=== PATIENT | female | born 1965 | race Caucasian/White ===

== ENCOUNTER 2016-12-20 14:26 | Observation (INO) ==
--- NOTE | 2016-12-20 14:48 | Emergency Department Note ---
Disposition Clinical Impression: Pyelonephritis Disposition: Admitted As Inpatient Condition: Fair Referrals: Ariel Cotto DO [Primary Care Provider] - Forms: Work/School Release, ED Satisfaction Letter Time of Disposition: 18:38 Female Urogenital HPI - General Chief complaint: ED Urogenital-Female Stated complaint: kidney pain, recent UTI Time Seen by Provider: 12/20/16 14:28 Source: patient Mode of arrival: ambulatory Limitations: no limitations Nursing Notes Reviewed: Yes Vital Signs Reviewed: Yes - History of Present Illness HPI Narrative: Patient is a 51 yo female with extensive PMHX. She has hx of "too numerous to count" UTIs since childhood, denies any workup by urology for these. 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 She was diagnosed about a week ago at [facility] with UTI and was prescribed cipro. She has not missed any doses, still taking abx. She presents today due to continued bilateral flank pain, "ureter spasms and bladder spasms" at the end of urination, nausea, and one episode of vomiting, subjective fevers and chills. She admits to mild blood in urine about a week ago but denies any current hematuria, dysuria, urgency, frequency. She is supposed to see Urology next week, has appt set up in [place]. Denies chest pain, shortness of breath, measured fevers at home, change in bowel habits. - Related Data Home Medications Medication Instructions Recorded Confirmed Black Cohosh 20 mg PO DAILY 12/20/16 12/20/16 BuPROPion XL (24 HR) [Wellbutrin 150 mg PO DAILY 12/20/16 12/20/16 XL] Cholecalciferol (D-3) [Vitamin D] 5,000 unit PO DAILY 12/20/16 12/20/16 Ciprofloxacin HCl [Cipro] 500 mg PO BID 12/20/16 12/20/16 Cyclobenzaprine [Flexeril] 10 mg PO TID 12/20/16 12/20/16 Cyclosporine [Restasis] 1 drop OP BID 12/20/16 12/20/16 Duloxetine HCl [Cymbalta] 60 mg PO DAILY 12/20/16 12/20/16 Fluticasone Propionate Nasal 50 mcg NS BID 12/20/16 12/20/16 [Flonase] HYDROcodone/Acet 7.5/325 mg [[place]wood 1 - 2 tab PO Q6H PRN 12/20/16 12/20/16 7.5-325 mg] Hydroxychloroquine [Plaquenuil] 200 mg PO BID 12/20/16 12/20/16 Levothyroxine [Synthroid] 75 mcg PO DAILY 12/20/16 12/20/16 Lubiprostone [Amitiza] 24 mcg PO DAILY 12/20/16 12/20/16 Magnesium 250 mg PO DAILY 12/20/16 12/20/16 Melatonin/Pyridoxine HCl (B6) 10 mg PO HS 12/20/16 12/20/16 [Melatonin 5 mg Tablet] Potassium Chloride [K-Tab ER] 10 meq PO BID 12/20/16 12/20/16 Promethazine [Phenergan] 25 mg PO Q6HR 12/20/16 12/20/16 Quetiapine Fumarate [SEROquel] 100 mg PO HS 12/20/16 12/20/16 Valacyclovir HCl [Valtrex] 1,000 mg PO DAILY 12/20/16 12/20/16 Warfarin [Coumadin] 6 mg PO DAILY 12/20/16 12/20/16 clonazePAM [Klonopin] 2 mg PO QID 12/20/16 12/20/16 rOPINIRole [Requip] 1 mg PO HS 12/20/16 12/20/16 Allergies Allergy/AdvReac Type Severity Reaction Status Date / Time Amoxicillin Allergy See Verified 11/27/16 19:14 Comments clarithromycin [From Biaxin] Allergy See Verified 11/27/16 19:14 Comments Enoxaparin [From Lovenox] Allergy See Verified 11/27/16 19:14 Comments hydrochlorothiazide Allergy See Verified 11/27/16 19:14 Comments levofloxacin [From Levaquin] Allergy Difficulty Verified 11/27/16 19:14 Breathing nafcillin Allergy Seizure Verified 11/27/16 19:14 oxcarbazepine Allergy Anaphylaxis Verified 11/27/16 19:14 [From Trileptal] Penicillins Allergy Seizure Verified 11/27/16 19:14 Sulfa (Sulfonamide Allergy See Verified 11/27/16 19:14 Antibiotics) Comments sumatriptan [From Imitrex] Allergy See Verified 11/27/16 19:14 Comments Terazosin Allergy See Verified 11/27/16 19:14 Comments vancomycin Allergy Seizure Verified 11/27/16 19:14 All systems ED: reviewed and negative except as stated. Constitutional: Reports: fever (subjective), chills Cardiovascular: Denies: chest pain Respiratory: Denies: dyspnea Gastrointestinal: Reports: abdominal pain, nausea, vomiting. Denies: diarrhea, constipation Musculoskeletal: Reports: back pain Neurological: Denies: headache, weakness, numbness, paresthesias Past Medical History - Past Medical History Attestation: Yes The following information was validated with the patient. Source: patient Medical history: Reports: DVT, fibromyalgia, kidney stones, thyroid disease Psychiatric history: Reports: bipolar - Social History Smoking Status: Current every day smoker Alcohol use: Reports: none Drug use: Reports: none Physical Exam - General Limitations: no limitations General appearance: alert, in no apparent distress - Head Head exam: atraumatic, normocephalic, normal inspection - Eye Eye exam: Present: normal appearance, PERRL, EOMI - ENT ENT exam: normal exam, normal oropharynx, mucous membranes moist - Neck Neck exam: Present: normal inspection, full ROM, trachea midline - Chest Chest inspection: Present: normal inspection, symmetric chest wall rise - Respiratory Respiratory exam: Present: normal lung sounds bilaterally - Cardiovascular Cardiovascular exam: Present: regular rate, normal rhythm, normal heart sounds - Abdominal Exam Abdominal exam: Present: soft, tenderness (mild generalized abdominal tenderness , worse in bilateral flanks/bilateral lower quadrants). Absent: distention, guarding, rebound, rigidity - Extremities Exam Extremities exam: Present: normal inspection, full ROM. Absent: tenderness, pedal edema - Back Exam Back exam: Present: normal inspection, full ROM, CVA tenderness (R), CVA tenderness (L). Absent: muscle spasm - Neurological Exam Neurological exam: Present: alert, oriented X3 - Psychiatric Psychiatric exam: Present: normal affect, normal mood - Skin Skin exam: Present: warm, dry, intact, normal color Course Course Narrative: Vitals WNL. Physical exam shows mild generalized abdominal tenderness, worse in bilateral flanks/bilateral lower quadrants. Positive bilateral CVA tenderness. Due to hx of UTI, stones, recent subjective fever and chills and diagnosed UTI (per patient) 1 week ago at outside facility, there is concern for UTI, pyelonephrosis, kidney stones. Will obtain CBC, BMP, UA, urine preg. Will also give patient morphine for pain control and zofran for nausea. 16:08 When patient was reevaluated, as soon as I entered the door she stated that she is upset that she did not receive her usual regimen of Dilaudid and Zofran. Morphine did not help with her pain. Patient given additional 1mg of dilaudid for further pain control. urinalysis shows too numerous to count white blood cell count. Concern for pyelonephritis. We will access the patient 's port to obtain CBC and BMP. We offered transfer to [facility] where she usually receives her care but the patient refused. Patient asked to be admitted here. When asked about if she had preference of a transfer to where she receives care and is supposed to follow with urology, she immediately stated that I was accusing her of pain shopping. This was not the case and she was asked about transfer due to patient preference since she has had multiple admissions in the past in [place]. Patient has a reported allergy to amoxicillin, clarithromycin, Levaquin, penicillin, sulfa, vancomycin. She states that she gets anaphylaxis with all of these medications. She is currently on ciprofloxacin without improvement. Very limited and antibiotic choices at this time. We will give the patient a dose of Rocephin and then admitted to hospitalist. Urine was sent for culture. Vital Signs Temperature 98.3 F 12/20/16 14:28 Pulse Rate 95 12/20/16 14:28 Respiratory Rate 16 12/20/16 14:28 Blood Pressure 129/66 12/20/16 14:28 O2 Sat by Pulse Oximetry 97 12/20/16 14:28 Temperature 98.3 F 12/20/16 14:28 Pulse Rate 78 12/20/16 17:30 Respiratory Rate 16 12/20/16 17:30 Blood Pressure 110/67 12/20/16 17:30 O2 Sat by Pulse Oximetry 98 12/20/16 17:30 Oxygen Delivery Oxygen Delivery Nasal Cannula Urogenital-Female - MDM Narrative Medical decision making narrative: urinalysis shows too numerous to count white blood cell count. Concern for pyelonephritis. We will access the patient's port to obtain CBC and BMP. We offered transfer to [facility] where she usually receives her care but the patient refused. Patient asked to be admitted here. Patient has a reported allergy to amoxicillin, clarithromycin, Levaquin, penicillin, sulfa, vancomycin. She states that she gets anaphylaxis with all of these medications. She is currently on ciprofloxacin without improvement. Very limited and antibiotic choices at this time. We will give the patient a dose of Rocephin and then admitted to hospitalist. Urine was sent for culture. 17:46 hospitalist was paged. I spoke with Dr. Orourke. He has requested that a CT of the abdomen and pelvis without contrast be obtained to assess for any stones prior to acceptance for admission. He stated that the patient could have kidney stones that would require urology consult. This was discussed with the patient and she was agreeable to this plan. 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 We will admit the hospitalist for further care. 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 D/ / Tony Mesa MD / Tony Mesa MD Interpreting Provider: Tony Mesa MD - Medical Records Medical records reviewed: Yes I reviewed the patient's medical records. - Lab Data Lab results reviewed: Yes I reviewed the patient's lab results. Result diagrams: 12/20/16 16:14 12/20/16 16:14 Lab Results 12/20/16 12/20/16 12/20/16 Range/Units 15:17 15:17 16:14 WBC 3.2 L (4.3-11.1) K/mcL RBC 3.62 L (3.82-4.97) M/mcL Hgb 12.0 (11.5-15.4) g/dL Hct 36.9 (35.3-44.9) % MCV 101.9 H (83.0-100.0) fL MCH 33.1 (28.0-33.3) pg MCHC 32.5 (31.6-35.5) g/dL RDW 15.3 H (11.5-14.5) % Plt Count 128 L (140-400) K/mcL MPV 9.8 (9.4-12.4) fL Immature Gran % 0.3 (0-4) % Seg Neutrophils % 54.1 % Lymphocytes % 30.7 % Monocytes % 10.6 % Eosinophils % 3.4 % Basophils % 0.9 % Neutrophils # 1.7 (1.6-8.9) K/mcL Lymphocytes # 1.0 (0.6-4.6) K/mcL Monocytes # 0.3 (0.0-1.3) K/mcL Eosinophils # 0.1 (0.0-0.6) K/mcL Basophils # 0.0 (0.0-0.2) K/mcL Sodium (136-145) mEq/L Potassium (3.5-4.5) mEq/L Chloride (98-109) mEq/L Carbon Dioxide (19-29) mEq/L BUN (7-20) mg/dL Creatinine (0.57-1.11) mg/dL Est GFR ( Amer) (> 60) Est GFR (Non-Af Amer) (> 60) BUN/Creatinine Ratio (6-26) Glucose (70-99) mg/dL Calculated Osmolality (280-300) Calcium (8.6-10.8) mg/dL Urine Color Yellow (Yellow) Urine Clarity Cloudy A (Clear) Urine pH 6.0 (5.0-8.0) pH Units Ur Specific Rice 1.021 (1.010-1.025) Urine Protein Trace (Neg-Trace) mg/dL Urine Glucose (UA) Normal (Normal) mg/dL Urine Ketones Negative (Negative) mg/dL Urine Blood Trace H (Negative) Urine Nitrite Negative (Negative) Urine Bilirubin Negative (Negative) Urine Urobilinogen Normal (Normal) mg/dL Ur Leukocyte Esterase Large H (Negative) Urine Microscopic RBC 5-15 H (0-3) per hpf Urine Microscopic WBC TNTC H (0-3) per hpf Ur Squamous Epith Cells Many H (None-Few) per lpf Urine Bacteria None Seen (None-Few) per hpf Hyaline Casts None Seen (None-Few) per lpf Ur Culture Indicated? YES A (NO) Urine Test Negative (Negative) 12/20/16 Range/Units 16:14 WBC (4.3-11.1) K/mcL RBC (3.82-4.97) M/mcL Hgb (11.5-15.4) g/dL Hct (35.3-44.9) % MCV (83.0-100.0) fL MCH (28.0-33.3) pg MCHC (31.6-35.5) g/dL RDW (11.5-14.5) % Plt Count (140-400) K/mcL MPV (9.4-12.4) fL Immature Gran % (0-4) % Seg Neutrophils % % Lymphocytes % % Monocytes % % Eosinophils % % Basophils % % Neutrophils # (1.6-8.9) K/mcL Lymphocytes # (0.6-4.6) K/mcL Monocytes # (0.0-1.3) K/mcL Eosinophils # (0.0-0.6) K/mcL Basophils # (0.0-0.2) K/mcL Sodium 137 (136-145) mEq/L Potassium 4.0 (3.5-4.5) mEq/L Chloride 107 (98-109) mEq/L Carbon Dioxide 27 (19-29) mEq/L BUN 13 (7-20) mg/dL Creatinine 0.88 (0.57-1.11) mg/dL Est GFR ( Amer) > 60 (> 60) Est GFR (Non-Af Amer) > 60 (> 60) BUN/Creatinine Ratio 15 (6-26) Glucose 76 (70-99) mg/dL Calculated Osmolality 283 (280-300) Calcium 8.4 L (8.6-10.8) mg/dL Urine Color (Yellow) Urine Clarity (Clear) Urine pH (5.0-8.0) pH Units Ur Specific Rice (1.010-1.025) Urine Protein (Neg-Trace) mg/dL Urine Glucose (UA) (Normal) mg/dL Urine Ketones (Negative) mg/dL Urine Blood (Negative) Urine Nitrite (Negative) Urine Bilirubin (Negative) Urine Urobilinogen (Normal) mg/dL Ur Leukocyte Esterase (Negative) Urine Microscopic RBC (0-3) per hpf Urine Microscopic WBC (0-3) per hpf Ur Squamous Epith Cells (None-Few) per lpf Urine Bacteria (None-Few) per hpf Hyaline Casts (None-Few) per lpf Ur Culture Indicated? (NO) Urine Test (Negative) - Radiology Data Radiology results reviewed: Yes I reviewed the patient's radiology results. 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 D/ / Tony Mesa MD / Tony Mesa MD Interpreting Provider: Tony Mesa MD edric - Murtaza Situation: Demographics, MOA Background: Presenting Complaint, Relevant PMH, Meds, & Allergies Assessment: Vital Signs, Course and respsone to treatment, Exam Concerns, Patient/Family Expectation, Pertinant Lab Results, Outstanding Labs Recommendation: Barrier(s) to disposition, Recommendation based on pending studies, treatments, or consults SCedric Report Given to: Dr. Karel Hauser Repor Time: 18:37
[2016-12-20] MEDS ORDERED: *HR* Morphine 2 MG/ML SYRINGE SQ ONE (15:11)
[2016-12-20] MEDS ORDERED: Ondansetron ODT 4 MG TAB.RAPDIS SL ONE (15:11)
[2016-12-20 15:29] LABS: Bilirubin,Urine Negative (Negative); Blood,Urine Trace (Negative); Clarity,Urine Cloudy (Clear); Color,Urine Yellow (Yellow); Glucose,Urine (UA) Normal (Normal); Ketones,Urine Negative (Negative); Leukocyte Esterase,Urine Large (Negative); Nitrite,Urine Negative (Negative); Protein,Urine Trace mg/dL (Neg-Trace); Specific Gravity,Urine 1.021 (1.010-1.025); Urobilinogen,Urine Normal (Normal)
[2016-12-20 15:32] LABS: Bacteria,Urine None Seen per hpf (None-Few); Hyaline Casts,Urine None Seen per lpf (None-Few); Squamous Epithelial Cell,Urine Many per lpf (None-Few); WBC,Urine TNTC per hpf (0-3)
--- NOTE | 2016-12-20 16:05 | Emergency Department Note ---
START Narrative - START START: I examined this patient and my medical decision-making was reviewed with the RADIOLOGIC TECHNOLOGY PROGRAM DIRECTOR/PA/Advanced Practice Nurse/Resident Physician. I agree with the documented findings, disposition and treatment plan as described except to the extent set forth below. ED attending: Patient's emergency medicine resident . Please see copy of this note for H&P evaluation and management and ED disposition. We both had independent [id number] time in contact with this patient. Briefly: A 51-year-old female history of multiple medical problems including medullary spongiform calcinosis, multiple medication allergies presents with dysuria and suprapubic discomfort urinalysis shows too numerous to count WBCs. Patient has a chest port access her vascular system. Patient will be getting parenteral antibiotics of Rocephin urine culture will be new screening labs and admit for pyelonephritis. Admission pending. Patient stable
[2016-12-20] MEDS ORDERED: *HR* HYDROmorphone (PF) 1 MG/ML SYRINGE IVP ONE ×2 (16:07→18:41)
[2016-12-20 16:24] LABS: Basophils % 0.9 %; Eosinophils # 0.1 K/mcL (0.0-0.6); Eosinophils % 3.4 %; Hematocrit 36.9 % (35.3-44.9); Immature Granulocytes % 0.3 % (0-4); Lymphocytes % 30.7 %; Mean Corpuscular HGB Conc 32.5 g/dL (31.6-35.5); Mean Corpuscular Hemoglobin 33.1 pg (28.0-33.3); Mean Corpuscular Volume 101.9 fL (83.0-100.0); Mean Platelet Volume 9.8 fL (9.4-12.4); Monocytes # 0.3 K/mcL (0.0-1.3); Monocytes % 10.6 %; Neutrophils # 1.7 K/mcL (1.6-8.9); Platelet Count 128 K/mcL (140-400); Red Blood Count 3.62 M/mcL (3.82-4.97); Red Cell Distribution Width 15.3 % (11.5-14.5); Segmented Neutrophils % 54.1 %
[2016-12-20 16:35] LABS: BUN/Creatinine Ratio 15 (6-26); Blood Urea Nitrogen 13 mg/dL (7-20); Calcium 8.4 mg/dL (8.6-10.8); Carbon Dioxide 27 mEq/L (19-29); Chloride 107 mEq/L (98-109); Glucose 76 mg/dL (70-99); Osmolality,Calculated 283 (280-300); Sodium 137 mEq/L (136-145); eGFR For African Americans > 60 (> 60); eGFR For Non-African Americans > 60 (> 60)
[2016-12-20] MEDS ORDERED: Ondansetron 4 MG/2 ML VIAL IVP ONE (18:41)
[2016-12-20] MEDS ORDERED: Naloxone 0.4 MG/ML INJ IVP PRN (19:34)
--- NOTE | 2016-12-20 20:12 | Internal Med History&Physical ---
<AbbyjerodamericaSanjeev romo - Last Filed: 12/20/16 21:37> Date of Encounter: 12/20/16 Time of Encounter: 19:00 Assessment and Plan (1) Pyelonephritis Current visit: Yes Status: Acute Patient presents with suspected pyelonephritis based on her current symptomatology of severe bilateral flank pain with associated chills, fever, and nausea. Patient reports she has a long history of UTIs, kidney stones, and kidney infections since the reported age of 5. Patient reports symptoms began approximately 2 weeks ago beginning with left flank pain and hematuria and then the right flank began hurting 1 week ago without hematuria. Patient's current GFR is > 60 and creatinine is 0.88. IV ceftriaxone was started in the ED and will be continued at 1,000 mg Q24. Patient has a long history of allergies to antibiotic medications including amoxicillin, clarithromycin, levofloxacin, nafcillin, penicillin, sulfa antibiotics, and vancomycin. We will obtain patient 's old medical records from [facility] to review past UTI treatments and sensitivities. Urine culture ordered. Will consider adding and/ or changing IV antibiotic therapy based on urine culture results and sensitivities. Patient to be monitored for pain, hematuria, and increasing signs of urosepsis. Monitor I&O. (2) Bilateral flank pain Current visit: Yes Status: Acute Patient presents with severe bilateral flank pain that she reports began with her left flank two weeks ago with hematuria and now involves her right flank. She denies current hematuria. She states that this feels like kidney infections she has had in the past. On examination, patient is extremely uncomfortable. Dilaudid 0.5 mg IVP Q2HR PRN ordered with percocet 5 mg Q4 PRN. Will monitor patient for signs of continued pain and administer medication as needed. IV ceftriaxone started in the ED and will be continued for infection coverage. (3) Abnormal CT of the abdomen Current visit: Yes Status: Acute Patient presents with severe bilateral flank pain that has been occurring for the past two weeks with episodic hematuria. Patient reports that a CT of the abdomen taken at [facility] in the past showed an enlarged blood vessel in her abdomen which she finds concerning. Findings of a CT of the abdomen/pelvis without contrast today in the peritoneum/retroperitoneum shows IVC filter present as well as nodular densities within the retroperitoneal space adjacent to the aorta which appear to represent varices. Consult to vascular surgery ordered and discussed with Dr. Byrnes who will see the patient. Will consider CT angio of the abdomen/pelvis with emphasis on the delayed phase based on his recommendation following review of the patient's medical records obtained from [facility] as well as possible consult to Dr. Hanson from rheumatology. (4) Nausea Current visit: Yes Status: Acute Patient presents with acute nausea related to current symptoms of severe bilateral flank pain due to possible UTI and/or kidney infection. Patient reports one episode of vomiting. IV Zofran PRN ordered. Clear liquid diet to be advanced as tolerated ordered. Monitor I&O and daily weight. (5) Thyroid disease Current visit: Yes Status: Chronic Patient presents with history of chronic thyroid disease. Will continue patient' s levothyroxine. (6) Lupus (systemic lupus erythematosus) Current visit: Yes Status: Chronic Patient presents with lupus. Will continue patient's hydroxychloroquine. Qualifiers: Systemic lupus erythematosus type: unspecified Systemic lupus erythematosus organ involvement: unspecified Qualified Code(s): M32.9 - Systemic lupus erythematosus, unspecified (7) Constipation due to pain medication Current visit: Yes Status: Chronic Patient reports chronic constipation due to pain medication use. Patient reports she typically has one BM per week which would go for a longer period if she did not take her bowel medications. Colace 100 mg BID daily ordered. Miralax 17 gm packet ordered daily PRN. (8) DVT prophylaxis Current visit: Yes Status: Acute Patient to be placed on DVT prophylaxis due to admission protocol, history of DVT, and bed rest status. Patient's warfarin therapy to be continued. Internal Medicine - H&P: HPI Chief complaint: Bilateral flank pain, recent UTI Admitted From: Emergency Dept Plans for Post Hospital Care: Home History of present illness: Mrs. Sandoval is a 51 year old female who presents from the ED with chief complaint of severe bilateral flank pain with spasms. She reports some nausea, fever, chills, and one episode of vomiting. Patient reports having a recent UTI for which she was put in PO Ciprofloxacin. She states that she was taking the Cipro as directed but does not feel it is helping. She reports she's had the flank pain for two weeks and it began in her left flank with gross hematuria and then it also began in her right flank one week ago with no hematuria that she could see. She reports it feels like a kidney infection she has had in the past. Patient reports a long history of UTIs since the age of 5 as well as kidney stones. Mrs. Sandoval also reports chronic constipation due to pain medication use. She denies recent illness, headache, changes in vision, dizziness, pre-syncope or syncope. Patient's medical history includes DVTs, fibromyalgia, renal calculi, thyroid disease, spongiform calcinosis of the kidney, lupus, sjogren's, and factor C & S deficiency. Patient also reports being told she has an enlarged blood vessel in her abdomen when last seen at [facility] in [place], [place]. On examination, patient is experiencing increased pain bilaterally in her back. Patient is at moderate risk for UTI and/or kidney infection based on past history and current symptoms and will be placed as observation status with orders to obtain medical records from [facility], pain management with urine culture ordered, dilaudid 0.5 mg IVP Q2 PRN, percocet 5 mg Q4 PRN for breakthrough pain, continuation of IV ceftriaxone for infection coverage, and supplemental O2 with SpO2 monitoring. Will consider changing and/or adding antibiotic coverage based on [facility] records of previous UTI sensitivities. Patient is currently experiencing nausea and will have orders for clear liquid diet to be advanced as tolerated and IV Zofran PRN for nausea. Follow-up labs ordered. Patient to be monitored closely for pain as well as signs of increasing infection. Time spent with patient > 40 minutes. Past Med Surg Social Fam HX - Past Medical History Source: patient Medical history: DVT, fibromyalgia, kidney stones, thyroid disease, other (Lupus , sjogren's, spongiform calcinosis of the kidney, factor C & S deficiency) Psychiatric history: bipolar - Past Surgical History Surgical History: ureteral stent - Social History Smoking Status: Current every day smoker Packs per day: 1 PPD Alcohol use: none Drug use: none Occupational status: previously employed Current living situation: Home, With Family Activity Level: Independent ambulation Recent Out of Country Travel Within the Last 8 Weeks: No Exposure or Possible Exposure to Illness During Travel: No - Family History Father Race: Family Member Ethnicity: Non- Living Status: Still Living Hx Family Cardiac Disorders: Yes (HTN) Hx Family Endocrine Disorder: Yes (DM) Mother Race: Family Member Ethnicity: Non- Living Status: Age at : 57 Cause of : MS Hx Family Neuromuscular Disorders: Yes (MS) Brother Race: Family Member Ethnicity: Non- Living Status: Still Living Hx Family Medical Disorders: No Sister Race: Family Member Ethnicity: Non- Living Status: Still Living Hx Family Medical Disorders: Yes (C & S deficiency) Internal Medicine - H&P: Meds BuPROPion XL (24 HR) [Wellbutrin XL] 150 mg PO DAILY 12/20/16 [History] Cholecalciferol (D-3) [Vitamin D] 5,000 unit PO DAILY 12/20/16 [History] Ciprofloxacin HCl [Cipro] 500 mg PO BID 12/20/16 [History] Cyclobenzaprine [Flexeril] 10 mg PO TID 12/20/16 [History] Cyclosporine [Restasis] 1 drop OP BID 12/20/16 [History] Duloxetine HCl [Cymbalta] 60 mg PO DAILY 12/20/16 [History] Fluticasone Propionate Nasal [Flonase] 50 mcg NS BID 12/20/16 [History] HYDROcodone/Acet 7.5/325 mg [[place] 7.5-325 mg] 1 - 2 tab PO Q6H PRN 12/20/16 [ History] Hydroxychloroquine [Plaquenuil] 200 mg PO BID 12/20/16 [History] Levothyroxine [Synthroid] 75 mcg PO DAILY 12/20/16 [History] Lubiprostone [Amitiza] 24 mcg PO DAILY 12/20/16 [History] Melatonin/Pyridoxine HCl (B6) [Melatonin 5 mg Tablet] 10 mg PO HS 12/20/16 [ History] Potassium Chloride [K-Tab ER] 10 meq PO BID 12/20/16 [History] Promethazine [Phenergan] 25 mg PO Q6HR PRN 12/20/16 [History] Quetiapine Fumarate [SEROquel] 100 mg PO HS 12/20/16 [History] RX: Black Cohosh 20 mg PO DAILY 12/20/16 [History] RX: Magnesium 250 mg PO DAILY 12/20/16 [History] Valacyclovir HCl [Valtrex] 1,000 mg PO DAILY 12/20/16 [History] Warfarin [Coumadin] 6 mg PO DAILY 12/20/16 [History] clonazePAM [Klonopin] 2 mg PO BID 12/20/16 [History] clonazePAM [Klonopin] 4 mg PO HS 12/20/16 [History] rOPINIRole [Requip] 1 mg PO HS 12/20/16 [History] Allergies Amoxicillin Allergy (Verified 11/27/16 19:14) See Comments clarithromycin [From Biaxin] Allergy (Verified 11/27/16 19:14) See Comments Enoxaparin [From Lovenox] Allergy (Verified 11/27/16 19:14) See Comments hydrochlorothiazide Allergy (Verified 11/27/16 19:14) See Comments levofloxacin [From Levaquin] Allergy (Verified 11/27/16 19:14) Difficulty Breathing nafcillin Allergy (Verified 11/27/16 19:14) Seizure oxcarbazepine [From Trileptal] Allergy (Verified 11/27/16 19:14) Anaphylaxis Penicillins Allergy (Verified 11/27/16 19:14) Seizure Sulfa (Sulfonamide Antibiotics) Allergy (Verified 11/27/16 19:14) See Comments sumatriptan [From Imitrex] Allergy (Verified 11/27/16 19:14) See Comments Terazosin Allergy (Verified 11/27/16 19:14) See Comments vancomycin Allergy (Verified 11/27/16 19:14) Seizure topiramate [From Topamax] Adverse Reaction (Verified 12/20/16 20:01) Confusion All Systems PM: A 10-system review of systems was performed and is negative for pertinent findings except as documented above in the HPI. - Constitutional Constitutional: as per HPI, chills, fever(s), weakness, no night sweats - EENT Eyes: no change in vision, no discharge, no pain, no photophobia Ears: no ear discharge, no ear pain, no tinnitus Nose, mouth and throat: no dysphagia, no nasal discharge, no neck pain, no sore throat - Breasts Breasts: as per HPI - Cardiovascular Cardiovascular ROS IM: no chest pain, no diaphoresis, no dyspnea, no lightheadedness, no palpitations, no syncope - Respiratory Respiratory: no cough, no dyspnea, no wheezing, no excessive phlegm production - Gastrointestinal Gastrointestinal: as per HPI, abdominal pain, nausea, vomiting - Genitourinary Genitourinary: as per HPI, dysuria, flank pain (Bilateral), no change in urinary stream, no hematuria Menstruation: as per HPI - Musculoskeletal Musculoskeletal ROS IM: no numbness, no tingling - Integumentary Integumentary IM: no rash, no unusual bruising - Neurological Neurological ROS: no confusion, no convulsions, no focal weakness, no numbness, no tingling, no tremor(s) - Psychiatric Psychiatric: as per HPI - Endocrine Endocrine IM: as per HPI - Hematologic/Lymphatic Hematologic/Lymphatic: no easy bruising - Allergic/Immunologic Allergic/Immunologic: as per HPI - Constitutional Vitals: Temp Pulse Resp BP Pulse Ox 97.6 F 85 16 131/75 94 12/20/16 19:49 12/20/16 19:49 12/20/16 19:49 12/20/16 19:49 12/20/16 19:49 General appearance: Present: cooperative, A&O X 3, obese, severe distress, answers questions appropriately - Head Head exam: Present: atraumatic, normocephalic - Eye Eye exam: Present: PERRL, conjuntiva pink, sclera anicteric Pupils: Present: PERRL - ENT ENT exam: Present: normal exam, normal external ear exam - Neck Neck exam general surgery: Present: supple, trachea midline. Absent: lymphadenopathy - Respiratory Respiratory exam: Present: CTAB. Absent: accessory muscle use, rales, rhonchi, wheezes - Cardiovascular Cardiovascular exam: Present: RRR, +S1, +S2. Absent: diastolic murmur, gallop, rubs, systolic murmur - GI/Abdominal GI/Abdominal exam: Present: soft, tenderness - Rectal Rectal exam: Present: deferred - Additional comments: exam deferred. - Extremities Exam Extremities exam: Present: warm, radial pulses palpable and symetrical. Absent : calf tenderness, cyanotic, pedal edema - Back Exam Back exam: Present: CVA tenderness (L), CVA tenderness (R) - Neurological Exam Neurological exam: Present: CN II-XII intact, oriented X3, no focal deficits. 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 D/ / Tony Mesa MD / Tony Mesa MD Interpreting Provider: Tony Mesa MD <KarelAnnika E - Last Filed: 12/20/16 22:10> Date of Encounter: 12/20/16 Internal Medicine - H&P: HPI History of present illness: Ms. Sandoval is a 51 year old female All Systems PM: A 10-system review of systems was performed and is negative for pertinent findings except as documented above in the HPI. - Constitutional Vitals: Temp Pulse Resp BP Pulse Ox 97.6 F 85 16 131/75 94 12/20/16 19:49 12/20/16 19:49 12/20/16 19:49 12/20/16 19:49 12/20/16 19:49 Internal Med - H&P Results - Labs CBC & Chem 7: 12/20/16 16:14 12/20/16 16:14 - Attending Attestation Patient seen and examined, agree with assessment and plan of Sanjeev May NP. Patient with bilateral flank pain, UTI and concern for pyelonephritis. Has history of recurrent pyelo, currently on cipro outpatient with continued symptoms. 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 Adding LFTs to look for liver disease as etiology of varices. Will obtain records from [place] and [place]. Also patient with recurrent DVTs (states most recently diagnosed with one 6 weeks ago ) and she states to me that she has history of thrombocytopenia when given lovenox but not when given heparin. She has IVC filter in place and INR is 1.5 on coumadin. 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
[2016-12-20 20:57] LABS: Albumin 3.2 g/dL (3.5-5.0); Albumin/Globulin Ratio 0.9 (1.1-2.2); Bilirubin,Direct 0.1 mg/dL (0.0-0.5); Bilirubin,Indirect 0.2 mg/dL (0.0-1.2); Bilirubin,Total 0.3 mg/dL (0.2-1.2); Globulin 3.7 g/dL (2.4-3.5); Total Protein 6.9 g/dL (6.0-8.3)
[2016-12-20] MEDS: rOPINIRole 1 MG TABLET PO SCH (22:03)
[2016-12-20] MEDS: Melatonin 3 MG TABLET PO SCH (22:04)
[2016-12-20] MEDS: (Cyclosporine [Restasis] 1 DROP) OP SCH (22:04)
[2016-12-20] MEDS: clonazePAM 1 MG TABLET PO SCH (22:04)
[2016-12-21] MEDS: *HR* HYDROmorphone (PF) 1 MG/ML SYRINGE IVP PRN ×7 (00:36→21:46)
[2016-12-21] MEDS: Ondansetron 4 MG/2 ML VIAL IVP PRN ×2 (00:39→09:25)
[2016-12-21 05:09] LABS: Basophils % 0.8 %; Eosinophils # 0.1 K/mcL (0.0-0.6); Eosinophils % 5.1 %; Hematocrit 34.2 % (35.3-44.9); Hemoglobin 11.2 g/dL (11.5-15.4); Lymphocytes % 38.8 %; Mean Corpuscular HGB Conc 32.7 g/dL (31.6-35.5); Mean Corpuscular Hemoglobin 33.8 pg (28.0-33.3); Mean Corpuscular Volume 103.3 fL (83.0-100.0); Monocytes # 0.2 K/mcL (0.0-1.3); Monocytes % 9.4 %; Neutrophils # 1.2 K/mcL (1.6-8.9); Platelet Count 131 K/mcL (140-400); Red Blood Count 3.31 M/mcL (3.82-4.97); Red Cell Distribution Width 15.4 % (11.5-14.5); Segmented Neutrophils % 45.9 %
[2016-12-21 05:14] LABS: INR 3.1; Prothrombin Time 34.1 Seconds (9.4-12.1)
[2016-12-21 05:17] LABS: Activated Partial Thrombo Time 53.6 Seconds (26.0-36.0)
[2016-12-21 05:34] LABS: BUN/Creatinine Ratio 13 (6-26); Blood Urea Nitrogen 11 mg/dL (7-20); Calcium 8.2 mg/dL (8.6-10.8); Carbon Dioxide 27 mEq/L (19-29); Chloride 105 mEq/L (98-109); Glucose 79 mg/dL (70-99); Osmolality,Calculated 282 (280-300); Potassium 3.9 mEq/L (3.5-4.5); Sodium 137 mEq/L (136-145); eGFR For African Americans > 60 (> 60); eGFR For Non-African Americans > 60 (> 60)
[2016-12-21] MEDS: Cholecalciferol (D-3) 1,000 UNIT TABLET PO SCH (07:39)
[2016-12-21] MEDS: BuPROPion XL (24 HR) 150 MG TABLET PO SCH (07:39)
[2016-12-21] MEDS: Magnesium Oxide 400 MG TABLET PO SCH (07:39)
[2016-12-21] MEDS: valACYclovir 500 MG TABLET PO SCH (07:39)
[2016-12-21] MEDS: clonazePAM 1 MG TABLET PO SCH ×4 (07:40→20:17)
[2016-12-21] MEDS: (Lubiprostone [Amitiza] 24 MCG) PO SCH (07:51)
[2016-12-21] MEDS: (Cyclosporine [Restasis] 1 DROP) OP SCH ×2 (07:51→20:19)
--- NOTE | 2016-12-21 08:51 | Vascular/Endovasc Consult Note ---
Date of Encounter: 12/21/16 Time of Encounter: 08:48 Assessment and Plan (1) Bilateral flank pain Current Visit: Yes Status: Acute Patient has flank pain with no obvious etiology at this time. This issue is presently being worked up from a medical perspective. (2) Abnormal CT of the abdomen Current Visit: Yes Status: Acute Patient had an abnormal CT scan performed at [place]. She was recommended to undergo a biopsy because there was concern that the areas represented lymphadenopathy. She was then told that the interpretation was revised and that it was thought that this was due to enlarged retroperitoneal veins and that the biopsy was canceled. The patient does not believe she has had a CT scan with contrast to further evaluate her abdominal and pelvic area. She does note that she is status post a abdominal hysterectomy and nephrectomy. She relates that she was told that the organs were engorged with blood at the time that they were surgically removed. She has no other specific information regarding any vascular pathology of the abdomen or pelvis. Due to these symptoms and what appears to be an unclear diagnosis I would recommend that a CT angiogram of the abdomen and pelvis with emphasis on the venous phase be obtained to further aid in her diagnostic evaluation.. I do not anticipate any vascular surgery intervention. I will sign off the case for now. Please let me know quite be of any further assistance. (3) Lupus (systemic lupus erythematosus) Current Visit: Yes Status: Chronic Agree with patient seeking rheumatologic evaluation and care. I've also suggested that she have consultation here at [place] if she does not want to wait for consultation at [place]. Qualifiers: Systemic lupus erythematosus type: unspecified Systemic lupus erythematosus organ involvement: unspecified Qualified Code(s): M32.9 - Systemic lupus erythematosus, unspecified (4) Neutropenia Current Visit: Yes Status: Chronic Patient has neutropenia and apparently this has been present for at least 2 years. It is unclear what workup has been performed or if she has had a bone marrow for this concern. Qualifiers: Neutropenia type: unspecified Qualified Code(s): D70.9 - Neutropenia, unspecified - History of Present Illness Consult date: 12/21/16 Consult reason: Abnormal CT scan and history of coagulopathy Chief complaint: Abdominal pain History of present illness: Ms. Sandoval is a 51 year old female Who was admitted via the emergency room yesterday. The patient has a variety of complaints including bilateral flank pain. There was concern raised about possible pyelonephritis. A CT scan without contrast was obtained yesterday. This demonstrated areas in the retroperitoneum that were suggestive of possible varicosities. The patient has no knowledge of previous diagnosis of varicosities in the retroperitoneum. She denies any history of cirrhosis or hepatitis or Budd-Chiari syndrome. She does have a variety of coagulopathic processes and autoimmune processes. She has a two-year history of neutropenia as well as sees a billing machine operator at [facility] in [place]. She is scheduled to see a ocular care aide in [place] at [facility] in the near future. She has had multiple lower extremity DVTs. She has had one episode of pulmonary embolism. She had an IVC filter placed. She has no complaints consistent with intra-abdominal bleeding. She does note that about 2 weeks ago she developed discoloration on her left lateral thigh with no antecedent history of trauma. Past Med Surg Social Fam HX - Past Medical History Medical history: DVT, fibromyalgia, kidney stones, pulmonary embolus, thyroid disease, other (Lupus, sjogren's, spongiform calcinosis of the kidney, factor C & S deficiency) Psychiatric history: bipolar - Past Surgical History Surgical History: ureteral stent, IVC filter - Social History Smoking Status: Current every day smoker Packs per day: 1 PPD Smokeless Tobacco Status: No Alcohol use: none Drug use: none - Family History Father Race: Family Member Ethnicity: Non- Living Status: Still Living Hx Family Cardiac Disorders: Yes (HTN) Hx Family Endocrine Disorder: Yes (DM) Mother Race: Family Member Ethnicity: Non- Living Status: Age at : 57 Cause of : MS Hx Family Neuromuscular Disorders: Yes (MS) Brother Race: Family Member Ethnicity: Non- Living Status: Still Living Hx Family Medical Disorders: No Sister Race: Family Member Ethnicity: Non- Living Status: Still Living Hx Family Medical Disorders: Yes (C & S deficiency) Medications and Allergies Black Cohosh 20 mg PO DAILY 12/20/16 [History] BuPROPion XL (24 HR) [Wellbutrin XL] 150 mg PO DAILY 12/20/16 [History] Cholecalciferol (D-3) [Vitamin D] 5,000 unit PO DAILY 12/20/16 [History] Ciprofloxacin HCl [Cipro] 500 mg PO BID 12/20/16 [History] Cyclobenzaprine [Flexeril] 10 mg PO TID 12/20/16 [History] Cyclosporine [Restasis] 1 drop OP BID 12/20/16 [History] Duloxetine HCl [Cymbalta] 60 mg PO DAILY 12/20/16 [History] Fluticasone Propionate Nasal [Flonase] 50 mcg NS BID 12/20/16 [History] HYDROcodone/Acet 7.5/325 mg [[place] 7.5-325 mg] 1 - 2 tab PO Q6H PRN 12/20/16 [ History] Hydroxychloroquine [Plaquenuil] 200 mg PO BID 12/20/16 [History] Levothyroxine [Synthroid] 75 mcg PO DAILY 12/20/16 [History] Lubiprostone [Amitiza] 24 mcg PO DAILY 12/20/16 [History] Magnesium 250 mg PO DAILY 12/20/16 [History] Melatonin/Pyridoxine HCl (B6) [Melatonin 5 mg Tablet] 10 mg PO HS 12/20/16 [ History] Potassium Chloride [K-Tab ER] 10 meq PO BID 12/20/16 [History] Promethazine [Phenergan] 25 mg PO Q6HR PRN 12/20/16 [History] Quetiapine Fumarate [SEROquel] 100 mg PO HS 12/20/16 [History] Valacyclovir HCl [Valtrex] 1,000 mg PO DAILY 12/20/16 [History] Warfarin [Coumadin] 6 mg PO DAILY 12/20/16 [History] clonazePAM [Klonopin] 2 mg PO BID 12/20/16 [History] clonazePAM [Klonopin] 4 mg PO HS 12/20/16 [History] rOPINIRole [Requip] 1 mg PO HS 12/20/16 [History] Allergies Amoxicillin Allergy (Verified 11/27/16 19:14) See Comments clarithromycin [From Biaxin] Allergy (Verified 11/27/16 19:14) See Comments Enoxaparin [From Lovenox] Allergy (Verified 11/27/16 19:14) See Comments hydrochlorothiazide Allergy (Verified 11/27/16 19:14) See Comments levofloxacin [From Levaquin] Allergy (Verified 11/27/16 19:14) Difficulty Breathing nafcillin Allergy (Verified 11/27/16 19:14) Seizure oxcarbazepine [From Trileptal] Allergy (Verified 11/27/16 19:14) Anaphylaxis Penicillins Allergy (Verified 11/27/16 19:14) Seizure Sulfa (Sulfonamide Antibiotics) Allergy (Verified 11/27/16 19:14) See Comments sumatriptan [From Imitrex] Allergy (Verified 11/27/16 19:14) See Comments Terazosin Allergy (Verified 11/27/16 19:14) See Comments vancomycin Allergy (Verified 11/27/16 19:14) Seizure topiramate [From Topamax] Adverse Reaction (Verified 12/20/16 20:01) Confusion All Systems Review: A 10-system review of systems was performed and is negative for pertinent findings except as documented above in the HPI. Exam Vital Signs, Last 4 Hours Temp Pulse Resp BP Pulse Ox 12/21/16 07:58 98.3 F 78 16 121/80 91 Exam: Patient is awake and alert. She is lying in bed on IIIB. Vital signs are reviewed. I was unable to perform a physical examination at the time of my visit with the patient. Consult Discharge Plan - Plan Referrals: Ariel Cotto DO [Primary Care Provider] -
--- NOTE | 2016-12-21 10:17 | Internal Med Progress Note ---
Date of Encounter: 12/21/16 Time of Encounter: 08:25 - Assessment and plan (1) Pyelonephritis Current Visit: Yes Status: Acute Assessment and plan: Patient admitted for pyelonephritis. Urine has trace of blood, large leukocyte esterase, 5-15 red cells, white cells too numerous to count, no bacteria. Culture is pending. Patient has a long history of UTIs, renal calculi, pyelonephritis since age 5. She states that she was seen and no blurriness last week for the same symptoms, she was given IV Dilaudid, prescription for Cipro, and discharged to home. She said she did not get any better. I am attempting to get medical records from a blood gas to review for past UTI treatments and sensitivities. Continue Rocephin 1 g every 24 hours Continue pain management Continue IV fluids Culture is pending Attempting to get past medical records from outlying hospital. (2) Bilateral flank pain Current Visit: Yes Status: Acute Assessment and plan: Left flank pain onset 2 weeks ago with hematuria, now thrombosed right flank. Plan as above (3) Thyroid disease Current Visit: Yes Status: Chronic Assessment and plan: Continue levothyroxine. (4) Constipation due to pain medication Current Visit: Yes Status: Chronic Assessment and plan: Chronic due to opioid use. Colace, miralax, (5) Nausea Current Visit: Yes Status: Acute Assessment and plan: Pt with nausea related to pyleonephritis and flank pain. Pt reports nausea this a.m. Continue anti-emtics Clear liquids if tolerated IVF hydration. (6) Abnormal CT of the abdomen Current Visit: Yes Status: Acute Assessment and plan: Patient reports a lengthy history of abnormal CT the abdomen that was done at [facility] . Initially it was concerning for an enlarged lymph node and she was referred to [place]. While she was on her way to [place] for evaluation, she was told that the test was canceled and that was actually a vessel within aneurysm. Follow-up for that was pending at her primary care physician. Vascular surgery was consulted to see patient here. She was seen this morning and it was recommended that she have a CT angiogram with emphasis on the venous phase to further evaluate her abdomen. He does not anticipate any surgical intervention at this time. Vascular surgery has signed off. Follow-up outpatient with primary care for further evaluation. (7) Lupus (systemic lupus erythematosus) Current Visit: Yes Status: Chronic Assessment and plan: Chronic. Patient states that she is going to follow-up with rheumatology at [facility]. Qualifiers: Systemic lupus erythematosus type: unspecified Systemic lupus erythematosus organ involvement: unspecified Qualified Code(s): M32.9 - Systemic lupus erythematosus, unspecified (8) Neutropenia Current Visit: Yes Status: Chronic Assessment and plan: Chronic. Patient has been following hematology oncology at [facility] Patient is on neutropenic precautions. We will continue to monitor while she is inpatient. Follow-up with primary hematology oncology. Qualifiers: Neutropenia type: unspecified Qualified Code(s): D70.9 - Neutropenia, unspecified (9) DVT prophylaxis Current Visit: Yes Status: Acute Assessment and plan: Patient is on Coumadin. Monitor INR. Therapeutic at 3.1. He has history of multiple PEs, DVT, has IVC filter. - Time Spent With Patient less than 15 minutes - Subjective Interval history: Pt was seen and assessed at [address] Byrnes was also present for his consultation. Pt appears to be frustrated with multiple providers and the course of her care to this point. She normally follows hematology/oncology at [facility], however, she feels as if they are ignoring her and not explaining her coagulopathies and her neutropenia. She also verbalizes frustration over the changing diagnoses involving the multiple abdominal CTs that she has had. Dr. Byrnes recommends a CT with contrast since she has not had one, and no immediate intervention is needed. Pt has an area of bruising to L lateral thigh and is unaware of how it happened and denies known injury, states that she noticed it about 2 weeks ago. Pt states that she was at [facility] about a week ago for abdominal pain and flank pain and "they didn't do anything." After discussing her course of care, she states that she was given IV Dilaudid and a prescription for Cipro and was discharged. Pt also states that she was here in late October for a "second opinion " of what she believed to be a misdiagnosis by [facility] She had a CT pelvis w /o contrast and was found to have a R hip contusion, without fracture. She was referred back to her primary care provider for further testing, possible MRI, and continued pain managment. She is scheduled to see rheumatology at [facility] in the near future. Pt appears to be slightly depressed and repeats several times that she just wants to be treated fairly and that none of the physicians she has seen pay attention to her and don't care for her, even eluding to the fact that she feels that she doesn't get standard care due to her insurance. Pt states that she cares for her 9 year old grandson, daughter is not in the picture. I asked if she would like to see psychiatry since she appears to be depressed, she states that she already sees a counselor. We will continue to monitor labs and provide pain control. She will need to follow up outpatient for her other chronic problems . - Constitutional Vitals: Temp Pulse Resp BP Pulse Ox 98.3 F 78 16 121/80 91 12/21/16 07:58 12/21/16 07:58 12/21/16 07:58 12/21/16 07:58 12/21/16 07:58 General appearance: Present: cooperative, A&O X 3, obese, severe distress, answers questions appropriately - Head Head exam: Present: normal inspection - Eye Eye exam: Present: normal appearance, conjuntiva pink - ENT ENT exam: Present: mucous membranes moist, normal exam, normal external ear exam - Neck Neck exam general surgery: Present: normal inspection. Absent: lymphadenopathy , tenderness - Respiratory Respiratory exam: Present: CTAB. Absent: rales, respiratory distress, rhonchi, stridor, wheezes - Cardiovascular Cardiovascular exam: Present: RRR, +S1, +S2. Absent: diastolic murmur, systolic murmur - GI/Abdominal GI/Abdominal exam: Present: normal bowel sounds, tenderness. Absent: distended , hepatomegaly - Extremities Exam Extremities exam: Present: warm, radial pulses palpable and symetrical. Absent : pedal edema, tenderness - Neurological Exam Neurological exam: Present: alert, oriented X3, strengths equal and symetr throughout. Absent: facial droop, speech deficit - Psychiatric Psychiatric exam: Present: flat affect - Skin Skin exam: Present: dry, intact, normal color, warm. Absent: rash Internal Medicine: Result - Labs CBC & Chem 7: 12/21/16 04:11 12/21/16 04:11 Labs: Short CBC 12/21/16 Range/Units 04:11 WBC 2.6 L (4.3-11.1) K/mcL Hgb 11.2 L (11.5-15.4) g/dL Hct 34.2 L (35.3-44.9) % Plt Count 131 L (140-400) K/mcL Neutrophils # 1.2 L (1.6-8.9) K/mcL BMP 12/21/16 04:11 Sodium 137 Potassium 3.9 Chloride 105 Carbon Dioxide 27 BUN 11 Creatinine 0.85 Glucose 79 Calcium 8.2 L - ABG Interpretation ABG results: PT/INR, D-dimer PT 34.1 Seconds (9.4-12.1) H 12/21/16 04:11 Consult Discharge Plan - Plan Referrals: Ariel Cotto DO [Primary Care Provider] -
[2016-12-21] MEDS ORDERED: *HR* HYDROmorphone (PF) 1 MG/ML SYRINGE IVP ONE (15:34)
[2016-12-21] MEDS ORDERED: *HR* Warfarin 3 MG TABLET PO SCH (18:00)
[2016-12-21] MEDS: Melatonin 3 MG TABLET PO SCH (20:17)
[2016-12-21] MEDS: rOPINIRole 1 MG TABLET PO SCH (20:17)
[2016-12-21] MEDS: *HR* OxyCODONE/APAP 5/325 TABLET PO PRN (20:18)
[2016-12-21] MEDS ORDERED: Fluconazole 100 MG TABLET PO ONE (20:44)
[2016-12-22] MEDS: *HR* HYDROmorphone (PF) 1 MG/ML SYRINGE IVP PRN ×3 (01:46→10:25)
[2016-12-22] MEDS: *HR* OxyCODONE/APAP 5/325 TABLET PO PRN ×3 (03:20→13:17)
[2016-12-22 03:46] LABS: Basophils % 0.8 %; Eosinophils # 0.1 K/mcL (0.0-0.6); Eosinophils % 3.4 %; Hematocrit 34.1 % (35.3-44.9); Immature Granulocytes % 0.4 % (0-4); Lymphocytes # 0.9 K/mcL (0.6-4.6); Lymphocytes % 33.2 %; Mean Corpuscular HGB Conc 32.3 g/dL (31.6-35.5); Mean Corpuscular Hemoglobin 33.6 pg (28.0-33.3); Mean Corpuscular Volume 104.3 fL (83.0-100.0); Mean Platelet Volume 10.1 fL (9.4-12.4); Monocytes # 0.3 K/mcL (0.0-1.3); Monocytes % 11.5 %; Neutrophils # 1.3 K/mcL (1.6-8.9); Platelet Count 122 K/mcL (140-400); Red Blood Count 3.27 M/mcL (3.82-4.97); Red Cell Distribution Width 15.3 % (11.5-14.5); Segmented Neutrophils % 50.7 %
[2016-12-22 04:01] LABS: BUN/Creatinine Ratio 18 (6-26); Blood Urea Nitrogen 16 mg/dL (7-20); Calcium 8.4 mg/dL (8.6-10.8); Carbon Dioxide 27 mEq/L (19-29); Chloride 103 mEq/L (98-109); Glucose 114 mg/dL (70-99); Osmolality,Calculated 282 (280-300); Potassium 4.2 mEq/L (3.5-4.5); Sodium 135 mEq/L (136-145); eGFR For African Americans > 60 (> 60); eGFR For Non-African Americans > 60 (> 60)
[2016-12-22] MEDS: valACYclovir 500 MG TABLET PO SCH (08:54)
[2016-12-22] MEDS: BuPROPion XL (24 HR) 150 MG TABLET PO SCH (08:55)
[2016-12-22] MEDS: (Lubiprostone [Amitiza] 24 MCG) PO SCH (08:55)
[2016-12-22] MEDS: Magnesium Oxide 400 MG TABLET PO SCH (08:55)
[2016-12-22] MEDS: (Cyclosporine [Restasis] 1 DROP) OP SCH (08:55)
[2016-12-22] MEDS: Cholecalciferol (D-3) 1,000 UNIT TABLET PO SCH (08:55)
[2016-12-22] MEDS: clonazePAM 1 MG TABLET PO SCH (08:55)
[2016-12-22 11:34] VITALS: BP 103/67
[2016-12-22 12:59] LABS: INR 4.2
[2016-12-22 13:04] LABS: Prothrombin Time 47.9 Seconds (9.4-12.1)
--- NOTE | 2016-12-22 15:56 | Discharge Summary ---
<Ariel Poe - Last Filed: 12/22/16 15:53> Date of Encounter: 12/22/16 Time of Encounter: 08:35 - Discharge Diagnosis (1) Pyelonephritis Priority: Primary Status: Acute Comments: The patient was evaluated and treated for pyelonephritis. 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 -The patient has been evaluated by urology previously -The patient has been treated with IV Rocephin however she did not finish her treatment because she left AMA, she says that ciprofloxacin as an outpatient generally does not work. -The patient should follow-up with her primary care provider. (2) Bilateral flank pain Priority: Secondary Status: Acute Comments: The patient was given Flexeril, Percocet, Dilaudid when necessary. She says that the pain is still extreme. She says that the pain medications were giving her not helping her She has asked repeatedly for increased dosing of Dilaudid She denies any urinary pain (3) Nausea Priority: Secondary Status: Resolved Comments: Resolved (4) Abnormal CT of the abdomen Priority: Secondary Status: Acute Comments: Medullary nephrocalcinosis without evidence of an obstructive uropathy at this time Vascular surgery has been consulted regarding previous vascular abnormalities and a previous exam. No surgical intervention is recommended at this time. (5) Lupus (systemic lupus erythematosus) Priority: Secondary Status: Chronic Comments: The patient has followed with [place] rheumatology We recommend that the patient maintain this follow-up. Qualifiers: Systemic lupus erythematosus type: unspecified Systemic lupus erythematosus organ involvement: unspecified Qualified Code(s): M32.9 - Systemic lupus erythematosus, unspecified (6) Neutropenia Priority: Secondary Status: Chronic Comments: This is a chronic issue for this patient. She has followed with heme/onc at [facility] previously Patient was maintained on neutropenic protocols Qualifiers: Neutropenia type: unspecified Qualified Code(s): D70.9 - Neutropenia, unspecified - Discharge Medications Home Medications: Black Cohosh 20 mg PO DAILY 12/20/16 [History] BuPROPion XL (24 HR) [Wellbutrin XL] 150 mg PO DAILY 12/20/16 [History] Cholecalciferol (D-3) [Vitamin D] 5,000 unit PO DAILY 12/20/16 [History] Ciprofloxacin HCl [Cipro] 500 mg PO BID 12/20/16 [History] Cyclobenzaprine [Flexeril] 10 mg PO TID 12/20/16 [History] Cyclosporine [Restasis] 1 drop OP BID 12/20/16 [History] Duloxetine HCl [Cymbalta] 60 mg PO DAILY 12/20/16 [History] Fluticasone Propionate Nasal [Flonase] 50 mcg NS BID 12/20/16 [History] HYDROcodone/Acet 7.5/325 mg [[place] 7.5-325 mg] 1 - 2 tab PO Q6H PRN 12/20/16 [ History] Hydroxychloroquine [Plaquenuil] 200 mg PO BID 12/20/16 [History] Levothyroxine [Synthroid] 75 mcg PO DAILY 12/20/16 [History] Lubiprostone [Amitiza] 24 mcg PO DAILY 12/20/16 [History] Magnesium 250 mg PO DAILY 12/20/16 [History] Melatonin/Pyridoxine HCl (B6) [Melatonin 5 mg Tablet] 10 mg PO HS 12/20/16 [ History] Potassium Chloride [K-Tab ER] 10 meq PO BID 12/20/16 [History] Promethazine [Phenergan] 25 mg PO Q6HR PRN 12/20/16 [History] Quetiapine Fumarate [SEROquel] 100 mg PO HS 12/20/16 [History] Valacyclovir HCl [Valtrex] 1,000 mg PO DAILY 12/20/16 [History] Warfarin [Coumadin] 6 mg PO DAILY 12/20/16 [History] clonazePAM [Klonopin] 2 mg PO BID 12/20/16 [History] clonazePAM [Klonopin] 4 mg PO HS 12/20/16 [History] rOPINIRole [Requip] 1 mg PO HS 12/20/16 [History] Allergies/Adverse Reactions: Allergies Amoxicillin Allergy (Verified 11/27/16 19:14) See Comments clarithromycin [From Biaxin] Allergy (Verified 11/27/16 19:14) See Comments Enoxaparin [From Lovenox] Allergy (Verified 11/27/16 19:14) See Comments hydrochlorothiazide Allergy (Verified 11/27/16 19:14) See Comments levofloxacin [From Levaquin] Allergy (Verified 11/27/16 19:14) Difficulty Breathing nafcillin Allergy (Verified 11/27/16 19:14) Seizure oxcarbazepine [From Trileptal] Allergy (Verified 11/27/16 19:14) Anaphylaxis Penicillins Allergy (Verified 11/27/16 19:14) Seizure Sulfa (Sulfonamide Antibiotics) Allergy (Verified 11/27/16 19:14) See Comments sumatriptan [From Imitrex] Allergy (Verified 11/27/16 19:14) See Comments Terazosin Allergy (Verified 11/27/16 19:14) See Comments vancomycin Allergy (Verified 11/27/16 19:14) Seizure topiramate [From Topamax] Adverse Reaction (Verified 12/20/16 20:01) Confusion Date of admission: 12/20/16 19:05 Primary care physician: Ariel Cotto Consults: 12/20/16 20:42 Consult to Vascular Surgery [CONS] Routine Consulting Provider: Vascular Surgery [facility] Reason for Consult: Patient currently has severe bilateral flank pain and abdominal tenderness.CT scan shows nodular densities within the retroperitoneal space adjacent to the aorta which appear to represent varices. Call Completed: Yes Discharging clinician: Jozef Shaffer Anticipated date of discharge: 12/22/16 (Patient left AMA) - Patient Status Disposition: Left Against Medical Advice Condition: Fair - Discharge Instructions Follow Up With: Ariel Cotto DO [Primary Care Provider] - - Diet and Activity Activity: resume usual activities as tolerated Diet: advance to your usual diet Hospital course: Mrs. Sandoval is a 51 year old female who presented from the ED with chief complaint of severe bilateral flank pain with spasms. She reports some nausea, fever, chills, and one episode of vomiting. Patient reports having a recent UTI for which she was put in PO Ciprofloxacin. She states that she was taking the Cipro as directed but does not feel it is helping. She reports she's had the flank pain for two weeks and it began in her left flank with gross hematuria and then it also began in her right flank one week ago with no hematuria that she could see. She reports it feels like a kidney infection she has had in the past. Patient reports a long history of UTIs since the age of 5 as well as kidney stones. Mrs. Sandoval also reports chronic constipation due to pain medication use. Patient's medical history includes DVTs, fibromyalgia, renal calculi, thyroid disease, spongiform calcinosis of the kidney, lupus, sjogren's , and factor C & S deficiency. Patient also reports being told she has an enlarged blood vessel in her abdomen when last seen at [facility] in [place], [place]. On examination, patient is experiencing increased pain bilaterally in her back. Patient is at moderate risk for UTI and/or kidney infection based on past history and current symptoms. The patient was admitted to the hospital for evaluation of possible pyelonephritis. CT of the abdomen demonstrated medullary nephrocalcinosis without evidence of an obstructive uropathy at this time. Vascular surgery was consulted and they evaluated previous abnormal CT scan performed at times. They recommended outpatient CT scan with contrast to further evaluate this patient's abdomen, however they did not recommend surgery at this time. The patient was monitored in the hospital on IV Rocephin, and IV pain medication as needed. This morning she complained that she had a fall, and her knees gave out. She became agitated on questioning about the fall, and was very displeased with the schedule of Dilaudid she was receiving. We are also alerted that the patient's INR had reached 4.5, which is supratherapeutic. The patient wanted to leave AMA. We spoke with the patient about the risks of doing so, mentioning that she is at high risk for further infection and potential bleeding. The patient decided to leave AMA. - Time Spent with Patient Total time spent providing and/or coordinating discharge services: - Constitutional Vitals: Temp Pulse Resp BP Pulse Ox 98.2 F 82 16 103/67 93 12/22/16 11:34 12/22/16 11:34 12/22/16 11:34 12/22/16 11:34 12/22/16 11:34 General appearance: Present: cooperative, A&O X 3, obese, severe distress, answers questions appropriately - Head Head exam: Present: atraumatic, normocephalic - Eye Eye exam: Present: PERRL, conjuntiva pink, sclera anicteric Pupils: Present: PERRL - Neck Neck exam general surgery: Present: supple, trachea midline. Absent: lymphadenopathy - Respiratory Respiratory exam: Present: CTAB. Absent: accessory muscle use, rales, rhonchi, wheezes - Cardiovascular Cardiovascular exam: Present: RRR, +S1, +S2. Absent: diastolic murmur, gallop, rubs, systolic murmur - GI/Abdominal GI/Abdominal exam: Present: normal bowel sounds, soft, no peritoneal signs. Absent: distended, tenderness Additional comments: Right lower quadrant tenderness upon palpation - Extremities Exam Extremities exam: Present: warm, radial pulses palpable and symetrical. Absent : calf tenderness, cyanotic, pedal edema - Back Exam Back exam: Present: CVA tenderness (L), CVA tenderness (R) - Neurological Exam Neurological exam: Present: CN II-XII intact, oriented X3, no focal deficits. Absent: pronater drift, facial droop, speech deficit - Skin Skin exam: Present: dry, intact <Deena,Jozef P - Last Filed: 12/22/16 18:01> Date of Encounter: 12/22/16 Date of admission: 12/20/16 19:05 Primary care physician: Ariel Cotto Consults: 12/20/16 20:42 Consult to Vascular Surgery [CONS] Routine Consulting Provider: Vascular Surgery [facility] Reason for Consult: Patient currently has severe bilateral flank pain and abdominal tenderness.CT scan shows nodular densities within the retroperitoneal space adjacent to the aorta which appear to represent varices. Call Completed: Yes Hospital course: Ms. Sandoval is a 51 year old female - Time Spent with Patient Total time spent providing and/or coordinating discharge services: - Constitutional Vitals: Temp Pulse Resp BP Pulse Ox 98.2 F 82 16 103/67 93 12/22/16 11:34 12/22/16 11:34 12/22/16 11:34 12/22/16 11:34 12/22/16 11:34 - Attending Attestation I examined this patient and my medical decision-making was reviewed with the Resident Physician. I agree with the documented findings, disposition and treatment plan as described except to the extent set forth below. left against AMA understood risk of the signing AMA which includes CO,CVA, Perforation and .
== END 2016-12-22 14:15 | disposition left against medical advice (07) ==
LOC: 3BNU 14:26 → EMEROO 14:26 → 3BNU 19:31
PROVIDERS: ADMIT Internal Medicine; ATTEND Registered Nurse

== ENCOUNTER 2017-01-05 14:58 | Inpatient (IN) ==
--- NOTE | 2017-01-05 16:57 | Emergency Department Note ---
Disposition Clinical Impression: Superficial vein thrombosis DVT (deep venous thrombosis) Qualifiers: DVT location: lower extremity Affected thrombotic vein of extremity: unspecified vein of extremity Chronicity: acute Laterality: left Qualified Code( s): I82.402 - Acute embolism and thrombosis of unspecified deep veins of left lower extremity Disposition: Admitted As Inpatient Condition: Good Time of Disposition: 19:05 General Adult HPI - General Chief complaint: ED General Medical Stated complaint: I'm just sick Time Seen by Provider: 01/05/17 15:46 Source: patient, family Mode of arrival: ambulatory Limitations: no limitations Nursing Notes Reviewed: Yes Vital Signs Reviewed: Yes - History of Present Illness HPI Narrative: Ms. Sandoval is 51-year-old female with past medical history of protein C & S deficiency, antiphospholipid lipid antibody, an extensive history of DVTs , a PE , fibromyalgia, thyroid disease, Raynauds, and Sjorgen disease presents with a 2 day history of left lower extremity pain and swelling in her popliteal fossa and femoral region. Patient states she has had over 60 DVTs, and she describes this pain as similar to that of those in the past. She has a Abhilash filter and is currently being anti-coagulated on coumadin. Patient denies any chest pain although she has felt palpitations over the past 2 days. She has had no shortness of breath although she feels as though she is being smuggled when breathing. She denies any abdominal pain, urgency, dysuria, hematuria, melana, or hematochezia. Patient has not had any nausea or vomitting. Pain Scale: 7 - Related Data Home Medications Medication Instructions Recorded Confirmed Black Cohosh 20 mg PO DAILY 12/20/16 01/05/17 BuPROPion XL (24 HR) [Wellbutrin 150 mg PO DAILY 12/20/16 01/05/17 XL] Cholecalciferol (D-3) [Vitamin D] 5,000 unit PO DAILY 12/20/16 01/05/17 Cyclobenzaprine [Flexeril] 10 mg PO TID 12/20/16 01/05/17 Cyclosporine [Restasis] 1 drop OP BID 12/20/16 01/05/17 Duloxetine HCl [Cymbalta] 60 mg PO DAILY 12/20/16 01/05/17 Fluticasone Propionate Nasal 50 mcg NS BID 12/20/16 01/05/17 [Flonase] HYDROcodone/Acet 7.5/325 mg [[place] 1 - 2 tab PO Q6H PRN 12/20/16 01/05/17 7.5-325 mg] Hydroxychloroquine [Plaquenuil] 200 mg PO BID 12/20/16 01/05/17 Levothyroxine [Synthroid] 75 mcg PO DAILY 12/20/16 01/05/17 Lubiprostone [Amitiza] 24 mcg PO DAILY 12/20/16 01/05/17 Magnesium 250 mg PO DAILY 12/20/16 01/05/17 Melatonin/Pyridoxine HCl (B6) 10 mg PO HS 12/20/16 01/05/17 [Melatonin 5 mg Tablet] Potassium Chloride [K-Tab ER] 10 meq PO BID 12/20/16 01/05/17 Promethazine [Phenergan] 25 mg PO Q6HR PRN 12/20/16 01/05/17 Quetiapine Fumarate [SEROquel] 100 mg PO BID 12/20/16 01/05/17 Valacyclovir HCl [Valtrex] 1,000 mg PO DAILY 12/20/16 01/05/17 Warfarin [Coumadin] 6 mg PO DAILY 12/20/16 01/05/17 clonazePAM [Klonopin] 2 mg PO BID 12/20/16 01/05/17 clonazePAM [Klonopin] 4 mg PO HS 12/20/16 01/05/17 rOPINIRole [Requip] 1 mg PO 12/20/16 01/05/17 Acetaminophen/Butalbital/Caffe 1 each PO Q6H PRN 01/05/17 01/05/17 [Fioricet] Butorphanol Tartrate 1 spray NS Q4-6H PRN 01/05/17 01/05/17 Allergies Allergy/AdvReac Type Severity Reaction Status Date / Time Amoxicillin Allergy See Verified 01/05/17 15:04 Comments clarithromycin [From Biaxin] Allergy See Verified 01/05/17 15:04 Comments Enoxaparin [From Lovenox] Allergy See Verified 01/05/17 15:04 Comments hydrochlorothiazide Allergy See Verified 01/05/17 15:04 Comments levofloxacin [From Levaquin] Allergy Difficulty Verified 01/05/17 15:04 Breathing nafcillin Allergy Seizure Verified 01/05/17 15:04 oxcarbazepine Allergy Anaphylaxis Verified 01/05/17 15:04 [From Trileptal] Penicillins Allergy Seizure Verified 01/05/17 15:04 Sulfa (Sulfonamide Allergy See Verified 01/05/17 15:04 Antibiotics) Comments sumatriptan [From Imitrex] Allergy See Verified 01/05/17 15:04 Comments Terazosin Allergy See Verified 11/27/16 19:14 Comments vancomycin Allergy Seizure Verified 11/27/16 19:14 topiramate [From Topamax] AdvReac Confusion Verified 12/20/16 20:01 Constitutional: Denies: fever, chills, weakness Cardiovascular: Reports: palpitations, edema (Patient has dependent pedal edema relieved by leg elevation.). Denies: chest pain Respiratory: Reports: other (Feels like she is being smothered.). Denies: cough , dyspnea, wheezes, hemoptysis Gastrointestinal: Denies: abdominal pain, nausea, vomiting, hematemesis Genitourinary: Denies: urgency, dysuria Musculoskeletal: Denies: back pain Integumentary: Reports: other (multiple areas of bruising on patients LE) Neurological: Denies: headache Psychiatric: Reports: anxiety, depression Endocrine: Denies: fatigue, polydipsia, polyuria Hematological/Lymphatic: Reports: easy bruising Past Medical History - Past Medical History Medical history: Reports: DVT, fibromyalgia, kidney stones, pulmonary embolus, thyroid disease, other Surgical history: Reports: ureteral stent, IVC filter Psychiatric history: Reports: bipolar - Social History Smoking Status: Current every day smoker Smokeless Tobacco Status: No Alcohol use: Reports: none Drug use: Reports: none Physical Exam - General Limitations: no limitations General appearance: alert, in no apparent distress, anxious - Head Head exam: atraumatic, normocephalic - ENT ENT exam: normal exam, mucous membranes dry - Chest Chest inspection: Present: normal inspection - Respiratory Respiratory exam: Present: normal lung sounds bilaterally (No crackles). Absent : respiratory distress, wheezes, stridor - Cardiovascular Cardiovascular exam: Present: regular rate, normal rhythm, other (1+ Pitting Edema in Bilateral LE's). Absent: systolic murmur, diastolic murmur, rubs, gallop - Abdominal Exam Abdominal exam: Present: soft, Non-Tender. Absent: guarding, rebound - Expanded Lower Extremity Exam Lower leg exam: Present: ecchymosis (bilateral ecchymosis. Left LE edema in the popliteal fossa. No erythema. ) - Neurological Exam Neurological exam: Present: alert, oriented X3 - Psychiatric Psychiatric exam: Present: anxious Course Course Narrative: 51-year-old female with past medical history of protein C and S deficiency and antiphospholipid antibody and history of numerous DVTs and PE presents with a 2 day history of lower extremity pain. Patient reports pain in her popliteal fossa and femoral region. On PE, popliteal fossa shows significant edema. Patient c/o feeling smothered when she breaths, has pedal edema, and has new onset palpitations. Will order CXR, labs, BNP, and US of left LE. - Reevaluation(s) Reevaluation #1: Patient's blood pressure is 112/65 and her heart rate is 85. She is not tachypnea nor hypoxic on room air. MCV is 102.9 but normal Hgb. Reevaluation #2: Lab called to report patient has a partial chronic clot in her left femoral vein. She also has a superficial thrombus in her left lesser lesser saphenous vein. Patient's PT is 44.5 and PTT is 360. Patient's INR is 4. Reevaluation #3: Spoke with Dr. Edmondson. He is requesting a vascular consult. Spoke with Dr. Vasquez, he said there is no surgical problem. Dr. Edmondson requests heme-onc be consulted from ED prior to admission. - Consultations Consultation #1: Spoke with Dr. Boone on Heme/Onc. She will see patient tomorrow. Admit to medicine. Vital Signs Temperature 97.9 F 01/05/17 15:00 Pulse Rate 104 01/05/17 15:00 Respiratory Rate 18 01/05/17 15:00 Blood Pressure 109/70 01/05/17 15:00 O2 Sat by Pulse Oximetry 97 01/05/17 15:00 Temperature 96.6 F L 01/06/17 08:25 Pulse Rate 75 01/06/17 08:25 Respiratory Rate 16 01/06/17 08:25 Blood Pressure 121/79 01/06/17 08:25 O2 Sat by Pulse Oximetry 97 01/06/17 08:25 Oxygen Delivery Oxygen Delivery Room Air Medical Decision Making - Medical Records Medical records reviewed: Yes I reviewed the patient's medical records. - Lab Data Lab results reviewed: Yes I reviewed the patient's lab results. Result diagrams: 01/05/17 16:53 01/06/17 05:50 Lab Results 01/05/17 01/05/17 01/05/17 Range/Units 16:53 16:53 16:53 WBC 3.6 L (4.3-11.1) K/mcL RBC 3.76 L (3.82-4.97) M/mcL Hgb 12.2 (11.5-15.4) g/dL Hct 38.7 (35.3-44.9) % MCV 102.9 H (83.0-100.0) fL MCH 32.4 (28.0-33.3) pg MCHC 31.5 L (31.6-35.5) g/dL RDW 15.7 H (11.5-14.5) % Plt Count 176 (140-400) K/mcL MPV 9.2 L (9.4-12.4) fL Immature Gran % 0.3 (0-4) % Seg Neutrophils % 61.5 % Lymphocytes % 24.6 % Monocytes % 9.2 % Eosinophils % 3.6 % Basophils % 0.8 % Neutrophils # 2.2 (1.6-8.9) K/mcL Lymphocytes # 0.9 (0.6-4.6) K/mcL Monocytes # 0.3 (0.0-1.3) K/mcL Eosinophils # 0.1 (0.0-0.6) K/mcL Basophils # 0.0 (0.0-0.2) K/mcL PT 44.5 H* (9.4-12.1) Seconds INR 4.0 APTT > 360.0 H* (26.0-36.0) Seconds Heparin Anti-Xa, Unfract 0.64 (0.30-0.70) IU/mL Sodium 140 (136-145) mEq/L Potassium 4.0 (3.5-4.5) mEq/L Chloride 107 (98-109) mEq/L Carbon Dioxide 26 (19-29) mEq/L BUN 14 (7-20) mg/dL Creatinine 0.96 (0.57-1.11) mg/dL Est GFR ( Amer) > 60 (> 60) Est GFR (Non-Af Amer) > 60 (> 60) BUN/Creatinine Ratio 15 (6-26) Glucose 85 (70-99) mg/dL Calculated Osmolality 290 (280-300) Calcium 8.7 (8.6-10.8) mg/dL B-Natriuretic Peptide (0-100) pg/mL 01/05/17 Range/Units 16:53 WBC (4.3-11.1) K/mcL RBC (3.82-4.97) M/mcL Hgb (11.5-15.4) g/dL Hct (35.3-44.9) % MCV (83.0-100.0) fL MCH (28.0-33.3) pg MCHC (31.6-35.5) g/dL RDW (11.5-14.5) % Plt Count (140-400) K/mcL MPV (9.4-12.4) fL Immature Gran % (0-4) % Seg Neutrophils % % Lymphocytes % % Monocytes % % Eosinophils % % Basophils % % Neutrophils # (1.6-8.9) K/mcL Lymphocytes # (0.6-4.6) K/mcL Monocytes # (0.0-1.3) K/mcL Eosinophils # (0.0-0.6) K/mcL Basophils # (0.0-0.2) K/mcL PT (9.4-12.1) Seconds INR APTT (26.0-36.0) Seconds Heparin Anti-Xa, Unfract (0.30-0.70) IU/mL Sodium (136-145) mEq/L Potassium (3.5-4.5) mEq/L Chloride (98-109) mEq/L Carbon Dioxide (19-29) mEq/L BUN (7-20) mg/dL Creatinine (0.57-1.11) mg/dL Est GFR ( Amer) (> 60) Est GFR (Non-Af Amer) (> 60) BUN/Creatinine Ratio (6-26) Glucose (70-99) mg/dL Calculated Osmolality (280-300) Calcium (8.6-10.8) mg/dL B-Natriuretic Peptide 72 (0-100) pg/mL - Radiology Data Radiology results reviewed: Yes I reviewed the patient's radiology results. Chest X-Ray 01/05/17 16:26 IMPRESSION: Bibasilar atelectasis. D/ / Ariel Delgado MD / Ariel Delgado MD Interpreting Provider: Ariel Delgado MD - EKG Data EKG #1 EKG attestation: Yes I reviewed and interpreted this EKG. EKG results narrative: ECG on 01/05/2017 shows sinus rhythm with poor r wave progression in precordial leads. ECG on 10-20-2012 shows sinus rhythm. Attestation Statement - Attestation Attestation: I personally interviewed and examined this patient and my medical decision- making was reviewed with the Resident Physician, Dr. Collado. I agree with the documented findings, disposition and treatment plan as described except to the extent set forth below. Pt is a 51 yo wf, hx Protein C/S def, antiphospholipid, with hx of numerous prior DVT/PE, who presents with 2 d hx of LLE pain and swelling. Pt sent from PCP's office. Pt currently anticoagulated on coumadin and has a Colbert filter in place. Pt reports that she has been therapeutic on coumadin recently and compliant with meds. Pt denies any CP/press/heaviness, no current SOB/KEEGAN, no other assocd sxs. No lightheadedness/syncope. I agree with pt's physical exam findings as documented. Pt placed on monitor/pulse ox, VSS on arrival and pt in no acute distress. Labs sent, PCXR and LLE venous dopplers ordered. Pt remained hemodynamically stable throughout ED course and in NAD. LAbs show supratherapeutic INR and PTT/PT. Possibly due to pt's recent antibx use for UTI. Despite her elev INR, pt found to have SVT and DVT in LLE by US. Found it concerning that pt is anti-coagulated on coumadin, supratherpeutic INR, and still with new DVT formation. VS remain stable. Feel pt should be evaluated by Hem/Onc for further eval and tx for current DVT. Will currently hold heparin secondary to elev PTT. Discussed with Hem/Onc who was consulted from the ED and will see pt. D/W hospitalist, who requested vascular sx consult. I did not feel this was indicated, pt does NOT have a surgical issue, but paged due to hospitalist refusal to accept pt without it. Spoke with Jess sx, and agreed with no indication for surgical consult and recommend hem/onc consult. Pt admitted for further eval/tx.
[2017-01-05 17:02] LABS: Basophils % 0.8 %; Eosinophils # 0.1 K/mcL (0.0-0.6); Eosinophils % 3.6 %; Hematocrit 38.7 % (35.3-44.9); Hemoglobin 12.2 g/dL (11.5-15.4); Immature Granulocytes % 0.3 % (0-4); Lymphocytes # 0.9 K/mcL (0.6-4.6); Lymphocytes % 24.6 %; Mean Corpuscular HGB Conc 31.5 g/dL (31.6-35.5); Mean Corpuscular Hemoglobin 32.4 pg (28.0-33.3); Mean Corpuscular Volume 102.9 fL (83.0-100.0); Mean Platelet Volume 9.2 fL (9.4-12.4); Monocytes # 0.3 K/mcL (0.0-1.3); Monocytes % 9.2 %; Neutrophils # 2.2 K/mcL (1.6-8.9); Platelet Count 176 K/mcL (140-400); Red Blood Count 3.76 M/mcL (3.82-4.97); Red Cell Distribution Width 15.7 % (11.5-14.5); Segmented Neutrophils % 61.5 %
[2017-01-05 17:15] LABS: BUN/Creatinine Ratio 15 (6-26); Blood Urea Nitrogen 14 mg/dL (7-20); Calcium 8.7 mg/dL (8.6-10.8); Carbon Dioxide 26 mEq/L (19-29); Chloride 107 mEq/L (98-109); Glucose 85 mg/dL (70-99); Osmolality,Calculated 290 (280-300); Sodium 140 mEq/L (136-145); eGFR For African Americans > 60 (> 60); eGFR For Non-African Americans > 60 (> 60)
[2017-01-05] MEDS ORDERED: *HR* HYDROmorphone (PF) 1 MG/ML SYRINGE IVP ONE ×3 (17:15→20:37)
[2017-01-05 17:53] LABS: Activated Partial Thrombo Time > 360.0 Seconds (26.0-36.0); Prothrombin Time 44.5 Seconds (9.4-12.1)
[2017-01-05 18:18] LABS: Heparin anti-factor XA UFH 0.64 IU/mL (0.30-0.70)
[2017-01-05] MEDS ORDERED: *HR* HYDROcodone/Acet 7.5/325 mg TABLET PO PRN (22:15)
[2017-01-05] MEDS ORDERED: Acetaminophen/Butalbital/CaffeineTABLET PO PRN (22:15)
[2017-01-05] MEDS ORDERED: Acetaminophen 325 MG TABLET PO PRN (22:19)
[2017-01-05] MEDS ORDERED: Naloxone 0.4 MG/ML INJ IVP PRN (22:19)
[2017-01-05] MEDS ORDERED: Ondansetron 4 MG/2 ML VIAL IVP PRN (22:19)
--- NOTE | 2017-01-05 22:25 | Internal Med History&Physical ---
Date of Encounter: 01/05/17 Time of Encounter: 22:22 Assessment and Plan (1) Superficial vein thrombosis Current visit: Yes Status: Acute Monitor INR, continue Coumadin per pharmacy dosing Hematology oncology consulted, continue IV fluids and hold Lasix Dilaudid as needed Omeprazole for GI prophylaxis and Coumadin for DVT prophylaxis. The patient will be admitted for observation. Full code. Time spent on this admission 40 minutes (2) Coagulopathy Current visit: Yes Status: Acute Monitor INR and APTT Oncology recommendations appreciated (3) Pyelonephritis Current visit: No Status: Acute Not active Check a UA Consider restarting antibiotics (4) Lupus (systemic lupus erythematosus) Current visit: No Status: Chronic Continue hydroxychloroquine Qualifiers: Systemic lupus erythematosus type: unspecified Systemic lupus erythematosus organ involvement: unspecified Qualified Code(s): M32.9 - Systemic lupus erythematosus, unspecified (5) Neutropenia Current visit: No Status: Chronic Qualifiers: Neutropenia type: unspecified Qualified Code(s): D70.9 - Neutropenia, unspecified (6) Chronic deep vein thrombosis of femoral vein Current visit: Yes Status: Acute Qualifiers: Laterality: left Qualified Code(s): I82.512 - Chronic embolism and thrombosis of left femoral vein Internal Medicine - H&P: HPI Chief complaint: Left leg pain Admitted From: Emergency Dept History of present illness: Ms. Sandoval is a 51 year old female with a past medical history of protein S and C deficiency, antiphospholipid syndrome, lupus, who left AGAINST MEDICAL ADVICE on 12/22/2016 which she was being treated for pyelonephritis. Patient was sent on ciprofloxacin and she says that she does not complain of any dysuria. She came back as for the past 2 days she has been complaining of excruciating pain on the left lower extremity. Both lower extremities have been more swollen showing superficial veins to be popping out. The venous duplex showed partial chronic clot on the left femoral vein and a superficial thrombosis on the left lesser saphenous vein. The patient's INR is 4 PTT is 44.5 and APTT is more than 360. The patient says that the superficial veins having improving. White blood cell count is 3.6. She was started on Lasix due to bilateral leg swelling as well. Denies any shortness of breath or tachycardia. Vascular surgery was called by the ER and are not recommending any procedure, Dr. Marte is recommending to monitor INR, and we will see the patient in the morning. The patient has an IVC filter Past Med Surg Social Fam HX - Past Medical History Medical history: DVT (History of protein S and C deficiency, antiphospholipid syndrome, history of pulmonary emboli on Coumadin), fibromyalgia, kidney stones , pulmonary embolus, thyroid disease (Hypothyroidism), other (Sjorgen's syndrome , right Virgilio, fibromyalgia, lupus, leukopenia chronic, tobacco use, medullary spongiform nephrocalcinosis, recent pyelonephritis,) Psychiatric history: bipolar - Past Surgical History Surgical History: ureteral stent, IVC filter - Social History Smoking Status: Current every day smoker Packs per day: 6 cigarettes per day Smokeless Tobacco Status: No Alcohol use: occasionally Drug use: none - Family History Father Family Member Ethnicity: Non- Living Status: Still Living Hx Family Cardiac Disorders: Yes (HTN) Hx Family Endocrine Disorder: Yes (DM) Mother Family Member Ethnicity: Non- Living Status: Hx Family Neuromuscular Disorders: Yes (MS) Brother Family Member Ethnicity: Non- Living Status: Still Living Sister Family Member Ethnicity: Non- Living Status: Still Living - Additional Family History Additional family history: Father with hypertension and diabetes. Mother with multiple sclerosis, sister with deficiency and S and C proteins Internal Medicine - H&P: Meds Black Cohosh 20 mg PO DAILY 12/20/16 [History] BuPROPion XL (24 HR) [Wellbutrin XL] 150 mg PO DAILY 12/20/16 [History] Cholecalciferol (D-3) [Vitamin D] 5,000 unit PO DAILY 12/20/16 [History] Cyclobenzaprine [Flexeril] 10 mg PO TID 12/20/16 [History] Cyclosporine [Restasis] 1 drop OP BID 12/20/16 [History] Duloxetine HCl [Cymbalta] 60 mg PO DAILY 12/20/16 [History] Fluticasone Propionate Nasal [Flonase] 50 mcg NS BID 12/20/16 [History] HYDROcodone/Acet 7.5/325 mg [[place] 7.5-325 mg] 1 - 2 tab PO Q6H PRN 12/20/16 [ History] Hydroxychloroquine [Plaquenuil] 200 mg PO BID 12/20/16 [History] Levothyroxine [Synthroid] 75 mcg PO DAILY 12/20/16 [History] Lubiprostone [Amitiza] 24 mcg PO DAILY 12/20/16 [History] Magnesium 250 mg PO DAILY 12/20/16 [History] Melatonin/Pyridoxine HCl (B6) [Melatonin 5 mg Tablet] 10 mg PO HS 12/20/16 [ History] Potassium Chloride [K-Tab ER] 10 meq PO BID 12/20/16 [History] Promethazine [Phenergan] 25 mg PO Q6HR PRN 12/20/16 [History] Quetiapine Fumarate [SEROquel] 100 mg PO BID 12/20/16 [History] Valacyclovir HCl [Valtrex] 1,000 mg PO DAILY 12/20/16 [History] Warfarin [Coumadin] 6 mg PO DAILY 12/20/16 [History] clonazePAM [Klonopin] 2 mg PO BID 12/20/16 [History] clonazePAM [Klonopin] 4 mg PO HS 12/20/16 [History] rOPINIRole [Requip] 1 mg PO HS 12/20/16 [History] Acetaminophen/Butalbital/Caffe [Fioricet] 1 each PO Q6H PRN 01/05/17 [History] Butorphanol Tartrate 1 spray NS Q4-6H PRN 01/05/17 [History] Allergies Amoxicillin Allergy (Verified 01/05/17 15:04) See Comments clarithromycin [From Biaxin] Allergy (Verified 01/05/17 15:04) See Comments Enoxaparin [From Lovenox] Allergy (Verified 01/05/17 15:04) See Comments hydrochlorothiazide Allergy (Verified 01/05/17 15:04) See Comments levofloxacin [From Levaquin] Allergy (Verified 01/05/17 15:04) Difficulty Breathing nafcillin Allergy (Verified 01/05/17 15:04) Seizure oxcarbazepine [From Trileptal] Allergy (Verified 01/05/17 15:04) Anaphylaxis Penicillins Allergy (Verified 01/05/17 15:04) Seizure Sulfa (Sulfonamide Antibiotics) Allergy (Verified 01/05/17 15:04) See Comments sumatriptan [From Imitrex] Allergy (Verified 01/05/17 15:04) See Comments Terazosin Allergy (Verified 11/27/16 19:14) See Comments vancomycin Allergy (Verified 11/27/16 19:14) Seizure topiramate [From Topamax] Adverse Reaction (Verified 12/20/16 20:01) Confusion All Systems PM: A 10-system review of systems was performed and is negative for pertinent findings except as documented above in the HPI. Review of systems: Other systems out of the 10 review were negative, Antinea still complaining of 10 out of 10 intensity pain in the left lower extremity - Constitutional Vitals: Temp Pulse Resp BP Pulse Ox 98.3 F 74 16 132/84 100 01/05/17 21:28 01/05/17 21:28 01/05/17 21:28 01/05/17 21:28 01/05/17 21:47 General appearance: Present: A&O X 3 - Head Head exam: Present: atraumatic, normocephalic - Eye Eye exam: Present: PERRL, conjuntiva pink, sclera anicteric Pupils: Present: PERRL - Neck Neck exam general surgery: Present: supple, trachea midline. Absent: lymphadenopathy - Respiratory Respiratory exam: Present: CTAB. Absent: accessory muscle use, rales, rhonchi, wheezes - Cardiovascular Cardiovascular exam: Present: RRR, +S1, +S2. Absent: diastolic murmur, gallop, rubs, systolic murmur - GI/Abdominal GI/Abdominal exam: Present: normal bowel sounds, soft, no peritoneal signs. Absent: distended, tenderness - Extremities Exam Extremities exam: Present: warm, radial pulses palpable and symetrical. Absent : calf tenderness, cyanotic, pedal edema - Neurological Exam Neurological exam: Present: CN II-XII intact, oriented X3, no focal deficits. Absent: pronater drift, facial droop, speech deficit - Skin Skin exam: Present: dry, intact Additional comments: Mild swelling and tenderness over the left upper thigh Internal Med - H&P Results - Labs CBC & Chem 7: 01/05/17 16:53 01/05/17 16:53
[2017-01-05] MEDS: 0.9 % Sodium Chloride 1,000 ML IVC SCH (22:46)
[2017-01-05] MEDS: *HR* HYDROmorphone (PF) 1 MG/ML SYRINGE IVP PRN (22:49)
[2017-01-05] MEDS: Nicotine 14 MG PATCH.TD24 TD SCH ×2 (22:50→22:56)
[2017-01-06] MEDS: Melatonin 3 MG TABLET PO SCH ×2 (00:04→21:41)
[2017-01-06] MEDS: *HR* HYDROmorphone (PF) 1 MG/ML SYRINGE IVP PRN ×6 (01:58→21:41)
[2017-01-06 06:14] LABS: INR 3.8; Prothrombin Time 42.7 Seconds (9.4-12.1)
[2017-01-06 06:17] LABS: Activated Partial Thrombo Time 49.2 Seconds (26.0-36.0)
[2017-01-06 06:22] LABS: BUN/Creatinine Ratio 15 (6-26); Blood Urea Nitrogen 13 mg/dL (7-20); Calcium 8.3 mg/dL (8.6-10.8); Carbon Dioxide 27 mEq/L (19-29); Chloride 107 mEq/L (98-109); Glucose 77 mg/dL (70-99); Osmolality,Calculated 283 (280-300); Sodium 137 mEq/L (136-145); eGFR For African Americans > 60 (> 60); eGFR For Non-African Americans > 60 (> 60)
[2017-01-06] MEDS ORDERED: clonazePAM 1 MG TABLET PO SCH ×2 (09:00→21:00)
[2017-01-06] MEDS: BuPROPion XL (24 HR) 150 MG TABLET PO SCH (09:17)
[2017-01-06] MEDS: Nicotine 14 MG PATCH.TD24 TD SCH (09:18)
[2017-01-06] MEDS: 0.9 % Sodium Chloride 1,000 ML IVC SCH (12:19)
--- NOTE | 2017-01-06 12:35 | Electrocardiograph Report ---
[address] [address] Test Date: 2017-01-05 Pat Name: Pearl Sandoval Department: 105 Room: [facility] Gender: F Client Support Coordinator: : 1965 Requested By: Leanna Collado Order Number: [id number] Reading MD: Jenise Canada Measurements Intervals [place] Rate: 98 P: 58 [place]: 159 QRS: 20 QRSD: 79 T: 31 QT: 342 QTc: 397 Interpretive Statements SINUS RHYTHM Electronically Signed On 01-06-2017 12:33:43 EDT by Jenise Canada
[2017-01-06] MEDS ORDERED: BUTORPHANOL TARTRATE NS PRN (16:06)
[2017-01-06] MEDS ORDERED: Acetaminophen/Butalbital/CaffeineTABLET PO PRN (16:08)
--- NOTE | 2017-01-06 16:59 | Internal Med Progress Note ---
Date of Encounter: 01/06/17 Time of Encounter: 11:45 - Assessment and plan (1) Superficial vein thrombosis Current Visit: Yes Status: Acute Assessment and plan: Venous Doppler of left lower extremity revealed chronic partial DVT along with superficial venous thrombosis of the lesser saphenous vein. Continue pain control with oral hydrocodone and IV Dilaudid as needed. Oncology consult. (2) Hypothyroidism Current Visit: Yes Status: Chronic Assessment and plan: Continue levothyroxine. Qualifiers: Hypothyroidism type: unspecified Qualified Code(s): E03.9 - Hypothyroidism , unspecified (3) Depression Current Visit: Yes Status: Chronic Qualifiers: Depression Type: unspecified Qualified Code(s): F32.9 - Major depressive disorder, single episode, unspecified (4) Antiphospholipid antibody syndrome Current Visit: Yes Status: Chronic (5) Protein C deficiency Current Visit: Yes Status: Chronic (6) Protein S deficiency Current Visit: Yes Status: Chronic (7) Lupus (systemic lupus erythematosus) Current Visit: Yes Status: Chronic Assessment and plan: Continue hydroxychloroquine. Patient's left leg rash may be related to underlying lupus versus hypersensitivity reaction. Continue when necessary Benadryl. Qualifiers: Systemic lupus erythematosus type: unspecified Systemic lupus erythematosus organ involvement: unspecified Qualified Code(s): M32.9 - Systemic lupus erythematosus, unspecified (8) Coagulopathy Current Visit: Yes Status: Chronic Assessment and plan: INR noted to be 3.8 today, hold Coumadin for now. (9) DVT (deep venous thrombosis) Current Visit: Yes Status: Chronic Assessment and plan: Patient is noted to be on long-term anticoagulation with Coumadin for recurrent DVT and underlying protein C, protein S deficiency, antiphospholipid antibody syndrome. Qualifiers: DVT location: lower extremity Affected thrombotic vein of extremity: unspecified vein of extremity Chronicity: chronic Laterality: left Qualified Code(s): I82.502 - Chronic embolism and thrombosis of unspecified deep veins of left lower extremity - Subjective Interval history: Reports itching and pain in left leg; also developed reddish spots over her left leg overnight; improvement in focal areas of swelling in right foot and dilated veins in right thigh that she noticed yesterday prior to presentation; - Constitutional Vitals: Temp Pulse Resp BP Pulse Ox 97.1 F L 95 16 133/85 97 01/06/17 16:20 01/06/17 16:20 08/08/17 16:20 01/06/17 16:20 01/06/17 16:20 General appearance: Present: mild distress, A&O X 3, answers questions appropriately - Respiratory Respiratory exam: Present: CTAB. Absent: accessory muscle use, rales, rhonchi, wheezes - Cardiovascular Cardiovascular exam: Present: RRR, +S1, +S2. Absent: diastolic murmur, gallop, rubs, systolic murmur - GI/Abdominal GI/Abdominal exam: Present: normal bowel sounds, soft, no peritoneal signs. Absent: distended, tenderness - Extremities Exam Extremities exam: Present: normal inspection (focal <1cm areas of erythematous papules over left leg; tenderness over B/L legs), warm, radial pulses palpable and symmetrical. Absent: calf tenderness, cyanotic, pedal edema Internal Medicine: Result - Labs CBC & Chem 7: 01/05/17 16:53 01/06/17 05:50 Labs: BMP 01/06/17 05:50 Sodium 137 Potassium 4.0 Chloride 107 Carbon Dioxide 27 BUN 13 Creatinine 0.87 Glucose 77 Calcium 8.3 L - ABG Interpretation ABG results: PT/INR, D-dimer PT 42.7 Seconds (9.4-12.1) H 01/06/17 05:50 Consult Discharge Plan - Plan Referrals: Ariel Cotto DO [Primary Care Provider] -
[2017-01-06 17:26] LABS: Bilirubin,Urine Negative (Negative); Blood,Urine Negative (Negative); Clarity,Urine Clear (Clear); Color,Urine Yellow (Yellow); Glucose,Urine (UA) Normal (Normal); Ketones,Urine Negative (Negative); Leukocyte Esterase,Urine Negative (Negative); Nitrite,Urine Negative (Negative); Protein,Urine Negative (Neg-Trace); Specific Gravity,Urine 1.013 (1.010-1.025); Urobilinogen,Urine Normal (Normal)
[2017-01-06] MEDS ORDERED: Warfarin perPT PO PRN (18:00)
[2017-01-06] MEDS: clonazePAM 1 MG TABLET PO SCH (18:27)
--- NOTE | 2017-01-06 18:50 | Oncology Inp Consult Note ---
Date of Encounter: 01/06/17 Time of Encounter: 17:00 Assessment and Plan (1) Superficial vein thrombosis Status: Acute Assessment and plan: Patient with reportedly protein C deficiency, protein S deficiency (runs in family), history of lupus, follows up with the warp picker antiphospholipid antibody reportedly, with multiple recurrent deep venous thromboses in both lower extremities, history of pulmonary embolism, history of left upper extremity thrombosis, status post IVC filter, on Coumadin, with failure of other anticoagulants, intolerance to Lovenox, target INR has been maintained at 2.5 by her web production artist. She was on ciprofloxacin with elevated INR, coagulation tests PTT was also elevated with PT? Reaction secondary to antiphospholipid antibody, this has subsequently improved and patient has had a normal PT and PTT in the past. Restart Coumadin at target INR around 3 due to multiple thrombosis and antiphospholipid antibody syndrome per history. She is symptomatically improved and possibly DC home with follow up with her PCP. Compression stockings and higher therapeutic goal for INR recommended. Plan d/w patient and family who stated understanding - Data of Consult Requesting Physician: Alfredito Diane MD Primary Care Provider: Ariel Cotto - Consult Narrative Reason for consult: Hypercoagulable state, rec DVT History of present illness: Ms. Sandoval is a 51 year old female with history of protein S and C deficiency, antiphospholipid syndrome, lupus, hx pyelonephritis, patient reports that she was put on ciprofloxacin which she discontinued 3 days ago, antibiotics interfering with her INR, hospitalized again with the swollen hard veins in the bilateral lower extremities popping out. Patient also had some pain. she had bilateral lower extremity swelling for which she did see her primary care doctor was going to get an echocardiogram. Doppler lower ext showed partial chronic clot in the left femoral vein and a superficial thrombosis on the left lesser saphenous vein. The patient's INR on admission was 4 PTT is 44.5 and APTT is more than 360. Pt has IVC filter. She reports that she is following up with a web production artist oncologist at [facility]. She reports that she was on. Axilla and developed clots on Primaxin, she cannot take Lovenox as she develops a reaction, she is being placed on Coumadin with a target INR off around 2.5. Patient reports that she had a pulmonary embolism left upper extremity clotting bilateral lower extremity clots multiple times. The patient has an IVC filter Her swelling in the legs is now down, knots in the veins also down. She reports no other complaints. Past Med Surg Social Fam HX - Past Medical History Medical history: DVT, fibromyalgia, kidney stones, pulmonary embolus, thyroid disease, other Psychiatric history: bipolar - Past Surgical History Surgical History: ureteral stent, IVC filter - Social History Smoking Status: Current every day smoker Packs per day: 6 cigarettes per day Smokeless Tobacco Status: No Alcohol use: none Drug use: none - Family History Father Family Member Ethnicity: Non- Living Status: Still Living Hx Family Cardiac Disorders: Yes (HTN) Hx Family Endocrine Disorder: Yes (DM) Mother Family Member Ethnicity: Non- Living Status: Hx Family Neuromuscular Disorders: Yes (MS) Brother Family Member Ethnicity: Non- Living Status: Still Living Sister Family Member Ethnicity: Non- Living Status: Still Living Medications and Allergies Black Cohosh 20 mg PO DAILY 12/20/16 [History] BuPROPion XL (24 HR) [Wellbutrin XL] 150 mg PO DAILY 12/20/16 [History] Cholecalciferol (D-3) [Vitamin D] 5,000 unit PO DAILY 12/20/16 [History] Cyclobenzaprine [Flexeril] 10 mg PO TID 12/20/16 [History] Cyclosporine [Restasis] 1 drop OP BID 12/20/16 [History] Duloxetine HCl [Cymbalta] 60 mg PO DAILY 12/20/16 [History] HYDROcodone/Acet 7.5/325 mg [[place]oyd 7.5-325 mg] 1 - 2 tab PO Q6H PRN 12/20/16 [ History] Hydroxychloroquine [Plaquenuil] 200 mg PO BID 12/20/16 [History] Levothyroxine [Synthroid] 75 mcg PO DAILY@0630 12/20/16 [History] Lubiprostone [Amitiza] 24 mcg PO BID 12/20/16 [History] Magnesium 250 mg PO DAILY 12/20/16 [History] Melatonin/Pyridoxine HCl (B6) [Melatonin 5 mg Tablet] 10 mg PO HS 12/20/16 [ History] Potassium Chloride [K-Tab ER] 10 meq PO BID 12/20/16 [History] Promethazine [Phenergan] 25 mg PO Q6HR PRN 12/20/16 [History] Quetiapine Fumarate [SEROquel] 100 mg PO HS 12/20/16 [History] Valacyclovir HCl [Valtrex] 1,000 mg PO DAILY 12/20/16 [History] Warfarin [Coumadin] 6 mg PO DAILY 12/20/16 [History] clonazePAM [Klonopin] 2 mg PO 0900,1700 12/20/16 [History] clonazePAM [Klonopin] 4 mg PO HS 12/20/16 [History] Acetaminophen/Butalbital/Caffe [Fioricet] 1 each PO Q6H PRN 01/05/17 [History] Butorphanol Tartrate 1 spray NS Q4-6H PRN 01/05/17 [History] Polyethylene Glycol 3350 [MiraLAX] 17 gm PO BID 01/06/17 [History] Allergies Amoxicillin Allergy (Verified 01/05/17 15:04) See Comments clarithromycin [From Biaxin] Allergy (Verified 01/05/17 15:04) See Comments Enoxaparin [From Lovenox] Allergy (Verified 01/05/17 15:04) See Comments hydrochlorothiazide Allergy (Verified 01/05/17 15:04) See Comments levofloxacin [From Levaquin] Allergy (Verified 01/05/17 15:04) Difficulty Breathing nafcillin Allergy (Verified 01/05/17 15:04) Seizure oxcarbazepine [From Trileptal] Allergy (Verified 01/05/17 15:04) Anaphylaxis Penicillins Allergy (Verified 01/05/17 15:04) Seizure Sulfa (Sulfonamide Antibiotics) Allergy (Verified 01/05/17 15:04) See Comments sumatriptan [From Imitrex] Allergy (Verified 01/05/17 15:04) See Comments Terazosin Allergy (Verified 11/27/16 19:14) See Comments vancomycin Allergy (Verified 11/27/16 19:14) Seizure topiramate [From Topamax] Adverse Reaction (Verified 12/20/16 20:01) Confusion Review of systems: negative, pl see HPI Oncology - Exam - Constitutional Vitals: Temp Pulse Resp BP Pulse Ox 97.1 F L 95 16 133/85 97 01/06/17 16:20 01/06/17 16:20 01/06/17 16:20 01/06/17 16:20 01/06/17 16:20 General appearance: average body habitus - Head Head exam: Present: atraumatic, normal inspection - Eye Eye exam: Present: sclera anicteric - ENT ENT exam: Present: mucous membranes moist - Cardiovascular Cardiovascular exam: Present: +S1, +S2 - GI/Abdominal GI/Abdominal exam: Present: normal bowel sounds, soft - Extremities Exam Extremities exam: Present: normal inspection Additional comments: skin discoloration, NT - Neurological Exam Neurological exam: Present: alert, CN II-XII intact, oriented X3 - Psychiatric Psychiatric exam: Present: normal mood Oncology - Results - Labs Labs: BMP 01/06/17 05:50 Sodium 137 Potassium 4.0 Chloride 107 Carbon Dioxide 27 BUN 13 Creatinine 0.87 Glucose 77 Calcium 8.3 L Urine 01/06/17 Range/Units 17:16 Urine Color Yellow (Yellow) Urine Clarity Clear (Clear) Urine pH 6.0 (5.0-8.0) pH Units Ur Specific Luck 1.013 (1.010-1.025) Urine Protein Negative (Neg-Trace) mg/dL Urine Glucose (UA) Normal (Normal) mg/dL Consult Discharge Plan - Plan Referrals: Ariel Cotto DO [Primary Care Provider] -
[2017-01-06] MEDS ORDERED: rOPINIRole 1 MG TABLET PO SCH (21:00)
--- NOTE | 2017-01-06 22:02 | Venous Imaging Report ---
LE Venous Duplex Patient Name:Pearl Sandoval Order Number:[id number] Procedure Date:01/05/2017 Date:1965Age:51 yrs Gender:Female Location:[facility] ED Room #: ER21 Customer Marketing Assistant:Rosy Barraza Referring MD:Leanna Collado MD group practice pediatrician:Ariel Cotto DO Reading MD:Manuel Byrnes MD , FACS Primary Indications:DVT Secondary Indications: Risk Factors Yes/No Hx of DVT Yes Anticoagulants Yes [place] Filter Yes Impressions: Lower extremity abnormal deep exam: left common femoral vein demonstrates chronic thrombosis. Lower extremity abnormal superficial exam: left lesser saphenous vein demonstrates acute thrombosis. Right lower extremity: normal contralateral exam. Recommendations: After imaging the patient returned to their room. Gave vascular preliminary results to Leanna Collado in the emergency department on 01/05/2017 at 18:03. Test completed on 01/05/2017 at 5:49:00 pm. Critical findings reported to Leanna Collado by phone at 6:03:00 pm on 01/05/2017 by Rosy Barraza. Findings Venous Duplex Results: Right: Venous imaging of the lower extremity reveals full patency and normal vessel compressibility of the right common femoral. Doppler signals in the evaluated veins were normal. Left: Venous imaging of the lower extremity reveals full patency and normal vessel compressibility of the left distal iliac, left superficial femoral, left popliteal, left posterior tibial, left peroneal and left great saphenous. Doppler signals in the evaluated veins were normal. There is a chronic partially occlusive thrombus seen in the left common femoral. It demonstrates a partially compressible vein. Flow was phasic and it did augment. The left lesser saphenous demonstrates an incompressible vein. Flow was absent and it did not augment. Lower Extremity Venous Duplex Side Vein Compress Spontaneous Flow Augment Diameter (cm) Depth (cm) Left Distal Iliac Normal yes Phasic yes Left Common Femoral Partial yes Phasic yes Left Superficial Femoral Normal yes Phasic yes Left Popliteal Normal yes Phasic yes Left Posterior Tibial Normal yes Phasic yes Left Peroneal Normal yes Phasic yes Left Great Saphenous Normal yes Phasic yes Left Lesser Saphenous None no Absent no Right Common Femoral Normal yes Phasic yes Updated by Manuel Byrnes MD, FACS on 01/06/2017 9:56:35 PM Manuel Byrnes MD electronically signed on 01/06/2017 9:56:54 PM with status of Final
[2017-01-07] MEDS: *HR* HYDROmorphone (PF) 1 MG/ML SYRINGE IVP PRN ×2 (00:59→08:38)
[2017-01-07 05:48] LABS: INR 2.1; Prothrombin Time 23.4 Seconds (9.4-12.1)
[2017-01-07] MEDS: clonazePAM 1 MG TABLET PO SCH (08:37)
[2017-01-07] MEDS: Nicotine 14 MG PATCH.TD24 TD SCH (08:38)
[2017-01-07] MEDS: BuPROPion XL (24 HR) 150 MG TABLET PO SCH (08:46)
[2017-01-07] MEDS ORDERED: valACYclovir 500 MG TABLET PO SCH (09:00)
[2017-01-07] MEDS ORDERED: *HR* Warfarin 3 MG TABLET PO ONE (09:55)
[2017-01-07 11:27] VITALS: BP 127/83
--- NOTE | 2017-01-07 12:04 | Discharge Summary ---
Date of Encounter: 01/07/17 Time of Encounter: 11:57 - Discharge Diagnosis (1) Superficial vein thrombosis Priority: Primary Status: Acute (2) Hypothyroidism Priority: Secondary Status: Chronic Qualifiers: Hypothyroidism type: unspecified Qualified Code(s): E03.9 - Hypothyroidism , unspecified (3) Depression Priority: Secondary Status: Chronic Qualifiers: Depression Type: unspecified Qualified Code(s): F32.9 - Major depressive disorder, single episode, unspecified (4) Antiphospholipid antibody syndrome Priority: Secondary Status: Chronic (5) Protein C deficiency Priority: Secondary Status: Chronic (6) Protein S deficiency Priority: Secondary Status: Chronic (7) Lupus (systemic lupus erythematosus) Priority: Secondary Status: Chronic Qualifiers: Systemic lupus erythematosus type: unspecified Systemic lupus erythematosus organ involvement: unspecified Qualified Code(s): M32.9 - Systemic lupus erythematosus, unspecified (8) Coagulopathy Priority: Secondary Status: Chronic (9) DVT (deep venous thrombosis) Priority: Secondary Status: Chronic Qualifiers: DVT location: lower extremity Affected thrombotic vein of extremity: unspecified vein of extremity Chronicity: chronic Laterality: left Qualified Code(s): I82.502 - Chronic embolism and thrombosis of unspecified deep veins of left lower extremity - Discharge Medications Prescriptions: DiphenhydraMINE [Benadryl] 25 mg PO Q6HR PRN #20 capsule PRN Reason: Itching Heparin 5,000 unit SQ Q6H 7 Days Home Medications: Black Cohosh 20 mg PO DAILY 12/20/16 [History] BuPROPion XL (24 HR) [Wellbutrin Xl] 150 mg PO DAILY 12/20/16 [History] Cholecalciferol (D-3) [Vitamin D] 5,000 unit PO DAILY 12/20/16 [History] Cyclobenzaprine [Flexeril] 10 mg PO TID 12/20/16 [History] Cyclosporine [Restasis] 1 drop OP BID 12/20/16 [History] Duloxetine HCl [Cymbalta] 60 mg PO DAILY 12/20/16 [History] HYDROcodone/Acet 7.5/325 mg [[place] 7.5-325 mg] 1 - 2 tab PO Q6H PRN 12/20/16 [ History] Hydroxychloroquine [Plaquenuil] 200 mg PO BID 12/20/16 [History] Levothyroxine [Synthroid] 75 mcg PO DAILY@0630 12/20/16 [History] Lubiprostone [Amitiza] 24 mcg PO BID 12/20/16 [History] Magnesium 250 mg PO DAILY 12/20/16 [History] Melatonin/Pyridoxine HCl (B6) [Melatonin 5 mg Tablet] 10 mg PO HS 12/20/16 [ History] Potassium Chloride [K-Tab ER] 10 meq PO BID 12/20/16 [History] Promethazine [Phenergan] 25 mg PO Q6HR PRN 12/20/16 [History] Quetiapine Fumarate [Seroquel] 100 mg PO HS 12/20/16 [History] Valacyclovir HCl [Valtrex] 1,000 mg PO DAILY 12/20/16 [History] Warfarin [Coumadin] 6 mg PO DAILY 12/20/16 [History] clonazePAM [Klonopin] 2 mg PO 0900,1700 12/20/16 [History] clonazePAM [Klonopin] 4 mg PO HS 12/20/16 [History] Acetaminophen/Butalbital/Caffe [Fioricet] 1 each PO Q6H PRN 01/05/17 [History] Butorphanol Tartrate 1 spray NS Q4-6H PRN 01/05/17 [History] Polyethylene Glycol 3350 [MiraLAX] 17 gm PO BID 01/06/17 [History] DiphenhydraMINE [Benadryl] 25 mg PO Q6HR PRN #20 capsule 01/07/17 [Rx] Heparin 5,000 unit SQ Q6H 7 Days 01/07/17 [Rx] Allergies/Adverse Reactions: Allergies Amoxicillin Allergy (Verified 01/05/17 15:04) See Comments clarithromycin [From Biaxin] Allergy (Verified 01/05/17 15:04) See Comments Enoxaparin [From Lovenox] Allergy (Verified 01/05/17 15:04) See Comments hydrochlorothiazide Allergy (Verified 01/05/17 15:04) See Comments levofloxacin [From Levaquin] Allergy (Verified 01/05/17 15:04) Difficulty Breathing nafcillin Allergy (Verified 01/05/17 15:04) Seizure oxcarbazepine [From Trileptal] Allergy (Verified 01/05/17 15:04) Anaphylaxis Penicillins Allergy (Verified 01/05/17 15:04) Seizure Sulfa (Sulfonamide Antibiotics) Allergy (Verified 01/05/17 15:04) See Comments sumatriptan [From Imitrex] Allergy (Verified 01/05/17 15:04) See Comments Terazosin Allergy (Verified 11/27/16 19:14) See Comments vancomycin Allergy (Verified 11/27/16 19:14) Seizure topiramate [From Topamax] Adverse Reaction (Verified 12/20/16 20:01) Confusion Date of admission: 01/06/17 18:47 Primary care physician: Ariel Cotto Discharging clinician: Marisel Valenzuela Anticipated date of discharge: 01/07/17 - Patient Status Disposition: Home, Self-Care Condition: Good Functional capacity at discharge: independent ambulation Overall status at discharge: patient is progressing back to baseline - Discharge Instructions Instructions: Warfarin (By mouth), Diphenhydramine (By mouth), Heparin ( Injection), Deep Venous Thrombosis (DC), Deep Venous Thrombosis (GEN), How to Care for Your Implanted Venous Access Port (DC), How to Care for Your Implanted Venous Access Port (GEN) Follow Up With: Ariel Cotto, [Primary Care Provider] - 01/12/17 1:20 pm - Diet and Activity Activity: resume usual activities as tolerated Diet: low fat, low cholesterol Hospital course: Ms. Sandoval is a 51 year old female with extensive history of hypercoagulable disorders including lupus anticoagulant, antiphospholipid antibody syndrome, protein C&S deficiency, was admitted with worsening pain and swelling in left leg. Venous Doppler of bilateral lower extremities showed chronic thrombus in left common femoral vein and a cute thrombosis in left lesser saphenous vein, suggestive of superficial venous thrombosis. Patient was given supportive care with pain control and her INR was monitored, which was initially high at around 5 and gradually was within target. Hematology was consulted and patient is noted to have hematology, primary care provider in [place], [place] and she is deemed stable for discharge with outpatient follow-up with her doctors. Given her recurrent episodes of venous thromboembolism, INR needs to be maintained close to 3 or between 3 and 3.5. INR today is noted to be 2.1 but patient insists on being discharged. She also claims to have intolerance to Lovenox with thrombocytopenia but she apparently tolerates heparin. Case was discussed with patient's primary care provider Dr.Michael Cotto, who confirmed that patient uses subcutaneous heparin 5000 units 4 times a day to help with bridging, and this regimen has worked for the patient previously. Hence, she is being discharged on this regimen and new goal INR between 3 and 3.5 is discussed with her primary care doctor. She is otherwise medically stable for discharge. - Time Spent with Patient Total time spent providing and/or coordinating discharge services: Greater than 30 minutes (45 min) - Constitutional Vitals: Temp Pulse Resp BP Pulse Ox 97.5 F L 79 18 127/83 93 01/07/17 11:25 01/07/17 07:10 01/07/17 11:25 01/07/17 11:25 01/07/17 07:10 General appearance: Present: A&O X 3, answers questions appropriately - Respiratory Respiratory exam: Present: CTAB. Absent: accessory muscle use, rales, rhonchi, wheezes - Cardiovascular Cardiovascular exam: Present: RRR, +S1, +S2. Absent: diastolic murmur, gallop, rubs, systolic murmur
== END 2017-01-07 13:29 | disposition home or self-care (01) | DRG 300 ==
LOC: EMEROO 14:58 → 2NENU 14:58 → SUATTDRO 01-06 18:47
PROVIDERS: ADMIT Internal Medicine; ATTEND Internal Medicine

== ENCOUNTER 2017-01-10 00:05 | Inpatient (IN) ==
[2017-01-10 02:05] LABS: Basophils % 0.9 %; Eosinophils # 0.2 K/mcL (0.0-0.6); Eosinophils % 7.2 %; Hematocrit 36.1 % (35.3-44.9); Hemoglobin 11.5 g/dL (11.5-15.4); Immature Granulocytes % 0.3 % (0-4); Lymphocytes # 1.1 K/mcL (0.6-4.6); Lymphocytes % 35.2 %; Mean Corpuscular HGB Conc 31.9 g/dL (31.6-35.5); Mean Corpuscular Hemoglobin 32.9 pg (28.0-33.3); Mean Corpuscular Volume 103.1 fL (83.0-100.0); Mean Platelet Volume 9.1 fL (9.4-12.4); Monocytes # 0.4 K/mcL (0.0-1.3); Monocytes % 11.3 %; Neutrophils # 1.4 K/mcL (1.6-8.9); Platelet Count 191 K/mcL (140-400); Red Cell Distribution Width 15.5 % (11.5-14.5); Segmented Neutrophils % 45.1 %
--- NOTE | 2017-01-10 02:05 | Emergency Department Note ---
Disposition Clinical Impression: Antiphospholipid antibody syndrome, Protein S deficiency, Protein C deficiency , Coagulopathy, Palpitations, Intractable pain Disposition: Admitted As Inpatient Condition: Fair Time of Disposition: 07:05 Arrhythmia/Palpitations HPI - General Chief Complaint: ED General Medical Stated Complaint: heart issue Time Seen by Provider: 01/10/17 01:23 Source: patient, EMS Mode of arrival: ambulatory Limitations: no limitations Nursing Notes Reviewed: Yes Vital Signs Reviewed: Yes - History of Present Illness HPI Narrative: 51-year-old female with history of protein C&S, as well as antiphospholipid syndrome from lupus presenting with chest pain, palpitations and concern over developing blood clots. States that she has been on Coumadin for the last 20 years and has required a port for this. States that she was just recently admitted for new blood clots in her legs despite being therapeutic on her Coumadin. She states that she now should be between 3 and 4 with her INR, but has been unable to get there. She states she has had intermittent palpitations and chest discomfort. She also states that this evening she started developing pain in her left groin and left leg and feels like she is developing more blood clots there. She does have a [place] filter that has been in place for many years. She states that she had some issue with her platelets last time she was admitted and hematology wanted to do further workup, but she never got this completed. She came back in today because she feels like her heart has been flip-flopping and she states that the palpitations are concerning to her - Related Data Home Medications Medication Instructions Recorded Confirmed Black Cohosh 20 mg PO DAILY 12/20/16 01/10/17 BuPROPion XL (24 HR) [Wellbutrin 150 mg PO DAILY 12/20/16 01/10/17 Xl] Cholecalciferol (D-3) [Vitamin D] 5,000 unit PO DAILY 12/20/16 01/10/17 Cyclobenzaprine [Flexeril] 10 mg PO TID 12/20/16 01/10/17 Cyclosporine [Restasis] 1 drop OP BID 12/20/16 01/10/17 Duloxetine HCl [Cymbalta] 60 mg PO DAILY 12/20/16 01/10/17 HYDROcodone/Acet 7.5/325 mg [[place] 1 - 2 tab PO Q6H PRN 12/20/16 01/10/17 7.5-325 mg] Hydroxychloroquine [Plaquenuil] 200 mg PO BID 12/20/16 01/10/17 Levothyroxine [Synthroid] 75 mcg PO DAILY@0630 12/20/16 01/10/17 Lubiprostone [Amitiza] 24 mcg PO BID 12/20/16 01/10/17 Magnesium 250 mg PO DAILY 12/20/16 01/10/17 Melatonin/Pyridoxine HCl (B6) 10 mg PO HS 12/20/16 01/10/17 [Melatonin 5 mg Tablet] Potassium Chloride [K-Tab ER] 10 meq PO BID 12/20/16 01/10/17 Promethazine [Phenergan] 25 mg PO Q6HR PRN 12/20/16 01/10/17 Quetiapine Fumarate [Seroquel] 100 mg PO HS 12/20/16 01/10/17 Valacyclovir HCl [Valtrex] 1,000 mg PO DAILY 12/20/16 01/10/17 Warfarin [Coumadin] 6 mg PO DAILY 12/20/16 01/10/17 clonazePAM [Klonopin] 2 mg PO 0900,1700 12/20/16 01/10/17 clonazePAM [Klonopin] 4 mg PO HS 12/20/16 01/10/17 Acetaminophen/Butalbital/Caffe 1 each PO Q6H PRN 01/05/17 01/10/17 [Fioricet] Butorphanol Tartrate 1 spray NS Q4-6H PRN 01/05/17 01/10/17 Polyethylene Glycol 3350 [MiraLAX] 17 gm PO BID 01/06/17 01/10/17 Previous Rx's Medication Instructions Recorded DiphenhydraMINE [Benadryl] 25 mg PO Q6HR PRN #20 capsule 01/07/17 Heparin 5,000 unit SQ Q6H 7 Days 01/07/17 Allergies Allergy/AdvReac Type Severity Reaction Status Date / Time Amoxicillin Allergy See Verified 01/10/17 00:16 Comments clarithromycin [From Biaxin] Allergy See Verified 01/10/17 00:16 Comments Enoxaparin [From Lovenox] Allergy See Verified 01/10/17 00:16 Comments hydrochlorothiazide Allergy See Verified 01/10/17 00:16 Comments levofloxacin [From Levaquin] Allergy Difficulty Verified 01/10/17 00:16 Breathing nafcillin Allergy Seizure Verified 01/10/17 00:16 oxcarbazepine Allergy Anaphylaxis Verified 01/10/17 00:16 [From Trileptal] Penicillins Allergy Seizure Verified 01/10/17 00:16 Sulfa (Sulfonamide Allergy See Verified 01/10/17 00:16 Antibiotics) Comments sumatriptan [From Imitrex] Allergy See Verified 01/10/17 00:16 Comments Terazosin Allergy See Verified 01/10/17 00:16 Comments vancomycin Allergy Seizure Verified 01/10/17 00:16 topiramate [From Topamax] AdvReac Confusion Verified 01/10/17 00:16 All systems ED: reviewed and negative except as stated. Cardiovascular: Reports: chest pain, palpitations. Denies: dyspnea on exertion Respiratory: Denies: dyspnea Musculoskeletal: Reports: as per HPI Past Medical History - Past Medical History Attestation: Yes The following information was validated with the patient. Source: patient Medical history: Reports: DVT, fibromyalgia, kidney stones, pulmonary embolus, thyroid disease, other Surgical history: Reports: ureteral stent, IVC filter Psychiatric history: Reports: bipolar - Social History Smoking Status: Current every day smoker Smokeless Tobacco Status: No Alcohol use: Reports: none Drug use: Reports: none Physical Exam - General Limitations: no limitations General appearance: alert, in no apparent distress - Head Head exam: atraumatic, normocephalic, normal inspection - Eye Eye exam: Present: normal appearance, PERRL, EOMI - ENT ENT exam: normal exam, normal oropharynx, mucous membranes moist - Neck Neck exam: Present: normal inspection, full ROM, trachea midline - Chest Chest inspection: Present: normal inspection, symmetric chest wall rise, other ( Port present, no signs of infection) - Respiratory Respiratory exam: Present: normal lung sounds bilaterally - Cardiovascular Cardiovascular exam: Present: regular rate, normal rhythm, normal heart sounds - Abdominal Exam Abdominal exam: Present: soft, Non-Tender. Absent: tenderness, distention, guarding, rebound, rigidity - Extremities Exam Extremities exam: Present: normal inspection, full ROM, tenderness (Left popliteal and left femoral area). Absent: pedal edema - Neurological Exam Neurological exam: Present: alert, oriented X3 - Psychiatric Psychiatric exam: Present: normal affect, normal mood - Skin Skin exam: Present: warm, dry, intact, normal color Course Course Narrative: Patient with extensive clotting history. Will check cardiac workup with likely admission - Reevaluation(s) Reevaluation #1: Patient's lab work is back. While we have considered the possibility of the patient having a PE, she is already anticoagulated on Coumadin, she is not hypotensive and her troponin is normal. She is not hypoxic or tachycardic. We do not think that there is a clinically relevant, pulmonary embolism present at this time, so we will defer CT imaging at this time. She will be admitted due to her hypercoagulable state and subtherapeutic INR. She states that she has been between 2 and 3 for the last several years and continues to develop clots and that is why they want her between 3 and 4. EKG does not show any acute ischemic changes Vital Signs Temperature 98 F 01/10/17 00:11 Pulse Rate 94 01/10/17 00:11 Respiratory Rate 16 01/10/17 00:11 Blood Pressure 129/81 01/10/17 00:11 O2 Sat by Pulse Oximetry 98 01/10/17 00:11 Temperature 97.6 F 01/10/17 23:27 Pulse Rate 86 01/10/17 23:27 Respiratory Rate 16 01/10/17 23:27 Blood Pressure 132/92 01/10/17 23:27 O2 Sat by Pulse Oximetry 97 01/10/17 23:27 Oxygen Delivery Oxygen Delivery Room Air Arrhythmia/Palpitations - Medical Records Medical records reviewed: Yes I reviewed the patient's medical records. - Lab Data Lab results reviewed: Yes I reviewed the patient's lab results. Result diagrams: 01/10/17 09:38 01/10/17 01:55 Lab Results 01/10/17 01/10/17 01/10/17 Range/Units 01:55 01:55 01:55 WBC 3.2 L (4.3-11.1) K/mcL RBC 3.50 L (3.82-4.97) M/mcL Hgb 11.5 (11.5-15.4) g/dL Hct 36.1 (35.3-44.9) % MCV 103.1 H (83.0-100.0) fL MCH 32.9 (28.0-33.3) pg MCHC 31.9 (31.6-35.5) g/dL RDW 15.5 H (11.5-14.5) % Plt Count 191 (140-400) K/mcL MPV 9.1 L (9.4-12.4) fL Immature Gran % 0.3 (0-4) % Seg Neutrophils % 45.1 % Lymphocytes % 35.2 % Monocytes % 11.3 % Eosinophils % 7.2 % Basophils % 0.9 % Neutrophils # 1.4 L (1.6-8.9) K/mcL Lymphocytes # 1.1 (0.6-4.6) K/mcL Monocytes # 0.4 (0.0-1.3) K/mcL Eosinophils # 0.2 (0.0-0.6) K/mcL Basophils # 0.0 (0.0-0.2) K/mcL Immature Plt Fraction 2.0 (1.1-6.1) % PT (9.4-12.1) Seconds INR APTT (26.0-36.0) Seconds Sodium 137 (136-145) mEq/L Potassium 3.9 (3.5-4.5) mEq/L Chloride 105 (98-109) mEq/L Carbon Dioxide 25 (19-29) mEq/L BUN 16 (7-20) mg/dL Creatinine 1.02 (0.57-1.11) mg/dL Est GFR ( Amer) > 60 (> 60) Est GFR (Non-Af Amer) 57 L (> 60) BUN/Creatinine Ratio 16 (6-26) Glucose 96 (70-99) mg/dL Calculated Osmolality 285 (280-300) Calcium 8.5 L (8.6-10.8) mg/dL Ionized Calcium (1.15-1.35) mmol/L Phosphorus (2.3-4.7) mg/dL Magnesium (1.6-2.6) mg/dL Troponin I 0.00 (0-0.03) ng/mL TSH (0.350-4.840) mcIU/mL 01/10/17 01/10/17 Range/Units 01:55 01:55 WBC (4.3-11.1) K/mcL RBC (3.82-4.97) M/mcL Hgb (11.5-15.4) g/dL Hct (35.3-44.9) % MCV (83.0-100.0) fL MCH (28.0-33.3) pg MCHC (31.6-35.5) g/dL RDW (11.5-14.5) % Plt Count (140-400) K/mcL MPV (9.4-12.4) fL Immature Gran % (0-4) % Seg Neutrophils % % Lymphocytes % % Monocytes % % Eosinophils % % Basophils % % Neutrophils # (1.6-8.9) K/mcL Lymphocytes # (0.6-4.6) K/mcL Monocytes # (0.0-1.3) K/mcL Eosinophils # (0.0-0.6) K/mcL Basophils # (0.0-0.2) K/mcL Immature Plt Fraction (1.1-6.1) % PT 20.0 H (9.4-12.1) Seconds INR 1.8 APTT 48.6 H (26.0-36.0) Seconds Sodium (136-145) mEq/L Potassium (3.5-4.5) mEq/L Chloride (98-109) mEq/L Carbon Dioxide (19-29) mEq/L BUN (7-20) mg/dL Creatinine (0.57-1.11) mg/dL Est GFR ( Amer) (> 60) Est GFR (Non-Af Amer) (> 60) BUN/Creatinine Ratio (6-26) Glucose (70-99) mg/dL Calculated Osmolality (280-300) Calcium (8.6-10.8) mg/dL Ionized Calcium 1.16 (1.15-1.35) mmol/L Phosphorus 3.5 (2.3-4.7) mg/dL Magnesium 1.8 (1.6-2.6) mg/dL Troponin I (0-0.03) ng/mL TSH 1.652 (0.350-4.840) mcIU/mL - Radiology Data Radiology results reviewed: Yes I reviewed the patient's radiology results. - EKG Data EKG attestation: Yes I reviewed and interpreted this EKG. EKG results narrative: Sinus rhythm, rate 86, OH interval 158, QRS 83, QTc 43, normal axis, no acute ischemic changes [facility].B[facility]R. - [facility] Situation: Demographics, MOA Background: Presenting Complaint, Relevant PMH, Meds, & Allergies Assessment: Vital Signs, Course and respsone to treatment, Exam Concerns, Patient/Family Expectation, Pertinant Lab Results, Outstanding Labs Recommendation: Barrier(s) to disposition, Recommendation based on pending studies, treatments, or consults [facility] Report Given to: Dr. Tyra Hauser Repor Time: 07:05 Attestation Statement - Attestation Attestation: I, Tim Lewis, examined this patient and my medical decision-making was reviewed with the ASSOCIATE CONSULTING ENGINEER/PA/Advanced Practice Nurse/Resident Physician. I agree with the documented findings, disposition and treatment plan as described except to the extent set forth below. 51-year-old female presents with concerns of chest pain and palpitations. Patient states patient states she has a history of lupus, protein C&S deficiency and is hypercoagulable. She states her INR goal is between 3-4 because she continued to produce clots while at levels of 2-3. Patient states that she felt mildly nauseated with her pain. She denies significant shortness of breath on the emergency department. She is not tachycardic. There is no elevation of her troponin. EKG showed normal sinus rhythm with a rate of 86. Patient will be admitted to the hospital for further care and evaluation of her chest pain. Unlikely PE without changes in her vital signs or elevation of her troponin. CTA of the chest was negative for acute PE. Patient be admitted to hospital for further care and evaluation of her chest pain.
[2017-01-10] MEDS ORDERED: Ondansetron 4 MG/2 ML VIAL IVP ONE (02:06)
[2017-01-10] MEDS ORDERED: *HR* HYDROmorphone (PF) 1 MG/ML SYRINGE IVP ONE ×3 (02:06→14:14)
[2017-01-10 02:15] LABS: Ionized Calcium 1.16 mmol/L (1.15-1.35)
[2017-01-10 02:16] LABS: BUN/Creatinine Ratio 16 (6-26); Blood Urea Nitrogen 16 mg/dL (7-20); Calcium 8.5 mg/dL (8.6-10.8); Carbon Dioxide 25 mEq/L (19-29); Chloride 105 mEq/L (98-109); Glucose 96 mg/dL (70-99); Osmolality,Calculated 285 (280-300); Potassium 3.9 mEq/L (3.5-4.5); Sodium 137 mEq/L (136-145); eGFR For African Americans > 60 (> 60); eGFR For Non-African Americans 57 (> 60)
[2017-01-10 02:17] LABS: INR 1.8
[2017-01-10 02:20] LABS: Activated Partial Thrombo Time 48.6 Seconds (26.0-36.0)
[2017-01-10 02:41] LABS: Magnesium 1.8 mg/dL (1.6-2.6); Phosphorous 3.5 mg/dL (2.3-4.7)
[2017-01-10 03:03] LABS: Thyroid Stimulating Hormone 1.652 mcIU/mL (0.350-4.840)
[2017-01-10] MEDS ORDERED: *HR* FentaNYL (PF) 100 MCG/2 ML VIAL IVP ONE (03:37)
--- NOTE | 2017-01-10 07:07 | Internal Med History&Physical ---
Date of Encounter: 01/10/17 Time of Encounter: 07:07 Assessment and Plan (1) Chest pain Current visit: Yes Status: Acute Atypical chest pain and a patient with hypercoagulable state and risk factors for CAD with no recent cardiovascular workup. We will place the patient on observation for serial troponins, cardiac monitoring. If she rules out we will obtain a stress test and echocardiogram. We will treat chest pain with nitroglycerin. Qualifiers: Chest pain type: other chest pain Qualified Code(s): R07.89 - Other chest pain; R07.8 - Other chest pain (2) Anticoagulated on Coumadin Current visit: Yes Status: Acute We will give 10 mg Coumadin once tonight. Resume home dose starting tomorrow. Check daily INR. (3) Antiphospholipid antibody syndrome Current visit: No Status: Chronic I have reviewed her records from previous visit. Goal INR 2 to her hypercoagulable state has increased to 3.0-4.0. We will increase Coumadin accordingly. (4) Coagulopathy Current visit: No Status: Chronic (5) Lupus (systemic lupus erythematosus) Current visit: No Status: Chronic Qualifiers: Systemic lupus erythematosus type: unspecified Systemic lupus erythematosus organ involvement: unspecified Qualified Code(s): M32.9 - Systemic lupus erythematosus, unspecified (6) Protein C deficiency Current visit: No Status: Chronic (7) Protein S deficiency Current visit: No Status: Chronic (8) Fibromyalgia Current visit: Yes Status: Acute Resume her home medications for fibromyalgia. Treat pain with hydrocodone as per home medication regimen. She received multiple doses of intravenous hydromorphone and fentanyl for her back pain in the emergency department. That puts her at high risk for morbidity mortality and complications as well as addiction and abuse. I would avoid treating her chronic pain with IV opiates at all cost due to potential for addiction and abuse as well as severe adverse reactions. Internal Medicine - H&P: HPI Chief complaint: Chest pain Admitted From: Emergency Dept Plans for Post Hospital Care: Home History of present illness: Ms. Sandoval is a 51 year old female with past medical history significant for lupus and chronic coagulopathy, DVTs PEs and IVC filter placement on long-term anticoagulation with warfarin who presented to the hospital for evaluation of chest pain. The pain started last night it was located in the left upper chest , and was described as "my heart was flopping inside my chest". She also reported chest fluttering associated with decreased hearing as of hearing muffled sounds and severe anxiety. She denies any aggravating or alleviating factors, she denies association with diaphoresis and shortness of breath. Review of systems positive for chronic shoulder and back pain and pelvic pain secondary to fibromyalgia, otherwise negative. Past Med Surg Social Fam HX - Past Medical History Medical history: DVT, fibromyalgia, kidney stones, pulmonary embolus, thyroid disease, other Psychiatric history: bipolar - Past Surgical History Surgical History: ureteral stent, IVC filter - Social History Smoking Status: Current every day smoker Smokeless Tobacco Status: No Alcohol use: none Drug use: none - Family History Father Family Member Ethnicity: Non- Living Status: Still Living Hx Family Cardiac Disorders: Yes (HTN) Hx Family Endocrine Disorder: Yes (DM) Mother Family Member Ethnicity: Non- Living Status: Hx Family Neuromuscular Disorders: Yes (MS) Brother Family Member Ethnicity: Non- Living Status: Still Living Sister Family Member Ethnicity: Non- Living Status: Still Living Internal Medicine - H&P: Meds Black Cohosh 20 mg PO DAILY 12/20/16 [History] BuPROPion XL (24 HR) [Wellbutrin Xl] 150 mg PO DAILY 12/20/16 [History] Cholecalciferol (D-3) [Vitamin D] 5,000 unit PO DAILY 12/20/16 [History] Cyclobenzaprine [Flexeril] 10 mg PO TID 12/20/16 [History] Cyclosporine [Restasis] 1 drop OP BID 12/20/16 [History] Duloxetine HCl [Cymbalta] 60 mg PO DAILY 12/20/16 [History] HYDROcodone/Acet 7.5/325 mg [[place] 7.5-325 mg] 1 - 2 tab PO Q6H PRN 12/20/16 [ History] Hydroxychloroquine [Plaquenuil] 200 mg PO BID 12/20/16 [History] Levothyroxine [Synthroid] 75 mcg PO DAILY@0630 12/20/16 [History] Lubiprostone [Amitiza] 24 mcg PO BID 12/20/16 [History] Magnesium 250 mg PO DAILY 12/20/16 [History] Melatonin/Pyridoxine HCl (B6) [Melatonin 5 mg Tablet] 10 mg PO HS 07/22/17 [ History] Potassium Chloride [K-Tab ER] 10 meq PO BID 12/20/16 [History] Promethazine [Phenergan] 25 mg PO Q6HR PRN 12/20/16 [History] Quetiapine Fumarate [Seroquel] 100 mg PO HS 12/20/16 [History] Valacyclovir HCl [Valtrex] 1,000 mg PO DAILY 12/20/16 [History] Warfarin [Coumadin] 6 mg PO DAILY 12/20/16 [History] clonazePAM [Klonopin] 2 mg PO 0900,1700 12/20/16 [History] clonazePAM [Klonopin] 4 mg PO HS 12/20/16 [History] Acetaminophen/Butalbital/Caffe [Fioricet] 1 each PO Q6H PRN 01/05/17 [History] Butorphanol Tartrate 1 spray NS Q4-6H PRN 01/05/17 [History] Polyethylene Glycol 3350 [MiraLAX] 17 gm PO BID 01/06/17 [History] DiphenhydraMINE [Benadryl] 25 mg PO Q6HR PRN #20 capsule 01/07/17 [Rx] Heparin 5,000 unit SQ Q6H 7 Days 01/07/17 [Rx] Allergies Amoxicillin Allergy (Verified 01/10/17 00:16) See Comments clarithromycin [From Biaxin] Allergy (Verified 01/10/17 00:16) See Comments Enoxaparin [From Lovenox] Allergy (Verified 01/10/17 00:16) See Comments hydrochlorothiazide Allergy (Verified 01/10/17 00:16) See Comments levofloxacin [From Levaquin] Allergy (Verified 01/10/17 00:16) Difficulty Breathing nafcillin Allergy (Verified 01/10/17 00:16) Seizure oxcarbazepine [From Trileptal] Allergy (Verified 01/10/17 00:16) Anaphylaxis Penicillins Allergy (Verified 01/10/17 00:16) Seizure Sulfa (Sulfonamide Antibiotics) Allergy (Verified 01/10/17 00:16) See Comments sumatriptan [From Imitrex] Allergy (Verified 01/10/17 00:16) See Comments Terazosin Allergy (Verified 01/10/17 00:16) See Comments vancomycin Allergy (Verified 01/10/17 00:16) Seizure topiramate [From Topamax] Adverse Reaction (Verified 01/10/17 00:16) Confusion All Systems PM: A 10-system review of systems was performed and is negative for pertinent findings except as documented above in the HPI. - Constitutional Vitals: Temp Pulse Resp BP Pulse Ox 98 F 75 16 126/78 96 01/10/17 00:11 01/10/17 06:49 01/10/17 06:59 01/10/17 06:59 01/10/17 06:49 General appearance: Present: A&O X 3 - Eye Eye exam: Present: PERRL, conjuntiva pink, sclera anicteric Pupils: Present: PERRL - Respiratory Respiratory exam: Present: CTAB. Absent: accessory muscle use, rales, rhonchi, wheezes - Cardiovascular Cardiovascular exam: Present: RRR, +S1, +S2. Absent: diastolic murmur, gallop, rubs, systolic murmur - GI/Abdominal GI/Abdominal exam: Present: normal bowel sounds, soft, no peritoneal signs. Absent: distended, tenderness - Extremities Exam Extremities exam: Present: warm, radial pulses palpable and symmetrical. Absent : calf tenderness, cyanotic, pedal edema - Neurological Exam Neurological exam: Present: CN II-XII intact, oriented X3, no focal deficits. Absent: pronater drift, facial droop, speech deficit - Skin Skin exam: Present: dry, intact Internal Med - H&P Results - Labs CBC & Chem 7: 01/10/17 01:55 01/10/17 01:55 - EKG Data -: EKG Interpreted by Myself EKG shows normal: sinus rhythm, axis, QRS complexes, ST-T waves Rate: normal
[2017-01-10] MEDS ORDERED: Naloxone 0.4 MG/ML INJ IVP PRN (07:31)
[2017-01-10] MEDS ORDERED: Acetaminophen 325 MG TABLET PO PRN (07:31)
[2017-01-10] MEDS ORDERED: *HR* HYDROcodone/Acet 5/325 mg TABLET PO PRN (07:31)
[2017-01-10] MEDS ORDERED: *HR* Warfarin 10 MG TABLET PO ONE (07:36)
[2017-01-10] MEDS ORDERED: *HR* Heparin 5,000 UNIT/ML VIAL IVP ONE (07:36)
[2017-01-10] MEDS ORDERED: *HR* Heparin 5,000 UNIT/ML VIAL IVP PRN ×2 (07:36)
[2017-01-10] MEDS ORDERED: BUTORPHANOL TARTRATE NS PRN (07:38)
[2017-01-10] MEDS ORDERED: Acetaminophen/Butalbital/CaffeineTABLET PO PRN (07:38)
[2017-01-10] MEDS: Heparin 25,000 UNIT/500 ML D5W 25,000 UNIT/500 ML MLS IVC SCH (09:46)
[2017-01-10 10:15] LABS: Hematocrit 35.9 % (35.3-44.9); Hemoglobin 11.4 g/dL (11.5-15.4); Mean Corpuscular HGB Conc 31.8 g/dL (31.6-35.5); Mean Corpuscular Hemoglobin 33.2 pg (28.0-33.3); Mean Corpuscular Volume 104.7 fL (83.0-100.0); Mean Platelet Volume 9.4 fL (9.4-12.4); Platelet Count 167 K/mcL (140-400); Red Blood Count 3.43 M/mcL (3.82-4.97); Red Cell Distribution Width 15.6 % (11.5-14.5)
[2017-01-10 10:21] LABS: INR 1.7; Prothrombin Time 18.9 Seconds (9.4-12.1)
[2017-01-10 10:24] LABS: Activated Partial Thrombo Time 42.7 Seconds (26.0-36.0)
[2017-01-10] MEDS ORDERED: Regadenoson 0.4 MG/5 ML SYRINGE IVP ONE (11:49)
[2017-01-10] MEDS ORDERED: *HR* Warfarin 3 MG TABLET PO SCH (12:30)
[2017-01-10] MEDS: Cyclosporine [Restasis] OP SCH ×2 (14:03→20:37)
[2017-01-10] MEDS: clonazePAM 1 MG TABLET PO SCH ×3 (14:18→20:35)
[2017-01-10] MEDS: BuPROPion XL (24 HR) 150 MG TABLET PO SCH (14:19)
--- NOTE | 2017-01-10 14:33 | Nuclear Medicine Stress Report ---
Regadenoson Nuclear Stress Name: Pearl Sandoval Date of Study: 01/10/2017 Date: 1965 Ht: 66.0 in Medical Record#: [id number] Age: 51 Wt: 189.0 lb Gender: Female Order #: [id number] Location: [facility] IP Room: [facility] Supervising Provider: Cyndi Merritt CNP Ordering Physician: Luis White DO Primary Care Physician: Ariel Cotto DO Stress Technologist: Cameron Mancilla RRT, CCT E M Assembler: Ashok Wilson Indications: Chest Pain Impression: Perfusion imaging was negative for ischemia or infarct. Pharmacologic ECG was non diagnostic for ischemia. Patient had no chest pain with stress. No arrhythmias noted with stress. Gated EF = >70%. There is no evidence of TID. History: History of Smoking Stress Test Summary: Stress Test Type: Pharmacologic Regadenoson 0.4mg/5ml given IV Baseline Information: Initial Heart Rate: 86 Blood Pressure: 116/74 Stress Information: Stress Time: 4 min 00 sec Test Terminated Due to (primary): Completed Protocol Maximum Blood Pressure: 106/80 Maximum Heart Rate: 100 Percent Maximum Heart Rate Achieved: 59 Double Product: 26170 METS Reached: 1 Symptoms: Shortness of breath Nuclear Summary: SPECT myocardial perfusion imaging using Tc99m Sestamibi given intravenously was performed at rest and following cardiac stress testing. The resting images were obtained following initial dose of 11.0 mCi. Following stress an additional dose of 34.6 mCi was given at peak exercise or 30 seconds post regadenoson infusion. Medication Given: Time Medication Dose Units Route Findings: Stress Note * Resting ECG demonstrated normal sinus rhythm. * No baseline arrhythmias were noted. * Pharmacologic stress ECG is non diagnostic for ischemia due to failure to reach target heartrate. * No chest pain or arrhythmias during stress. Study Quality * Study quality is good. Gated EF > 70% * Gated EF > 70%. NORMALS * Normal wall motion. * Normal Segmental Perfusion in rest. * Normal segmental perfusion in stress. Hemodynamic responses * The patient demonstrated a hypotensive blood pressure response. Updated by Hadley Gomez MD, [facility] on 01/10/2017 2:23:42 PM electronically signed on 01/10/2017 2:25:56 PM with status of Final
--- NOTE | 2017-01-10 16:08 | Event Note ---
Date of Encounter: 01/10/17 Time of Encounter: 16:07 Pt was admitted earlier today for chest pain and subtherapeutic INR. She has hx of hypercoagulable state. She is complaining of diffuse pain. Percocet ordered as well. Will continue same plan of care at this time.
[2017-01-10 17:19] LABS: Activated Partial Thrombo Time > 360.0 Seconds (26.0-36.0)
[2017-01-10 17:30] LABS: Heparin anti-factor XA UFH 1.53 IU/mL (0.30-0.70)
[2017-01-10] MEDS: *HR* OxyCODONE/APAP 5/325 TABLET PO PRN (17:44)
[2017-01-10] MEDS: *HR* HYDROcodone/Acet 7.5/325 mg TABLET PO PRN (20:35)
[2017-01-10] MEDS: Lubiprostone [Amitiza] 24 MCG PO SCH (20:36)
[2017-01-11] MEDS: *HR* OxyCODONE/APAP 5/325 TABLET PO PRN ×4 (00:41→21:30)
[2017-01-11 01:04] LABS: INR 1.9; Prothrombin Time 21.4 Seconds (9.4-12.1)
[2017-01-11 01:24] LABS: Activated Partial Thrombo Time > 360.0 Seconds (26.0-36.0)
[2017-01-11 01:25] LABS: Heparin anti-factor XA UFH 1.15 IU/mL (0.30-0.70)
[2017-01-11 04:29] LABS: Eosinophils # 0.3 K/mcL (0.0-0.6); Hematocrit 33.1 % (35.3-44.9); Hemoglobin 10.7 g/dL (11.5-15.4); Lymphocytes # 1.2 K/mcL (0.6-4.6); Lymphocytes % 40.6 %; Mean Corpuscular HGB Conc 32.3 g/dL (31.6-35.5); Mean Corpuscular Volume 102.2 fL (83.0-100.0); Mean Platelet Volume 9.1 fL (9.4-12.4); Monocytes # 0.3 K/mcL (0.0-1.3); Monocytes % 9.7 %; Neutrophils # 1.1 K/mcL (1.6-8.9); Platelet Count 147 K/mcL (140-400); Red Blood Count 3.24 M/mcL (3.82-4.97); Red Cell Distribution Width 15.4 % (11.5-14.5); Segmented Neutrophils % 39.7 %
[2017-01-11 04:45] LABS: BUN/Creatinine Ratio 14 (6-26); Blood Urea Nitrogen 13 mg/dL (7-20); Calcium 8.2 mg/dL (8.6-10.8); Carbon Dioxide 30 mEq/L (19-29); Chloride 105 mEq/L (98-109); Glucose 81 mg/dL (70-99); Magnesium 1.8 mg/dL (1.6-2.6); Osmolality,Calculated 285 (280-300); Potassium 4.1 mEq/L (3.5-4.5); Sodium 138 mEq/L (136-145); eGFR For African Americans > 60 (> 60); eGFR For Non-African Americans > 60 (> 60)
[2017-01-11] MEDS: *HR* HYDROcodone/Acet 7.5/325 mg TABLET PO PRN ×3 (06:01→17:55)
[2017-01-11] MEDS: clonazePAM 1 MG TABLET PO SCH ×3 (08:00→20:13)
[2017-01-11] MEDS: BuPROPion XL (24 HR) 150 MG TABLET PO SCH (08:00)
[2017-01-11] MEDS: valACYclovir 500 MG TABLET PO SCH (08:00)
[2017-01-11] MEDS: Cholecalciferol (D-3) 1,000 UNIT TABLET PO SCH (08:00)
[2017-01-11] MEDS: Cyclosporine [Restasis] OP SCH ×2 (08:01→20:18)
[2017-01-11] MEDS: Lubiprostone [Amitiza] 24 MCG PO SCH ×2 (08:01→20:18)
[2017-01-11] MEDS: Magnesium [Magnesium] 250 MG PO SCH (08:01)
[2017-01-11 09:18] LABS: Activated Partial Thrombo Time > 360.0 Seconds (26.0-36.0)
[2017-01-11 09:23] LABS: Heparin anti-factor XA UFH 0.43 IU/mL (0.30-0.70)
[2017-01-11] MEDS: Heparin 25,000 UNIT/500 ML D5W 25,000 UNIT/500 ML MLS IVC SCH ×2 (09:28→11:47)
[2017-01-11] MEDS ORDERED: hydrOXYzine pamoate 25 MG CAPSULE PO PRN (09:35)
--- NOTE | 2017-01-11 13:02 | Electrocardiograph Report ---
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
[2017-01-11] MEDS: Ondansetron 4 MG/2 ML VIAL IVP PRN (16:57)
--- NOTE | 2017-01-11 17:06 | Internal Med Progress Note ---
Date of Encounter: 01/11/17 Time of Encounter: 09:00 - Assessment and plan (1) Antiphospholipid antibody syndrome Current Visit: Yes Status: Chronic Assessment and plan: INR is subtherapeutic so patient is on heparin to bridge. Continue meds as is for now. (2) Coagulopathy Current Visit: No Status: Chronic Assessment and plan: Continue heparin/coumadin (3) Hypothyroidism Current Visit: No Status: Chronic Assessment and plan: Continue home meds. Qualifiers: Hypothyroidism type: acquired Qualified Code(s): E03.9 - Hypothyroidism, unspecified (4) Protein C deficiency Current Visit: Yes Status: Chronic (5) Lupus (systemic lupus erythematosus) Current Visit: No Status: Chronic Assessment and plan: Supportive care. Qualifiers: Systemic lupus erythematosus type: unspecified Systemic lupus erythematosus organ involvement: unspecified Qualified Code(s): M32.9 - Systemic lupus erythematosus, unspecified (6) Neutropenia Current Visit: No Status: Chronic Assessment and plan: Follow. Number has remained stable. Qualifiers: Neutropenia type: unspecified Qualified Code(s): D70.9 - Neutropenia, unspecified (7) Chest pain Current Visit: Yes Status: Acute Assessment and plan: stress test negative. Qualifiers: Chest pain type: other chest pain Qualified Code(s): R07.89 - Other chest pain; R07.8 - Other chest pain (8) Chronic pain Current Visit: Yes Status: Acute Qualifiers: Chronic pain type: chronic pain syndrome Qualified Code(s): G89.4 - Chronic pain syndrome - Subjective Interval history: Ms. Sandoval is currently admitted for chest pain and subtherapeutic INR with hx hypercoagulable state. She remains moderate to high risk due to potential for clotting and worsening clinical status. Ms. Sandoval continues to ask for IV Dilaudid and pain meds for chronic pain issues. I have explained that she cannot have it but I will give Atarax for symptoms of anxiety. No fever or chills. Tolerating meds. No other issues. - Constitutional Vitals: Temp Pulse Resp BP Pulse Ox 97.5 F L 89 16 115/78 95 01/11/17 16:31 01/11/17 16:31 01/11/17 16:31 01/11/17 16:31 01/11/17 16:31 General appearance: Present: A&O X 3, answers questions appropriately - Head Head exam: Present: normocephalic - Eye Eye exam: Present: EOMI, conjuntiva pink - ENT ENT exam: Present: mucous membranes dry - Respiratory Respiratory exam: Present: decreased breath sounds, CTAB. Absent: rales, rhonchi, wheezes - Cardiovascular Cardiovascular exam: Present: RRR. Absent: tachycardia - GI/Abdominal GI/Abdominal exam: Present: soft. Absent: tenderness - Extremities Exam Extremities exam: Present: warm. Absent: tenderness - Neurological Exam Neurological exam: Present: alert, oriented X3, no focal deficits - Skin Skin exam: Present: dry, warm. Absent: rash Internal Medicine: Result - Labs CBC & Chem 7: 01/11/17 04:15 01/11/17 04:15 Labs: Short CBC 01/11/17 Range/Units 04:15 WBC 2.9 L (4.3-11.1) K/mcL Hgb 10.7 L (11.5-15.4) g/dL Hct 33.1 L (35.3-44.9) % Plt Count 147 (140-400) K/mcL Neutrophils # 1.1 L (1.6-8.9) K/mcL BMP 01/11/17 04:15 Sodium 138 Potassium 4.1 Chloride 105 Carbon Dioxide 30 H BUN 13 Creatinine 0.91 Glucose 81 Calcium 8.2 L - ABG Interpretation ABG results: PT/INR, D-dimer PT 21.4 Seconds (9.4-12.1) H 01/11/17 00:40 Consult Discharge Plan - Plan Referrals: Ariel Cotto DO [Primary Care Provider] -
[2017-01-11] MEDS ORDERED: Warfarin perPT PO PRN (18:00)
[2017-01-11] MEDS ORDERED: *HR* Warfarin 10 MG TABLET PO ONE (18:00)
[2017-01-11 18:29] LABS: Activated Partial Thrombo Time 205.4 Seconds (26.0-36.0)
[2017-01-11 18:35] LABS: Heparin anti-factor XA UFH 0.31 IU/mL (0.30-0.70)
[2017-01-12 00:08] LABS: Activated Partial Thrombo Time > 360.0 Seconds (26.0-36.0)
[2017-01-12 00:16] LABS: Heparin anti-factor XA UFH 0.65 IU/mL (0.30-0.70)
[2017-01-12] MEDS: *HR* HYDROcodone/Acet 7.5/325 mg TABLET PO PRN ×2 (00:31→06:32)
[2017-01-12] MEDS: *HR* OxyCODONE/APAP 5/325 TABLET PO PRN ×2 (03:32→10:49)
[2017-01-12 03:34] LABS: BUN/Creatinine Ratio 13 (6-26); Blood Urea Nitrogen 12 mg/dL (7-20); Calcium 8.2 mg/dL (8.6-10.8); Carbon Dioxide 26 mEq/L (19-29); Chloride 107 mEq/L (98-109); Glucose 75 mg/dL (70-99); Magnesium 1.8 mg/dL (1.6-2.6); Osmolality,Calculated 284 (280-300); Potassium 4.5 mEq/L (3.5-4.5); Sodium 138 mEq/L (136-145); eGFR For African Americans > 60 (> 60); eGFR For Non-African Americans > 60 (> 60)
[2017-01-12 03:41] LABS: Activated Partial Thrombo Time 217.4 Seconds (26.0-36.0)
[2017-01-12 03:45] LABS: Heparin anti-factor XA UFH 0.21 IU/mL (0.30-0.70)
[2017-01-12 04:26] LABS: INR 2.1; Prothrombin Time 23.4 Seconds (9.4-12.1)
[2017-01-12 06:10] LABS: Hematocrit 33.3 % (35.3-44.9); Hemoglobin 10.6 g/dL (11.5-15.4); Mean Corpuscular HGB Conc 31.8 g/dL (31.6-35.5); Mean Corpuscular Hemoglobin 32.7 pg (28.0-33.3); Mean Corpuscular Volume 102.8 fL (83.0-100.0); Mean Platelet Volume 9.7 fL (9.4-12.4); Platelet Count 164 K/mcL (140-400); Red Blood Count 3.24 M/mcL (3.82-4.97); Red Cell Distribution Width 15.4 % (11.5-14.5)
[2017-01-12] MEDS: valACYclovir 500 MG TABLET PO SCH (07:55)
[2017-01-12] MEDS: Cholecalciferol (D-3) 1,000 UNIT TABLET PO SCH (07:55)
[2017-01-12] MEDS: Cyclosporine [Restasis] OP SCH ×2 (07:56→20:38)
[2017-01-12] MEDS: Lubiprostone [Amitiza] 24 MCG PO SCH ×2 (07:56→20:39)
[2017-01-12] MEDS: BuPROPion XL (24 HR) 150 MG TABLET PO SCH (07:56)
[2017-01-12] MEDS: Magnesium [Magnesium] 250 MG PO SCH (07:56)
[2017-01-12] MEDS: clonazePAM 1 MG TABLET PO SCH ×3 (07:56→22:24)
--- NOTE | 2017-01-12 12:56 | Internal Med Progress Note ---
<SuzannarobArsalan - Last Filed: 01/12/17 13:10> Date of Encounter: 01/12/17 Time of Encounter: 09:20 - Assessment and plan (1) Coagulopathy Current Visit: No Status: Chronic Assessment and plan: INR Subtherapeutic. Up to 2.1 today. Goal is 3-4. Continue heparin bridge and Warfarin. (2) Antiphospholipid antibody syndrome Current Visit: No Status: Chronic Assessment and plan: See Coagulopathy (3) Chest pain Current Visit: Yes Status: Acute Assessment and plan: Stress test negative Troponin's negative. echo normal. Likely not cardiac in nature. Qualifiers: Chest pain type: other chest pain Qualified Code(s): R07.89 - Other chest pain; R07.8 - Other chest pain (4) Protein C deficiency Current Visit: No Status: Chronic Assessment and plan: See Coagulopathy (5) Lupus (systemic lupus erythematosus) Current Visit: No Status: Chronic Assessment and plan: Continue home meds continue supportive care Qualifiers: Systemic lupus erythematosus type: unspecified Systemic lupus erythematosus organ involvement: unspecified Qualified Code(s): M32.9 - Systemic lupus erythematosus, unspecified (6) Chronic pain Current Visit: Yes Status: Acute Assessment and plan: Changed pain regimen to Percocet 10/325 q4. Qualifiers: Chronic pain type: chronic pain syndrome Qualified Code(s): G89.4 - Chronic pain syndrome (7) Neutropenia Current Visit: No Status: Chronic Assessment and plan: Numbers have remained stable. continue to monitor. Qualifiers: Neutropenia type: unspecified Qualified Code(s): D70.9 - Neutropenia, unspecified (8) Hypothyroidism Current Visit: No Status: Chronic Assessment and plan: continue home meds. Qualifiers: Hypothyroidism type: acquired Qualified Code(s): E03.9 - Hypothyroidism, unspecified - Subjective Interval history: Patient lying in bed resting comfortably. Patient reports pain in back and legs. pt denies, CP, SOB, N, V, D, Fever chills. - Constitutional Vitals: Temp Pulse Resp BP Pulse Ox 98.1 F 89 18 119/79 92 01/12/17 11:04 01/12/17 11:04 01/12/17 11:04 01/12/17 11:04 01/12/17 11:04 General appearance: Present: A&O X 3, answers questions appropriately - Eye Eye exam: Absent: periorbital swelling - ENT ENT exam: Present: mucous membranes moist - Respiratory Respiratory exam: Present: decreased breath sounds, CTAB. Absent: rales, rhonchi, wheezes - Cardiovascular Cardiovascular exam: Present: RRR. Absent: gallop, rubs, systolic murmur - GI/Abdominal GI/Abdominal exam: Present: normal bowel sounds, soft. Absent: tenderness - Extremities Exam Extremities exam: Present: calf tenderness, warm - Neurological Exam Neurological exam: Present: alert, oriented X3. Absent: no focal deficits - Psychiatric Psychiatric exam: Present: normal affect - Skin Skin exam: Present: dry, warm Internal Medicine: Result - Labs CBC & Chem 7: 01/12/17 03:10 01/12/17 03:10 Labs: Short CBC 01/12/17 Range/Units 03:10 WBC 2.4 L (4.3-11.1) K/mcL Hgb 10.6 L (11.5-15.4) g/dL Hct 33.3 L (35.3-44.9) % Plt Count 164 (140-400) K/mcL BMP 01/12/17 03:10 Sodium 138 Potassium 4.5 Chloride 107 Carbon Dioxide 26 BUN 12 Creatinine 0.91 Glucose 75 Calcium 8.2 L - ABG Interpretation ABG results: PT/INR, D-dimer PT 23.4 Seconds (9.4-12.1) H 01/12/17 03:10 Consult Discharge Plan - Plan Referrals: Ariel Cotto DO [Primary Care Provider] - <Luis White - Last Filed: 01/12/17 16:15> Date of Encounter: 01/12/17 - Assessment and plan (1) Protein C deficiency Current Visit: Yes Status: Chronic (2) Antiphospholipid antibody syndrome Current Visit: Yes Status: Chronic (3) Coagulopathy Current Visit: No Status: Chronic (4) Hypothyroidism Current Visit: No Status: Chronic Qualifiers: Hypothyroidism type: acquired Qualified Code(s): E03.9 - Hypothyroidism, unspecified (5) Lupus (systemic lupus erythematosus) Current Visit: No Status: Chronic Qualifiers: Systemic lupus erythematosus type: unspecified Systemic lupus erythematosus organ involvement: unspecified Qualified Code(s): M32.9 - Systemic lupus erythematosus, unspecified (6) Neutropenia Current Visit: No Status: Chronic Qualifiers: Neutropenia type: unspecified Qualified Code(s): D70.9 - Neutropenia, unspecified (7) Chest pain Current Visit: Yes Status: Acute Qualifiers: Chest pain type: other chest pain Qualified Code(s): R07.89 - Other chest pain; R07.8 - Other chest pain (8) Chronic pain Current Visit: Yes Status: Acute Qualifiers: Chronic pain type: chronic pain syndrome Qualified Code(s): G89.4 - Chronic pain syndrome - Constitutional Vitals: Temp Pulse Resp BP Pulse Ox 98.1 F 89 18 119/79 92 01/12/17 11:04 01/12/17 11:04 01/12/17 11:04 01/12/17 11:04 01/12/17 11:04 Internal Medicine: Result - Labs CBC & Chem 7: 01/12/17 03:10 01/12/17 03:10 Labs: Short CBC 01/12/17 Range/Units 03:10 WBC 2.4 L (4.3-11.1) K/mcL Hgb 10.6 L (11.5-15.4) g/dL Hct 33.3 L (35.3-44.9) % Plt Count 164 (140-400) K/mcL BMP 01/12/17 03:10 Sodium 138 Potassium 4.5 Chloride 107 Carbon Dioxide 26 BUN 12 Creatinine 0.91 Glucose 75 Calcium 8.2 L - ABG Interpretation ABG results: PT/INR, D-dimer PT 23.4 Seconds (9.4-12.1) H 01/12/17 03:10 - Attending Attestation I examined this patient and my medical decision-making was reviewed with the Resident Physician on 01/12/17. I agree with the documented findings, disposition and treatment plan as described except to the extent set forth below. Ms Sandoval is currently admitted for hypercoagulable state and low INR and chest pain. She is moderate to high risk due to potential for clotting and bleeding. She remains on heparin bridge and coumadin. Ms. Sandoval continues to have pain issues. Convinced she has DVT in leg. Wants meds changed. called in to nurses station after shift change last night saying she needed "Dilaudid." No fever or chills. Exam Alert. Resting. Mucus membranes dry Heart reg No wheeze I/P 1. Hypercoagulable - on IV heparin/coumadin with target INR of 3-4 2. SLE 3. Chronic pain Further diagnoses and plan as above.
[2017-01-12] MEDS: *HR* OxyCODONE/APAP 10/325 TABLET PO PRN ×2 (13:33→17:33)
[2017-01-12] MEDS ORDERED: *HR* Warfarin 3 MG TABLET PO ONE (18:00)
[2017-01-12] MEDS: *HR* HYDROmorphone (PF) 1 MG/ML SYRINGE IVP PRN (20:38)
[2017-01-12] MEDS: Heparin 25,000 UNIT/500 ML D5W 25,000 UNIT/500 ML MLS IVC SCH (20:45)
[2017-01-12 21:18] LABS: Activated Partial Thrombo Time 151.9 Seconds (26.0-36.0)
[2017-01-12 21:23] LABS: Heparin anti-factor XA UFH 0.27 IU/mL (0.30-0.70)
[2017-01-12 22:56] LABS: Bilirubin,Urine Negative (Negative); Blood,Urine Negative (Negative); Clarity,Urine Clear (Clear); Color,Urine Yellow (Yellow); Glucose,Urine (UA) Normal (Normal); Ketones,Urine Negative (Negative); Leukocyte Esterase,Urine Negative (Negative); Nitrite,Urine Negative (Negative); PH,Urine 6.5 pH Units (5.0-8.0); Protein,Urine Negative (Neg-Trace); Specific Gravity,Urine 1.007 (1.010-1.025); Urobilinogen,Urine Normal (Normal)
[2017-01-13 00:56] LABS: Activated Partial Thrombo Time > 360.0 Seconds (26.0-36.0)
--- NOTE | 2017-01-13 01:24 | Event Note ---
<Aldo Higginbotham - Last Filed: 01/13/17 01:24> Date of Encounter: 01/13/17 Time of Encounter: 01:21 Heparin Gtt dosing in anti-phospholipid syndrome should not be titrated according to APTT, but to heparin Anti-Xa according to UpToDate, as APTT is not accurate in monitoring the degree of anticoagulation patient has. <Bogdan Orourke - Last Filed: 01/13/17 01:31> Date of Encounter: 01/13/17 Called by RN PTT is high to > 350 even on lowest dose of heparin drip. Since pt has antiphospholipid syndrome, PTT is high at baseline already. Check Uptodate, should follow heparin anti-Xa as a marker. Will cont heparin drip at current dose and f/u Heparin anti-Xa q6hr.
[2017-01-13] MEDS: *HR* OxyCODONE/APAP 10/325 TABLET PO PRN ×4 (01:52→18:09)
[2017-01-13] MEDS: Heparin 25,000 UNIT/500 ML D5W 25,000 UNIT/500 ML MLS IVC SCH ×2 (04:21→16:47)
[2017-01-13 04:27] LABS: INR 2.3
[2017-01-13 05:08] LABS: Activated Partial Thrombo Time > 360.0 Seconds (26.0-36.0)
[2017-01-13 05:13] LABS: Heparin anti-factor XA UFH 0.46 IU/mL (0.30-0.70)
[2017-01-13] MEDS: Cyclosporine [Restasis] OP SCH ×2 (08:46→20:33)
[2017-01-13] MEDS: Magnesium [Magnesium] 250 MG PO SCH (08:46)
[2017-01-13] MEDS: Lubiprostone [Amitiza] 24 MCG PO SCH ×2 (08:46→20:33)
[2017-01-13] MEDS: BuPROPion XL (24 HR) 150 MG TABLET PO SCH (09:00)
[2017-01-13] MEDS: Cholecalciferol (D-3) 1,000 UNIT TABLET PO SCH (09:00)
[2017-01-13] MEDS: clonazePAM 1 MG TABLET PO SCH ×3 (09:00→20:31)
[2017-01-13] MEDS: valACYclovir 500 MG TABLET PO SCH (09:01)
--- NOTE | 2017-01-13 09:57 | Internal Med Progress Note ---
<SuzannarobArsalan - Last Filed: 01/13/17 09:54> Date of Encounter: 01/13/17 Time of Encounter: 09:55 - Assessment and plan (1) Coagulopathy Current Visit: No Status: Chronic Assessment and plan: INR Subtherapeutic. Up to 2.3 today. Goal is 3-4. Patient allergic to lovenox so cannot be sent home to bridge. Continue heparin ggt. dose based on Heparin Anti Xa not PTT as PTT is elevated in her coagulopathies. Discussed Warfarin dose and goals with pharmacy today. They will consider giving her another dose of 10 today to speed up bridging process. Patient on 6mg daily at home. (2) Antiphospholipid antibody syndrome Current Visit: No Status: Chronic Assessment and plan: See Coagulopathy (3) Chest pain Current Visit: Yes Status: Acute Assessment and plan: Pt no longer complaining of Chest pain Stress test negative Troponin's negative. echo normal. Likely not cardiac in nature. Qualifiers: Chest pain type: other chest pain Qualified Code(s): R07.89 - Other chest pain; R07.8 - Other chest pain (4) Protein C deficiency Current Visit: No Status: Chronic Assessment and plan: See Coagulopathy (5) Lupus (systemic lupus erythematosus) Current Visit: No Status: Chronic Assessment and plan: Chronic, stable. Continue home meds continue supportive care Qualifiers: Systemic lupus erythematosus type: unspecified Systemic lupus erythematosus organ involvement: unspecified Qualified Code(s): M32.9 - Systemic lupus erythematosus, unspecified (6) Chronic pain Current Visit: Yes Status: Acute Assessment and plan: Chronic Kindey, low back, and BLE pain. -Changed pain regimen to Percocet 10/325 q4. - dilaudid 1mg IV q shift added yesterday. Qualifiers: Chronic pain type: chronic pain syndrome Qualified Code(s): G89.4 - Chronic pain syndrome (7) Neutropenia Current Visit: No Status: Chronic Assessment and plan: Chronic Numbers have remained stable. continue to monitor. Qualifiers: Neutropenia type: unspecified Qualified Code(s): D70.9 - Neutropenia, unspecified (8) Hypothyroidism Current Visit: No Status: Chronic Assessment and plan: Chronic, Stable. continue home meds. Qualifiers: Hypothyroidism type: acquired Qualified Code(s): E03.9 - Hypothyroidism, unspecified - Subjective Interval history: Patient lying in bed resting comfortably. Patient reports pain in back, butt, and legs. pt denies, CP, SOB, N, V, D, Fever chills. 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 Patient complains that the team is not paying attention to her other problems such as her chronic kidney pain and her chronic "butt bone" pain problems. I explained to the patient that she was getting hgher doses of medications here than she was on at home for those concerns, and she stated that she was not unhappy with her level of pain medications. - Constitutional Vitals: Temp Pulse Resp BP Pulse Ox 98.1 F 73 14 116/73 95 01/13/17 08:12 01/13/17 08:12 01/13/17 08:12 01/13/17 08:12 01/13/17 08:12 General appearance: Present: A&O X 3, answers questions appropriately - Eye Eye exam: Present: sclera anicteric - ENT ENT exam: Present: mucous membranes moist - Respiratory Respiratory exam: Present: decreased breath sounds, CTAB. Absent: rales, rhonchi, wheezes - Cardiovascular Cardiovascular exam: Present: RRR, +S1, +S2. Absent: diastolic murmur, gallop, rubs - GI/Abdominal GI/Abdominal exam: Present: normal bowel sounds, soft. Absent: tenderness - Extremities Exam Extremities exam: Present: calf tenderness Additional comments: Ecchymosis on LLE - Neurological Exam Neurological exam: Present: alert, oriented X3. Absent: speech deficit - Psychiatric Psychiatric exam: Present: normal affect, normal mood - Skin Skin exam: Present: dry, warm Internal Medicine: Result - Labs CBC & Chem 7: 01/12/17 03:10 01/12/17 03:10 Labs: Urine 01/12/17 Range/Units 22:38 Urine Color Yellow (Yellow) Urine Clarity Clear (Clear) Urine pH 6.5 (5.0-8.0) pH Units Ur Specific Locke 1.007 L (1.010-1.025) Urine Protein Negative (Neg-Trace) mg/dL Urine Glucose (UA) Normal (Normal) mg/dL - ABG Interpretation ABG results: PT/INR, D-dimer PT 26.0 Seconds (9.4-12.1) H 01/13/17 04:18 Consult Discharge Plan - Plan Referrals: Ariel Cotto DO [Primary Care Provider] - <Pool Yip H - Last Filed: 01/13/17 10:40> Date of Encounter: 01/13/17 - Constitutional Vitals: Temp Pulse Resp BP Pulse Ox 98.1 F 73 14 116/73 95 01/13/17 08:12 01/13/17 08:12 01/13/17 08:12 01/13/17 08:12 01/13/17 08:12 Internal Medicine: Result - Labs CBC & Chem 7: 01/12/17 03:10 01/12/17 03:10 Labs: Urine 01/12/17 Range/Units 22:38 Urine Color Yellow (Yellow) Urine Clarity Clear (Clear) Urine pH 6.5 (5.0-8.0) pH Units Ur Specific Locke 1.007 L (1.010-1.025) Urine Protein Negative (Neg-Trace) mg/dL Urine Glucose (UA) Normal (Normal) mg/dL - ABG Interpretation ABG results: PT/INR, D-dimer PT 26.0 Seconds (9.4-12.1) H 01/13/17 04:18 - Attending Attestation Maintain a target of anti X a between 0.3 and 0.7 Stop checking APTT as it is not useful in a patient with antiphospholipid syndrome Coumadin per pharmacy dosing to a new goal of 3-3.5 I examined this patient and my medical decision-making was reviewed with the Resident Physician. I agree with the documented findings, disposition and treatment plan as described except to the extent set forth below.
[2017-01-13] MEDS: *HR* HYDROmorphone (PF) 1 MG/ML SYRINGE IVP PRN ×2 (11:26→20:41)
[2017-01-13 15:46] LABS: Activated Partial Thrombo Time 41.7 Seconds (26.0-36.0)
[2017-01-13 16:08] LABS: Heparin anti-factor XA UFH 0.04 IU/mL (0.30-0.70)
--- NOTE | 2017-01-13 16:20 | Venous Imaging Report ---
LE Venous Duplex Patient Name:Pearl Sandoval Order Number:[id number] Procedure Date:01/12/2017 Date:1965Age:51 yrs Gender:Female Location:[facility] Room #: 2A31 [place] Sander:Delilah Mesa RDCS Referring MD:Luis White DO tax economist:Ariel Cotto DO Reading MD:Maxim Vasquez MD Primary Indications:Pain and history of clots Secondary Indications: Risk Factors Yes/No Hx of DVT Anticoagulants Abhilash Filter Impressions: Normal right lower extremity deep and superficial venous exam. Normal contralateral common femoral vein. Lower Extremity Venous Duplex Side Vein Compress Spontaneous Flow Augment Diameter (cm) Depth (cm) Right Distal Iliac Normal Yes Phasic Yes Right Common Femoral Normal Yes Phasic Yes Right Superficial Femoral Normal Yes Phasic Yes Right Popliteal Normal Yes Phasic Yes Right Posterior Tibial Normal Yes Phasic Yes Right Peroneal Normal Yes Phasic Yes Right Saphenofemoral Junction Normal Yes Phasic Yes Right Great Saphenous Normal Yes Phasic Yes Right Lesser Saphenous Normal Yes Phasic Yes Left Common Femoral Normal Yes Phasic Yes Updated by Maxim Vasquez MD on 01/13/2017 4:14:16 PM electronically signed on 01/13/2017 4:14:29 PM with status of Final
[2017-01-13] MEDS ORDERED: *HR* Warfarin 10 MG TABLET PO ONE (18:00)
[2017-01-13] MEDS ORDERED: 0.9 % Sodium Chloride 1,000 ML ONE (23:12)
[2017-01-14] MEDS: Ondansetron 4 MG/2 ML VIAL IVP PRN (00:53)
[2017-01-14] MEDS: *HR* HYDROmorphone (PF) 1 MG/ML SYRINGE IVP PRN ×2 (00:53→11:41)
[2017-01-14 05:37] LABS: INR 2.3; Prothrombin Time 25.6 Seconds (9.4-12.1)
--- NOTE | 2017-01-14 08:53 | Internal Med Progress Note ---
<SuzannarobArsalan - Last Filed: 01/14/17 08:50> Date of Encounter: 01/14/17 Time of Encounter: 08:25 - Assessment and plan (1) Coagulopathy Current Visit: No Status: Chronic Assessment and plan: INR Subtherapeutic. No change today still 2.3 . Goal is 3-3.5. Patient allergic to lovenox so cannot be sent home to bridge Reproted cytopenia as one of the main side effects. Continue heparin ggt. dose based on Heparin Anti Xa not PTT as PTT is elevated in her coagulopathies. Goal for Anti Xa is between 0.3 and 0.7 Discussed Warfarin dose and goals with pharmacy again today. She received 10mg yesterday but did not budge. Will be given 10 again today. Patient on 6mg daily at home. (2) Antiphospholipid antibody syndrome Current Visit: No Status: Chronic Assessment and plan: -See Coagulopathy (3) Chest pain Current Visit: Yes Status: Acute Assessment and plan: - Resolved. Pt no longer complaining of Chest pain -Stress test negative -Troponin's negative. -echo normal. Qualifiers: Chest pain type: other chest pain Qualified Code(s): R07.89 - Other chest pain; R07.8 - Other chest pain (4) Protein C deficiency Current Visit: No Status: Chronic Assessment and plan: -See Coagulopathy (5) Lupus (systemic lupus erythematosus) Current Visit: No Status: Chronic Assessment and plan: -Chronic, stable. -Continue home meds -continue supportive care Qualifiers: Systemic lupus erythematosus type: unspecified Systemic lupus erythematosus organ involvement: unspecified Qualified Code(s): M32.9 - Systemic lupus erythematosus, unspecified (6) Chronic pain Current Visit: Yes Status: Acute Assessment and plan: -Chronic Kindey, low back, and BLE pain. -Continue Percocet 10/325 q4 and dilaudid 1mg IV q shift. Qualifiers: Chronic pain type: chronic pain syndrome Qualified Code(s): G89.4 - Chronic pain syndrome (7) Neutropenia Current Visit: No Status: Chronic Assessment and plan: -Chronic, stable continue to monitor. Qualifiers: Neutropenia type: unspecified Qualified Code(s): D70.9 - Neutropenia, unspecified (8) Hypothyroidism Current Visit: No Status: Chronic Assessment and plan: -Chronic, Stable. -continue home meds. Qualifiers: Hypothyroidism type: acquired Qualified Code(s): E03.9 - Hypothyroidism, unspecified - Subjective Interval history: Patient lying in bed resting comfortably. Pt reports that when given lovenox in the past she had a serious reaction including pancytopenia. pt denies, CP, SOB, N, V, D, Fever chills. No change in INR since yesterday. - Constitutional Vitals: Temp Pulse Resp BP Pulse Ox 97.8 F 78 14 108/75 97 01/14/17 08:00 01/14/17 08:00 01/14/17 08:00 01/14/17 08:00 01/14/17 08:00 General appearance: Present: A&O X 3, answers questions appropriately - Eye Eye exam: Present: sclera anicteric - ENT ENT exam: Present: mucous membranes moist - Respiratory Respiratory exam: Present: decreased breath sounds, CTAB. Absent: rales, rhonchi, wheezes - Cardiovascular Cardiovascular exam: Present: RRR, +S1, +S2. Absent: diastolic murmur, gallop, rubs - GI/Abdominal GI/Abdominal exam: Present: normal bowel sounds, soft. Absent: tenderness - Extremities Exam Extremities exam: Present: calf tenderness - Neurological Exam Neurological exam: Present: alert, oriented X3. Absent: speech deficit - Psychiatric Psychiatric exam: Present: normal affect, normal mood - Skin Skin exam: Present: dry, warm Internal Medicine: Result - Labs CBC & Chem 7: 01/12/17 03:10 01/12/17 03:10 - ABG Interpretation ABG results: PT/INR, D-dimer PT 25.6 Seconds (9.4-12.1) H 01/14/17 05:10 Consult Discharge Plan - Plan Referrals: Ariel Cotto DO [Primary Care Provider] - 01/20/17 10:20 am (Will see [employer] Shazia Stevenson. ) <Pool Yip H - Last Filed: 01/14/17 09:12> Date of Encounter: 01/14/17 - Constitutional Vitals: Temp Pulse Resp BP Pulse Ox 97.8 F 78 14 108/75 97 01/14/17 08:00 01/14/17 08:00 01/14/17 08:00 01/14/17 08:00 01/14/17 08:00 Internal Medicine: Result - Labs CBC & Chem 7: 01/12/17 03:10 01/12/17 03:10 - ABG Interpretation ABG results: PT/INR, D-dimer PT 25.6 Seconds (9.4-12.1) H 01/14/17 05:10 - Attending Attestation INR still not therapeutic Maintain a target of anti X a between 0.3 and 0.7 Stop checking APTT as it is not useful in a patient with antiphospholipid syndrome Coumadin per pharmacy dosing to a new goal of 3-3.5 I examined this patient and my medical decision-making was reviewed with the Resident Physician. I agree with the documented findings, disposition and treatment plan as described except to the extent set forth below.
[2017-01-14] MEDS: *HR* OxyCODONE/APAP 10/325 TABLET PO PRN ×3 (09:43→21:02)
[2017-01-14] MEDS: Cholecalciferol (D-3) 1,000 UNIT TABLET PO SCH (09:44)
[2017-01-14] MEDS: valACYclovir 500 MG TABLET PO SCH (09:45)
[2017-01-14] MEDS: BuPROPion XL (24 HR) 150 MG TABLET PO SCH (09:45)
[2017-01-14] MEDS: clonazePAM 1 MG TABLET PO SCH ×3 (09:50→20:31)
[2017-01-14] MEDS: Magnesium [Magnesium] 250 MG PO SCH (10:34)
[2017-01-14] MEDS: Cyclosporine [Restasis] OP SCH ×2 (10:34→20:36)
[2017-01-14] MEDS: Lubiprostone [Amitiza] 24 MCG PO SCH ×2 (10:34→20:36)
[2017-01-14] MEDS: Heparin 25,000 UNIT/500 ML D5W 25,000 UNIT/500 ML MLS IVC SCH (15:46)
[2017-01-14] MEDS ORDERED: *HR* Warfarin 10 MG TABLET PO ONE (18:00)
[2017-01-15] MEDS: *HR* HYDROmorphone (PF) 1 MG/ML SYRINGE IVP PRN ×2 (00:25→13:57)
[2017-01-15 04:25] LABS: INR 2.6; Prothrombin Time 29.1 Seconds (9.4-12.1)
[2017-01-15] MEDS: *HR* OxyCODONE/APAP 10/325 TABLET PO PRN ×2 (04:51→18:22)
[2017-01-15] MEDS: Cholecalciferol (D-3) 1,000 UNIT TABLET PO SCH (08:24)
[2017-01-15] MEDS: clonazePAM 1 MG TABLET PO SCH ×3 (08:25→21:37)
[2017-01-15] MEDS: BuPROPion XL (24 HR) 150 MG TABLET PO SCH (08:25)
[2017-01-15] MEDS: valACYclovir 500 MG TABLET PO SCH (08:25)
[2017-01-15] MEDS: Magnesium [Magnesium] 250 MG PO SCH (08:28)
[2017-01-15] MEDS: Cyclosporine [Restasis] OP SCH ×2 (08:29→21:37)
[2017-01-15] MEDS: Lubiprostone [Amitiza] 24 MCG PO SCH ×2 (08:29→21:37)
--- NOTE | 2017-01-15 10:20 | Internal Med Progress Note ---
<SuzannarobArsalan - Last Filed: 01/15/17 10:29> Date of Encounter: 01/15/17 Time of Encounter: 08:50 - Assessment and plan (1) Coagulopathy Current Visit: No Status: Chronic Assessment and plan: INR Subtherapeutic. Increased to 2.6 from 2.3 . Goal is 3-3.5. Patient allergic to lovenox so cannot be sent home to bridge Reproted thrombocytopenia as one of the main side effects. Continue heparin ggt. dose based on Heparin Anti Xa not PTT as PTT is elevated in her coagulopathies. Stop Checking APTT. Goal for Anti Xa is between 0.3 and 0.7 Home Warfarin dose was 6mg/daily. Pharmacy dosing warfarin in hospital. continue to monitor (2) Chest pain Current Visit: Yes Status: Acute Assessment and plan: Resolved. Stress test negative Troponin's negative. echo normal. Qualifiers: Chest pain type: other chest pain Qualified Code(s): R07.89 - Other chest pain; R07.8 - Other chest pain (3) Antiphospholipid antibody syndrome Current Visit: No Status: Chronic Assessment and plan: See Coagulopathy (4) Protein C deficiency Current Visit: No Status: Chronic Assessment and plan: See Coagulopathy (5) Lupus (systemic lupus erythematosus) Current Visit: No Status: Chronic Assessment and plan: Chronic, stable. Continue home meds continue supportive care Qualifiers: Systemic lupus erythematosus type: unspecified Systemic lupus erythematosus organ involvement: unspecified Qualified Code(s): M32.9 - Systemic lupus erythematosus, unspecified (6) Chronic pain Current Visit: Yes Status: Acute Assessment and plan: Chronic Kindey, low back, and BLE pain. Continue Percocet 10/325 q4 and dilaudid 1mg IV q shift. Qualifiers: Chronic pain type: chronic pain syndrome Qualified Code(s): G89.4 - Chronic pain syndrome (7) Neutropenia Current Visit: No Status: Chronic Assessment and plan: Chronic, stable continue to monitor. Qualifiers: Neutropenia type: unspecified Qualified Code(s): D70.9 - Neutropenia, unspecified (8) Hypothyroidism Current Visit: No Status: Chronic Assessment and plan: Chronic, Stable. continue home meds. Qualifiers: Hypothyroidism type: acquired Qualified Code(s): E03.9 - Hypothyroidism, unspecified - Subjective Interval history: Patient lying in bed resting comfortably. Patient wondering about hematology consult. Patient denies CP, SOB, N, V, D, new complaints. INR still subtherapeutic, but improved from yesterday. - Constitutional Vitals: Temp Pulse Resp BP Pulse Ox 97.6 F 78 17 114/79 96 01/15/17 08:13 01/15/17 08:13 01/15/17 08:13 01/15/17 08:13 01/15/17 08:13 General appearance: Present: A&O X 3, answers questions appropriately - Eye Eye exam: Present: sclera anicteric - ENT ENT exam: Present: mucous membranes moist - Respiratory Respiratory exam: Present: decreased breath sounds, CTAB. Absent: rales, rhonchi, wheezes - Cardiovascular Cardiovascular exam: Present: RRR, +S1, +S2. Absent: diastolic murmur, gallop, rubs - GI/Abdominal GI/Abdominal exam: Present: normal bowel sounds, soft. Absent: tenderness - Extremities Exam Extremities exam: Present: calf tenderness, warm - Neurological Exam Neurological exam: Present: alert, oriented X3. Absent: speech deficit - Psychiatric Psychiatric exam: Present: normal affect, normal mood - Skin Skin exam: Present: dry, warm Internal Medicine: Result - Labs CBC & Chem 7: 01/12/17 03:10 01/12/17 03:10 - ABG Interpretation ABG results: PT/INR, D-dimer PT 29.1 Seconds (9.4-12.1) H 01/15/17 04:06 Consult Discharge Plan - Plan Referrals: Ariel Cotto DO [Primary Care Provider] - 01/20/17 10:20 am (Will see BATTERY BUILDER Shazia Stevenson. ) <Pool Yip H - Last Filed: 01/15/17 14:06> Date of Encounter: 01/15/17 - Constitutional Vitals: Temp Pulse Resp BP Pulse Ox 98.0 F 84 17 112/71 97 01/15/17 11:35 01/15/17 11:35 01/15/17 11:35 01/15/17 11:35 01/15/17 11:35 Internal Medicine: Result - Labs CBC & Chem 7: 01/12/17 03:10 01/12/17 03:10 - ABG Interpretation ABG results: PT/INR, D-dimer PT 29.1 Seconds (9.4-12.1) H 01/15/17 04:06 - Attending Attestation INR not therapeutic continue heparin drip I examined this patient and my medical decision-making was reviewed with the Resident Physician. I agree with the documented findings, disposition and treatment plan as described except to the extent set forth below.
[2017-01-15] MEDS: Ondansetron 4 MG/2 ML VIAL IVP PRN (13:57)
[2017-01-15] MEDS: Heparin 25,000 UNIT/500 ML D5W 25,000 UNIT/500 ML MLS IVC SCH (16:14)
[2017-01-15] MEDS ORDERED: *HR* Warfarin 10 MG TABLET PO ONE (18:00)
[2017-01-16] MEDS: Ondansetron 4 MG/2 ML VIAL IVP PRN (00:13)
[2017-01-16] MEDS: *HR* HYDROmorphone (PF) 1 MG/ML SYRINGE IVP PRN ×2 (00:14→12:13)
[2017-01-16] MEDS: *HR* OxyCODONE/APAP 10/325 TABLET PO PRN ×2 (01:50→06:11)
[2017-01-16 04:45] LABS: INR 2.9; Prothrombin Time 31.4 Seconds (9.4-12.1)
[2017-01-16] MEDS: Cholecalciferol (D-3) 1,000 UNIT TABLET PO SCH (08:10)
[2017-01-16] MEDS: BuPROPion XL (24 HR) 150 MG TABLET PO SCH (08:11)
[2017-01-16] MEDS: valACYclovir 500 MG TABLET PO SCH (08:11)
[2017-01-16] MEDS: clonazePAM 1 MG TABLET PO SCH (08:11)
[2017-01-16] MEDS: Cyclosporine [Restasis] OP SCH (08:12)
[2017-01-16] MEDS: Lubiprostone [Amitiza] 24 MCG PO SCH (08:12)
[2017-01-16] MEDS: Magnesium [Magnesium] 250 MG PO SCH (08:13)
[2017-01-16 10:48] VITALS: BP 100/68
[2017-01-16 12:25] LABS: INR 3.2; Prothrombin Time 34.9 Seconds (9.4-12.1)
--- NOTE | 2017-01-16 13:02 | Discharge Summary ---
<Arsalan Villanueva - Last Filed: 01/16/17 12:51> Date of Encounter: 01/16/17 Time of Encounter: 09:45 - Discharge Diagnosis (1) Coagulopathy Priority: Primary Status: Chronic (2) Chest pain Priority: Secondary Status: Acute Qualifiers: Chest pain type: other chest pain Qualified Code(s): R07.89 - Other chest pain; R07.8 - Other chest pain (3) Antiphospholipid antibody syndrome Priority: Secondary Status: Chronic (4) Protein C deficiency Priority: Secondary Status: Chronic (5) Lupus (systemic lupus erythematosus) Priority: Secondary Status: Chronic Qualifiers: Systemic lupus erythematosus type: unspecified Systemic lupus erythematosus organ involvement: unspecified Qualified Code(s): M32.9 - Systemic lupus erythematosus, unspecified (6) Chronic pain Priority: Secondary Status: Acute Qualifiers: Chronic pain type: chronic pain syndrome Qualified Code(s): G89.4 - Chronic pain syndrome (7) Neutropenia Priority: Secondary Status: Chronic Qualifiers: Neutropenia type: unspecified Qualified Code(s): D70.9 - Neutropenia, unspecified (8) Hypothyroidism Priority: Secondary Status: Chronic Qualifiers: Hypothyroidism type: acquired Qualified Code(s): E03.9 - Hypothyroidism, unspecified (9) Protein S deficiency Priority: Secondary Status: Chronic (10) Fibromyalgia Priority: Secondary Status: Acute - Discharge Medications Prescriptions: Warfarin [Coumadin] 10 mg PO Q48H #30 tablet Warfarin [Coumadin] 7.5 mg PO Q48H #30 tablet Home Medications: Black Cohosh 20 mg PO DAILY 12/20/16 [History] BuPROPion XL (24 HR) [Wellbutrin Xl] 150 mg PO DAILY 12/20/16 [History] Cholecalciferol (D-3) [Vitamin D] 5,000 unit PO DAILY 12/20/16 [History] Cyclobenzaprine [Flexeril] 10 mg PO TID 12/20/16 [History] Cyclosporine [Restasis] 1 drop OP BID 12/20/16 [History] Duloxetine HCl [Cymbalta] 60 mg PO DAILY 12/20/16 [History] HYDROcodone/Acet 7.5/325 mg [Crestone 7.5-325 mg] 1 - 2 tab PO Q6H PRN 12/20/16 [ History] Hydroxychloroquine [Plaquenuil] 200 mg PO BID 12/20/16 [History] Levothyroxine [Synthroid] 75 mcg PO DAILY@0630 12/20/16 [History] Lubiprostone [Amitiza] 24 mcg PO BID 12/20/16 [History] Magnesium 250 mg PO DAILY 12/20/16 [History] Melatonin/Pyridoxine HCl (B6) [Melatonin 5 mg Tablet] 10 mg PO HS 12/20/16 [ History] Potassium Chloride [K-Tab ER] 10 meq PO BID 12/20/16 [History] Promethazine [Phenergan] 25 mg PO Q6HR PRN 12/20/16 [History] Quetiapine Fumarate [Seroquel] 100 mg PO HS 12/20/16 [History] Valacyclovir HCl [Valtrex] 1,000 mg PO DAILY 12/20/16 [History] clonazePAM [Klonopin] 2 mg PO 0900,1700 12/20/16 [History] clonazePAM [Klonopin] 4 mg PO HS 12/20/16 [History] Acetaminophen/Butalbital/Caffe [Fioricet] 1 each PO Q6H PRN 01/05/17 [History] Butorphanol Tartrate 1 spray NS Q4-6H PRN 01/05/17 [History] Polyethylene Glycol 3350 [MiraLAX] 17 gm PO BID 01/06/17 [History] DiphenhydraMINE [Benadryl] 25 mg PO Q6HR PRN #20 capsule 01/07/17 [Rx] Heparin 5,000 unit SQ Q6H 7 Days 01/07/17 [Rx] Warfarin [Coumadin] 7.5 mg PO Q48H #30 tablet 01/16/17 [Rx] Warfarin [Coumadin] 10 mg PO Q48H #30 tablet 01/16/17 [Rx] Allergies/Adverse Reactions: 3 Allergy/AdvReac Type Severity Reaction Status Date / Time Amoxicillin Allergy See Verified 01/10/17 00:16 Comments clarithromycin [From Biaxin] Allergy See Verified 01/10/17 00:16 Comments Enoxaparin [From Lovenox] Allergy See Verified 01/10/17 00:16 Comments hydrochlorothiazide Allergy See Verified 01/10/17 00:16 Comments levofloxacin [From Levaquin] Allergy Difficulty Verified 01/10/17 00:16 Breathing nafcillin Allergy Seizure Verified 01/10/17 00:16 oxcarbazepine Allergy Anaphylaxis Verified 01/10/17 00:16 [From Trileptal] Penicillins Allergy Seizure Verified 01/10/17 00:16 Sulfa (Sulfonamide Allergy See Verified 01/10/17 00:16 Antibiotics) Comments sumatriptan [From Imitrex] Allergy See Verified 01/10/17 00:16 Comments Terazosin Allergy See Verified 01/10/17 00:16 Comments vancomycin Allergy Seizure Verified 01/10/17 00:16 topiramate [From Topamax] AdvReac Confusion Verified 01/10/17 00:16 Procedures/tests Complete & Pending: Stress test: "Impression: Perfusion imaging was negative for ischemia or infarct. Pharmacologic ECG was non diagnostic for ischemia. Patient had no chest pain with stress. No arrhythmias noted with stress. Gated EF = >70%. There is no evidence of TID." CXR: "FINDINGS: Right subclavian MediPort catheter is again identified. Again noted are postsurgical changes with resection of distal left clavicle. Cardiopericardial silhouette is within normal limits. Pulmonary vasculature is normal. Few linear densities are again identified at the lung bases which may represent atelectasis/scar. No focal confluent pulmonary infiltrate is identified. No evidence of pleural effusion or pneumothorax. XR/XR chest 1V IMPRESSION: 1. Findings suggestive of presence of minimal bibasilar subsegmental atelectasis/scar. 2. No evidence of focal confluent pulmonary infiltrate." Echo: "Impressions: LVEF 60-65%. Normal left ventricular diastolic function. No pulmonary hypertension. No significant valvular dysfunction." Venous Duplex: "Impressions: Normal right lower extremity deep and superficial venous exam. Normal contralateral common femoral vein. " Date of admission: 01/10/17 07:35 Primary care physician: Ariel Cotto Consults: 01/10/17 20:27 Consult to Safe Deposit Clerk [CONS] Routine Reason for SW Consult: patient requested Discharging clinician: Arsalan Villanueva Anticipated date of discharge: 01/16/17 - Patient Status Disposition: Home, Self-Care Condition: Fair Functional capacity at discharge: independent ambulation Overall status at discharge: patient is progressing back to baseline - Discharge Instructions Follow Up With: Ariel Cotto DO [Primary Care Provider] - 01/20/17 10:20 am (Will see ONLINE PRODUCER Shazia Stevenson. ) Additional Instructions: Please follow up with your primary care provider within 1 week of discharge. Please follow up at the coumadin clinic as scheduled. Please take your home medications as prescribed including your new dose of coumadin 10mg Thursday, Thursday, Thursday, Thursday and 7.5mg Thursday, , Thursday. Please return to the hospital if you experience new or worsening symptoms. - Diet and Activity Activity: resume usual activities as tolerated Diet: advance to your usual diet Interval History: Patient restign comfortably in bed. Patient reports being tired. Patient's INR was 2.9 this morning. Pt was rechecked today at noon and her INR was up to 3.2. Patient able to be D/C now that she is in therapeutic INR range. Hospital course: Ms. Sandoval is a 51 year old female c PMHx of Cogaulopathy secondary to Antiphospholipid antibody syndrome, protein C and Protein S deficiencies on chronic antigoagulation with coumadin and heparin presented to the hospital complaining of chest pain and found to have subtherapeutic INR. Patient was 1.7 on admission. Patient's goal is 3-3.5. Patient is allergic ot lovenox so required hospitlaization for heprain bridge and cardiac work up. Patient's troponin's, echo, and stress test were negative. Patient was placed on heparin drip protocol based on Heparin Anti-Xa due to APTT not being useful in her coagulopathies. COumadin dosing was done by pharmacy with patient receiving 10mg on most hospital days. Patient was on 6mg at home. Discussed with pharmacy and they stated home dosing should be 4 days of 10mg and 3 days of 7.5mg a week. Patient's INR reached 3.2 today and patient was deemed fit for discharge home with follow up with Coumadin clinic. - Time Spent with Patient Total time spent providing and/or coordinating discharge services: 40 minutes - Constitutional Vitals: Temp Pulse Resp BP Pulse Ox 97.9 F 81 17 100/68 97 01/16/17 10:46 01/16/17 10:46 01/16/17 10:46 01/16/17 10:46 01/16/17 10:46 General appearance: Present: A&O X 3, answers questions appropriately - Eye Eye exam: Present: sclera anicteric - ENT ENT exam: Present: mucous membranes moist - Respiratory Respiratory exam: Present: decreased breath sounds, CTAB. Absent: rales, rhonchi, wheezes - Cardiovascular Cardiovascular exam: Present: RRR, +S1, +S2. Absent: diastolic murmur, gallop, rubs - GI/Abdominal GI/Abdominal exam: Present: normal bowel sounds, soft. Absent: tenderness - Extremities Exam Extremities exam: Absent: pedal edema - Neurological Exam Neurological exam: Present: alert, oriented X3. Absent: speech deficit - Psychiatric Psychiatric exam: Present: normal affect, normal mood - Skin Skin exam: Present: dry, warm <Pool Yip - Last Filed: 01/16/17 13:37> Date of Encounter: 01/16/17 Date of admission: 01/10/17 07:35 Primary care physician: Ariel Cotto Consults: 01/10/17 20:27 Consult to Safe Deposit Clerk [CONS] Routine Reason for SW Consult: patient requested Hospital course: Ms. Sandoval is a 51 year old female - Time Spent with Patient Total time spent providing and/or coordinating discharge services: - Constitutional Vitals: Temp Pulse Resp BP Pulse Ox 97.9 F 81 17 100/68 97 01/16/17 10:46 01/16/17 10:46 01/16/17 10:46 01/16/17 10:46 01/16/17 10:46 - Attending Attestation continue Coumadin per pharmacy dosing recommendations follow up with coumadin clinic on Thursday Was given the option to stay another day but prefers to be discharged today. I examined this patient and my medical decision-making was reviewed with the Resident Physician. I agree with the documented findings, disposition and treatment plan as described except to the extent set forth below.
[2017-01-16] MEDS ORDERED: *HR* Warfarin 10 MG TABLET PO ONE (18:00)
== END 2017-01-16 15:11 | disposition home or self-care (01) | DRG 816 ==
LOC: EMEROO 00:05 → 2ANU 00:05 → SUATTDRO 06:45 → 2ANU 08:08
PROVIDERS: ADMIT Internal Medicine; ATTEND Internal Medicine

== ENCOUNTER 2017-01-20 13:12 | Observation (INO) ==
[2017-01-20] MEDS ORDERED: Ondansetron 4 MG/2 ML VIAL IVP ONE ×2 (16:41→19:08)
--- NOTE | 2017-01-20 16:47 | Emergency Department Note ---
Disposition Clinical Impression: Dysuria Disposition: Still a Patient Condition: Good Referrals: Ariel Cotto DO [Primary Care Provider] - Forms: ED Satisfaction Letter Time of Disposition: 19:11 General Adult HPI - General Chief complaint: ED Recheck/Abnormal Lab/Rx Stated complaint: "critical INR", "kindey infection", vomiting Time Seen by Provider: 01/20/17 16:16 Source: patient Limitations: no limitations Nursing Notes Reviewed: Yes Vital Signs Reviewed: Yes - History of Present Illness HPI Narrative: 51-year-old female with history of Lupus and on Coumadin for protein C/S deficiency and antiphospholipid syndrome presents to the ED for multiple complaints. One of her main concerns is elevated INR. 2 days ago it was measured at 5.1, then yesterday came down to 4.9, today was elevated again 5. She is currently established with a Coumadin clinic. She was recently following with her primary care physician Dr. Ariel Cotto in [place], [place]. She has noticed blood in her urine. Also has some associated dysuria and flank pain. She denies any fever but has noticed some nausea and dry heaving. No abdominal pain. She reports recently being admitted for kidney infection. States feels just like you. At that time she was given antibiotic that she believes is Cipro. Denies any new dedication. She has not taken her Coumadin for last 3 days to try to bring her Coumadin level down. Denies any recent fall , injury, bloody stool, black tarry stool, or hemoptysis. Pain Scale: 9 - Related Data Home Medications Medication Instructions Recorded Confirmed Black Coh[place] 20 mg PO DAILY 12/20/16 01/10/17 BuPROPion XL (24 HR) [Wellbutrin 150 mg PO DAILY 12/20/16 01/10/17 Xl] Cholecalciferol (D-3) [Vitamin D] 5,000 unit PO DAILY 12/20/16 01/10/17 Cyclobenzaprine [Flexeril] 10 mg PO TID 12/20/16 01/10/17 Cyclosporine [Restasis] 1 drop OP BID 12/20/16 01/10/17 Duloxetine HCl [Cymbalta] 60 mg PO DAILY 12/20/16 01/10/17 HYDROcodone/Acet 7.5/325 mg [[place] 1 - 2 tab PO Q6H PRN 12/20/16 01/10/17 7.5-325 mg] Hydroxychloroquine [Plaquenuil] 200 mg PO BID 12/20/16 01/10/17 Levothyroxine [Synthroid] 75 mcg PO DAILY@0630 12/20/16 01/10/17 Lubiprostone [Amitiza] 24 mcg PO BID 12/20/16 01/10/17 Magnesium 250 mg PO DAILY 12/20/16 01/10/17 Melatonin/Pyridoxine HCl (B6) 10 mg PO HS 12/20/16 01/10/17 [Melatonin 5 mg Tablet] Potassium Chloride [K-Tab ER] 10 meq PO BID 12/20/16 01/10/17 Promethazine [Phenergan] 25 mg PO Q6HR PRN 12/20/16 01/10/17 Quetiapine Fumarate [Seroquel] 100 mg PO HS 12/20/16 01/10/17 Valacyclovir HCl [Valtrex] 1,000 mg PO DAILY 12/20/16 01/10/17 clonazePAM [Klonopin] 2 mg PO 0900,1700 12/20/16 01/10/17 clonazePAM [Klonopin] 4 mg PO HS 12/20/16 01/10/17 Acetaminophen/Butalbital/Caffe 1 each PO Q6H PRN 01/05/17 01/10/17 [Fioricet] Butorphanol Tartrate 1 spray NS Q4-6H PRN 01/05/17 01/10/17 Polyethylene Glycol 3350 [MiraLAX] 17 gm PO BID 01/06/17 01/10/17 Previous Rx's Medication Instructions Recorded DiphenhydraMINE [Benadryl] 25 mg PO Q6HR PRN #20 capsule 01/07/17 Heparin 5,000 unit SQ Q6H 7 Days 01/07/17 Warfarin [Coumadin] 7.5 mg PO Q48H #30 tablet 01/16/17 Warfarin [Coumadin] 10 mg PO Q48H #30 tablet 01/16/17 Allergies Allergy/AdvReac Type Severity Reaction Status Date / Time Amoxicillin Allergy See Verified 01/20/17 13:28 Comments clarithromycin [From Biaxin] Allergy See Verified 01/20/17 13:28 Comments Enoxaparin [From Lovenox] Allergy See Verified 01/20/17 13:28 Comments hydrochlorothiazide Allergy See Verified 01/20/17 13:28 Comments levofloxacin [From Levaquin] Allergy Difficulty Verified 01/20/17 13:28 Breathing nafcillin Allergy Seizure Verified 01/20/17 13:28 oxcarbazepine Allergy Anaphylaxis Verified 01/20/17 13:28 [From Trileptal] Penicillins Allergy Seizure Verified 01/20/17 13:28 Sulfa (Sulfonamide Allergy See Verified 01/20/17 13:28 Antibiotics) Comments sumatriptan [From Imitrex] Allergy See Verified 01/20/17 13:28 Comments Terazosin Allergy See Verified 01/20/17 13:28 Comments vancomycin Allergy Seizure Verified 01/20/17 13:28 topiramate [From Topamax] AdvReac Confusion Verified 01/20/17 13:28 All systems ED: reviewed and negative except as stated. Review of Systems: As Per HPI Constitutional: Denies: fever, chills Cardiovascular: Denies: chest pain, dyspnea on exertion Respiratory: Denies: cough, dyspnea Gastrointestinal: Reports: nausea. Denies: abdominal pain, vomiting, diarrhea, hematemesis, melena, hematochezia Genitourinary: Reports: dysuria, hematuria. Denies: urgency, frequency Musculoskeletal: Reports: back pain (flank pain). Denies: neck pain Integumentary: Denies: rash, abrasion, lesions Neurological: Denies: headache, weakness Past Medical History - Past Medical History Attestation: Yes The following information was validated with the patient. Source: patient Medical history: Reports: DVT, fibromyalgia, kidney stones, pulmonary embolus, thyroid disease, other Surgical history: Reports: ureteral stent, IVC filter Psychiatric history: Reports: bipolar - Social History Smoking Status: Current every day smoker Smokeless Tobacco Status: No Alcohol use: Reports: none Drug use: Reports: none Physical Exam - General Limitations: no limitations General appearance: alert, in no apparent distress - Head Head exam: atraumatic, normocephalic, normal inspection - Eye Eye exam: Present: normal appearance, EOMI - ENT ENT exam: normal exam, normal oropharynx, mucous membranes dry - Neck Neck exam: Present: normal inspection, full ROM, trachea midline - Chest Chest inspection: Present: normal inspection, symmetric chest wall rise, other ( port in right anterior wall) - Respiratory Respiratory exam: Present: normal lung sounds bilaterally - Cardiovascular Cardiovascular exam: Present: regular rate, normal rhythm, normal heart sounds - Abdominal Exam Abdominal exam: Present: soft, Non-Tender, normal bowel sounds. Absent: tenderness, distention, guarding, rebound, rigidity - Extremities Exam Extremities exam: Present: normal inspection, full ROM, normal capillary refill. Absent: tenderness, pedal edema - Back Exam Back exam: Present: normal inspection, full ROM, CVA tenderness (R) (mild), CVA tenderness (L) (mild). Absent: tenderness - Neurological Exam Neurological exam: Present: alert, oriented X3 - Skin Skin exam: Present: warm, dry, intact, normal color Course - Reevaluation(s) Reevaluation #1: Patient has bilateral CVA tenderness. Abdomen is soft nontender nondistended. Laboratory work was drawn from her poor in the right anterior chest wall. She has chronic leukopenia and stable. Urinalysis does not show any machado sign of infection or abnormality. Her last INR was 5.5. They had to redraw her INR as a peer contaminated from the port site. She has no active signs of infection. CT of the abdomen and pelvis is pending. Patient will be signed out to nighttime physician Dr. Rascon for further management and re-evaluation. Time: 19:09 Vital Signs Temperature 98.3 F 01/20/17 13:26 Pulse Rate 122 01/20/17 13:26 Respiratory Rate 16 01/20/17 13:26 Blood Pressure 95/63 01/20/17 13:26 O2 Sat by Pulse Oximetry 95 01/20/17 13:26 Temperature 98.3 F 01/20/17 13:26 Pulse Rate 90 01/20/17 18:20 Respiratory Rate 16 01/20/17 18:20 Blood Pressure 115/56 01/20/17 18:20 O2 Sat by Pulse Oximetry 99 01/20/17 18:20 Oxygen Delivery Oxygen Delivery Room Air Medical Decision Making - Medical Records Medical records reviewed: Yes I reviewed the patient's medical records. - Lab Data Lab results reviewed: Yes I reviewed the patient's lab results. Result diagrams: 01/20/17 17:22 01/20/17 17:22 Lab Results 01/20/17 01/20/17 01/20/17 Range/Units 17:22 17:22 17:22 WBC 3.1 L (4.3-11.1) K/mcL RBC 3.49 L (3.82-4.97) M/mcL Hgb 11.4 L (11.5-15.4) g/dL Hct 35.8 (35.3-44.9) % MCV 102.6 H (83.0-100.0) fL MCH 32.7 (28.0-33.3) pg MCHC 31.8 (31.6-35.5) g/dL RDW 15.1 H (11.5-14.5) % Plt Count 157 (140-400) K/mcL MPV 9.0 L (9.4-12.4) fL Immature Gran % 0.0 (0-4) % Seg Neutrophils % 61.0 % Lymphocytes % 24.5 % Monocytes % 11.9 % Eosinophils % 1.3 % Basophils % 1.3 % Neutrophils # 1.9 (1.6-8.9) K/mcL Lymphocytes # 0.8 (0.6-4.6) K/mcL Monocytes # 0.4 (0.0-1.3) K/mcL Eosinophils # 0.0 (0.0-0.6) K/mcL Basophils # 0.0 (0.0-0.2) K/mcL Immature Plt Fraction 2.0 (1.1-6.1) % Sodium 134 L (136-145) mEq/L Potassium 3.9 (3.5-4.5) mEq/L Chloride 103 (98-109) mEq/L Carbon Dioxide 27 (19-29) mEq/L BUN 13 (7-20) mg/dL Creatinine 0.99 (0.57-1.11) mg/dL Est GFR ( Amer) > 60 (> 60) Est GFR (Non-Af Amer) 59 L (> 60) BUN/Creatinine Ratio 13 (6-26) Glucose 97 (70-99) mg/dL Calculated Osmolality 278 L (280-300) Lactic Acid 0.7 (0.5-2.2) mmol/L Calcium 8.3 L (8.6-10.8) mg/dL Urine Color (Yellow) Urine Clarity (Clear) Urine pH (5.0-8.0) pH Units Ur Specific [place] (1.010-1.025) Urine Protein (Neg-Trace) mg/dL Urine Glucose (UA) (Normal) mg/dL Urine Ketones (Negative) mg/dL Urine Blood (Negative) Urine Nitrite (Negative) Urine Bilirubin (Negative) Urine Urobilinogen (Normal) mg/dL Ur Leukocyte Esterase (Negative) Ur Culture Indicated? (NO) 01/20/17 Range/Units 18:25 WBC (4.3-11.1) K/mcL RBC (3.82-4.97) M/mcL Hgb (11.5-15.4) g/dL Hct (35.3-44.9) % MCV (83.0-100.0) fL MCH (28.0-33.3) pg MCHC (31.6-35.5) g/dL RDW (11.5-14.5) % Plt Count (140-400) K/mcL MPV (9.4-12.4) fL Immature Gran % (0-4) % Seg Neutrophils % % Lymphocytes % % Monocytes % % Eosinophils % % Basophils % % Neutrophils # (1.6-8.9) K/mcL Lymphocytes # (0.6-4.6) K/mcL Monocytes # (0.0-1.3) K/mcL Eosinophils # (0.0-0.6) K/mcL Basophils # (0.0-0.2) K/mcL Immature Plt Fraction (1.1-6.1) % Sodium (136-145) mEq/L Potassium (3.5-4.5) mEq/L Chloride (98-109) mEq/L Carbon Dioxide (19-29) mEq/L BUN (7-20) mg/dL Creatinine (0.57-1.11) mg/dL Est GFR ( Amer) (> 60) Est GFR (Non-Af Amer) (> 60) BUN/Creatinine Ratio (6-26) Glucose (70-99) mg/dL Calculated Osmolality (280-300) Lactic Acid (0.5-2.2) mmol/L Calcium (8.6-10.8) mg/dL Urine Color Yellow (Yellow) Urine Clarity Clear (Clear) Urine pH 6.5 (5.0-8.0) pH Units Ur Specific [place] 1.005 L (1.010-1.025) Urine Protein Negative (Neg-Trace) mg/dL Urine Glucose (UA) Normal (Normal) mg/dL Urine Ketones Negative (Negative) mg/dL Urine Blood Negative (Negative) Urine Nitrite Negative (Negative) Urine Bilirubin Negative (Negative) Urine Urobilinogen Normal (Normal) mg/dL Ur Leukocyte Esterase Negative (Negative) Ur Culture Indicated? NO (NO) Murtaza - Murtaza Situation: Demographics, MOA Background: Presenting Complaint, Relevant PMH, Meds, & Allergies Assessment: Vital Signs, Course and respsone to treatment, Exam Concerns, Patient/Family Expectation, Pertinant Lab Results, Outstanding Labs Recommendation: Barrier(s) to disposition, Recommendation based on pending studies, treatments, or consults SCedric Report Given to: Dr. Brad Hauser Repor Time: 19:00 Attestation Statement - Attestation Attestation: I examined this patient and my medical decision-making was reviewed with the Resident Physician. I agree with the documented findings, disposition and treatment plan as described except to the extent set forth below. 51-year-old female with concern for elevated INR despite holding her home Coumadin. She was told to come in by her primary care physician. No signs of outward hemorrhage. She is currently stable on arrival with normal vital signs. Plan to check basic labs, INR. She has secondary complaints of flank pain. She wants to be checked for possible kidney infection. We will proceed with CT scan to evaluate for pyelonephritis as well as check urinalysis. Final disposition pending results of advanced imaging and laboratory analyses
[2017-01-20] MEDS ORDERED: 0.9 % Sodium Chloride 1,000 ML IVC ONE (16:58)
[2017-01-20 17:33] LABS: Basophils % 1.3 %; Eosinophils % 1.3 %; Hematocrit 35.8 % (35.3-44.9); Hemoglobin 11.4 g/dL (11.5-15.4); Lymphocytes # 0.8 K/mcL (0.6-4.6); Lymphocytes % 24.5 %; Mean Corpuscular HGB Conc 31.8 g/dL (31.6-35.5); Mean Corpuscular Hemoglobin 32.7 pg (28.0-33.3); Mean Corpuscular Volume 102.6 fL (83.0-100.0); Monocytes # 0.4 K/mcL (0.0-1.3); Monocytes % 11.9 %; Neutrophils # 1.9 K/mcL (1.6-8.9); Platelet Count 157 K/mcL (140-400); Red Blood Count 3.49 M/mcL (3.82-4.97); Red Cell Distribution Width 15.1 % (11.5-14.5)
[2017-01-20 17:44] LABS: BUN/Creatinine Ratio 13 (6-26); Blood Urea Nitrogen 13 mg/dL (7-20); Calcium 8.3 mg/dL (8.6-10.8); Carbon Dioxide 27 mEq/L (19-29); Chloride 103 mEq/L (98-109); Glucose 97 mg/dL (70-99); Osmolality,Calculated 278 (280-300); Potassium 3.9 mEq/L (3.5-4.5); Sodium 134 mEq/L (136-145); eGFR For African Americans > 60 (> 60); eGFR For Non-African Americans 59 (> 60)
[2017-01-20] MEDS ORDERED: traMADol 50 MG TABLET PO ONE (17:58)
[2017-01-20 18:40] LABS: Bilirubin,Urine Negative (Negative); Blood,Urine Negative (Negative); Clarity,Urine Clear (Clear); Color,Urine Yellow (Yellow); Glucose,Urine (UA) Normal (Normal); Ketones,Urine Negative (Negative); Leukocyte Esterase,Urine Negative (Negative); Nitrite,Urine Negative (Negative); PH,Urine 6.5 pH Units (5.0-8.0); Protein,Urine Negative (Neg-Trace); Specific Gravity,Urine 1.005 (1.010-1.025); Urobilinogen,Urine Normal (Normal)
[2017-01-20] MEDS ORDERED: *HR* HYDROmorphone (PF) 1 MG/ML SYRINGE IVP ONE ×2 (19:08→20:44)
--- NOTE | 2017-01-20 19:08 | Emergency Department Note ---
Disposition Clinical Impression: Dysuria, Warfarin-induced coagulopathy Abdominal pain Qualifiers: Abdominal location: generalized Qualified Code(s): R10.84 - Generalized abdominal pain Disposition: Admitted As Inpatient Condition: Good Referrals: Ariel Cotto DO [Primary Care Provider] - Forms: ED Satisfaction Letter Time of Disposition: 21:28 General Adult HPI - General Chief complaint: ED Recheck/Abnormal Lab/Rx Stated complaint: "critical INR", "kindey infection", vomiting Time Seen by Provider: 01/20/17 16:16 Source: patient Limitations: no limitations - History of Present Illness Pain Scale: 9 - Related Data Home Medications Medication Instructions Recorded Confirmed Black Coh[place] 20 mg PO DAILY 12/20/16 01/10/17 BuPROPion XL (24 HR) [Wellbutrin 150 mg PO DAILY 12/20/16 01/10/17 Xl] Cholecalciferol (D-3) [Vitamin D] 5,000 unit PO DAILY 12/20/16 01/10/17 Cyclobenzaprine [Flexeril] 10 mg PO TID 12/20/16 01/10/17 Cyclosporine [Restasis] 1 drop OP BID 12/20/16 01/10/17 Duloxetine HCl [Cymbalta] 60 mg PO DAILY 12/20/16 01/10/17 HYDROcodone/Acet 7.5/325 mg [[place] 1 - 2 tab PO Q6H PRN 12/20/16 01/10/17 7.5-325 mg] Hydroxychloroquine [Plaquenuil] 200 mg PO BID 12/20/16 01/10/17 Levothyroxine [Synthroid] 75 mcg PO DAILY@0630 12/20/16 01/10/17 Lubiprostone [Amitiza] 24 mcg PO BID 12/20/16 01/10/17 Magnesium 250 mg PO DAILY 12/20/16 01/10/17 Melatonin/Pyridoxine HCl (B6) 10 mg PO HS 12/20/16 01/10/17 [Melatonin 5 mg Tablet] Potassium Chloride [K-Tab ER] 10 meq PO BID 12/20/16 01/10/17 Promethazine [Phenergan] 25 mg PO Q6HR PRN 12/20/16 01/10/17 Quetiapine Fumarate [Seroquel] 100 mg PO HS 12/20/16 01/10/17 Valacyclovir HCl [Valtrex] 1,000 mg PO DAILY 12/20/16 01/10/17 clonazePAM [Klonopin] 2 mg PO 0900,1700 12/20/16 01/10/17 clonazePAM [Klonopin] 4 mg PO HS 12/20/16 01/10/17 Acetaminophen/Butalbital/Caffe 1 each PO Q6H PRN 01/05/17 01/10/17 [Fioricet] Butorphanol Tartrate 1 spray NS Q4-6H PRN 01/05/17 01/10/17 Polyethylene Glycol 3350 [MiraLAX] 17 gm PO BID 01/06/17 01/10/17 Cyanocobalamin/FA/Pyridoxine 1 tab PO DAILY 01/20/17 01/20/17 [[place] Tablet] Warfarin [Coumadin] 7.5 mg PO SUTUTHSA 01/20/17 01/20/17 Warfarin [Coumadin] 10 mg PO MOWEFR 01/20/17 01/20/17 Allergies Allergy/AdvReac Type Severity Reaction Status Date / Time Amoxicillin Allergy See Verified 01/20/17 13:28 Comments clarithromycin [From Biaxin] Allergy See Verified 01/20/17 13:28 Comments Enoxaparin [From Lovenox] Allergy See Verified 01/20/17 13:28 Comments hydrochlorothiazide Allergy See Verified 01/20/17 13:28 Comments levofloxacin [From Levaquin] Allergy Difficulty Verified 01/20/17 13:28 Breathing nafcillin Allergy Seizure Verified 01/20/17 13:28 oxcarbazepine Allergy Anaphylaxis Verified 01/20/17 13:28 [From Trileptal] Penicillins Allergy Seizure Verified 01/20/17 13:28 Sulfa (Sulfonamide Allergy See Verified 01/20/17 13:28 Antibiotics) Comments sumatriptan [From Imitrex] Allergy See Verified 01/20/17 13:28 Comments Terazosin Allergy See Verified 01/20/17 13:28 Comments vancomycin Allergy Seizure Verified 01/20/17 13:28 topiramate [From Topamax] AdvReac Confusion Verified 01/20/17 13:28 Constitutional: Denies: fever, chills Cardiovascular: Denies: chest pain, dyspnea on exertion Respiratory: Denies: cough, dyspnea Gastrointestinal: Reports: nausea. Denies: abdominal pain, vomiting, diarrhea, hematemesis, melena, hematochezia Genitourinary: Reports: dysuria, hematuria. Denies: urgency, frequency Musculoskeletal: Reports: back pain (flank pain). Denies: neck pain Integumentary: Denies: rash, abrasion, lesions Neurological: Denies: headache, weakness Past Medical History - Past Medical History Medical history: Reports: DVT, fibromyalgia, kidney stones, pulmonary embolus, thyroid disease, other Surgical history: Reports: ureteral stent, IVC filter Psychiatric history: Reports: bipolar - Social History Smoking Status: Current every day smoker Smokeless Tobacco Status: No Alcohol use: Reports: none Drug use: Reports: none Physical Exam - General Limitations: no limitations General appearance: alert, in no apparent distress Course Course Narrative: Patient taken over at the beginning of my shift. Patient was signed out by the daytime physician Dr. Rascon. Detailed review the presentation symptoms were discussed. Patient presents emergency room with history of critical INR and bilateral flank pain with dysuria. She has a history of urinary tract infections as well as multiple other complaints. Patient has laboratory workup was evaluated at this time. She has a port in place in the right anterior chest wall. Access was obtained as were given. Labs were collected prior to and appeared to be stable at this time with no significant elevation in white blood cell count appears to be leukopenic but stable. Her hemoglobin is at baseline. Urinalysis and chemistry panel. Be stable with no acute signs of infection or N abnormality. Correlation studies are still pending considering she has possible lipid dysfunction is on Coumadin. Her INR is 5.5 previously. Patient is generally complaining of pain on my evaluation) saying that nobody is addressed her pain and is uncomfortable and unhappy. No other acute issues were noted during the previous evaluation. Repeat evaluation be completed at the bedside as well as CT imaging that is still pending. Disposition to determine once workup is completed this time. Blood collected for - Reevaluation(s) Reevaluation #1: INR 6.0. Will discuss this with the patient seated she feels about presentation. Disposition pending evaluation Time: 20:29 Reevaluation #2: CT imaging the abdomen does not show any acute pathology at this time. She is constipated this could be secondary to the issue at this point. Patient does have a significantly elevated INR of 6.0. Patient is a fall risk at home because she does have baseline syncope. She does not have any but it is capable of taking care of her helping her in the house. Patient also has collateralized IVC with obstruction of the IVC secondary to a filter. This was discussed with the on-call vascular surgeon Dr. baca. He said this is a stable issue and does not interventions this time. Otherwise patient has had poorly controlled pain of unknown etiology. Lactic acid is negative. Patient will be discussed with the hospitalist for evaluation of progressively elevating INR secondary to unknown etiology with phospholipid related dysfunction. Admission process to be completed at this time. No other concerns or issues noted at this point. Concern at this point for intestinal colic secondary to mesenteric ischemia. No other acute pathology in the abdomen are noted. Time: 21:26 Reevaluation #3: Patient was discussed with the hospitalist. Dr. Daily and I reviewed the presentation symptoms medical history. He has no other questions or concerns at this point. Patient will be brought in for evaluation. No recommendation for vitamin K at this time. Patient will be observed in the emergency room to the admission process is completed. Patient family form that happy with the plan other concerns at this point. Continue to control pain while here until admission is completed Time: 21:48 Vital Signs Temperature 98.3 F 01/20/17 13:26 Pulse Rate 122 01/20/17 13:26 Respiratory Rate 16 01/20/17 13:26 Blood Pressure 95/63 01/20/17 13:26 O2 Sat by Pulse Oximetry 95 01/20/17 13:26 Temperature 98.3 F 01/20/17 13:26 Pulse Rate 80 01/20/17 21:08 Respiratory Rate 16 01/20/17 20:34 Blood Pressure 133/96 01/20/17 21:08 O2 Sat by Pulse Oximetry 98 01/20/17 21:08 Oxygen Delivery Oxygen Delivery Room Air Medical Decision Making - MDM Narrative Medical decision making narrative: Abdominal pain, elevated INR, syncopal events at home, fall risk - Medical Records Medical records reviewed: Yes I reviewed the patient's medical records. - Lab Data Lab results reviewed: Yes I reviewed the patient's lab results. Result diagrams: 01/20/17 17:22 01/20/17 17:22 Lab Results 01/20/17 01/20/17 01/20/17 Range/Units 17:22 17:22 17:22 WBC 3.1 L (4.3-11.1) K/mcL RBC 3.49 L (3.82-4.97) M/mcL Hgb 11.4 L (11.5-15.4) g/dL Hct 35.8 (35.3-44.9) % MCV 102.6 H (83.0-100.0) fL MCH 32.7 (28.0-33.3) pg MCHC 31.8 (31.6-35.5) g/dL RDW 15.1 H (11.5-14.5) % Plt Count 157 (140-400) K/mcL MPV 9.0 L (9.4-12.4) fL Immature Gran % 0.0 (0-4) % Seg Neutrophils % 61.0 % Lymphocytes % 24.5 % Monocytes % 11.9 % Eosinophils % 1.3 % Basophils % 1.3 % Neutrophils # 1.9 (1.6-8.9) K/mcL Lymphocytes # 0.8 (0.6-4.6) K/mcL Monocytes # 0.4 (0.0-1.3) K/mcL Eosinophils # 0.0 (0.0-0.6) K/mcL Basophils # 0.0 (0.0-0.2) K/mcL Immature Plt Fraction 2.0 (1.1-6.1) % PT (9.4-12.1) Seconds INR APTT (26.0-36.0) Seconds Sodium 134 L (136-145) mEq/L Potassium 3.9 (3.5-4.5) mEq/L Chloride 103 (98-109) mEq/L Carbon Dioxide 27 (19-29) mEq/L BUN 13 (7-20) mg/dL Creatinine 0.99 (0.57-1.11) mg/dL Est GFR ( Amer) > 60 (> 60) Est GFR (Non-Af Amer) 59 L (> 60) BUN/Creatinine Ratio 13 (6-26) Glucose 97 (70-99) mg/dL Calculated Osmolality 278 L (280-300) Lactic Acid 0.7 (0.5-2.2) mmol/L Calcium 8.3 L (8.6-10.8) mg/dL Urine Color (Yellow) Urine Clarity (Clear) Urine pH (5.0-8.0) pH Units Ur Specific [place] (1.010-1.025) Urine Protein (Neg-Trace) mg/dL Urine Glucose (UA) (Normal) mg/dL Urine Ketones (Negative) mg/dL Urine Blood (Negative) Urine Nitrite (Negative) Urine Bilirubin (Negative) Urine Urobilinogen (Normal) mg/dL Ur Leukocyte Esterase (Negative) Ur Culture Indicated? (NO) 01/20/17 01/20/17 Range/Units 18:25 19:32 WBC (4.3-11.1) K/mcL RBC (3.82-4.97) M/mcL Hgb (11.5-15.4) g/dL Hct (35.3-44.9) % MCV (83.0-100.0) fL MCH (28.0-33.3) pg MCHC (31.6-35.5) g/dL RDW (11.5-14.5) % Plt Count (140-400) K/mcL MPV (9.4-12.4) fL Immature Gran % (0-4) % Seg Neutrophils % % Lymphocytes % % Monocytes % % Eosinophils % % Basophils % % Neutrophils # (1.6-8.9) K/mcL Lymphocytes # (0.6-4.6) K/mcL Monocytes # (0.0-1.3) K/mcL Eosinophils # (0.0-0.6) K/mcL Basophils # (0.0-0.2) K/mcL Immature Plt Fraction (1.1-6.1) % PT 66.6 H* D (9.4-12.1) Seconds INR 6.0 H* D APTT 52.6 H (26.0-36.0) Seconds Sodium (136-145) mEq/L Potassium (3.5-4.5) mEq/L Chloride (98-109) mEq/L Carbon Dioxide (19-29) mEq/L BUN (7-20) mg/dL Creatinine (0.57-1.11) mg/dL Est GFR ( Amer) (> 60) Est GFR (Non-Af Amer) (> 60) BUN/Creatinine Ratio (6-26) Glucose (70-99) mg/dL Calculated Osmolality (280-300) Lactic Acid (0.5-2.2) mmol/L Calcium (8.6-10.8) mg/dL Urine Color Yellow (Yellow) Urine Clarity Clear (Clear) Urine pH 6.5 (5.0-8.0) pH Units Ur Specific [place] 1.005 L (1.010-1.025) Urine Protein Negative (Neg-Trace) mg/dL Urine Glucose (UA) Normal (Normal) mg/dL Urine Ketones Negative (Negative) mg/dL Urine Blood Negative (Negative) Urine Nitrite Negative (Negative) Urine Bilirubin Negative (Negative) Urine Urobilinogen Normal (Normal) mg/dL Ur Leukocyte Esterase Negative (Negative) Ur Culture Indicated? NO (NO) - Radiology Data Radiology results reviewed: Yes I reviewed the patient's radiology results. CT imaging does not show any acute pathology except for constipation.
[2017-01-20 19:49] LABS: Activated Partial Thrombo Time 52.6 Seconds (26.0-36.0)
[2017-01-20 19:52] LABS: Prothrombin Time 66.6 Seconds (9.4-12.1)
[2017-01-21] MEDS ORDERED: Ondansetron 4 MG/2 ML VIAL IVP PRN (00:06)
[2017-01-21] MEDS ORDERED: Acetaminophen 325 MG TABLET PO PRN (00:06)
[2017-01-21] MEDS ORDERED: Acetaminophen/Butalbital/CaffeineTABLET PO PRN (00:10)
[2017-01-21] MEDS ORDERED: hydrOXYzine pamoate 25 MG CAPSULE PO ONE (00:14)
[2017-01-21] MEDS ORDERED: 0.9 % Sodium Chloride 1,000 ML IVC SCH (00:15)
--- NOTE | 2017-01-21 00:18 | Internal Med History&Physical ---
<Brigid Chaparro - Last Filed: 01/21/17 00:24> Date of Encounter: 01/21/17 Time of Encounter: 00:00 Assessment and Plan (1) Supratherapeutic INR Current visit: Yes Status: Acute - INR 6.0 in ED and patient reports holding her Coumadin for 3 days. - Hgb stable at 11.4 and no active bleeding noted. - No indication for reversal like vitamin K or FFP at this time. - Continue to hold Coumadin for now and appreciate pharmacy dosing once INR drops to therapeutic level. - Admit to hospital for close monitoring including H&H and sign of bleeding. Total time spent on admission: 40 minutes. (2) Bilateral flank pain Current visit: No Status: Acute - Patient complains of bilateral flank pain and suprapubic pain. - CT A/P & UA at this time do not support urinary obstruction or UTI. - Patient's pain is likely related to her constipation and may have some component of fibromyalgia as well. - Patient is known to be IV pain medication seeking during her prior hospitalization here (01/10/17 - 01/16/17). - Will avoid opiates pain medication at this time and use muscle relaxants and tylenol instead. (3) Constipation due to pain medication Current visit: No Status: Acute - Patient reports no bowel movement for [address] A/P found moderate dense formed stool load consistent with constipation. - Likely secondary to opiates pain medication use at home. - Continue Miralax and start Senna. - Will avoid opiates pain medication at this time and use muscle relaxants and tylenol instead. (4) Hypercoagulable state, primary Current visit: No Status: Chronic - With protein C & S deficiency and positive antiphospholipid antibody. 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 - Was on Coumadin at home until 3 days ago. - Continue to hold Coumadin for now. (5) Fibromyalgia Current visit: No Status: Chronic (6) Presence of IVC filter Current visit: Yes Status: Acute - CT A/P showed IVC filter with retroperitoneal collateral veins/ varices, suspicious of IVC obstruction. - ED physician discussed the case with the on-call vascular surgeon Dr. Chambers, who said this is a stable issue and does not need interventions this time. (7) Hypothyroidism Current visit: No Status: Chronic - Continue home dose Synthroid. Qualifiers: Hypothyroidism type: acquired Qualified Code(s): E03.9 - Hypothyroidism, unspecified Internal Medicine - H&P: HPI Chief complaint: Elevated INR Admitted From: Emergency Dept Plans for Post Hospital Care: Home History of present illness: Ms. Sandoval is a 51 year old female with PMH of lupus, protein C/S deficiency, positive antiphospholipid antibody, hypothyroidism and fibromyalgia. Patient presented to ED for elevated INR despite of holding Coumadin for three days. Patient reports occasional lightheadedness/dizziness and has concern of possible fall and bleeding so she decided to come to [place] ED. Patient reports having hematuria in the morning but no other active bleeding noted. Patient admits not having bowel movement for 5 days so cannot tell if there is any hematochezia or melena. Patient also complained of nausea, dry heaving, bilateral flank pain and suprapubic pain, especially when her urinary bladder is full. Patient reports having some difficulty to initiate urination but denies pain or burning on urination. Patient denies shortness of breath, cough, chest pain, syncope, fever, chills. In ED, patient is noted to have stable leukopenia (WBC 3.1) and UA negative for UTI. CT A/P found stable medullary nephrocalcinosis but no acute obstructive uropathy. Moderate dense formed stool load consistent with constipation is also noted. 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 ED physician discussed the case with the on-call vascular surgeon Dr. Chambers, who said this is a stable issue and does not need interventions this time. Patient received 1L of IV NS bolus, IV Zofran x2 and Dilaudid 1 mg IV x2. On the encounter, I explained to patient that CT A/P & UA at this time do not support urinary obstruction or UTI and her pain can be from constipation so we will try to minimize opiates use and use other alternative instead. Patient got upset suddenly and states that all she wants is one dose of IV narcotic for pain so she can get some sleep. Past Med Surg Social Fam HX - Past Medical History Medical history: DVT, fibromyalgia, kidney stones, pulmonary embolus, thyroid disease, other Psychiatric history: bipolar - Past Surgical History Surgical History: hysterectomy, ureteral stent, IVC filter - Social History Smoking Status: Current every day smoker Smokeless Tobacco Status: No Alcohol use: none Drug use: none - Family History Father Family Member Ethnicity: Non- Living Status: Still Living Hx Family Cardiac Disorders: Yes (HTN) Hx Family Endocrine Disorder: Yes (DM) Mother Family Member Ethnicity: Non- Living Status: Age at : 57 Cause of : MS Hx Family Neuromuscular Disorders: Yes (MS) Brother Family Member Ethnicity: Non- Living Status: Still Living Sister Family Member Ethnicity: Non- Living Status: Still Living Internal Medicine - H&P: Meds Black Cohosh 20 mg PO DAILY 12/20/16 [History] BuPROPion XL (24 HR) [Wellbutrin Xl] 150 mg PO DAILY 12/20/16 [History] Cholecalciferol (D-3) [Vitamin D] 5,000 unit PO DAILY 12/20/16 [History] Cyclobenzaprine [Flexeril] 10 mg PO TID 12/20/16 [History] Cyclosporine [Restasis] 1 drop OP BID 12/20/16 [History] Duloxetine HCl [Cymbalta] 60 mg PO DAILY 12/20/16 [History] HYDROcodone/Acet 7.5/325 mg [[place] 7.5-325 mg] 1 - 2 tab PO Q6H PRN 12/20/16 [ History] Hydroxychloroquine [Plaquenuil] 200 mg PO BID 12/20/16 [History] Levothyroxine [Synthroid] 75 mcg PO DAILY@0630 12/20/16 [History] Lubiprostone [Amitiza] 24 mcg PO BID 12/20/16 [History] Magnesium 250 mg PO DAILY 12/20/16 [History] Melatonin/Pyridoxine HCl (B6) [Melatonin 5 mg Tablet] 10 mg PO HS 12/20/16 [ History] Potassium Chloride [K-Tab ER] 10 meq PO BID 12/20/16 [History] Promethazine [Phenergan] 25 mg PO Q6HR PRN 12/20/16 [History] Quetiapine Fumarate [Seroquel] 100 mg PO HS 12/20/16 [History] Valacyclovir HCl [Valtrex] 1,000 mg PO DAILY 12/20/16 [History] clonazePAM [Klonopin] 2 mg PO 0900,1700 12/20/16 [History] clonazePAM [Klonopin] 4 mg PO HS 12/20/16 [History] Acetaminophen/Butalbital/Caffe [Fioricet] 1 each PO Q6H PRN 01/05/17 [History] Butorphanol Tartrate 1 spray NS Q4-6H PRN 01/05/17 [History] Polyethylene Glycol 3350 [MiraLAX] 17 gm PO BID 01/06/17 [History] Cyanocobalamin/FA/Pyridoxine [Folbee Tablet] 1 tab PO DAILY 01/20/17 [History] Warfarin [Coumadin] 7.5 mg PO SUTUTHSA 01/20/17 [History] Warfarin [Coumadin] 10 mg PO MOWEFR 01/20/17 [History] 3 Allergy/AdvReac Type Severity Reaction Status Date / Time Amoxicillin Allergy See Verified 01/20/17 13:28 Comments clarithromycin [From Biaxin] Allergy See Verified 01/20/17 13:28 Comments Enoxaparin [From Lovenox] Allergy See Verified 01/20/17 13:28 Comments hydrochlorothiazide Allergy See Verified 01/20/17 13:28 Comments levofloxacin [From Levaquin] Allergy Difficulty Verified 01/20/17 13:28 Breathing nafcillin Allergy Seizure Verified 01/20/17 13:28 oxcarbazepine Allergy Anaphylaxis Verified 01/20/17 13:28 [From Trileptal] Penicillins Allergy Seizure Verified 01/20/17 13:28 Sulfa (Sulfonamide Allergy See Verified 01/20/17 13:28 Antibiotics) Comments sumatriptan [From Imitrex] Allergy See Verified 01/20/17 13:28 Comments Terazosin Allergy See Verified 01/20/17 13:28 Comments vancomycin Allergy Seizure Verified 01/20/17 13:28 topiramate [From Topamax] AdvReac Confusion Verified 01/20/17 13:28 All Systems PM: A 10-system review of systems was performed and is negative for pertinent findings except as documented above in the HPI. - Constitutional Constitutional: no chills, no fever(s) - EENT Eyes: no change in vision Ears: no decreased hearing - Cardiovascular Cardiovascular ROS IM: lightheadedness, no chest pain, no edema, no syncope - Respiratory Respiratory: no cough, no dyspnea, no hemoptysis - Gastrointestinal Gastrointestinal: as per HPI, abdominal pain, constipation, nausea, vomiting, no diarrhea - Genitourinary Genitourinary: difficulty urinating, hematuria, no dysuria - Integumentary Integumentary IM: no pruritus, no rash - Neurological Neurological ROS: no focal weakness, no numbness, no tingling - Hematologic/Lymphatic Hematologic/Lymphatic: easy bruising, no easy bleeding - Constitutional Vitals: Temp Pulse Resp BP Pulse Ox 97.8 F 78 16 129/83 96 01/20/17 22:36 01/20/17 22:36 01/20/17 22:36 01/20/17 22:36 01/20/17 22:36 General appearance: Present: cooperative, A&O X 3, no acute distress - Head Head exam: Present: atraumatic, normocephalic - Eye Eye exam: Present: EOMI, PERRL, conjuntiva pink, sclera anicteric - ENT ENT exam: Present: mucous membranes moist - Neck Neck exam general surgery: Present: supple, trachea midline. Absent: lymphadenopathy - Respiratory Respiratory exam: Present: CTAB, wheezes (Some). Absent: accessory muscle use, rales, rhonchi - Cardiovascular Cardiovascular exam: Present: RRR, +S1, +S2. Absent: diastolic murmur, gallop, rubs, systolic murmur - GI/Abdominal GI/Abdominal exam: Present: normal bowel sounds, soft, tenderness (Bilateral suprapubic area), no peritoneal signs. Absent: distended - Extremities Exam Extremities exam: Present: warm, radial pulses palpable and symmetrical. Absent : calf tenderness, cyanotic, pedal edema - Back Exam Back exam: Present: CVA tenderness (L) (Pt states it hurts a lot with just light touch.), CVA tenderness (R) (Pt states it hurts a lot with just light touch.) - Neurological Exam Neurological exam: Present: CN II-XII intact, oriented X3, no focal deficits. Absent: pronater drift, facial droop, speech deficit - Skin Skin exam: Present: dry, intact, warm Internal Med - H&P Results - Labs CBC & Chem 7: 01/20/17 17:22 01/20/17 17:22 <Annemarie Kim - Last Filed: 01/21/17 02:11> Date of Encounter: 01/20/17 Time of Encounter: 11:30 Internal Medicine - H&P: HPI History of present illness: Ms. Sandoval is a 51 year old female All Systems PM: A 10-system review of systems was performed and is negative for pertinent findings except as documented above in the HPI. - Constitutional Vitals: Temp Pulse Resp BP Pulse Ox 97.8 F 78 16 129/83 96 01/20/17 22:36 01/20/17 22:36 01/20/17 22:36 01/20/17 22:36 01/20/17 22:36 Internal Med - H&P Results - Labs CBC & Chem 7: 01/20/17 17:22 01/20/17 17:22 - Attending Attestation I examined this patient and my medical decision-making was reviewed with the Resident Physician. I agree with the documented findings, disposition and treatment plan as described except to the extent set forth below. 51-year-old female with a history of chronic pain syndrome, fibromyalgia on opiates who presents with worsening abdominal pain. Last bowel movement was on last. Constipation associated with difficulty in urination. Reports component of fibromyalgia chronic pain overlay in the flanks and in the abdomen. Patient is on indefinite Coumadin for hypercoagulable state has IVC filter that has chronic clots with collateral. ER discussed this with vascular surgeon not thought to be the cause of abdominal pain. CT imaging suggests constipation opiate abuse. In terms of her super therapeutic INR on admission, she has no evidence of active bleeding and is pending establishment at her local Coumadin clinic today. Her INR is currently managed by her PCP temporarily. General - AAO x 3 Psych - Appropriate affect/speech. No agitation Eyes - LINDA. Eye lids intact. No scleral icterus ENT - Oral mucosa pink, dentition intact. External ear clear/dry/intact. No thyromegaly Lymphatics - No cervical/inguinal lympadenopathy Neuro - No gross peripheral or central neuro deficits with intact CN 2-12 exam Heart - Sinus. RRR. S1 and S2 present. No added HS/murmurs appreciated. No elevated JVD appreciated. No calf swellings/erythema Lung - Adequate air entry b/l, No crackes/wheezes appreciated GI - Soft, non-tender. No hepatosplenomegaly/ascites. BS+ - No CVA/suprapubic tenderness or palpable bladder distension Skin - Intact. No rash/petechiae/ecchymosis. Warm extremities MSK - Joints with normal ROM. No joint swellings ROS 14 point review of systems reviewed as best as possible given presentation. Pertinent positive or negative as per HPI or otherwise reviewed as negative A/P Abdominal pain - related to opiate induced constipation - senna, colace, miralax Hypercoagulability state on coumadin Antiphospholipid syndomr - INR high - hold coumadin - will need plan of care given recurrent admission - consider DOACs Chronic pain , Fibromylagia
[2017-01-21] MEDS ORDERED: Ipratropium/Albuterol Neb 3 ML IH PRN (00:52)
[2017-01-21] MEDS: Sennosides 8.6 MG TABLET PO SCH ×2 (04:54→22:00)
[2017-01-21 05:21] LABS: Hematocrit 32.5 % (35.3-44.9); Hemoglobin 10.2 g/dL (11.5-15.4); Mean Corpuscular HGB Conc 31.4 g/dL (31.6-35.5); Mean Corpuscular Hemoglobin 32.5 pg (28.0-33.3); Mean Corpuscular Volume 103.5 fL (83.0-100.0); Mean Platelet Volume 9.4 fL (9.4-12.4); Platelet Count 139 K/mcL (140-400); Red Blood Count 3.14 M/mcL (3.82-4.97); Red Cell Distribution Width 15.2 % (11.5-14.5)
[2017-01-21 05:28] LABS: INR 6.9; Prothrombin Time 77.9 Seconds (9.4-12.1)
[2017-01-21] MEDS: BuPROPion XL (24 HR) 150 MG TABLET PO SCH (09:45)
[2017-01-21] MEDS: clonazePAM 1 MG TABLET PO SCH ×3 (09:45→21:58)
--- NOTE | 2017-01-21 13:29 | Event Note ---
Date of Encounter: 01/21/17 Time of Encounter: 13:28 Patient is awake and alert at this time. Remains constipated and complains of abdominal discomfort. No overt bleeding reported. Continue to monitor INR. Hold Coumadin. We will increase bowel regimen depending on patient's response.
--- NOTE | 2017-01-21 14:54 | Electrocardiograph Report ---
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
[2017-01-21] MEDS ORDERED: Warfarin perPT PO PRN (18:00)
[2017-01-21] MEDS: *HR* HYDROcodone/Acet 7.5/325 mg TABLET PO PRN (21:59)
[2017-01-21] MEDS: (Lubiprostone [Amitiza] 24 MCG) PO SCH (23:36)
[2017-01-22 05:18] LABS: Basophils % 1.5 %; Eosinophils # 0.1 K/mcL (0.0-0.6); Eosinophils % 5.1 %; Hematocrit 32.7 % (35.3-44.9); Hemoglobin 10.7 g/dL (11.5-15.4); Immature Granulocytes % 0.4 % (0-4); Mean Corpuscular HGB Conc 32.7 g/dL (31.6-35.5); Mean Corpuscular Hemoglobin 33.5 pg (28.0-33.3); Mean Corpuscular Volume 102.5 fL (83.0-100.0); Mean Platelet Volume 9.4 fL (9.4-12.4); Monocytes # 0.3 K/mcL (0.0-1.3); Monocytes % 12.5 %; Neutrophils # 1.2 K/mcL (1.6-8.9); Platelet Count 135 K/mcL (140-400); Red Blood Count 3.19 M/mcL (3.82-4.97); Red Cell Distribution Width 15.2 % (11.5-14.5); Segmented Neutrophils % 44.5 %
[2017-01-22 05:22] LABS: INR 6.1; Prothrombin Time 68.2 Seconds (9.4-12.1)
[2017-01-22] MEDS: BuPROPion XL (24 HR) 150 MG TABLET PO SCH (10:06)
[2017-01-22] MEDS: clonazePAM 1 MG TABLET PO SCH ×3 (10:06→20:47)
[2017-01-22] MEDS: valACYclovir 500 MG TABLET PO SCH (10:06)
[2017-01-22] MEDS: (Lubiprostone [Amitiza] 24 MCG) PO SCH ×2 (10:10→20:48)
--- NOTE | 2017-01-22 14:00 | Internal Med Progress Note ---
Date of Encounter: 01/22/17 Time of Encounter: 10:00 - Assessment and plan (1) Bilateral flank pain Current Visit: Yes Status: Acute Assessment and plan: Patient continues to have bilateral flank pain of uncertain etiology. CT scan does not show any acute complications. Urine analysis also completely negative. Could be related to chronic back pain and fibromyalgia. We will treat symptomatically. (2) Constipation due to pain medication Current Visit: Yes Status: Resolved Assessment and plan: Resolved with laxatives. 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 On anticoagulation with Coumadin (6) Supratherapeutic INR Current Visit: Yes Status: Acute Assessment and plan: INR improving today. At 6.1. Continue to monitor and hold Coumadin. Target INR between 2 and 3. - Subjective Interval history: Patient complains of back pain radiating down to her right groin. She also complains of similar kind of pain in the left side is less intense. Has had this pain off and on in the past when she has had urinary tract infections. Responded to laxatives yesterday and had multiple bowel movements. Denies any nausea or vomiting. No blood in stools. No hematemesis. - Constitutional Vitals: Temp Pulse Resp BP Pulse Ox 98.0 F 102 18 109/74 92 01/22/17 11:38 01/22/17 11:38 01/22/17 11:38 01/22/17 11:38 01/22/17 11:38 General appearance: Present: cooperative, A&O X 3, no acute distress - Neck Neck exam general surgery: Present: supple, trachea midline. Absent: lymphadenopathy - Respiratory Respiratory exam: Present: CTAB. Absent: accessory muscle use, rales, rhonchi, wheezes - Cardiovascular Cardiovascular exam: Present: RRR, +S1, +S2. Absent: diastolic murmur, gallop, rubs, systolic murmur - GI/Abdominal GI/Abdominal exam: Present: normal bowel sounds, soft, no peritoneal signs. Absent: distended, tenderness - Extremities Exam Extremities exam: Present: warm, radial pulses palpable and symmetrical. Absent : calf tenderness, cyanotic, pedal edema - Neurological Exam Neurological exam: Present: alert, oriented X3, no focal deficits. Absent: facial droop, speech deficit - Skin Skin exam: Present: dry, intact Internal Medicine: Result - Labs CBC & Chem 7: 01/22/17 04:40 01/20/17 17:22 Labs: Short CBC 01/22/17 Range/Units 04:40 WBC 2.7 L (4.3-11.1) K/mcL Hgb 10.7 L (11.5-15.4) g/dL Hct 32.7 L (35.3-44.9) % Plt Count 135 L (140-400) K/mcL Neutrophils # 1.2 L (1.6-8.9) K/mcL - ABG Interpretation ABG results: PT/INR, D-dimer PT 68.2 Seconds (9.4-12.1) H* 01/22/17 04:40 Consult Discharge Plan - Plan Referrals: Clinic,Coumadin [Other] - 01/26/17 1:30 pm Ariel Cotto DO [Primary Care Provider] -
[2017-01-22] MEDS: *HR* HYDROcodone/Acet 7.5/325 mg TABLET PO PRN (17:10)
[2017-01-22] MEDS: Sennosides 8.6 MG TABLET PO SCH (20:47)
[2017-01-22] MEDS ORDERED: Melatonin 3 MG TABLET PO SCH (21:45)
[2017-01-23 03:53] LABS: INR 1.4; Prothrombin Time 15.5 Seconds (9.4-12.1)
[2017-01-23] MEDS ORDERED: *HR* Heparin 5,000 UNIT/ML VIAL IVP PRN ×2 (08:19)
[2017-01-23] MEDS ORDERED: Heparin 25,000 UNIT/500 ML D5W 25,000 UNIT/500 ML MLS IVC SCH (08:30)
[2017-01-23] MEDS: BuPROPion XL (24 HR) 150 MG TABLET PO SCH (08:55)
[2017-01-23] MEDS: valACYclovir 500 MG TABLET PO SCH (08:55)
[2017-01-23] MEDS: clonazePAM 1 MG TABLET PO SCH (08:55)
[2017-01-23] MEDS: (Lubiprostone [Amitiza] 24 MCG) PO SCH (08:57)
[2017-01-23 09:49] LABS: INR 1.3; Prothrombin Time 14.1 Seconds (9.4-12.1)
[2017-01-23 09:52] LABS: Activated Partial Thrombo Time 32.5 Seconds (26.0-36.0)
[2017-01-23 09:56] LABS: Hematocrit 35.4 % (35.3-44.9); Hemoglobin 11.4 g/dL (11.5-15.4); Mean Corpuscular HGB Conc 32.2 g/dL (31.6-35.5); Mean Corpuscular Hemoglobin 32.9 pg (28.0-33.3); Mean Corpuscular Volume 102.3 fL (83.0-100.0); Mean Platelet Volume 9.7 fL (9.4-12.4); Platelet Count 159 K/mcL (140-400); Red Blood Count 3.46 M/mcL (3.82-4.97); Red Cell Distribution Width 14.8 % (11.5-14.5)
[2017-01-23 14:29] VITALS: BP 116/76
--- NOTE | 2017-01-23 15:30 | Internal Med Progress Note ---
Date of Encounter: 01/23/17 Time of Encounter: 08:25 - Assessment and plan (1) Hypercoagulable state, primary Current Visit: Yes Status: Chronic Assessment and plan: Patient with history of antiphospholipid syndrome, protein S and protein C deficiency. INR today is 1.4. Sudden reduction from 6.1 yesterday. Patient will be started on heparin intravenously today to bridge Coumadin. She does need close follow-up with Coumadin clinic and I have stressed this with the patient multiple times. She tells me today that she did not know there was a Coumadin clinic available here although she has been on anticoagulation therapy for several years. She has now been made an appointment for Thursday to follow up with Coumadin clinic. High risk for complications due to use of intravenous heparin (2) Presence of IVC filter Current Visit: Yes Status: Acute (3) Supratherapeutic INR Current Visit: Yes Status: Resolved (4) Bilateral flank pain Current Visit: Yes Status: Acute Assessment and plan: No acute cause identified. Could be related to her chronic blood clots involving her iliac and pelvic veins. Continue supportive care and pain medications by mouth. (5) Constipation due to pain medication Current Visit: Yes Status: Resolved (6) Fibromyalgia Current Visit: No Status: Chronic Assessment and plan: Continue home medications including Plaquenil, lubiprostone. (7) Hypothyroidism Current Visit: No Status: Chronic Assessment and plan: Continue levothyroxine Qualifiers: Hypothyroidism type: acquired Qualified Code(s): E03.9 - Hypothyroidism, unspecified - Subjective Interval history: Patient was awake and alert and comfortable. Lying in bed. He denies any new complaints at this time. No nausea or vomiting. No hematemesis or melena. Continues to have some back pain radiating bilaterally down to her groin. This is chronic pain with intermittent worsening. - Constitutional Vitals: Temp Pulse Resp BP Pulse Ox 98.4 F 95 15 116/76 97 01/23/17 14:28 01/23/17 14:28 01/23/17 14:28 01/23/17 14:28 01/23/17 14:28 General appearance: Present: cooperative, A&O X 3, no acute distress, answers questions appropriately - Neck Neck exam general surgery: Present: supple, trachea midline. Absent: lymphadenopathy - Respiratory Respiratory exam: Present: CTAB. Absent: accessory muscle use, rales, rhonchi, wheezes - Cardiovascular Cardiovascular exam: Present: RRR, +S1, +S2. Absent: diastolic murmur, gallop, rubs, systolic murmur - GI/Abdominal GI/Abdominal exam: Present: normal bowel sounds, soft, no peritoneal signs. Absent: distended, tenderness - Skin Skin exam: Present: dry, intact Internal Medicine: Result - Labs CBC & Chem 7: 01/23/17 09:30 01/20/17 17:22 Labs: Short CBC 01/23/17 Range/Units 09:30 WBC 2.7 L (4.3-11.1) K/mcL Hgb 11.4 L (11.5-15.4) g/dL Hct 35.4 (35.3-44.9) % Plt Count 159 (140-400) K/mcL - ABG Interpretation ABG results: PT/INR, D-dimer PT 14.1 Seconds (9.4-12.1) H 01/23/17 09:30 Consult Discharge Plan - Plan Referrals: Clinic,Coumadin [Other] - 01/26/17 1:30 pm Ariel Cotto DO [Primary Care Provider] - 01/29/17 3:30 pm
[2017-01-23] MEDS ORDERED: *HR* Warfarin 7.5 MG TABLET PO ONE (18:00)
== END 2017-01-23 16:02 | disposition left against medical advice (07) ==
LOC: EMEROO 13:12 → 3ANU 13:12
PROVIDERS: ADMIT Internal Medicine Hematology & Oncology; ATTEND Internal Medicine

== ENCOUNTER 2017-03-01 20:39 | Inpatient (IN) ==
--- NOTE | 2017-03-01 21:06 | Emergency Department Note ---
Disposition Clinical Impression: UTI (urinary tract infection) Qualifiers: Urinary tract infection type: acute cystitis Hematuria presence: with hematuria Qualified Code(s): N30.01 - Acute cystitis with hematuria Disposition: Admitted As Inpatient Condition: Fair Referrals: Ariel Cotto DO [Primary Care Provider] - Forms: ED Satisfaction Letter Time of Disposition: 22:22 Female Urogenital HPI - General Chief complaint: ED Urogenital-Female Stated complaint: Kidney Infection Time Seen by Provider: 03/01/17 20:48 Source: patient Mode of arrival: ambulatory Limitations: no limitations Nursing Notes Reviewed: Yes Vital Signs Reviewed: Yes - History of Present Illness HPI Narrative: 51-year-old with history of lupus who comes in with worsening back pain and symptoms UTI. Patient was hospitalized here was treated with IV Rocephin appear to get better the culture grew out staph lugdunensis Which was sensitive to doxycycline patient was sent on that. 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 Patient states symptoms have worsened with worsening hematuria. Pt Subjective Complaint: dysuria Onset (ago): day(s) Location: suprapubic Radiation: L flank, R flank Severity: mild, moderate Quality: aching Duration: constant Improves with: none Worsens with: movement Urinary Symptoms: dysuria, hematuria Associated symptoms: Reports: nausea/vomiting - Related Data Home Medications Medication Instructions Recorded Confirmed Black Cohosh 20 mg PO DAILY 12/20/16 02/22/17 BuPROPion XL (24 HR) [Wellbutrin 150 mg PO DAILY 12/20/16 02/22/17 Xl] Cholecalciferol (D-3) [Vitamin D] 5,000 unit PO DAILY 12/20/16 02/22/17 Cyclobenzaprine [Flexeril] 10 mg PO TID 12/20/16 02/22/17 Cyclosporine [Restasis] 1 drop OP BID 12/20/16 02/22/17 Duloxetine HCl [Cymbalta] 60 mg PO DAILY 12/20/16 02/22/17 HYDROcodone/Acet 7.5/325 mg [[place] 1 - 2 tab PO Q6H PRN 12/20/16 02/22/17 7.5-325 mg] Hydroxychloroquine [Plaquenuil] 200 mg PO BID 12/20/16 02/22/17 Levothyroxine [Synthroid] 75 mcg PO DAILY@0630 12/20/16 02/22/17 Lubiprostone [Amitiza] 24 mcg PO BID 12/20/16 02/22/17 Magnesium 250 mg PO DAILY 12/20/16 02/22/17 Melatonin/Pyridoxine HCl (B6) 10 mg PO HS 12/20/16 02/22/17 [Melatonin 5 mg Tablet] Potassium Chloride [K-Tab ER] 10 meq PO BID 12/20/16 02/22/17 Promethazine [Phenergan] 25 mg PO Q6HR PRN 12/20/16 02/22/17 Quetiapine Fumarate [Seroquel] 100 mg PO HS 12/20/16 02/22/17 Valacyclovir HCl [Valtrex] 1,000 mg PO DAILY 12/20/16 02/22/17 clonazePAM [Klonopin] 2 mg PO 0900,1700 12/20/16 02/22/17 clonazePAM [Klonopin] 4 mg PO HS 12/20/16 02/22/17 Acetaminophen/Butalbital/Caffe 1 each PO Q6H PRN 01/05/17 02/22/17 [Fioricet] Butorphanol Tartrate 1 spray NS Q4-6H PRN 01/05/17 02/22/17 Polyethylene Glycol 3350 [MiraLAX] 17 gm PO BID 01/06/17 02/22/17 Cyanocobalamin/FA/Pyridoxine 1 tab PO DAILY 01/20/17 02/22/17 [[place] Tablet] Warfarin [Coumadin] 6 mg PO MOWEFR 01/20/17 02/22/17 Warfarin [Coumadin] 9 mg PO SUTUTHSA 01/20/17 02/22/17 Butalbital/Acetaminophen 1 tab PO Q6H PRN 02/23/17 02/23/17 [Butalbital-Acetaminophn 50-325] Previous Rx's Medication Instructions Recorded Doxycycline Hyclate 100 mg PO BID #14 tablet 02/24/17 Allergies Allergy/AdvReac Type Severity Reaction Status Date / Time Amoxicillin Allergy See Verified 03/01/17 20:47 Comments clarithromycin [From Biaxin] Allergy See Verified 03/01/17 20:47 Comments Enoxaparin [From Lovenox] Allergy See Verified 03/01/17 20:47 Comments hydrochlorothiazide Allergy See Verified 03/01/17 20:47 Comments levofloxacin [From Levaquin] Allergy Difficulty Verified 03/01/17 20:47 Breathing nafcillin Allergy Seizure Verified 03/01/17 20:47 oxcarbazepine Allergy Anaphylaxis Verified 03/01/17 20:47 [From Trileptal] Penicillins Allergy Seizure Verified 03/01/17 20:47 Sulfa (Sulfonamide Allergy See Verified 03/01/17 20:47 Antibiotics) Comments sumatriptan [From Imitrex] Allergy See Verified 03/01/17 20:47 Comments Terazosin Allergy See Verified 03/01/17 20:47 Comments vancomycin Allergy Seizure Verified 03/01/17 20:47 topiramate [From Topamax] AdvReac Confusion Verified 03/01/17 20:47 All systems ED: reviewed and negative except as stated. Constitutional: Denies: fever, chills, weakness, weight change Eyes: Denies: eye pain, eye discharge, vision change ENT ED: Denies: ear pain, throat pain, dental pain, hearing loss, epistaxis, congestion, dysphagia Cardiovascular: Denies: chest pain, palpitations, dyspnea on exertion, edema, syncope Respiratory: Denies: cough, dyspnea, wheezes, hemoptysis, stridor Gastrointestinal: Reports: nausea. Denies: abdominal pain, vomiting, diarrhea, constipation, hematemesis, melena, hematochezia Genitourinary: Reports: dysuria, hematuria. Denies: frequency, discharge Musculoskeletal: Denies: back pain, neck pain, arthralgia, myalgia Integumentary: Denies: rash, abrasion, lesions Neurological: Denies: headache, weakness, numbness, paresthesias, confusion, abnormal gait, vertigo Psychiatric: Denies: anxiety, depression, suicidal thoughts, homicidal thoughts , auditory hallucinations, visual hallucinations Endocrine: Denies: fatigue Hematological/Lymphatic: Denies: easy bleeding, easy bruising Allergic/Immunologic: Denies: facial swelling, urticaria Past Medical History - Past Medical History Medical history: Reports: CHF, DVT, fibromyalgia, kidney stones, migraine, pulmonary embolus, thyroid disease, other Surgical history: Reports: hysterectomy, ureteral stent, IVC filter Psychiatric history: Reports: bipolar 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 history - Social History Smoking Status: Current every day smoker Smokeless Tobacco Status: No Alcohol use: Reports: none Drug use: Reports: none Physical Exam - General Limitations: no limitations General appearance: alert - Head Head exam: atraumatic, normocephalic, normal inspection - Eye Eye exam: Present: normal appearance, PERRL, EOMI - ENT ENT exam: normal exam, normal oropharynx, mucous membranes moist - Neck Neck exam: Present: normal inspection, full ROM, trachea midline - Chest Chest inspection: Present: normal inspection, symmetric chest wall rise - Respiratory Respiratory exam: Present: normal lung sounds bilaterally - Cardiovascular Cardiovascular exam: Present: regular rate, normal rhythm, normal heart sounds - Abdominal Exam Abdominal exam: Present: soft, tenderness. Absent: distention, guarding, rebound, rigidity Abdominal tenderness: Present: suprapubic - Extremities Exam Extremities exam: Present: normal inspection - Expanded Lower Extremity Exam Neurovascular/Tendon exam: Absent: motor deficit, sensory deficit, tendon deficit - Back Exam Back exam: Present: normal inspection, full ROM. Absent: tenderness - Neurological Exam Neurological exam: Present: alert, oriented X3 - Psychiatric Psychiatric exam: Present: normal affect, normal mood - Skin Skin exam: Present: warm, dry, intact, normal color Course - Reevaluation(s) Reevaluation #1: 51-year-old with history of lupus who was admitted last week with a UTI. Patient was placed on Rocephin and appeared to improve she was sent home on doxycycline which appeared to be appropriate treatment based on sensitivities however she got worse after being placed on that. Her upper back on the Rocephin and admit. Time: 22:21 - Consultations Consultation #1: Discussed with , admit. Time: 22:19 Vital Signs Temperature 98.2 F 03/01/17 20:40 Pulse Rate 108 03/01/17 20:40 Respiratory Rate 16 03/01/17 20:40 Blood Pressure 134/77 03/01/17 20:40 O2 Sat by Pulse Oximetry 99 03/01/17 20:40 Temperature 98.2 F 03/01/17 20:40 Pulse Rate 108 03/01/17 20:40 Respiratory Rate 16 03/01/17 20:40 Blood Pressure 134/77 03/01/17 20:40 O2 Sat by Pulse Oximetry 99 03/01/17 20:40 Oxygen Delivery Oxygen Delivery Room Air Urogenital-Female - Lab Data Result diagrams: 03/01/17 21:19 03/01/17 21:19 Lab Results 03/01/17 03/01/17 03/01/17 Range/Units 21:19 21:19 21:19 WBC 3.1 L (4.3-11.1) K/mcL RBC 3.36 L (3.82-4.97) M/mcL Hgb 10.9 L (11.5-15.4) g/dL Hct 33.9 L (35.3-44.9) % MCV 100.9 H (83.0-100.0) fL MCH 32.4 (28.0-33.3) pg MCHC 32.2 (31.6-35.5) g/dL RDW 14.0 (11.5-14.5) % Plt Count 203 (140-400) K/mcL MPV 9.0 L (9.4-12.4) fL Immature Gran % 0.0 (0-4) % Seg Neutrophils % 54.0 % Lymphocytes % 29.7 % Monocytes % 9.8 % Eosinophils % 5.2 % Basophils % 1.3 % Neutrophils # 1.7 (1.6-8.9) K/mcL Lymphocytes # 0.9 (0.6-4.6) K/mcL Monocytes # 0.3 (0.0-1.3) K/mcL Eosinophils # 0.2 (0.0-0.6) K/mcL Basophils # 0.0 (0.0-0.2) K/mcL Immature Plt Fraction 1.4 (1.1-6.1) % Sodium 136 (136-145) mEq/L Potassium 3.7 (3.5-4.5) mEq/L Chloride 108 (98-109) mEq/L Carbon Dioxide 20 (19-29) mEq/L BUN 16 (7-20) mg/dL Creatinine 1.00 (0.57-1.11) mg/dL Est GFR ( Amer) > 60 (> 60) Est GFR (Non-Af Amer) 59 L (> 60) BUN/Creatinine Ratio 16 (6-26) Glucose 96 (70-99) mg/dL Calculated Osmolality 283 (280-300) Lactic Acid 1.0 (0.5-2.2) mmol/L Calcium 8.4 L (8.6-10.8) mg/dL Urine Color (Yellow) Urine Clarity (Clear) Urine pH (5.0-8.0) pH Units Ur Specific [place] (1.010-1.025) Urine Protein (Neg-Trace) mg/dL Urine Glucose (UA) (Normal) mg/dL Urine Ketones (Negative) mg/dL Urine Blood (Negative) Urine Nitrite (Negative) Urine Bilirubin (Negative) Urine Urobilinogen (Normal) mg/dL Ur Leukocyte Esterase (Negative) Urine Microscopic RBC (0-3) per hpf Urine Microscopic WBC (0-3) per hpf Ur Squamous Epith Cells (None-Few) per lpf Urine Bacteria (None-Few) per hpf Hyaline Casts (None-Few) per lpf Ur Culture Indicated? (NO) 03/01/17 Range/Units 21:30 WBC (4.3-11.1) K/mcL RBC (3.82-4.97) M/mcL Hgb (11.5-15.4) g/dL Hct (35.3-44.9) % MCV (83.0-100.0) fL MCH (28.0-33.3) pg MCHC (31.6-35.5) g/dL RDW (11.5-14.5) % Plt Count (140-400) K/mcL MPV (9.4-12.4) fL Immature Gran % (0-4) % Seg Neutrophils % % Lymphocytes % % Monocytes % % Eosinophils % % Basophils % % Neutrophils # (1.6-8.9) K/mcL Lymphocytes # (0.6-4.6) K/mcL Monocytes # (0.0-1.3) K/mcL Eosinophils # (0.0-0.6) K/mcL Basophils # (0.0-0.2) K/mcL Immature Plt Fraction (1.1-6.1) % Sodium (136-145) mEq/L Potassium (3.5-4.5) mEq/L Chloride (98-109) mEq/L Carbon Dioxide (19-29) mEq/L BUN (7-20) mg/dL Creatinine (0.57-1.11) mg/dL Est GFR ( Amer) (> 60) Est GFR (Non-Af Amer) (> 60) BUN/Creatinine Ratio (6-26) Glucose (70-99) mg/dL Calculated Osmolality (280-300) Lactic Acid (0.5-2.2) mmol/L Calcium (8.6-10.8) mg/dL Urine Color Red A (Yellow) Urine Clarity Cloudy A (Clear) Urine pH 6.0 (5.0-8.0) pH Units Ur Specific [place] 1.018 (1.010-1.025) Urine Protein 30 H (Neg-Trace) mg/dL Urine Glucose (UA) Normal (Normal) mg/dL Urine Ketones Negative (Negative) mg/dL Urine Blood Large H (Negative) Urine Nitrite Negative (Negative) Urine Bilirubin Negative (Negative) Urine Urobilinogen Normal (Normal) mg/dL Ur Leukocyte Esterase Small H (Negative) Urine Microscopic RBC TNTC H (0-3) per hpf Urine Microscopic WBC 3-5 H (0-3) per hpf Ur Squamous Epith Cells Many H (None-Few) per lpf Urine Bacteria Few (None-Few) per hpf Hyaline Casts None Seen (None-Few) per lpf Ur Culture Indicated? YES A (NO) - EKG Data EKG attestation: Yes I reviewed and interpreted this EKG. EKG shows normal: sinus rhythm Rate: normal Rhythm: NSR Interpretation: no acute changes
[2017-03-01 21:28] LABS: Basophils % 1.3 %; Eosinophils # 0.2 K/mcL (0.0-0.6); Eosinophils % 5.2 %; Hematocrit 33.9 % (35.3-44.9); Hemoglobin 10.9 g/dL (11.5-15.4); Immature Platelets 1.4 % (1.1-6.1); Lymphocytes # 0.9 K/mcL (0.6-4.6); Lymphocytes % 29.7 %; Mean Corpuscular HGB Conc 32.2 g/dL (31.6-35.5); Mean Corpuscular Hemoglobin 32.4 pg (28.0-33.3); Mean Corpuscular Volume 100.9 fL (83.0-100.0); Monocytes # 0.3 K/mcL (0.0-1.3); Monocytes % 9.8 %; Neutrophils # 1.7 K/mcL (1.6-8.9); Platelet Count 203 K/mcL (140-400); Red Blood Count 3.36 M/mcL (3.82-4.97)
[2017-03-01 21:39] LABS: Bilirubin,Urine Negative (Negative); Blood,Urine Large (Negative); Clarity,Urine Cloudy (Clear); Color,Urine Red (Yellow); Glucose,Urine (UA) Normal (Normal); Ketones,Urine Negative (Negative); Leukocyte Esterase,Urine Small (Negative); Nitrite,Urine Negative (Negative); Protein,Urine 30 mg/dL (Neg-Trace); Specific Gravity,Urine 1.018 (1.010-1.025); Urobilinogen,Urine Normal (Normal)
[2017-03-01 21:41] LABS: Bacteria,Urine Few per hpf (None-Few); Hyaline Casts,Urine None Seen per lpf (None-Few); RBC,Urine TNTC per hpf (0-3); Squamous Epithelial Cell,Urine Many per lpf (None-Few)
[2017-03-01 21:42] LABS: BUN/Creatinine Ratio 16 (6-26); Blood Urea Nitrogen 16 mg/dL (7-20); Calcium 8.4 mg/dL (8.6-10.8); Carbon Dioxide 20 mEq/L (19-29); Chloride 108 mEq/L (98-109); Glucose 96 mg/dL (70-99); Osmolality,Calculated 283 (280-300); Potassium 3.7 mEq/L (3.5-4.5); Sodium 136 mEq/L (136-145); eGFR For African Americans > 60 (> 60); eGFR For Non-African Americans 59 (> 60)
[2017-03-01] MEDS ORDERED: 0.9 % Sodium Chloride 1,000 ML IVC ONE (22:33)
[2017-03-01] MEDS ORDERED: *HR* HYDROmorphone (PF) 1 MG/ML SYRINGE IVP PRN (22:51)
[2017-03-01] MEDS ORDERED: *HR* HYDROcodone/Acet 5/325 mg TABLET PO PRN (22:51)
[2017-03-01] MEDS ORDERED: Acetaminophen 325 MG TABLET PO PRN (22:51)
[2017-03-01] MEDS ORDERED: Naloxone 0.4 MG/ML INJ IVP PRN (22:51)
[2017-03-01] MEDS ORDERED: Ondansetron 4 MG/2 ML VIAL IVP ONE (22:54)
[2017-03-01] MEDS ORDERED: *HR* HYDROmorphone (PF) 1 MG/ML SYRINGE IVP ONE (22:54)
[2017-03-01] MEDS ORDERED: 0.9 % Sodium Chloride 1,000 ML IVC SCH (23:00)
--- NOTE | 2017-03-01 23:19 | Internal Med History&Physical ---
<Sanjeev May - Last Filed: 03/02/17 00:14> Date of Encounter: 03/02/17 Time of Encounter: 22:00 Assessment and Plan (1) Sepsis Current visit: Yes Status: Acute Patient meets sepsis criteria based on WBC of 3.1, HR of 108 bpm, and current UTI. Initial lactic acid 1.0. Patient received 1 bolus of IV fluids in the ED. Will continue IV 0.9 NS @ 125 mL/HR. Routine lactic acid ordered per sepsis protocol. PO nitrofurantoin 100 mg BID for infection coverage based on culture and sensitivity report from 02/23/17 which showed Staphylococcus lugdenesis as the UTI organisim. Blood cultures x2 and urine culture ordered. Will adjust abx coverage based on culture results and sensitivity if needed. Platelets 203. INR and APTT ordered. Monitor follow-up labs and patient for signs of increasing infection. Stair-step pain medication for pain management. Qualifiers: Sepsis type: sepsis due to unspecified organism Qualified Code(s): A41.9 - Sepsis, unspecified organism (2) UTI (urinary tract infection) Current visit: Yes Status: Acute Patient presents with symptoms of continued UTI from previous admission last week for which she received IV rocephin during inpatient and PO doxycycline on discharge. Patient states symptoms worsened with increased hematuria and pain. Patient reports painful urination with burning and urgency. Initial U/A today still indicative for culture. Urine culture ordered. PO nitrofurantoin 100 mg BID ordered per culture and sensitivity report for Staphylococcus lugdenesis organism. Will monitor patient's I&O and follow-up labs. Stair-step pain medication ordered for pain management. IV fluids @ 125 mL/HR following bolus in the ED. Qualifiers: Urinary tract infection type: acute cystitis Hematuria presence: with hematuria Qualified Code(s): N30.01 - Acute cystitis with hematuria (3) Bilateral flank pain Current visit: Yes Status: Acute Acute bilateral flank pain that patient reports is worse on the left side. CT of the abdomen/pelvis w/o contrast on 02/23/17 when patient was admitted with similar symptoms showed no acute finding to account for patient's left flank pain. Specifically, there is no evidence of obstructive uropathy. Medullary nephrocalcinosis. Moderate amount of stool in the colon. 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 Stair-step pain medication ordered for pain management. (4) Nausea & vomiting Current visit: Yes Status: Acute Acute nausea and vomiting related to current UTI. IVP Zofran Q6 PRN and IVP Protonix 40 mg daily ordered. Monitor I&O and daily weight. Qualifiers: Vomiting type: cyclical vomiting Vomiting Intractability: non-intractable Qualified Code(s): G43.A0 - Cyclical vomiting, not intractable (5) CHF (congestive heart failure) Current visit: Yes Status: Chronic Hx of chronic CHF. No pedal edema or SOB currently. Stable. Will monitor patient 's respiratory and cardiac status. Qualifiers: Congestive heart failure type: unspecified congestive heart failure type Qualified Code(s): I50.9 - Heart failure, unspecified (6) Anemia Current visit: Yes Status: Chronic Patient presents with chronic anemia. Current Hgb is 10.9 and Hct is 33.9, both of which are at or near patient's typical baseline. Monitor H/H in follow-up labs and monitor patient for unusual bleeding. Continue patient's cyanocobalamin. Qualifiers: Anemia type: other cause Other causes of anemia: chronic disease, other Qualified Code(s): D63.8 - Anemia in other chronic diseases classified elsewhere (7) Hypothyroidism Current visit: Yes Status: Chronic Hx of hypothyroidism. Continue Synthroid. Qualifiers: Hypothyroidism type: unspecified Qualified Code(s): E03.9 - Hypothyroidism , unspecified (8) Lupus (systemic lupus erythematosus) Current visit: Yes Status: Chronic Hx of chronic lupus. Currently stable. Qualifiers: Systemic lupus erythematosus type: unspecified Systemic lupus erythematosus organ involvement: unspecified Qualified Code(s): M32.9 - Systemic lupus erythematosus, unspecified (9) DVT prophylaxis Current visit: Yes Status: Acute Patient has hx of DVT (last known DVT 3 months ago) and PE (> 20 years ago) and will continue warfarin with pharmacy dosing for DVT prophylaxis. Monitor patient for unusual bleeding. Internal Medicine - H&P: HPI Chief complaint: N/V/Flank pain/Hematuria Admitted From: Emergency Dept Plans for Post Hospital Care: Home History of present illness: Ms. Sandoval is a 51 year old female with medical history of CHF, lupus, DVT ( last known 3 months ago), fibromyalgia, kidney stones, migraine, PE (greater than 20 years ago), and thyroid disease presents from the ED with chief complaint of bilateral flank pain with hematuria, nausea, and vomiting. Patient reports she was treated here 1 week ago for UTI with IV Rocephin. Culture and sensitivity report showed staph lugdunesis. Patient sent home on by mouth doxycycline but the patient reports symptoms worsened. She reports bilateral flank pain which is worse on the left side, nausea, vomiting, blood in urine, weakness, and dizziness but denies fever, chills, abdominal pain, changes in vision, headache, weakness, chest pain, palpitations, dyspnea, edema , cough, numbness, tingling, presyncope, or syncope. Patient reports allergies to amoxicillin, clarithromycin, enoxaparin, hydrochlorothiazide, levofloxacin, nafcillin, oxcarbazepine, penicillins, sulfa drugs, sumatriptan, Terazosyn, and topiramate. Patient reports she is occurring every day smoker smoking one half pack per day. CT of the abdomen and pelvis without contrast on shows no acute finding to account for patient's left flank pain. Specifically there is no evidence of obstructive uropathy. 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 On admission, patient's vital signs include temperature of 98.2F, heart rate of 108 bpm, respiratory rate of 16, BP of 134/77, and SPO2 of 99% on room air. Pertinent abnormal labs include WBC of 3.1, Hgb of 10.9 and HCT of 33.9 (both of which are at or near patient's usual baseline), GFR 59, calcium of 8.4. Initial UA indicative for culture. Patient is currently anticoagulated on warfarin due to history of DVT/PE. Upon assessment, patient is alert and oriented 3 and states she is nauseous with severe bilateral flank pain which is worse on the left side. Patient also states she has suprapubic pain and urgency and burning with urination. Heart rate is tachycardic. Lungs are clear bilaterally on auscultation. Patient is hemodynamically stable and reports moderate distress with flank pain and urinary discomfort. Information taken from patient, chart review, and previous medical records. Ms. Sandoval is at high risk for further morbidity based on meeting sepsis criteria with WBC of 3.1, heart rate of 108, and infection suspected UTI and will be placed as inpatient status. Time spent with patient greater than 40 minutes. Past Med Surg Social Fam HX - Past Medical History Source: patient, old records reviewed Medical history: CHF, DVT, fibromyalgia, kidney stones, migraine, pulmonary embolus, thyroid disease, other Psychiatric history: bipolar - Past Surgical History Surgical History: hysterectomy, ureteral stent, IVC filter - Social History Smoking Status: Current every day smoker Packs per day: 1/2 PPD Smokeless Tobacco Status: No Alcohol use: none Drug use: none Current living situation: Home Activity Level: Independent ambulation Recent Out of Country Travel Within the Last 8 Weeks: No Exposure or Possible Exposure to Illness During Travel: No - Family History Father Family Member Ethnicity: Non- Living Status: Still Living Hx Family Cardiac Disorders: Yes (HTN, CAD) Hx Family Endocrine Disorder: Yes (DM) Mother Race: Family Member Ethnicity: Non- Living Status: Age at : 57 Cause of : MS Hx Family Neuromuscular Disorders: Yes (MS) Brother Race: Family Member Ethnicity: Non- Living Status: Still Living Hx Family Medical Disorders: No Sister Race: Family Member Ethnicity: Non- Living Status: Still Living Hx Family Medical Disorders: No Internal Medicine - H&P: Meds Black Cohosh 20 mg PO DAILY 12/20/16 [History] BuPROPion XL (24 HR) [Wellbutrin Xl] 150 mg PO DAILY 12/20/16 [History] Cholecalciferol (D-3) [Vitamin D] 5,000 unit PO DAILY 12/20/16 [History] Cyclobenzaprine [Flexeril] 10 mg PO TID 12/20/16 [History] Cyclosporine [Restasis] 1 drop OP BID 12/20/16 [History] Duloxetine HCl [Cymbalta] 60 mg PO DAILY 12/20/16 [History] HYDROcodone/Acet 7.5/325 mg [[place] 7.5-325 mg] 1 - 2 tab PO Q6H PRN 12/20/16 [ History] Hydroxychloroquine [Plaquenuil] 200 mg PO BID 12/20/16 [History] Levothyroxine [Synthroid] 75 mcg PO DAILY@0630 12/20/16 [History] Lubiprostone [Amitiza] 24 mcg PO BID 12/20/16 [History] Magnesium 250 mg PO DAILY 12/20/16 [History] Melatonin/Pyridoxine HCl (B6) [Melatonin 5 mg Tablet] 10 mg PO HS 12/20/16 [ History] Potassium Chloride [K-Tab ER] 10 meq PO BID 12/20/16 [History] Promethazine [Phenergan] 25 mg PO Q6HR PRN 12/20/16 [History] Quetiapine Fumarate [Seroquel] 100 mg PO HS 12/20/16 [History] Valacyclovir HCl [Valtrex] 1,000 mg PO DAILY 12/20/16 [History] clonazePAM [Klonopin] 2 mg PO 0900,1700 12/20/16 [History] clonazePAM [Klonopin] 4 mg PO HS 12/20/16 [History] Acetaminophen/Butalbital/Caffe [Fioricet] 1 each PO Q6H PRN 01/05/17 [History] Butorphanol Tartrate 1 spray NS Q4-6H PRN 01/05/17 [History] Polyethylene Glycol 3350 [MiraLAX] 17 gm PO BID 01/06/17 [History] Cyanocobalamin/FA/Pyridoxine [[place] Tablet] 1 tab PO DAILY 01/20/17 [History] Warfarin [Coumadin] 6 mg PO MOWEFR 01/20/17 [History] Warfarin [Coumadin] 9 mg PO SUTUTHSA 01/20/17 [History] Butalbital/Acetaminophen [Butalbital-Acetaminophn 50-325] 1 tab PO Q6H PRN 02/23 [History] Doxycycline Hyclate 100 mg PO BID #14 tablet 02/24/17 [Rx] 3 Allergy/AdvReac Type Severity Reaction Status Date / Time Amoxicillin Allergy See Verified 03/01/17 20:47 Comments clarithromycin [From Biaxin] Allergy See Verified 03/01/17 20:47 Comments Enoxaparin [From Lovenox] Allergy See Verified 03/01/17 20:47 Comments hydrochlorothiazide Allergy See Verified 03/01/17 20:47 Comments levofloxacin [From Levaquin] Allergy Difficulty Verified 03/01/17 20:47 Breathing nafcillin Allergy Seizure Verified 03/01/17 20:47 oxcarbazepine Allergy Anaphylaxis Verified 03/01/17 20:47 [From Trileptal] Penicillins Allergy Seizure Verified 03/01/17 20:47 Sulfa (Sulfonamide Allergy See Verified 03/01/17 20:47 Antibiotics) Comments sumatriptan [From Imitrex] Allergy See Verified 03/01/17 20:47 Comments Terazosin Allergy See Verified 03/01/17 20:47 Comments vancomycin Allergy Seizure Verified 03/01/17 20:47 topiramate [From Topamax] AdvReac Confusion Verified 03/01/17 20:47 All Systems PM: A 10-system review of systems was performed and is negative for pertinent findings except as documented above in the HPI. - Constitutional Constitutional: as per HPI, weakness, no chills, no fever(s), no night sweats - EENT Eyes: no change in vision, no discharge, no pain, no photophobia Ears: no ear discharge, no ear pain, no tinnitus Nose, mouth and throat: no dysphagia, no nasal discharge, no neck pain, no sore throat - Breasts Breasts: as per HPI - Cardiovascular Cardiovascular ROS IM: as per HPI, other (Tachycardia) - Respiratory Respiratory: no cough, no dyspnea, no wheezing, no excessive phlegm production - Gastrointestinal Gastrointestinal: nausea, vomiting, no abdominal pain, no diarrhea, no hematemesis, no hematochezia, no melena - Genitourinary Genitourinary: as per HPI, difficulty urinating, hematuria, urinary urgency Menstruation: as per HPI, post hysterectomy - Musculoskeletal Musculoskeletal ROS IM: as per HPI, back pain (Flank pain bilaterally), no numbness, no tingling - Integumentary Integumentary IM: no rash, no unusual bruising - Neurological Neurological ROS: as per HPI, dizziness, no confusion, no convulsions, no focal weakness, no numbness, no tingling, no tremor(s) - Psychiatric Psychiatric: as per HPI - Endocrine Endocrine IM: as per HPI - Hematologic/Lymphatic Hematologic/Lymphatic: no easy bruising - Allergic/Immunologic Allergic/Immunologic: as per HPI - Constitutional Vitals: Temp Pulse Resp BP Pulse Ox 98.2 F 108 16 134/77 99 03/01/17 20:40 03/01/17 20:40 03/01/17 20:40 03/01/17 20:40 03/01/17 20:40 General appearance: Present: cooperative, A&O X 3, pleasant, obese, severe distress (Bilateral flank and suprapubic pain), answers questions appropriately - Head Head exam: Present: atraumatic, normocephalic - Eye Eye exam: Present: PERRL, conjuntiva pink, sclera anicteric Pupils: Present: PERRL - ENT ENT exam: Present: mucous membranes moist - Neck Neck exam general surgery: Present: normal inspection, supple, trachea midline. Absent: lymphadenopathy - Respiratory Respiratory exam: Present: CTAB. Absent: accessory muscle use, rales, rhonchi, wheezes - Cardiovascular Cardiovascular exam: Present: tachycardia - GI/Abdominal GI/Abdominal exam: Present: normal bowel sounds, soft, no peritoneal signs. Absent: distended, tenderness - Rectal Rectal exam: Present: deferred - Additional comments: exam deferred. - Extremities Exam Extremities exam: Present: warm, radial pulses palpable and symmetrical. Absent : calf tenderness, cyanotic, pedal edema - Back Exam Back exam: Present: normal inspection - Neurological Exam Neurological exam: Present: CN II-XII intact, oriented X3, no focal deficits. Absent: pronater drift, facial droop, speech deficit - Psychiatric Psychiatric exam: Present: anxious - Skin Skin exam: Present: dry, intact Internal Med - H&P Results - Labs CBC & Chem 7: 03/01/17 21:19 03/01/17 21:19 Labs: Short CBC 03/01/17 Range/Units 21:19 WBC 3.1 L (4.3-11.1) K/mcL Hgb 10.9 L (11.5-15.4) g/dL Hct 33.9 L (35.3-44.9) % Plt Count 203 (140-400) K/mcL Neutrophils # 1.7 (1.6-8.9) K/mcL BMP 03/01/17 21:19 Sodium 136 Potassium 3.7 Chloride 108 Carbon Dioxide 20 BUN 16 Creatinine 1.00 Glucose 96 Calcium 8.4 L Urine 03/01/17 Range/Units 21:30 Urine Color Red A (Yellow) Urine Clarity Cloudy A (Clear) Urine pH 6.0 (5.0-8.0) pH Units Ur Specific [place] 1.018 (1.010-1.025) Urine Protein 30 H (Neg-Trace) mg/dL Urine Glucose (UA) Normal (Normal) mg/dL - Diagnostic Studies CT scan - abdomen Additional comments: CT of the abdomen/pelvis w/o contrast on 02/23/17 showed; 1. No acute finding to account for patient's left flank pain. Specifically, there is no evidence of obstructive uropathy. 2. Medullary nephrocalcinosis. 3. Moderate amount of stool in the colon. 4. 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 <Holden Daniels - Last Filed: 03/02/17 01:19> Date of Encounter: 03/01/17 Internal Medicine - H&P: HPI History of present illness: Ms. Sandoval is a 51 year old female All Systems PM: A 10-system review of systems was performed and is negative for pertinent findings except as documented above in the HPI. - Constitutional Vitals: Temp Pulse Resp BP Pulse Ox 98.1 F 85 15 130/86 96 03/02/17 00:32 03/02/17 00:32 03/02/17 00:32 03/02/17 00:32 03/02/17 00:32 Internal Med - H&P Results - Labs CBC & Chem 7: 03/01/17 21:19 03/01/17 21:19 - Attending Attestation I examined this patient and my medical decision-making was reviewed with the TRICOT KNITTER. I agree with the documented findings, disposition and treatment plan as described except to the extent set forth below. Patient is a 51-year-old female with past medical history of CHF, lupus, history of DVT and PE on anticoagulation, fibromyalgia, hypothyroidism, renal stones and migraines. She presents to the ED with complaints of nausea and vomiting and flank pain and hematuria. Patient was discharged about 4 days ago after being treated for pyelonephritis. She comes back with similar symptoms. Patient will need to be on antibiotics again and will be on IV fluids. We will continue all home medications. Patient has been explained about her condition and plan of care. She understood and agreed. Heart rate 85, blood pressure 130/86, O2 sat 96% on room air. Heart S1-S2 positive. Lungs bilateral good entry no wheezes or crackles. Abdomen soft nontender. Extremities all pulses strong and regular.
[2017-03-01] MEDS ORDERED: *HR* FentaNYL (PF) 100 MCG/2 ML VIAL IVP ONE (23:56)
[2017-03-02] MEDS ORDERED: *HR* Warfarin 3 MG TABLET PO ONE (01:41)
[2017-03-02] MEDS: Pantoprazole 40 MG VIAL IVP SCH ×2 (02:58→08:46)
[2017-03-02] MEDS: Nitrofurantoin (BID) 100 MG CAPSULE PO SCH ×3 (02:59→20:14)
[2017-03-02 06:24] LABS: Basophils % 0.8 %; Eosinophils # 0.1 K/mcL (0.0-0.6); Eosinophils % 4.3 %; Hemoglobin 9.8 g/dL (11.5-15.4); Immature Granulocytes % 0.4 % (0-4); Lymphocytes # 0.9 K/mcL (0.6-4.6); Lymphocytes % 36.7 %; Mean Corpuscular HGB Conc 31.6 g/dL (31.6-35.5); Mean Corpuscular Volume 101.3 fL (83.0-100.0); Mean Platelet Volume 9.3 fL (9.4-12.4); Monocytes # 0.3 K/mcL (0.0-1.3); Monocytes % 10.2 %; Neutrophils # 1.2 K/mcL (1.6-8.9); Platelet Count 168 K/mcL (140-400); Red Blood Count 3.06 M/mcL (3.82-4.97); Red Cell Distribution Width 14.1 % (11.5-14.5); Segmented Neutrophils % 47.6 %
[2017-03-02 06:35] LABS: Hemoglobin A1C 5.1 %
[2017-03-02 06:40] LABS: Alanine Aminotransferase 22 Units/L (0-55); Albumin 2.7 g/dL (3.5-5.0); Albumin/Globulin Ratio 0.7 (1.1-2.2); Alkaline Phosphatase 87 Units/L (38-126); Aspartate Amino Transferase 34 Units/L (5-34); BUN/Creatinine Ratio 17 (6-26); Bilirubin,Total 0.2 mg/dL (0.2-1.2); Blood Urea Nitrogen 15 mg/dL (7-20); Calcium 7.7 mg/dL (8.6-10.8); Carbon Dioxide 21 mEq/L (19-29); Chloride 111 mEq/L (98-109); Chol/HDL Ratio 5.9 (0-4.9); Cholesterol 147 mg/dL (< 200); Globulin 3.7 g/dL (2.4-3.5); Glucose 85 mg/dL (70-99); HDL Cholesterol 25 mg/dL (40-59); LDL Cholesterol,Calculated 60 mg/dL (0-99); Magnesium 1.8 mg/dL (1.6-2.6); Osmolality,Calculated 284 (280-300); Sodium 137 mEq/L (136-145); Total Protein 6.4 g/dL (6.0-8.3); Triglycerides 312 mg/dL (< 150); eGFR For African Americans > 60 (> 60); eGFR For Non-African Americans > 60 (> 60)
[2017-03-02] MEDS: 0.9 % Sodium Chloride 1,000 ML IVC SCH (06:41)
[2017-03-02 06:46] LABS: Activated Partial Thrombo Time 56.4 Seconds (26.0-36.0)
[2017-03-02 06:50] LABS: Prothrombin Time 90.1 Seconds (9.4-12.1)
[2017-03-02] MEDS ORDERED: *HR* HYDROcodone/Acet 7.5/325 mg TABLET PO PRN (09:27)
--- NOTE | 2017-03-02 10:14 | Internal Med Progress Note ---
<Leanna Collado - Last Filed: 03/02/17 11:16> Date of Encounter: 03/02/17 Time of Encounter: 10:12 - Assessment and plan (1) Sepsis Current Visit: Yes Status: Acute Assessment and plan: Patient admitted with sepsis criteria of white blood cell count 3.1, heart rate of 10 8 bpm, and history of a UTI. Patient's lactic acid was 1.0. Patient's heart rate resolved with a bolus of fluids in the ED. Patient's sensitivity report from 02/23/2017 show Staphylococcus lugdenesis which is susceptible to nitrofurantoin 100 mg twice a day. -continue macroid until urine cultures return. Qualifiers: Sepsis type: sepsis due to unspecified organism Qualified Code(s): A41.9 - Sepsis, unspecified organism (2) UTI (urinary tract infection) Current Visit: Yes Status: Acute Assessment and plan: See above. Patient received IV Rocephin as an inpatient last week and upon discharge on February 23 received by mouth doxycycline. We have reordered urinalysis and urine cultures. Patient is really getting Macrobid twice a day currently. -Awaiting urine culture results and sensitivity. Qualifiers: Urinary tract infection type: acute cystitis Hematuria presence: with hematuria Qualified Code(s): N30.01 - Acute cystitis with hematuria (3) Coagulopathy Current Visit: Yes Status: Acute Assessment and plan: Patient is currently being anticoagulated on Coumadin for history of protein C, S deficiency. She also reports a history of antiphospholipid antibody syndrome , as well as lupus. Patient's INR this morning is 8.0. -considered FFP, but do not want to drop INR too low. We will hold coumadin, and recheck INR in the morning. -Goal INR 3.5. Do not want to reverse INR too much as patient reports that her INR is supposed to be in the 3-4 range. She is treated by a apple picker in [place]. (4) Anticoagulated on Coumadin Current Visit: Yes Status: Chronic Assessment and plan: See above. Will monitor INR closely. (5) Bilateral flank pain Current Visit: Yes Status: Acute Assessment and plan: CT scan of the abdomen and pelvis on 2016 shows no acute finding. Specifically, there is no evidence of obstructive uropathy. 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 -resume patient's home pain medications. -Practice judicious IV pain medication as patient has extensive history of admissions requesting IV pain medication. (6) Lupus (systemic lupus erythematosus) Current Visit: Yes Status: Chronic Assessment and plan: History of lupus. Currently stable. Qualifiers: Systemic lupus erythematosus type: unspecified Systemic lupus erythematosus organ involvement: unspecified Qualified Code(s): M32.9 - Systemic lupus erythematosus, unspecified (7) Thyroid disease Current Visit: No Status: Chronic Assessment and plan: History of hypothyroidism. Continue Synthroid. (8) Anemia Current Visit: Yes Status: Chronic Assessment and plan: Patient presents with chronic anemia. Hemoglobin is 9.8 today this is typical of patient's baseline. -Monitor H & H -Continue patient's cyanocobalamin. Qualifiers: Anemia type: other cause Other causes of anemia: chronic disease, other Qualified Code(s): D63.8 - Anemia in other chronic diseases classified elsewhere (9) DVT prophylaxis Current Visit: Yes Status: Acute - Subjective Interval history: Patient is agitated that her home medications have not been restarted. She is requesting IV Dilaudid, however, she at least would like her hydrocodone dosage increase from 5-7.5 as episodes at home. She she would like to leave A if her Klonopin, Flexeril, and hydrocodone are not started. She states she is having pain all over her body, including in her bladder region, and her kidneys. As she has protein C and S deficiency, she states her Coumadin is therapeutic if her INR is between 3 and 4. She is having some hematuria, however, she denies any dysuria. She denies any melena, hematochezia, or hematemesis. - Constitutional Vitals: Temp Pulse Resp BP Pulse Ox 98.3 F 83 15 146/76 99 03/02/17 06:45 03/02/17 06:45 03/02/17 06:45 03/02/17 06:45 03/02/17 06:45 General appearance: Present: cooperative, A&O X 3, answers questions appropriately - Respiratory Respiratory exam: Present: CTAB. Absent: accessory muscle use, rales, rhonchi, wheezes - Cardiovascular Cardiovascular exam: Present: RRR, +S1, +S2. Absent: diastolic murmur, gallop, rubs, systolic murmur - GI/Abdominal GI/Abdominal exam: Present: normal bowel sounds, soft, tenderness (Mild in the suprapubic region). Absent: firm, guarding, mass, rebound, rigid - Extremities Exam Extremities exam: Present: warm, radial pulses palpable and symmetrical. Absent : calf tenderness, cyanotic, pedal edema - Psychiatric Psychiatric exam: Present: agitated - Skin Skin exam: Present: dry, intact Internal Medicine: Result - Labs CBC & Chem 7: 03/02/17 06:00 03/02/17 06:00 Labs: Short CBC 03/02/17 Range/Units 06:00 WBC 2.6 L (4.3-11.1) K/mcL Hgb 9.8 L (11.5-15.4) g/dL Hct 31.0 L (35.3-44.9) % Plt Count 168 (140-400) K/mcL Neutrophils # 1.2 L (1.6-8.9) K/mcL BMP 03/02/17 06:00 Sodium 137 Potassium 4.0 Chloride 111 H Carbon Dioxide 21 BUN 15 Creatinine 0.86 Glucose 85 Calcium 7.7 L Liver Function 03/02/17 Range/Units 06:00 Total Bilirubin 0.2 (0.2-1.2) mg/dL AST 34 (5-34) Units/L ALT 22 (0-55) Units/L Alkaline Phosphatase 87 (38-126) Units/L Albumin 2.7 L (3.5-5.0) g/dL - ABG Interpretation ABG results: PT/INR, D-dimer PT 90.1 Seconds (9.4-12.1) H* D 03/02/17 06:00 Consult Discharge Plan - Plan Referrals: Ariel Cotto DO [Primary Care Provider] - <Pool Yip H - Last Filed: 03/02/17 13:47> Date of Encounter: 03/02/17 - Constitutional Vitals: Temp Pulse Resp BP Pulse Ox 98.2 F 94 18 124/75 94 03/02/17 10:35 03/02/17 10:35 03/02/17 10:35 03/02/17 10:35 03/02/17 10:35 Internal Medicine: Result - Labs CBC & Chem 7: 03/02/17 06:00 03/02/17 06:00 Labs: Short CBC 03/02/17 Range/Units 06:00 WBC 2.6 L (4.3-11.1) K/mcL Hgb 9.8 L (11.5-15.4) g/dL Hct 31.0 L (35.3-44.9) % Plt Count 168 (140-400) K/mcL Neutrophils # 1.2 L (1.6-8.9) K/mcL BMP 03/02/17 06:00 Sodium 137 Potassium 4.0 Chloride 111 H Carbon Dioxide 21 BUN 15 Creatinine 0.86 Glucose 85 Calcium 7.7 L Liver Function 03/02/17 Range/Units 06:00 Total Bilirubin 0.2 (0.2-1.2) mg/dL AST 34 (5-34) Units/L ALT 22 (0-55) Units/L Alkaline Phosphatase 87 (38-126) Units/L Albumin 2.7 L (3.5-5.0) g/dL - ABG Interpretation ABG results: PT/INR, D-dimer PT 90.1 Seconds (9.4-12.1) H* D 03/02/17 06:00 - Attending Attestation Symptoms not completely compatible with acute pyelonephritis, may continue nitrofurantoin. Supratherapeutic INR at 8, hold warfarin as there is no hematuria anymore. The patient is complaining of a excruciating left CVA pain that most likely is from a musculoskeletal source Order x-rays of the lumbar spine today I examined this patient and my medical decision-making was reviewed with the Resident Physician. I agree with the documented findings, disposition and treatment plan as described except to the extent set forth below.
[2017-03-02] MEDS ORDERED: BUTORPHANOL TARTRATE NS PRN (11:32)
[2017-03-02] MEDS: clonazePAM 1 MG TABLET PO SCH ×3 (11:42→20:14)
[2017-03-02] MEDS: *HR* HYDROcodone/Acet 10/325 mg TABLET PO PRN ×2 (13:21→20:13)
[2017-03-02] MEDS: Acetaminophen/Butalbital/CaffeineTABLET PO PRN ×2 (14:45→21:26)
[2017-03-02] MEDS ORDERED: clonazePAM 1 MG TABLET PO SCH (17:00)
--- NOTE | 2017-03-02 17:00 | Electrocardiograph Report ---
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
[2017-03-02] MEDS ORDERED: Warfarin perPT PO PRN (18:00)
[2017-03-02 19:01] LABS: INR 7.4; Prothrombin Time 82.8 Seconds (9.4-12.1)
[2017-03-02] MEDS: rOPINIRole 1 MG TABLET PO SCH (20:14)
[2017-03-02] MEDS: (Lubiprostone [Amitiza] 24 MCG) PO SCH (20:15)
[2017-03-02] MEDS: (Cyclosporine [Restasis] 1 DROP) OP SCH (20:15)
[2017-03-02] MEDS ORDERED: *HR* Phytonadione 5 MG TABLET PO ONE (20:37)
[2017-03-02] MEDS: Ondansetron 4 MG/2 ML VIAL IVP PRN (22:36)
[2017-03-03] MEDS: *HR* HYDROcodone/Acet 10/325 mg TABLET PO PRN ×4 (02:05→21:55)
[2017-03-03 04:10] LABS: Basophils % 0.5 %; Eosinophils # 0.1 K/mcL (0.0-0.6); Eosinophils % 6.5 %; Hematocrit 30.6 % (35.3-44.9); Lymphocytes # 0.8 K/mcL (0.6-4.6); Lymphocytes % 35.5 %; Mean Corpuscular HGB Conc 32.7 g/dL (31.6-35.5); Mean Corpuscular Hemoglobin 33.1 pg (28.0-33.3); Mean Corpuscular Volume 101.3 fL (83.0-100.0); Mean Platelet Volume 8.8 fL (9.4-12.4); Monocytes # 0.2 K/mcL (0.0-1.3); Monocytes % 10.6 %; Platelet Count 151 K/mcL (140-400); Red Blood Count 3.02 M/mcL (3.82-4.97); Segmented Neutrophils % 46.9 %
[2017-03-03 04:24] LABS: BUN/Creatinine Ratio 17 (6-26); Blood Urea Nitrogen 14 mg/dL (7-20); Carbon Dioxide 23 mEq/L (19-29); Chloride 110 mEq/L (98-109); Glucose 90 mg/dL (70-99); Osmolality,Calculated 282 (280-300); Potassium 3.9 mEq/L (3.5-4.5); Sodium 136 mEq/L (136-145); eGFR For African Americans > 60 (> 60); eGFR For Non-African Americans > 60 (> 60)
[2017-03-03] MEDS: Ondansetron 4 MG/2 ML VIAL IVP PRN ×2 (04:26→15:51)
[2017-03-03] MEDS: 0.9 % Sodium Chloride 1,000 ML IVC SCH ×2 (04:29→17:59)
[2017-03-03] MEDS ORDERED: traMADol 50 MG TABLET PO ONE (05:29)
--- NOTE | 2017-03-03 08:36 | Internal Med Progress Note ---
Date of Encounter: 03/03/17 Time of Encounter: 08:34 - Assessment and plan (1) Sepsis Current Visit: Yes Status: Acute Assessment and plan: Sepsis secondary to UTI white blood cell count 3.1, heart rate of 108 bpm, and history of a UTI. Patient's lactic acid was 1.0. Urine culture from 02/23/2017 showed Staphylococcus lugdenesis which is susceptible to nitrofurantoin 100 mg twice a day. -continue macroid until urine cultures return. Qualifiers: Sepsis type: sepsis due to unspecified organism Qualified Code(s): A41.9 - Sepsis, unspecified organism (2) UTI (urinary tract infection) Current Visit: Yes Status: Acute Assessment and plan: Patient received IV Rocephin as an inpatient last week and upon discharge on February 23 received by mouth doxycycline. Continue Macrobid twice a day day 2 due to multiple allergies Qualifiers: Urinary tract infection type: acute cystitis Hematuria presence: with hematuria Qualified Code(s): N30.01 - Acute cystitis with hematuria (3) Bilateral flank pain Current Visit: Yes Status: Acute Assessment and plan: CT scan of the abdomen and pelvis on 2016 showed no acute finding. Specifically, there is no evidence of obstructive uropathy. 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 -resumed patient's home pain medications. (4) Thyroid disease Current Visit: No Status: Chronic Assessment and plan: History of hypothyroidism. Continue Synthroid. (5) Lupus (systemic lupus erythematosus) Current Visit: Yes Status: Chronic Assessment and plan: History of lupus. Currently stable. Qualifiers: Systemic lupus erythematosus type: unspecified Systemic lupus erythematosus organ involvement: unspecified Qualified Code(s): M32.9 - Systemic lupus erythematosus, unspecified (6) Hypercoagulable state, primary Current Visit: No Status: Chronic (7) Warfarin-induced coagulopathy Current Visit: No Status: Acute Assessment and plan: Patient is currently being anticoagulated on Coumadin for history of protein C, S deficiency. She also reports a history of antiphospholipid antibody syndrome , as well as lupus. Patient's INR was 8.0. -considered FFP, but do not want to drop INR too low. We will hold coumadin, and recheck INR in the morning. -Goal INR is between 3 and 4 - Subjective Interval history: Back pain improving slightly, no hematuria since last night, no fevers or chills , no chest pain or shortness of breath, no abdominal pain or diarrhea - Constitutional Vitals: Temp Pulse Resp BP Pulse Ox 98.1 F 86 17 108/72 98 03/03/17 07:33 03/03/17 07:33 03/03/17 07:33 03/03/17 07:33 03/03/17 07:33 General appearance: Present: cooperative, A&O X 3, answers questions appropriately - Head Head exam: Present: atraumatic, normocephalic - Eye Eye exam: Present: PERRL, conjuntiva pink, sclera anicteric Pupils: Present: PERRL - Neck Neck exam general surgery: Present: supple, trachea midline. Absent: lymphadenopathy - Respiratory Respiratory exam: Present: CTAB. Absent: accessory muscle use, rales, rhonchi, wheezes Additional comments: Right upper chest Port-A-Cath - Cardiovascular Cardiovascular exam: Present: RRR, +S1, +S2. Absent: diastolic murmur, gallop, rubs, systolic murmur - GI/Abdominal GI/Abdominal exam: Present: distended, normal bowel sounds, soft, no peritoneal signs. Absent: tenderness - Extremities Exam Extremities exam: Present: warm, radial pulses palpable and symmetrical. Absent : calf tenderness, cyanotic, pedal edema - Neurological Exam Neurological exam: Present: CN II-XII intact, oriented X3, no focal deficits. Absent: pronater drift, facial droop, speech deficit - Skin Skin exam: Present: dry, intact Internal Medicine: Result - Labs CBC & Chem 7: 03/03/17 04:00 03/03/17 04:00 Labs: Short CBC 03/03/17 Range/Units 04:00 WBC 2.2 L (4.3-11.1) K/mcL Hgb 10.0 L (11.5-15.4) g/dL Hct 30.6 L (35.3-44.9) % Plt Count 151 (140-400) K/mcL Neutrophils # 1.0 L (1.6-8.9) K/mcL BMP 03/03/17 04:00 Sodium 136 Potassium 3.9 Chloride 110 H Carbon Dioxide 23 BUN 14 Creatinine 0.84 Glucose 90 Calcium 8.0 L - ABG Interpretation ABG results: PT/INR, D-dimer PT 82.8 Seconds (9.4-12.1) H* 03/02/17 18:25 - Impressions Impressions Lumbar Spine X-Ray 03/02/17 11:36 IMPRESSION: 1. Normal lumbar spine alignment with mild upper lumbar degenerative joint disease. 2. Moderate lumbosacral junction degenerative disc and joint disease. 3. No acute lumbar abnormality. D/ / 03/02/2017 14:45:23 Mic Perdue MD / ruby Interpreting Provider: Mic Perdue MD Consult Discharge Plan - Plan Referrals: Ariel Cotto DO [Primary Care Provider] -
[2017-03-03] MEDS: clonazePAM 1 MG TABLET PO SCH ×3 (09:26→23:44)
[2017-03-03] MEDS: Pantoprazole 40 MG VIAL IVP SCH (09:27)
[2017-03-03] MEDS: BuPROPion XL (24 HR) 150 MG TABLET PO SCH (09:27)
[2017-03-03] MEDS: Magnesium Oxide 400 MG TABLET PO SCH (09:27)
[2017-03-03] MEDS: Nitrofurantoin (BID) 100 MG CAPSULE PO SCH ×2 (09:30→22:01)
[2017-03-03] MEDS: (Lubiprostone [Amitiza] 24 MCG) PO SCH (09:32)
[2017-03-03] MEDS: (Cyclosporine [Restasis] 1 DROP) OP SCH (09:32)
[2017-03-03 10:06] LABS: INR 3.7; Prothrombin Time 41.2 Seconds (9.4-12.1)
[2017-03-03] MEDS ORDERED: Lidocaine 4% CREAM (LMX) 5 GM TP PRN (14:22)
[2017-03-03] MEDS ORDERED: Warfarin perPT PO PRN (18:00)
[2017-03-03] MEDS ORDERED: *HR* Warfarin 3 MG TABLET PO ONE (18:00)
[2017-03-03] MEDS: rOPINIRole 1 MG TABLET PO SCH (21:54)
[2017-03-03] MEDS ORDERED: clonazePAM 1 MG TABLET PO ONE (22:37)
[2017-03-04] MEDS: *HR* HYDROcodone/Acet 10/325 mg TABLET PO PRN ×3 (05:19→20:13)
[2017-03-04 05:39] LABS: Hematocrit 31.7 % (35.3-44.9); Hemoglobin 10.1 g/dL (11.5-15.4); Mean Corpuscular HGB Conc 31.9 g/dL (31.6-35.5); Mean Corpuscular Hemoglobin 32.3 pg (28.0-33.3); Mean Corpuscular Volume 101.3 fL (83.0-100.0); Platelet Count 157 K/mcL (140-400); Red Blood Count 3.13 M/mcL (3.82-4.97); Red Cell Distribution Width 14.2 % (11.5-14.5)
[2017-03-04 05:44] LABS: INR 1.6; Prothrombin Time 17.6 Seconds (9.4-12.1)
[2017-03-04 06:37] LABS: BUN/Creatinine Ratio 14 (6-26); Blood Urea Nitrogen 13 mg/dL (7-20); Calcium 8.4 mg/dL (8.6-10.8); Carbon Dioxide 22 mEq/L (19-29); Chloride 113 mEq/L (98-109); Glucose 90 mg/dL (70-99); Osmolality,Calculated 292 (280-300); Potassium 4.1 mEq/L (3.5-4.5); Sodium 141 mEq/L (136-145); eGFR For African Americans > 60 (> 60); eGFR For Non-African Americans > 60 (> 60)
[2017-03-04] MEDS ORDERED: *HR* Heparin 5,000 UNIT/ML VIAL IVP PRN ×4 (07:53→09:22)
--- NOTE | 2017-03-04 08:27 | Internal Med Progress Note ---
Date of Encounter: 03/04/17 Time of Encounter: 08:23 - Assessment and plan (1) Sepsis Current Visit: Yes Status: Acute Assessment and plan: Sepsis secondary to UTI white blood cell count 3.1, heart rate of 108 bpm, and history of a UTI. Patient's lactic acid was 1.0. Urine culture from 02/23/2017 showed Staphylococcus lugdenesis which is susceptible to nitrofurantoin 100 mg BID Day 3 -continue macroid Qualifiers: Sepsis type: sepsis due to unspecified organism Qualified Code(s): A41.9 - Sepsis, unspecified organism (2) UTI (urinary tract infection) Current Visit: Yes Status: Acute Assessment and plan: Patient received IV Rocephin as an inpatient last week and upon discharge on February 23 received by mouth doxycycline. Continue Macrobid twice a day day 3 due to multiple allergies Qualifiers: Urinary tract infection type: acute cystitis Hematuria presence: with hematuria Qualified Code(s): N30.01 - Acute cystitis with hematuria (3) Bilateral flank pain Current Visit: Yes Status: Acute Assessment and plan: CT scan of the abdomen and pelvis on 2016 showed no acute finding. Specifically, there is no evidence of obstructive uropathy. 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 -resumed patient's home pain medications. (4) Thyroid disease Current Visit: No Status: Chronic Assessment and plan: History of hypothyroidism. Continue Synthroid. (5) Lupus (systemic lupus erythematosus) Current Visit: Yes Status: Chronic Assessment and plan: History of lupus. Currently stable. Qualifiers: Systemic lupus erythematosus type: unspecified Systemic lupus erythematosus organ involvement: unspecified Qualified Code(s): M32.9 - Systemic lupus erythematosus, unspecified (6) Hypercoagulable state, primary Current Visit: No Status: Chronic (7) Warfarin-induced coagulopathy Current Visit: No Status: Acute Assessment and plan: Patient is currently being anticoagulated on Coumadin for history of protein C, S deficiency. She also reports a history of antiphospholipid antibody syndrome , as well as lupus. Patient's INR was 8.0. -Goal INR is between 3 and 4 Received Vit K by hourly shift manager INR now 1.6 Start heparin drip. Can not use ApTT as reference due to Hx of antiphospholipid Sd Goal for Anti Xa is between 0.3 and 0.7 - Subjective Interval history: Feeling better. Back pain improving, no hematuria , no fevers or chills, no chest pain or shortness of breath, no abdominal pain or diarrhea - Constitutional Vitals: Temp Pulse Resp BP Pulse Ox 98.1 F 81 14 121/82 96 03/04/17 07:50 03/04/17 07:50 03/04/17 07:50 03/04/17 07:50 03/04/17 07:50 General appearance: Present: cooperative, A&O X 3, answers questions appropriately Exam: - Head Head exam: Present: atraumatic, normocephalic - Eye Eye exam: Present: PERRL, conjuntiva pink, sclera anicteric Pupils: Present: PERRL - Neck Neck exam general surgery: Present: supple, trachea midline. Absent: lymphadenopathy - Respiratory Respiratory exam: Present: CTAB. Absent: accessory muscle use, rales, rhonchi, wheezes Additional comments: Right upper chest Port-A-Cath - Cardiovascular Cardiovascular exam: Present: RRR, +S1, +S2. Absent: diastolic murmur, gallop, rubs, systolic murmur - GI/Abdominal GI/Abdominal exam: Present: distended, normal bowel sounds, soft, no peritoneal signs. Absent: tenderness - Extremities Exam Extremities exam: Present: warm, radial pulses palpable and symmetrical. Absent : calf tenderness, cyanotic, pedal edema - Neurological Exam Neurological exam: Present: CN II-XII intact, oriented X3, no focal deficits. Absent: pronater drift, facial droop, speech deficit - Skin Skin exam: Present: dry, intact Internal Medicine: Result - Labs CBC & Chem 7: 03/04/17 05:20 03/04/17 05:20 Labs: Short CBC 03/04/17 Range/Units 05:20 WBC 2.7 L (4.3-11.1) K/mcL Hgb 10.1 L (11.5-15.4) g/dL Hct 31.7 L (35.3-44.9) % Plt Count 157 (140-400) K/mcL BMP 03/04/17 05:20 Sodium 141 Potassium 4.1 Chloride 113 H Carbon Dioxide 22 BUN 13 Creatinine 0.95 Glucose 90 Calcium 8.4 L - ABG Interpretation ABG results: PT/INR, D-dimer PT 17.6 Seconds (9.4-12.1) H D 03/04/17 05:20 Consult Discharge Plan - Plan Referrals: Ariel Cotto DO [Primary Care Provider] -
[2017-03-04] MEDS: 0.9 % Sodium Chloride 1,000 ML IVC SCH (08:55)
[2017-03-04] MEDS: Pantoprazole 40 MG VIAL IVP SCH (08:56)
[2017-03-04] MEDS: Nitrofurantoin (BID) 100 MG CAPSULE PO SCH ×2 (08:56→20:36)
[2017-03-04] MEDS: Acetaminophen/Butalbital/CaffeineTABLET PO PRN (08:57)
[2017-03-04] MEDS: clonazePAM 1 MG TABLET PO SCH ×3 (08:57→20:13)
[2017-03-04] MEDS: BuPROPion XL (24 HR) 150 MG TABLET PO SCH (08:57)
[2017-03-04] MEDS: Heparin 25,000 UNIT/500 ML D5W 25,000 UNIT/500 ML MLS IVC SCH (08:58)
[2017-03-04] MEDS: Magnesium Oxide 400 MG TABLET PO SCH (08:58)
[2017-03-04 09:52] LABS: INR 1.6; Prothrombin Time 17.6 Seconds (9.4-12.1)
[2017-03-04 10:30] LABS: Hematocrit 32.7 % (35.3-44.9); Hemoglobin 10.4 g/dL (11.5-15.4); Mean Corpuscular HGB Conc 31.8 g/dL (31.6-35.5); Mean Corpuscular Hemoglobin 32.5 pg (28.0-33.3); Mean Corpuscular Volume 102.2 fL (83.0-100.0); Mean Platelet Volume 9.5 fL (9.4-12.4); Platelet Count 177 K/mcL (140-400); Red Cell Distribution Width 14.1 % (11.5-14.5)
[2017-03-04] MEDS ORDERED: *HR* Warfarin 10 MG TABLET PO ONE (18:00)
[2017-03-04] MEDS: rOPINIRole 1 MG TABLET PO SCH (20:13)
[2017-03-05] MEDS: Acetaminophen/Butalbital/CaffeineTABLET PO PRN ×2 (00:52→09:32)
[2017-03-05] MEDS: Ondansetron 4 MG/2 ML VIAL IVP PRN ×3 (00:52→20:55)
[2017-03-05] MEDS: *HR* HYDROcodone/Acet 10/325 mg TABLET PO PRN ×3 (03:50→20:55)
[2017-03-05] MEDS: 0.9 % Sodium Chloride 1,000 ML IVC SCH (03:55)
[2017-03-05 04:53] LABS: Prothrombin Time 21.3 Seconds (9.4-12.1)
[2017-03-05 05:10] LABS: BUN/Creatinine Ratio 15 (6-26); Blood Urea Nitrogen 13 mg/dL (7-20); Carbon Dioxide 23 mEq/L (19-29); Chloride 112 mEq/L (98-109); Glucose 95 mg/dL (70-99); Osmolality,Calculated 288 (280-300); Potassium 3.9 mEq/L (3.5-4.5); Sodium 139 mEq/L (136-145); eGFR For African Americans > 60 (> 60); eGFR For Non-African Americans > 60 (> 60)
[2017-03-05] MEDS: Nitrofurantoin (BID) 100 MG CAPSULE PO SCH ×2 (08:30→22:33)
[2017-03-05] MEDS: clonazePAM 1 MG TABLET PO SCH ×3 (08:30→20:54)
[2017-03-05] MEDS: Magnesium Oxide 400 MG TABLET PO SCH (08:30)
[2017-03-05] MEDS: BuPROPion XL (24 HR) 150 MG TABLET PO SCH (08:30)
[2017-03-05] MEDS: Heparin 25,000 UNIT/500 ML D5W 25,000 UNIT/500 ML MLS IVC SCH (11:24)
[2017-03-05 14:43] LABS: INR 2.3; Prothrombin Time 25.4 Seconds (9.4-12.1)
--- NOTE | 2017-03-05 15:16 | Internal Med Progress Note ---
Date of Encounter: 03/05/17 Time of Encounter: 15:14 - Assessment and plan (1) Sepsis Current Visit: Yes Status: Acute Assessment and plan: Sepsis secondary to UTI white blood cell count 3.1, heart rate of 108 bpm, and history of a UTI. Patient's lactic acid was 1.0. Urine culture from 02/23/2017 showed Staphylococcus lugdenesis which is susceptible to nitrofurantoin -continue macroid 100 mg BID (Day 4) Qualifiers: Sepsis type: sepsis due to unspecified organism Qualified Code(s): A41.9 - Sepsis, unspecified organism (2) UTI (urinary tract infection) Current Visit: Yes Status: Acute Assessment and plan: Patient received IV Rocephin as an inpatient last week and upon discharge on February 23 received by mouth doxycycline. Continue Macrobid due to multiple allergies Qualifiers: Urinary tract infection type: acute cystitis Hematuria presence: with hematuria Qualified Code(s): N30.01 - Acute cystitis with hematuria (3) Bilateral flank pain Current Visit: Yes Status: Acute Assessment and plan: CT scan of the abdomen and pelvis on 2016 showed no acute finding. Specifically, there is no evidence of obstructive uropathy. 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 -resumed patient's home pain medications. Her dose of hydrocodone was increased. (4) Thyroid disease Current Visit: No Status: Chronic Assessment and plan: History of hypothyroidism. Continue Synthroid. (5) Lupus (systemic lupus erythematosus) Current Visit: Yes Status: Chronic Assessment and plan: History of lupus. Currently stable. Qualifiers: Systemic lupus erythematosus type: unspecified Systemic lupus erythematosus organ involvement: unspecified Qualified Code(s): M32.9 - Systemic lupus erythematosus, unspecified (6) Hypercoagulable state, primary Current Visit: No Status: Chronic (7) Warfarin-induced coagulopathy Current Visit: No Status: Acute Assessment and plan: Patient is currently being anticoagulated on Coumadin for history of protein C, S deficiency. She also reports a history of antiphospholipid antibody syndrome , as well as lupus. Patient's INR was 8.0. -Goal INR is between 3 and 4 Received Vit K by inspector golf ball CONTINUE coumadin per pharmacy dosing INR now 2 Continue heparin drip. Can not use ApTT as reference due to Hx of antiphospholipid Sd Goal for Anti Xa is between 0.3 and 0.7 - Subjective Interval history: Feeling ok, complaining of a headache, but does not seem to be in pain. On , became very upset as she was not being prescribed IV dilaudid for her headache and requested to speak to the hospital's administration, today , she did not have such request. Back pain stable, no hematuria , no fevers or chills, no chest pain or shortness of breath, no abdominal pain or diarrhea - Constitutional Vitals: Temp Pulse Resp BP Pulse Ox 97.9 F 86 16 147/68 99 03/05/17 11:45 03/05/17 11:45 03/05/17 11:45 03/05/17 11:45 03/05/17 11:45 General appearance: Present: cooperative, A&O X 3, answers questions appropriately - Head Head exam: Present: atraumatic, normocephalic - Eye Eye exam: Present: PERRL, conjuntiva pink, sclera anicteric Pupils: Present: PERRL - Neck Neck exam general surgery: Present: supple, trachea midline. Absent: lymphadenopathy - Respiratory Respiratory exam: Present: CTAB. Absent: accessory muscle use, rales, rhonchi, wheezes - Cardiovascular Cardiovascular exam: Present: RRR, +S1, +S2. Absent: diastolic murmur, gallop, rubs, systolic murmur - GI/Abdominal GI/Abdominal exam: Present: distended, normal bowel sounds, soft, tenderness ( left flank mild tenderness), no peritoneal signs - Extremities Exam Extremities exam: Present: warm, radial pulses palpable and symmetrical. Absent : calf tenderness, cyanotic, pedal edema - Neurological Exam Neurological exam: Present: CN II-XII intact, oriented X3, no focal deficits. Absent: pronater drift, facial droop, speech deficit - Skin Skin exam: Present: dry, intact Internal Medicine: Result - Labs CBC & Chem 7: 03/04/17 09:30 03/05/17 04:10 Labs: BMP 03/05/17 04:10 Sodium 139 Potassium 3.9 Chloride 112 H Carbon Dioxide 23 BUN 13 Creatinine 0.88 Glucose 95 Calcium 8.0 L - ABG Interpretation ABG results: PT/INR, D-dimer PT 25.4 Seconds (9.4-12.1) H 03/05/17 11:49 Consult Discharge Plan - Plan Referrals: Ariel Cotto DO [Primary Care Provider] -
[2017-03-05] MEDS ORDERED: *HR* Warfarin 3 MG TABLET PO ONE (18:00)
[2017-03-05] MEDS: rOPINIRole 1 MG TABLET PO SCH (20:54)
[2017-03-06] MEDS: 0.9 % Sodium Chloride 1,000 ML IVC SCH (00:10)
[2017-03-06] MEDS: Acetaminophen/Butalbital/CaffeineTABLET PO PRN ×2 (00:34→09:42)
[2017-03-06 04:45] LABS: INR 3.7; Prothrombin Time 40.8 Seconds (9.4-12.1)
[2017-03-06 04:49] LABS: Heparin anti-factor XA UFH 1.02 IU/mL (0.30-0.70)
[2017-03-06] MEDS: *HR* HYDROcodone/Acet 10/325 mg TABLET PO PRN (06:27)
[2017-03-06] MEDS: clonazePAM 1 MG TABLET PO SCH (09:42)
[2017-03-06] MEDS: Magnesium Oxide 400 MG TABLET PO SCH (09:43)
[2017-03-06] MEDS: Nitrofurantoin (BID) 100 MG CAPSULE PO SCH (09:43)
[2017-03-06] MEDS: BuPROPion XL (24 HR) 150 MG TABLET PO SCH (09:44)
[2017-03-06 10:45] VITALS: BP 133/86
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
--- NOTE | 2017-03-06 10:54 | Physician Discharge Referral ---
Home Health/Hosp Referral Info Transfer to: Home Health Provider in Charge Post Discharge: PCP - Diagnosis (1) Sepsis Status: Acute (2) UTI (urinary tract infection) Status: Acute (3) Bilateral flank pain Status: Acute (4) Thyroid disease Status: Chronic (5) Lupus (systemic lupus erythematosus) Status: Chronic (6) Hypercoagulable state, primary Status: Chronic (7) Warfarin-induced coagulopathy Status: Acute - Respiratory Orders Smoking Cessation: Smoking cessation has been advised. For more information, call the [place] Tobacco Quit Line at 7-303-BNNY-NOW. - Diet/Nutrition Diet/Nutrition Orders: Regular - Services Needed Following services are medically necessary services: Home Health Aide, Physical Therapy Home Care Orders: Follow-up with primary care physician within the next 7 days. Hold Coumadin tonight and resume 7 mg daily starting on 03/07/2017's night. Complete 3 more days of nitrofurantoin - Transfer Medications Prescriptions: HYDROcodone/Acet 7.5/325 mg [[place] 7.5-325 mg] 1 tab PO Q6H PRN #20 tablet PRN Reason: Pain Nitrofurantoin (BID) [Macrobid] 100 mg PO BID #6 capsule Warfarin [Coumadin] 7 mg PO 1800 30 Days tablet Home Medications: [place] 20 mg PO DAILY 12/20/16 [History] BuPROPion XL (24 HR) [Wellbutrin Xl] 150 mg PO DAILY 12/20/16 [History] Cholecalciferol (D-3) [Vitamin D] 5,000 unit PO DAILY 12/20/16 [History] Cyclobenzaprine [Flexeril] 10 mg PO TID 12/20/16 [History] Cyclosporine [Restasis] 1 drop OP BID 12/20/16 [History] Duloxetine HCl [Cymbalta] 60 mg PO DAILY 12/20/16 [History] Hydroxychloroquine [Plaquenuil] 200 mg PO BID 12/20/16 [History] Levothyroxine [Synthroid] 75 mcg PO DAILY@0630 12/20/16 [History] Lubiprostone [Amitiza] 24 mcg PO BID 12/20/16 [History] Magnesium 250 mg PO DAILY 12/20/16 [History] Melatonin/Pyridoxine HCl (B6) [Melatonin 5 mg Tablet] 10 mg PO HS 12/20/16 [ History] Potassium Chloride [K-Tab ER] 10 meq PO BID 12/20/16 [History] Promethazine [Phenergan] 25 mg PO Q6HR PRN 12/20/16 [History] Quetiapine Fumarate [Seroquel] 100 mg PO HS 12/20/16 [History] Valacyclovir HCl [Valtrex] 1,000 mg PO DAILY 12/20/16 [History] clonazePAM [Klonopin] 2 mg PO 0900,1700 12/20/16 [History] clonazePAM [Klonopin] 4 mg PO HS 12/20/16 [History] Acetaminophen/Butalbital/Caffe [Fioricet] 1 each PO Q6H PRN 01/05/17 [History] Butorphanol Tartrate 1 spray NS Q4-6H PRN 01/05/17 [History] Polyethylene Glycol 3350 [MiraLAX] 17 gm PO BID 01/06/17 [History] Cyanocobalamin/FA/Pyridoxine [Folbee Tablet] 1 tab PO DAILY 01/20/17 [History] Albuterol Sulfate [Albuterol Inhaler] 2 puff IH Q4-6H PRN 03/02/17 [History] rOPINIRole [Requip] 1 mg PO HS 03/02/17 [History] HYDROcodone/Acet 7.5/325 mg [[place] 7.5-325 mg] 1 tab PO Q6H PRN #20 tablet 03/06 [Rx] Nitrofurantoin (BID) [Macrobid] 100 mg PO BID #6 capsule 03/06/17 [Rx] Warfarin [Coumadin] 7 mg PO 1800 30 Days tablet 03/06/17 [Rx] Allergies/Adverse Reactions: 3 Allergy/AdvReac Type Severity Reaction Status Date / Time Amoxicillin Allergy See Verified 03/01/17 20:47 Comments clarithromycin [From Biaxin] Allergy See Verified 03/01/17 20:47 Comments Enoxaparin [From Lovenox] Allergy See Verified 03/01/17 20:47 Comments hydrochlorothiazide Allergy See Verified 03/01/17 20:47 Comments levofloxacin [From Levaquin] Allergy Difficulty Verified 03/01/17 20:47 Breathing nafcillin Allergy Seizure Verified 03/01/17 20:47 oxcarbazepine Allergy Anaphylaxis Verified 03/01/17 20:47 [From Trileptal] Penicillins Allergy Seizure Verified 03/01/17 20:47 Sulfa (Sulfonamide Allergy See Verified 03/01/17 20:47 Antibiotics) Comments sumatriptan [From Imitrex] Allergy See Verified 03/01/17 20:47 Comments Terazosin Allergy See Verified 03/01/17 20:47 Comments vancomycin Allergy Seizure Verified 03/01/17 20:47 topiramate [From Topamax] AdvReac Confusion Verified 03/01/17 20:47 Certification: Further, I certify that my clinical findings support that this patient is homebound (i.e. absences from home require considerable and taxing effort and are for medical reasons or rastafarian services or infrequently or short duration when for other reasons) because: Homebound Reason: Patient requires assistance of a person or device to safely leave home Attestation: My signature below is to certify that this patient is under my care and that I, or nurse practitioner, or a physician's litigation legal assistant working with me, has a face-to -face encounter with this patient.
== END 2017-03-06 13:20 | disposition home health service (06) | DRG 872 ==
LOC: EMEROO 20:39 → 3ANU 20:39 → SUATTDRO 23:39 → 3ANU 03-02 00:18
PROVIDERS: ADMIT Nurse Practitioner Family; ATTEND Internal Medicine

== ENCOUNTER 2017-03-27 15:59 | Inpatient (IN) ==
[2017-03-27 16:42] LABS: Bilirubin,Urine Negative (Negative); Blood,Urine Large (Negative); Clarity,Urine Cloudy (Clear); Color,Urine Red (Yellow); Glucose,Urine (UA) Normal (Normal); Ketones,Urine Trace mg/dL (Negative); Leukocyte Esterase,Urine Small (Negative); Nitrite,Urine Negative (Negative); Protein,Urine 30 mg/dL (Neg-Trace); Specific Gravity,Urine 1.017 (1.010-1.025); Urobilinogen,Urine Normal (Normal)
[2017-03-27 16:43] LABS: Bacteria,Urine None Seen per hpf (None-Few); Hyaline Casts,Urine None Seen per lpf (None-Few); RBC,Urine TNTC per hpf (0-3); Squamous Epithelial Cell,Urine Many per lpf (None-Few)
[2017-03-27 17:38] LABS: Basophils % 0.8 %; Eosinophils # 0.1 K/mcL (0.0-0.6); Eosinophils % 4.5 %; Hematocrit 37.4 % (35.3-44.9); Immature Granulocytes % 0.4 % (0-4); Lymphocytes # 0.8 K/mcL (0.6-4.6); Lymphocytes % 30.4 %; Mean Corpuscular HGB Conc 31.6 g/dL (31.6-35.5); Mean Corpuscular Hemoglobin 32.1 pg (28.0-33.3); Mean Corpuscular Volume 101.6 fL (83.0-100.0); Mean Platelet Volume 9.4 fL (9.4-12.4); Monocytes # 0.3 K/mcL (0.0-1.3); Monocytes % 11.7 %; Neutrophils # 1.3 K/mcL (1.6-8.9); Platelet Count 189 K/mcL (140-400); Red Blood Count 3.68 M/mcL (3.82-4.97); Red Cell Distribution Width 14.3 % (11.5-14.5); Segmented Neutrophils % 52.2 %
[2017-03-27 17:43] LABS: Hemoglobin 11.8 g/dL (11.5-15.4)
[2017-03-27 17:47] LABS: Activated Partial Thrombo Time 57.7 Seconds (26.0-36.0)
[2017-03-27 17:53] LABS: INR 8.3; Prothrombin Time 93.6 Seconds (9.4-12.1)
[2017-03-27 17:54] LABS: Albumin 3.6 g/dL (3.5-5.0); Albumin/Globulin Ratio 0.8 (1.1-2.2); Bilirubin,Indirect 0.1 mg/dL (0.0-1.2); Bilirubin,Total 0.2 mg/dL (0.2-1.2); Calcium 8.7 mg/dL (8.6-10.8); Globulin 4.7 g/dL (2.4-3.5); Potassium 3.9 mEq/L (3.5-4.5); Total Protein 8.3 g/dL (6.0-8.3)
[2017-03-27 17:59] LABS: Bilirubin,Direct 0.1 mg/dL (0.0-0.5)
--- NOTE | 2017-03-27 18:30 | Emergency Department Note ---
Disposition Clinical Impression: Elevated INR, Flank pain Disposition: Still a Patient Condition: Good Referrals: Ariel Cotto DO [Primary Care Provider] - Forms: ED Satisfaction Letter Time of Disposition: 19:02 General Adult HPI - General Chief complaint: ED Recheck/Abnormal Lab/Rx Stated complaint: INR >8 Time Seen by Provider: 03/27/17 18:13 Source: patient Mode of arrival: ambulatory Limitations: no limitations Nursing Notes Reviewed: Yes Vital Signs Reviewed: Yes - History of Present Illness HPI Narrative: Patient presents to the ED with the chief complaint of left flank pain and elevated INR. Patient has an extensive history of kidney stones many of them requiring stenting and lithotripsy. States that she started with left flank pain 1 week ago. Was seen and evaluated in the emergency department and told to go home because her pain was relative. States that she was started on antibiotic and went to the anticoagulation clinic today and her INR was greater than 8. States that she has been passing clots and bleeding in her urine for the last week. She has been admitted multiple times previously. She states that she does not have easy access to return to the hospital if her bleeding were to worsen. She has been given vitamin K and plasma previously for bleeding. States that she also fell and hit her head last week and had a normal head CT. No continued headaches, but has felt off balance. No fever. Pain Scale: 8 - Related Data Home Medications Medication Instructions Recorded Confirmed Black Cohosh 20 mg PO DAILY 12/20/16 03/02/17 BuPROPion XL (24 HR) [Wellbutrin 150 mg PO DAILY 12/20/16 03/02/17 Xl] Cholecalciferol (D-3) [Vitamin D] 5,000 unit PO DAILY 12/20/16 03/02/17 Cyclobenzaprine [Flexeril] 10 mg PO TID 12/20/16 03/02/17 Cyclosporine [Restasis] 1 drop OP BID 12/20/16 03/02/17 Duloxetine HCl [Cymbalta] 60 mg PO DAILY 12/20/16 03/02/17 Hydroxychloroquine [Plaquenuil] 200 mg PO BID 12/20/16 03/02/17 Levothyroxine [Synthroid] 75 mcg PO DAILY@0630 12/20/16 03/02/17 Lubiprostone [Amitiza] 24 mcg PO BID 12/20/16 03/02/17 Magnesium 250 mg PO DAILY 12/20/16 03/02/17 Melatonin/Pyridoxine HCl (B6) 10 mg PO HS 12/20/16 03/02/17 [Melatonin 5 mg Tablet] Potassium Chloride [K-Tab ER] 10 meq PO BID 12/20/16 03/02/17 Promethazine [Phenergan] 25 mg PO Q6HR PRN 12/20/16 03/02/17 Quetiapine Fumarate [Seroquel] 100 mg PO HS 12/20/16 03/02/17 Valacyclovir HCl [Valtrex] 1,000 mg PO DAILY 12/20/16 03/02/17 clonazePAM [Klonopin] 2 mg PO 0900,1700 12/20/16 03/02/17 clonazePAM [Klonopin] 4 mg PO HS 12/20/16 03/02/17 Acetaminophen/Butalbital/Caffe 1 each PO Q6H PRN 01/05/17 03/02/17 [Fioricet] Butorphanol Tartrate 1 spray NS Q4-6H PRN 01/05/17 03/02/17 Polyethylene Glycol 3350 [MiraLAX] 17 gm PO BID 01/06/17 03/02/17 Cyanocobalamin/FA/Pyridoxine 1 tab PO DAILY 01/20/17 03/02/17 [Folbee Tablet] Albuterol Sulfate [Albuterol 2 puff IH Q4-6H PRN 03/02/17 03/02/17 Inhaler] rOPINIRole [Requip] 1 mg PO HS 03/02/17 03/02/17 Previous Rx's Medication Instructions Recorded HYDROcodone/Acet 7.5/325 mg [[place] 1 tab PO Q6H PRN #20 tablet 03/06/17 7.5-325 mg] Nitrofurantoin (BID) [Macrobid] 100 mg PO BID #6 capsule 03/06/17 Warfarin [Coumadin] 7 mg PO 1800 30 Days tablet 03/06/17 Ondansetron HCl [Zofran] 4 mg PO Q6HR PRN #21 tablet 03/19/17 Allergies Allergy/AdvReac Type Severity Reaction Status Date / Time Amoxicillin Allergy See Verified 03/27/17 16:09 Comments clarithromycin [From Biaxin] Allergy See Verified 03/27/17 16:09 Comments Enoxaparin [From Lovenox] Allergy See Verified 03/27/17 16:09 Comments hydrochlorothiazide Allergy See Verified 03/27/17 16:09 Comments levofloxacin [From Levaquin] Allergy Difficulty Verified 03/27/17 16:09 Breathing nafcillin Allergy Seizure Verified 03/27/17 16:09 nitrofurantoin Allergy Blister Verified 03/27/17 16:09 [From Macrobid] oxcarbazepine Allergy Anaphylaxis Verified 03/27/17 16:09 [From Trileptal] Penicillins Allergy Seizure Verified 03/27/17 16:09 Sulfa (Sulfonamide Allergy See Verified 03/27/17 16:09 Antibiotics) Comments sumatriptan [From Imitrex] Allergy See Verified 03/27/17 16:09 Comments Terazosin Allergy See Verified 03/27/17 16:09 Comments vancomycin Allergy Seizure Verified 03/27/17 16:09 topiramate [From Topamax] AdvReac Confusion Verified 03/27/17 16:09 All systems ED: reviewed and negative except as stated. Constitutional: Denies: fever Cardiovascular: Denies: chest pain Respiratory: Denies: dyspnea Gastrointestinal: Reports: abdominal pain Genitourinary: Reports: hematuria Musculoskeletal: Reports: back pain Integumentary: Denies: rash Neurological: Reports: abnormal gait. Denies: headache Past Medical History - Past Medical History Attestation: Yes The following information was validated with the patient. Source: patient Medical history: Reports: CHF, DVT, fibromyalgia, kidney stones, migraine, pulmonary embolus, thyroid disease, other Surgical history: Reports: hysterectomy, ureteral stent, IVC filter Psychiatric history: Reports: bipolar HANDBAG STITCHER history: Reports: no HANDBAG STITCHER history - Social History Smoking Status: Former smoker Smokeless Tobacco Status: Yes (vape) Alcohol use: Reports: none Drug use: Reports: none Physical Exam - General Limitations: no limitations General appearance: alert, in no apparent distress - Head Head exam: atraumatic, normocephalic, normal inspection - Eye Eye exam: Present: normal appearance, PERRL, EOMI - Chest Chest inspection: Present: normal inspection, symmetric chest wall rise - Respiratory Respiratory exam: Present: normal lung sounds bilaterally - Cardiovascular Cardiovascular exam: Present: regular rate, normal rhythm, normal heart sounds - Abdominal Exam Abdominal exam: Present: soft, Non-Tender. Absent: tenderness, distention, guarding, rebound, rigidity - Extremities Exam Extremities exam: Present: normal inspection, full ROM. Absent: tenderness, pedal edema - Back Exam Back exam: Present: full ROM, CVA tenderness (L). Absent: normal inspection, tenderness - Neurological Exam Neurological exam: Present: alert, oriented X3 - Psychiatric Psychiatric exam: Present: normal affect, normal mood - Skin Skin exam: Present: warm, dry, intact, normal color Course Course Narrative: Patient presenting with elevated INR hematuria and left flank pain. Also having difficulty ambulating and not feeling well since falling and hitting her head a week ago. Her INR was in the twos last week and is now greater than 8. We will rescan her head and also CT abdomen and pelvis. Patient will likely need to be admitted. Vital Signs Temperature 98.2 F 03/27/17 16:06 Pulse Rate 103 03/27/17 16:06 Respiratory Rate 16 03/27/17 16:06 Blood Pressure 132/89 03/27/17 16:06 O2 Sat by Pulse Oximetry 95 03/27/17 16:06 Temperature 98.2 F 03/27/17 16:06 Pulse Rate 103 03/27/17 16:06 Respiratory Rate 16 03/27/17 16:06 Blood Pressure 132/89 03/27/17 16:06 O2 Sat by Pulse Oximetry 95 03/27/17 16:06 Oxygen Delivery Oxygen Delivery Room Air Medical Decision Making - Lab Data Result diagrams: 03/27/17 17:30 03/27/17 17:30 Lab Results 03/27/17 03/27/17 03/27/17 Range/Units 16:25 17:30 17:30 WBC 2.5 L (4.3-11.1) K/mcL RBC 3.68 L (3.82-4.97) M/mcL Hgb 11.8 D (11.5-15.4) g/dL Hct 37.4 (35.3-44.9) % MCV 101.6 H (83.0-100.0) fL MCH 32.1 (28.0-33.3) pg MCHC 31.6 (31.6-35.5) g/dL RDW 14.3 (11.5-14.5) % Plt Count 189 (140-400) K/mcL MPV 9.4 (9.4-12.4) fL Immature Gran % 0.4 (0-4) % Seg Neutrophils % 52.2 % Lymphocytes % 30.4 % Monocytes % 11.7 % Eosinophils % 4.5 % Basophils % 0.8 % Neutrophils # 1.3 L (1.6-8.9) K/mcL Lymphocytes # 0.8 (0.6-4.6) K/mcL Monocytes # 0.3 (0.0-1.3) K/mcL Eosinophils # 0.1 (0.0-0.6) K/mcL Basophils # 0.0 (0.0-0.2) K/mcL PT 93.6 H* D (9.4-12.1) Seconds INR 8.3 H* D APTT 57.7 H D (26.0-36.0) Seconds Sodium (136-145) mEq/L Potassium (3.5-4.5) mEq/L Chloride (98-109) mEq/L Carbon Dioxide (19-29) mEq/L BUN (7-20) mg/dL Creatinine (0.57-1.11) mg/dL Est GFR ( Amer) (> 60) Est GFR (Non-Af Amer) (> 60) BUN/Creatinine Ratio (6-26) Glucose (70-99) mg/dL Calculated Osmolality (280-300) Calcium (8.6-10.8) mg/dL Total Bilirubin (0.2-1.2) mg/dL Direct Bilirubin (0.0-0.5) mg/dL Indirect Bilirubin (0.0-1.2) mg/dL AST (5-34) Units/L ALT (0-55) Units/L Alkaline Phosphatase (38-126) Units/L Serum Total Protein (6.0-8.3) g/dL Albumin (3.5-5.0) g/dL Globulin (2.4-3.5) g/dL Albumin/Globulin Ratio (1.1-2.2) Lipase (8-78) Units/L Urine Color Red A (Yellow) Urine Clarity Cloudy A (Clear) Urine pH 6.0 (5.0-8.0) pH Units Ur Specific [place] 1.017 (1.010-1.025) Urine Protein 30 H (Neg-Trace) mg/dL Urine Glucose (UA) Normal (Normal) mg/dL Urine Ketones Trace H (Negative) mg/dL Urine Blood Large H (Negative) Urine Nitrite Negative (Negative) Urine Bilirubin Negative (Negative) Urine Urobilinogen Normal (Normal) mg/dL Ur Leukocyte Esterase Small H (Negative) Urine Microscopic RBC TNTC H (0-3) per hpf Urine Microscopic WBC 3-5 H (0-3) per hpf Ur Squamous Epith Cells Many H (None-Few) per lpf Urine Bacteria None Seen (None-Few) per hpf Hyaline Casts None Seen (None-Few) per lpf Ur Culture Indicated? YES A (NO) 03/27/17 Range/Units 17:30 WBC (4.3-11.1) K/mcL RBC (3.82-4.97) M/mcL Hgb (11.5-15.4) g/dL Hct (35.3-44.9) % MCV (83.0-100.0) fL MCH (28.0-33.3) pg MCHC (31.6-35.5) g/dL RDW (11.5-14.5) % Plt Count (140-400) K/mcL MPV (9.4-12.4) fL Immature Gran % (0-4) % Seg Neutrophils % % Lymphocytes % % Monocytes % % Eosinophils % % Basophils % % Neutrophils # (1.6-8.9) K/mcL Lymphocytes # (0.6-4.6) K/mcL Monocytes # (0.0-1.3) K/mcL Eosinophils # (0.0-0.6) K/mcL Basophils # (0.0-0.2) K/mcL PT (9.4-12.1) Seconds INR APTT (26.0-36.0) Seconds Sodium 137 (136-145) mEq/L Potassium 3.9 (3.5-4.5) mEq/L Chloride 106 (98-109) mEq/L Carbon Dioxide 23 (19-29) mEq/L BUN 11 (7-20) mg/dL Creatinine 1.24 H (0.57-1.11) mg/dL Est GFR ( Amer) 55 L (> 60) Est GFR (Non-Af Amer) 46 L (> 60) BUN/Creatinine Ratio 9 (6-26) Glucose 109 H (70-99) mg/dL Calculated Osmolality 284 (280-300) Calcium 8.7 (8.6-10.8) mg/dL Total Bilirubin 0.2 (0.2-1.2) mg/dL Direct Bilirubin 0.1 (0.0-0.5) mg/dL Indirect Bilirubin 0.1 (0.0-1.2) mg/dL AST 40 H (5-34) Units/L ALT 23 (0-55) Units/L Alkaline Phosphatase 132 H (38-126) Units/L Serum Total Protein 8.3 (6.0-8.3) g/dL Albumin 3.6 (3.5-5.0) g/dL Globulin 4.7 H (2.4-3.5) g/dL Albumin/Globulin Ratio 0.8 L (1.1-2.2) Lipase 11 (8-78) Units/L Urine Color (Yellow) Urine Clarity (Clear) Urine pH (5.0-8.0) pH Units Ur Specific [place] (1.010-1.025) Urine Protein (Neg-Trace) mg/dL Urine Glucose (UA) (Normal) mg/dL Urine Ketones (Negative) mg/dL Urine Blood (Negative) Urine Nitrite (Negative) Urine Bilirubin (Negative) Urine Urobilinogen (Normal) mg/dL Ur Leukocyte Esterase (Negative) Urine Microscopic RBC (0-3) per hpf Urine Microscopic WBC (0-3) per hpf Ur Squamous Epith Cells (None-Few) per lpf Urine Bacteria (None-Few) per hpf Hyaline Casts (None-Few) per lpf Ur Culture Indicated? (NO) S.B.A.R. - S.B.A.R. Situation: Demographics, MOA Background: Presenting Complaint, Relevant PMH, Meds, & Allergies Assessment: Vital Signs, Course and respsone to treatment, Exam Concerns, Patient/Family Expectation, Pertinant Lab Results, Outstanding Labs Recommendation: Barrier(s) to disposition, Recommendation based on pending studies, treatments, or consults S.B.A.R. Report Given to: Dr. Ortiz/João [email or web address] Repor Time: 19:03 Attestation Statement - Attestation Attestation: I examined this patient and my medical decision-making was reviewed with the Resident Physician. I agree with the documented findings, disposition and treatment plan as described except to the extent set forth below. Patient presents to the ED with a chief complaint of an elevated INR. Sent from Coumadin clinic after her check was greater than 8. Patient states she has been urinating blood. History kidney stones. Also states she recently had a multidrug resistant UTI. Flank pain. She is also complaining of head pain after a fall several days ago that she states is getting worse. Exam shows her awake and alert. Abdomen soft. No ecchymosis. Oriented 3 and neurologically intact. Plan. We will reimage her head. CT abdomen and pelvis. Urinalysis shows blood. Likely observation.
[2017-03-27] MEDS ORDERED: *HR* HYDROmorphone (PF) 1 MG/ML SYRINGE IVP ONE ×2 (18:33→21:49)
[2017-03-27] MEDS ORDERED: 0.9 % Sodium Chloride 1,000 ML IVC ONE (18:33)
[2017-03-27] MEDS ORDERED: *HR* Promethazine 25 MG/ML VIAL IVP ONE ×2 (18:33→21:49)
[2017-03-27] MEDS ORDERED: *HR* Phytonadione 5 MG TABLET PO ONE (21:38)
--- NOTE | 2017-03-27 22:37 | Emergency Department Note ---
Disposition Clinical Impression: Elevated INR, Flank pain Hematuria Qualifiers: Hematuria type: gross Qualified Code(s): R31.0 - Gross hematuria Disposition: Admitted As Inpatient Condition: Good Referrals: Ariel Cotto DO [Primary Care Provider] - Forms: ED Satisfaction Letter Time of Disposition: 22:39 General Adult HPI - General Chief complaint: ED Recheck/Abnormal Lab/Rx Stated complaint: INR >8 Time Seen by Provider: 03/27/17 18:13 Source: patient Mode of arrival: ambulatory Limitations: no limitations Nursing Notes Reviewed: Yes Vital Signs Reviewed: Yes - History of Present Illness HPI Narrative: Patient received on sign out from the day team, Dr. Hanson and Dr. Menard. Please refer to their note for complete history and physical exam on intake. In brief: Ms. Sandoval, a 51-year-old female, presents from home for evaluation of left flank pain and hematuria. Additionally, she has hematuria and passing clots for the past week. 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 She is a history of multiple chronic nephrolithiasis which she typically pass on her own; is followed by Dr. Brooks in urology. She has had no fevers, no chills , no nausea or vomiting. No anuria. Pain Scale: 8 - Related Data Home Medications Medication Instructions Recorded Confirmed Black Cohosh 20 mg PO DAILY 12/20/16 03/27/17 BuPROPion XL (24 HR) [Wellbutrin 150 mg PO DAILY 12/20/16 03/27/17 Xl] Cholecalciferol (D-3) [Vitamin D] 5,000 unit PO DAILY 12/20/16 03/27/17 Cyclobenzaprine [Flexeril] 10 mg PO QAM 12/20/16 03/27/17 Cyclosporine [Restasis] 1 drop OP BID 12/20/16 03/27/17 Duloxetine HCl [Cymbalta] 60 mg PO DAILY 12/20/16 03/27/17 Hydroxychloroquine [Plaquenuil] 200 mg PO BID 12/20/16 03/27/17 Levothyroxine [Synthroid] 75 mcg PO DAILY@0630 12/20/16 03/27/17 Lubiprostone [Amitiza] 24 mcg PO BID 12/20/16 03/27/17 Magnesium 250 mg PO DAILY 12/20/16 03/27/17 Melatonin/Pyridoxine HCl (B6) 10 mg PO HS 12/20/16 03/27/17 [Melatonin 5 mg Tablet] Potassium Chloride [K-Tab ER] 10 meq PO BID 12/20/16 03/27/17 Promethazine [Phenergan] 25 mg PO Q6HR PRN 12/20/16 03/27/17 Quetiapine Fumarate [Seroquel] 100 mg PO HS 12/20/16 03/27/17 Valacyclovir HCl [Valtrex] 1,000 mg PO DAILY 12/20/16 03/27/17 clonazePAM [Klonopin] 2 mg PO 0900,1700 12/20/16 03/27/17 clonazePAM [Klonopin] 4 mg PO HS 12/20/16 03/27/17 Acetaminophen/Butalbital/Caffe 1 each PO Q6H PRN 01/05/17 03/27/17 [Fioricet] Butorphanol Tartrate 1 spray NS Q4-6H PRN 01/05/17 03/27/17 Polyethylene Glycol 3350 [MiraLAX] 17 gm PO BID 01/06/17 03/27/17 Cyanocobalamin/FA/Pyridoxine 1 tab PO DAILY 01/20/17 03/27/17 [Folbee Tablet] Albuterol Sulfate [Albuterol 2 puff IH Q4-6H PRN 03/02/17 03/27/17 Inhaler] rOPINIRole [Requip] 1 mg PO HS 03/02/17 03/27/17 Cyclobenzaprine [Flexeril] 20 mg PO HS 03/27/17 03/27/17 Warfarin Sodium [Coumadin] 6 mg PO TUWE 03/27/17 03/27/17 Warfarin Sodium [Coumadin] 9 mg PO TH 03/27/17 03/27/17 Previous Rx's Medication Instructions Recorded HYDROcodone/Acet 7.5/325 mg [[place] 1 tab PO Q6H PRN #20 tablet 03/06/17 7.5-325 mg] Ondansetron HCl [Zofran] 4 mg PO Q6HR PRN #21 tablet 03/19/17 Allergies Allergy/AdvReac Type Severity Reaction Status Date / Time Amoxicillin Allergy See Verified 03/27/17 16:09 Comments clarithromycin [From Biaxin] Allergy See Verified 03/27/17 16:09 Comments Enoxaparin [From Lovenox] Allergy See Verified 03/27/17 16:09 Comments hydrochlorothiazide Allergy See Verified 03/27/17 16:09 Comments levofloxacin [From Levaquin] Allergy Difficulty Verified 03/27/17 16:09 Breathing nafcillin Allergy Seizure Verified 03/27/17 16:09 nitrofurantoin Allergy Blister Verified 03/27/17 16:09 [From Macrobid] oxcarbazepine Allergy Anaphylaxis Verified 03/27/17 16:09 [From Trileptal] Penicillins Allergy Seizure Verified 03/27/17 16:09 Sulfa (Sulfonamide Allergy See Verified 03/27/17 16:09 Antibiotics) Comments sumatriptan [From Imitrex] Allergy See Verified 03/27/17 16:09 Comments Terazosin Allergy See Verified 03/27/17 16:09 Comments vancomycin Allergy Seizure Verified 03/27/17 16:09 topiramate [From Topamax] AdvReac Confusion Verified 03/27/17 16:09 All systems ED: reviewed and negative except as stated. Review of Systems: As Per HPI Constitutional: Denies: fever Cardiovascular: Denies: chest pain Respiratory: Denies: dyspnea Gastrointestinal: Reports: abdominal pain Genitourinary: Reports: hematuria Musculoskeletal: Reports: back pain Integumentary: Denies: rash Neurological: Reports: abnormal gait. Denies: headache Past Medical History - Past Medical History Medical history: Reports: CHF, DVT, fibromyalgia, kidney stones, migraine, pulmonary embolus, thyroid disease, other Surgical history: Reports: hysterectomy, ureteral stent, IVC filter Psychiatric history: Reports: bipolar [employer] history: Reports: no [employer] history - Social History Smoking Status: Former smoker Smokeless Tobacco Status: Yes (vape) Alcohol use: Reports: none Drug use: Reports: none Physical Exam Vital Signs Reviewed General: Patient is alert, oriented, and in no acute distress. HEENT: No facial asymmetry. Head is normocephalic and atraumatic. PERRL, EOMI. oral mucosa moist. Trachea midline. Cardiovascular: Heart regular rate and rhythm without clicks, rubs, gallops, or murmurs. No JVD. PMI nondisplaced. Respiratory: Symmetric chest rise with poor respiratory effort. Bilateral breath sounds are clear without wheezing, crackles, or rhonchi. Abdomen: Bowel sounds present normoactive x-4 quadrants. Abdomen is soft, nondistended, and nontender. Left CVA tenderness. Psych: Patient's affect is appropriate for situation. - General Limitations: no limitations General appearance: alert, in no apparent distress Course Course Narrative: Patient received on sign out from the day team, Dr. Hanson and Dr. Menard. Please refer to their note for complete history and physical exam on intake. Patient's INR is 8.3. Will order 5 of vitamin K by mouth. Patient is hemodynamically stable by vital signs as well as lack of anemia. Urinalysis shows large blood. I do not personally see the urine specimen to comment on clots. Patient agrees to admission for continued evaluation and management. I discussed the patient with the admitting hospitalist, Dr. Vera, who agrees to accept the patient for continued evaluation and management. Vital Signs Temperature 98.2 F 03/27/17 16:06 Pulse Rate 103 03/27/17 16:06 Respiratory Rate 16 03/27/17 16:06 Blood Pressure 132/89 03/27/17 16:06 O2 Sat by Pulse Oximetry 95 03/27/17 16:06 Temperature 98.2 F 03/27/17 16:06 Pulse Rate 103 03/27/17 16:06 Respiratory Rate 16 03/27/17 16:06 Blood Pressure 132/89 03/27/17 16:06 O2 Sat by Pulse Oximetry 95 03/27/17 16:06 Oxygen Delivery Oxygen Delivery Room Air Medical Decision Making - Lab Data Result diagrams: 03/27/17 17:30 03/27/17 17:30 Lab Results 03/27/17 03/27/17 03/27/17 Range/Units 16:25 17:30 17:30 WBC 2.5 L (4.3-11.1) K/mcL RBC 3.68 L (3.82-4.97) M/mcL Hgb 11.8 D (11.5-15.4) g/dL Hct 37.4 (35.3-44.9) % MCV 101.6 H (83.0-100.0) fL MCH 32.1 (28.0-33.3) pg MCHC 31.6 (31.6-35.5) g/dL RDW 14.3 (11.5-14.5) % Plt Count 189 (140-400) K/mcL MPV 9.4 (9.4-12.4) fL Immature Gran % 0.4 (0-4) % Seg Neutrophils % 52.2 % Lymphocytes % 30.4 % Monocytes % 11.7 % Eosinophils % 4.5 % Basophils % 0.8 % Neutrophils # 1.3 L (1.6-8.9) K/mcL Lymphocytes # 0.8 (0.6-4.6) K/mcL Monocytes # 0.3 (0.0-1.3) K/mcL Eosinophils # 0.1 (0.0-0.6) K/mcL Basophils # 0.0 (0.0-0.2) K/mcL PT 93.6 H* D (9.4-12.1) Seconds INR 8.3 H* D APTT 57.7 H D (26.0-36.0) Seconds Sodium (136-145) mEq/L Potassium (3.5-4.5) mEq/L Chloride (98-109) mEq/L Carbon Dioxide (19-29) mEq/L BUN (7-20) mg/dL Creatinine (0.57-1.11) mg/dL Est GFR ( Amer) (> 60) Est GFR (Non-Af Amer) (> 60) BUN/Creatinine Ratio (6-26) Glucose (70-99) mg/dL Calculated Osmolality (280-300) Calcium (8.6-10.8) mg/dL Total Bilirubin (0.2-1.2) mg/dL Direct Bilirubin (0.0-0.5) mg/dL Indirect Bilirubin (0.0-1.2) mg/dL AST (5-34) Units/L ALT (0-55) Units/L Alkaline Phosphatase (38-126) Units/L Serum Total Protein (6.0-8.3) g/dL Albumin (3.5-5.0) g/dL Globulin (2.4-3.5) g/dL Albumin/Globulin Ratio (1.1-2.2) Lipase (8-78) Units/L Urine Color Red A (Yellow) Urine Clarity Cloudy A (Clear) Urine pH 6.0 (5.0-8.0) pH Units Ur Specific [place] 1.017 (1.010-1.025) Urine Protein 30 H (Neg-Trace) mg/dL Urine Glucose (UA) Normal (Normal) mg/dL Urine Ketones Trace H (Negative) mg/dL Urine Blood Large H (Negative) Urine Nitrite Negative (Negative) Urine Bilirubin Negative (Negative) Urine Urobilinogen Normal (Normal) mg/dL Ur Leukocyte Esterase Small H (Negative) Urine Microscopic RBC TNTC H (0-3) per hpf Urine Microscopic WBC 3-5 H (0-3) per hpf Ur Squamous Epith Cells Many H (None-Few) per lpf Urine Bacteria None Seen (None-Few) per hpf Hyaline Casts None Seen (None-Few) per lpf Ur Culture Indicated? YES A (NO) 03/27/17 Range/Units 17:30 WBC (4.3-11.1) K/mcL RBC (3.82-4.97) M/mcL Hgb (11.5-15.4) g/dL Hct (35.3-44.9) % MCV (83.0-100.0) fL MCH (28.0-33.3) pg MCHC (31.6-35.5) g/dL RDW (11.5-14.5) % Plt Count (140-400) K/mcL MPV (9.4-12.4) fL Immature Gran % (0-4) % Seg Neutrophils % % Lymphocytes % % Monocytes % % Eosinophils % % Basophils % % Neutrophils # (1.6-8.9) K/mcL Lymphocytes # (0.6-4.6) K/mcL Monocytes # (0.0-1.3) K/mcL Eosinophils # (0.0-0.6) K/mcL Basophils # (0.0-0.2) K/mcL PT (9.4-12.1) Seconds INR APTT (26.0-36.0) Seconds Sodium 137 (136-145) mEq/L Potassium 3.9 (3.5-4.5) mEq/L Chloride 106 (98-109) mEq/L Carbon Dioxide 23 (19-29) mEq/L BUN 11 (7-20) mg/dL Creatinine 1.24 H (0.57-1.11) mg/dL Est GFR ( Amer) 55 L (> 60) Est GFR (Non-Af Amer) 46 L (> 60) BUN/Creatinine Ratio 9 (6-26) Glucose 109 H (70-99) mg/dL Calculated Osmolality 284 (280-300) Calcium 8.7 (8.6-10.8) mg/dL Total Bilirubin 0.2 (0.2-1.2) mg/dL Direct Bilirubin 0.1 (0.0-0.5) mg/dL Indirect Bilirubin 0.1 (0.0-1.2) mg/dL AST 40 H (5-34) Units/L ALT 23 (0-55) Units/L Alkaline Phosphatase 132 H (38-126) Units/L Serum Total Protein 8.3 (6.0-8.3) g/dL Albumin 3.6 (3.5-5.0) g/dL Globulin 4.7 H (2.4-3.5) g/dL Albumin/Globulin Ratio 0.8 L (1.1-2.2) Lipase 11 (8-78) Units/L Urine Color (Yellow) Urine Clarity (Clear) Urine pH (5.0-8.0) pH Units Ur Specific [place] (1.010-1.025) Urine Protein (Neg-Trace) mg/dL Urine Glucose (UA) (Normal) mg/dL Urine Ketones (Negative) mg/dL Urine Blood (Negative) Urine Nitrite (Negative) Urine Bilirubin (Negative) Urine Urobilinogen (Normal) mg/dL Ur Leukocyte Esterase (Negative) Urine Microscopic RBC (0-3) per hpf Urine Microscopic WBC (0-3) per hpf Ur Squamous Epith Cells (None-Few) per lpf Urine Bacteria (None-Few) per hpf Hyaline Casts (None-Few) per lpf Ur Culture Indicated? (NO) Attestation Statement - Attestation Attestation: I, Juan Ortiz MD, personally evaluated this patient and discussed their management with the resident physician. I reviewed the resident's note and agree with the documented findings, medical decision making, and plan of care. This patient was signed out at shift change from Dr. Menard and Dr. Hanson. Please refer to their notes for complete details of the history and physical examination. Patient has coagulopathies and is on Coumadin. She was referred here today because her INR was greater than 8. She complains of left flank pain for the past week with gross hematuria. No other abnormal bleeding or bruising. The flank pain and hematuria are actually a chronic problem On examination patient is a well-developed well-nourished female in no acute distress. She is alert and oriented 3. There is no cyanosis or diaphoresis. Breath sounds are clear and equal bilaterally. Heart regular rate and rhythm. Abdomen soft and nontender with normal bowel sounds. There is moderate left CVA tenderness. Labs reviewed. CT of the abdomen and pelvis showed no obstructive uropathy. No acute abnormality. The hospitalist, Dr. Vera, was consulted and accepted admission of the patient.
[2017-03-28] MEDS ORDERED: Acetaminophen 325 MG TABLET PO PRN (05:07)
[2017-03-28] MEDS ORDERED: Naloxone 0.4 MG/ML INJ IVP PRN (05:07)
--- NOTE | 2017-03-28 05:26 | Internal Med History&Physical ---
<Farooq Yeh - Last Filed: 03/28/17 05:54> Date of Encounter: 03/28/17 Time of Encounter: 05:18 Assessment and Plan (1) Supratherapeutic INR Current visit: Yes Status: Acute INR of 8.3 in ED - Prescribed coumadin for hypercoagulable state of protein C&S, antiphospholipid. Multiple autoimmune diagnoses. - Given 5 units of vitamin K in ED. - Hemodynamically stable, H/H stable. - Repeat coagulation studies at 0800. Holding coumadin, pharmacy to dose (2) Hematuria Current visit: Yes Status: Acute - Gross hematuria due to supratherapeutic INR - H/H stable. - Holding coumadin, pharmacy to dose further. - Monitor for worsening bleeding. Qualifiers: Hematuria type: gross Qualified Code(s): R31.0 - Gross hematuria (3) Hypothyroidism Current visit: No Status: Chronic - Pt asymptomatic at this time. - Continue home synthroid. 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 - Continue home meds. Qualifiers: Depression Type: unspecified Qualified Code(s): F32.9 - Major depressive disorder, single episode, unspecified (5) Protein C deficiency Current visit: No Status: Chronic - Pt on coumadin for hypercoaguable state. - Holding coumadin for time being given elevated INR. - WIll resume coumadin when INR drop. Pharmacy to dose. 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 (6) Protein S deficiency Current visit: No Status: Chronic As above for protein C deficiency. (7) Fibromyalgia Current visit: No Status: Chronic Continue home meds. (8) Flank pain Current visit: Yes Status: Acute Possible etiology of renal cyst vs UTI vs medullary sponge kidney - No evidence of obstruction on CT - UA in ED showing large blood with small WBC and many epithelial cells. - Will monitor and control pain. Await urine culture. (9) DVT prophylaxis Current visit: No Status: Acute SCDs, holding anticoagulation due to elevated INR. Internal Medicine - H&P: HPI Chief complaint: Supratherapeutic INR at coumadin clinic Admitted From: Emergency Dept Plans for Post Hospital Care: Home History of present illness: Ms. Sandoval is a 51 year old female with a PMhx of protein C&S deficiency for which she takes coumadin presents to ED from coumadin clinic for a INR of 8.8. She states that she has been compliant with her medications and her coumadin clinic visits weekly, however she admits that her INR fluctuates. She denies any new medications, history of liver disease. She was recently treated for multidrug resistant UTI and subsequent thrush. She states that her only symptom at this time is hematuria, left flank pain, and "she can tell when she bumps her arm as it feels funny". She states that she has been passing clots in her urine for the past week. She also has a history of recurrent kidney stones requiring stenting and lithotripsy. She denies any symptoms of lightheadedness, chest pain, SOB, difficulty breathing, nausea, vomiting, bleeding from the GI tract. In ED, head CT showed no acute process. 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 Left renal cyst. Labs showed stable H/H, elevated INR of 8.3, Cr of 1.24, UA showing large blood. Past Med Surg Social Fam HX - Past Medical History Medical history: CHF, DVT, fibromyalgia, kidney stones, migraine, pulmonary embolus, thyroid disease, other (Sjogrens, reynauds, protein C&S deficient, SLE) Psychiatric history: bipolar - Past Surgical History Surgical History: hysterectomy, ureteral stent, IVC filter - Social History Smoking Status: Former smoker Packs per day: 0.75 Smokeless Tobacco Status: Yes (Vape) Alcohol use: none Drug use: none - Family History Father Adopted: No Family Member Ethnicity: Non- Living Status: Still Living Hx Family Cardiac Disorders: Yes (HTN, CAD) Hx Family Respiratory Disorders: No Hx Family Cancer: No Hx Family GI Disorders: No Hx Family Endocrine Disorder: Yes (DM) Hx Family Neuromuscular Disorders: No Hx Family Neurologic Disorders: No Hx Family HEENT Disorders: No Hx Family Autoimmune Disorders: No Mother Adopted: No Family Member Ethnicity: Non- Living Status: Hx Family Cardiac Disorders: No Hx Family Respiratory Disorders: No Hx Family Cancer: No Hx Family GI Disorders: No Hx Family Endocrine Disorder: No Hx Family Neuromuscular Disorders: Yes (MS) Hx Family Neurologic Disorders: No Hx Family HEENT Disorders: No Hx Family Autoimmune Disorders: Yes (MS) Brother Adopted: No Family Member Ethnicity: Non- Living Status: Still Living Hx Family Cardiac Disorders: No Hx Family Respiratory Disorders: No Hx Family Cancer: No Hx Family GI Disorders: No Hx Family Endocrine Disorder: No Hx Family Neuromuscular Disorders: No Hx Family Neurologic Disorders: No Hx Family HEENT Disorders: No Hx Family Autoimmune Disorders: Yes Sister Family Member Ethnicity: Non- Living Status: Still Living Hx Family Cardiac Disorders: No Hx Family Respiratory Disorders: No Hx Family Cancer: No Hx Family GI Disorders: No Hx Family Endocrine Disorder: No Hx Family Neuromuscular Disorders: No Hx Family Neurologic Disorders: No Hx Family HEENT Disorders: No Hx Family Autoimmune Disorders: Yes Internal Medicine - H&P: Meds Black Cohosh 20 mg PO DAILY 12/20/16 [History] BuPROPion XL (24 HR) [Wellbutrin Xl] 150 mg PO DAILY 12/20/16 [History] Cholecalciferol (D-3) [Vitamin D] 5,000 unit PO DAILY 12/20/16 [History] Cyclobenzaprine [Flexeril] 10 mg PO QAM 12/20/16 [History] Cyclosporine [Restasis] 1 drop OP BID 12/20/16 [History] Duloxetine HCl [Cymbalta] 60 mg PO DAILY 12/20/16 [History] Hydroxychloroquine [Plaquenuil] 200 mg PO BID 12/20/16 [History] Levothyroxine [Synthroid] 75 mcg PO DAILY@0630 12/20/16 [History] Lubiprostone [Amitiza] 24 mcg PO BID 12/20/16 [History] Magnesium 250 mg PO DAILY 12/20/16 [History] Melatonin/Pyridoxine HCl (B6) [Melatonin 5 mg Tablet] 10 mg PO HS 12/20/16 [ History] Potassium Chloride [K-Tab ER] 10 meq PO BID 12/20/16 [History] Promethazine [Phenergan] 25 mg PO Q6HR PRN 12/20/16 [History] Quetiapine Fumarate [Seroquel] 100 mg PO HS 12/20/16 [History] Valacyclovir HCl [Valtrex] 1,000 mg PO DAILY 12/20/16 [History] clonazePAM [Klonopin] 2 mg PO 0900,1700 12/20/16 [History] clonazePAM [Klonopin] 4 mg PO HS 12/20/16 [History] Acetaminophen/Butalbital/Caffe [Fioricet] 1 each PO Q6H PRN 01/05/17 [History] Butorphanol Tartrate 1 spray NS Q4-6H PRN 01/05/17 [History] Polyethylene Glycol 3350 [MiraLAX] 17 gm PO BID 01/06/17 [History] Cyanocobalamin/FA/Pyridoxine [Folbee Tablet] 1 tab PO DAILY 01/20/17 [History] Albuterol Sulfate [Albuterol Inhaler] 2 puff IH Q4-6H PRN 03/02/17 [History] rOPINIRole [Requip] 1 mg PO HS 03/02/17 [History] HYDROcodone/Acet 7.5/325 mg [[place] 7.5-325 mg] 1 tab PO Q6H PRN #20 tablet 03/06 [Rx] Ondansetron HCl [Zofran] 4 mg PO Q6HR PRN #21 tablet 03/19/17 [Rx] Cyclobenzaprine [Flexeril] 20 mg PO HS 03/27/17 [History] Warfarin Sodium [Coumadin] 6 mg PO WE 03/27/17 [History] Warfarin Sodium [Coumadin] 9 mg PO TH 03/27/17 [History] 3 Allergy/AdvReac Type Severity Reaction Status Date / Time Amoxicillin Allergy See Verified 03/27/17 16:09 Comments clarithromycin [From Biaxin] Allergy See Verified 03/27/17 16:09 Comments Enoxaparin [From Lovenox] Allergy See Verified 03/27/17 16:09 Comments hydrochlorothiazide Allergy See Verified 03/27/17 16:09 Comments levofloxacin [From Levaquin] Allergy Difficulty Verified 03/27/17 16:09 Breathing nafcillin Allergy Seizure Verified 03/27/17 16:09 nitrofurantoin Allergy Blister Verified 03/27/17 16:09 [From Macrobid] oxcarbazepine Allergy Anaphylaxis Verified 03/27/17 16:09 [From Trileptal] Penicillins Allergy Seizure Verified 03/27/17 16:09 Sulfa (Sulfonamide Allergy See Verified 03/27/17 16:09 Antibiotics) Comments sumatriptan [From Imitrex] Allergy See Verified 03/27/17 16:09 Comments Terazosin Allergy See Verified 03/27/17 16:09 Comments vancomycin Allergy Seizure Verified 03/27/17 16:09 topiramate [From Topamax] AdvReac Confusion Verified 03/27/17 16:09 All Systems PM: A 10-system review of systems was performed and is negative for pertinent findings except as documented above in the HPI. - Constitutional Constitutional: no chills, no fatigue, no fever(s), no lethargy - Cardiovascular Cardiovascular ROS IM: no chest pain, no diaphoresis, no dyspnea, no dyspnea on exertion, no lightheadedness - Respiratory Respiratory: no dyspnea, no hemoptysis, no dyspnea on exertion - Gastrointestinal Gastrointestinal: constipation, no abdominal pain, no change in bowel habits, no diarrhea, no hematemesis, no hematochezia, no melena, no nausea, no vomiting - Genitourinary Genitourinary: hematuria, no dysuria, no urinary frequency, no urinary urgency - Hematologic/Lymphatic Hematologic/Lymphatic: no easy bleeding, no easy bruising - Constitutional Vitals: Temp Pulse Resp BP Pulse Ox 98.0 F 85 18 99/65 96 03/28/17 04:22 03/28/17 04:22 03/28/17 04:22 03/28/17 04:22 03/28/17 04:22 Exam: Gen.: Vitals noted. No acute distress. AAOx3 HEENT: PERRL/EOMI, oropharynx clear, Normocephalic, atraumatic, MMM Cardiac: RRR, no murmur, +S1/S2 Pulmonary: CTA bilaterally, no wheezes, rales or rhonchi, equal chest expansion Abdomen: soft, tender to palpation in LUQ and suprapubic region, BS noted, no guarding Back: CVA tenderness on left. MSK: ROM intact, no joint swelling noted Extremities: no BLE edema, nontender calf, no cyanosis or clubbing, no obvious bruising. Neuro: A&Ox3, moves all extremities, no focal deficits Psych: Appropriate mood and behavior Internal Med - H&P Results - Labs CBC & Chem 7: 03/27/17 17:30 03/27/17 17:30 <Deven Jarrell - Last Filed: 03/28/17 06:17> Date of Encounter: 03/28/17 Internal Medicine - H&P: HPI History of present illness: Ms. Sandoval is a 51 year old female All Systems PM: A 10-system review of systems was performed and is negative for pertinent findings except as documented above in the HPI. - Constitutional Vitals: Temp Pulse Resp BP Pulse Ox 98.0 F 85 18 99/65 96 03/28/17 04:22 03/28/17 04:22 03/28/17 04:22 03/28/17 04:22 03/28/17 04:22 Internal Med - H&P Results - Labs CBC & Chem 7: 03/27/17 17:30 03/27/17 17:30 - Attending Attestation I personally interviewed and examined this patient and my medical decision- making was reviewed with the Resident Physician. I agree with the documented findings, disposition and treatment plan as described except to the extent set forth below. No need to totally reverse INR since she is not having a life threatening bleed. She should have received a lower dose of vitamin K than the 5mg she received, concern for delay in getting back to therapeutic range after a significant drop occurs. Should her INR drop below 2.0 she will require bridging. Deven Jarrell MD, MPH Hospitalist
[2017-03-28] MEDS: *HR* HYDROcodone/Acet 5/325 mg TABLET PO PRN ×3 (05:36→17:19)
[2017-03-28] MEDS: Ondansetron 4 MG/2 ML VIAL IVP PRN ×2 (05:37→17:20)
[2017-03-28] MEDS: clonazePAM 1 MG TABLET PO SCH ×3 (09:09→19:53)
[2017-03-28] MEDS: BuPROPion XL (24 HR) 150 MG TABLET PO SCH (09:09)
[2017-03-28] MEDS: Magnesium Oxide 400 MG TABLET PO SCH (09:09)
--- NOTE | 2017-03-28 09:56 | Internal Med Progress Note ---
Date of Encounter: 03/28/17 Time of Encounter: 09:54 - Assessment and plan (1) Hematuria Current Visit: Yes Status: Acute Qualifiers: Hematuria type: unspecified type Qualified Code(s): R31.9 - Hematuria, unspecified (2) Coagulopathy Current Visit: Yes Status: Chronic (3) Antiphospholipid antibody syndrome Current Visit: Yes Status: Chronic (4) Protein C deficiency Current Visit: Yes Status: Chronic (5) Protein S deficiency Current Visit: Yes Status: Chronic (6) Lupus (systemic lupus erythematosus) Current Visit: Yes Status: Chronic Qualifiers: Systemic lupus erythematosus type: unspecified Systemic lupus erythematosus organ involvement: unspecified Qualified Code(s): M32.9 - Systemic lupus erythematosus, unspecified - Subjective Interval history: Patient is 51 years old with past medical history significant for protein C and S deficiency. he is admitted for hematuria secondary to supratherapeutic INR of 8.8. Vitamin K 5 mg given in ER and morning INR is 7.8. #1 hematuria secondary to supratherapeutic INR. Hematuria has stopped. If hematuria continues continue IV fluids, Andrews catheter, and give 4 units FFP. Follow CBC daily #2 pancytopenia with anemia and her leukopenia question etiology. Recently given antibiotics for UTI. Check iron and B12 folic acid Hemoccult. - Constitutional Vitals: Temp Pulse Resp BP Pulse Ox 98.0 F 88 18 121/80 95 03/28/17 07:06 03/28/17 07:06 03/28/17 07:06 03/28/17 07:06 03/28/17 07:06 General appearance: Present: A&O X 3, no acute distress, answers questions appropriately - Head Head exam: Present: atraumatic, normocephalic - Eye Eye exam: Present: PERRL, conjuntiva pink, sclera anicteric Pupils: Present: PERRL - Neck Neck exam general surgery: Present: supple, trachea midline. Absent: lymphadenopathy - Respiratory Respiratory exam: Present: CTAB. Absent: accessory muscle use, rales, rhonchi, wheezes - Cardiovascular Cardiovascular exam: Present: RRR, +S1, +S2. Absent: diastolic murmur, gallop, rubs, systolic murmur - GI/Abdominal GI/Abdominal exam: Present: normal bowel sounds, soft, no peritoneal signs. Absent: distended, tenderness - Extremities Exam Extremities exam: Present: warm, radial pulses palpable and symmetrical. Absent : calf tenderness, cyanotic, pedal edema - Neurological Exam Neurological exam: Present: CN II-XII intact, oriented X3, no focal deficits. Absent: pronater drift, facial droop, speech deficit - Skin Skin exam: Present: dry, intact Internal Medicine: Result - Labs CBC & Chem 7: 03/27/17 17:30 03/27/17 17:30 - ABG Interpretation ABG results: PT/INR, D-dimer PT 93.6 Seconds (9.4-12.1) H* D 03/27/17 17:30 Consult Discharge Plan - Plan Referrals: Ariel Cotto DO [Primary Care Provider] -
[2017-03-28 10:43] LABS: INR 7.8; Prothrombin Time 87.3 Seconds (9.4-12.1)
[2017-03-28] MEDS: 0.9 % Sodium Chloride 1,000 ML IVC SCH (12:17)
[2017-03-28] MEDS: (Lubiprostone [Amitiza] 24 MCG) PO SCH ×2 (12:17→21:15)
[2017-03-28] MEDS: FOLBEE PO SCH (17:19)
[2017-03-28] MEDS ORDERED: Warfarin perPT PO PRN (18:00)
[2017-03-28] MEDS ORDERED: 0.9 % Sodium Chloride 250 ML ONE ×2 (18:04→22:17)
[2017-03-28] MEDS: rOPINIRole 1 MG TABLET PO SCH (19:54)
[2017-03-28] MEDS: Acetaminophen/Butalbital/CaffeineTABLET PO PRN (21:13)
[2017-03-29] MEDS ORDERED: 0.9 % Sodium Chloride 250 ML ONE ×2 (02:09→09:43)
[2017-03-29 04:37] LABS: Red Cell Distribution Width 13.7 % (11.5-14.5)
[2017-03-29 04:39] LABS: Basophils % 0.6 %; Eosinophils # 0.1 K/mcL (0.0-0.6); Eosinophils % 7.5 %; Hematocrit 29.5 % (35.3-44.9); Hemoglobin 9.3 g/dL (11.5-15.4); Immature Granulocytes % 0.6 % (0-4); Lymphocytes # 0.8 K/mcL (0.6-4.6); Lymphocytes % 43.9 %; Mean Corpuscular HGB Conc 31.5 g/dL (31.6-35.5); Mean Corpuscular Hemoglobin 31.7 pg (28.0-33.3); Mean Corpuscular Volume 100.7 fL (83.0-100.0); Mean Platelet Volume 9.4 fL (9.4-12.4); Monocytes # 0.2 K/mcL (0.0-1.3); Monocytes % 12.7 %; Neutrophils # 0.6 K/mcL (1.6-8.9); Platelet Count 155 K/mcL (140-400); Red Blood Count 2.93 M/mcL (3.82-4.97); Segmented Neutrophils % 34.7 %
[2017-03-29 04:41] LABS: INR 1.7; Prothrombin Time 18.7 Seconds (9.4-12.1)
[2017-03-29 04:48] LABS: BUN/Creatinine Ratio 10 (6-26); Blood Urea Nitrogen 10 mg/dL (7-20); Calcium 8.5 mg/dL (8.6-10.8); Carbon Dioxide 26 mEq/L (19-29); Chloride 106 mEq/L (98-109); Glucose 82 mg/dL (70-99); Osmolality,Calculated 286 (280-300); Sodium 139 mEq/L (136-145); eGFR For African Americans > 60 (> 60); eGFR For Non-African Americans > 60 (> 60)
[2017-03-29 05:17] LABS: Vitamin B12 762 pg/mL (213-816)
[2017-03-29 06:26] LABS: Platelet Estimate Normal (Normal)
[2017-03-29 06:27] LABS: Large Platelets Present (Not Present)
[2017-03-29 06:30] LABS: Thyroid Stimulating Hormone 0.832 mcIU/mL (0.350-4.840)
[2017-03-29 08:48] LABS: Folate > 40.0 ng/mL (7.0-31.4)
[2017-03-29] MEDS ORDERED: *HR* Heparin 5,000 UNIT/ML VIAL IVP PRN ×2 (09:03)
[2017-03-29] MEDS ORDERED: *HR* Heparin 5,000 UNIT/ML VIAL IVP ONE (09:03)
[2017-03-29] MEDS: Magnesium Oxide 400 MG TABLET PO SCH (10:06)
[2017-03-29] MEDS: *HR* HYDROcodone/Acet 5/325 mg TABLET PO PRN ×2 (10:06→20:25)
[2017-03-29] MEDS: BuPROPion XL (24 HR) 150 MG TABLET PO SCH (10:07)
[2017-03-29] MEDS: clonazePAM 1 MG TABLET PO SCH ×3 (10:07→20:26)
[2017-03-29] MEDS: (Lubiprostone [Amitiza] 24 MCG) PO SCH ×2 (10:08→20:28)
[2017-03-29] MEDS: FOLBEE PO SCH ×2 (10:08→20:28)
--- NOTE | 2017-03-29 12:24 | Internal Med Progress Note ---
Date of Encounter: 03/29/17 Time of Encounter: 12:19 - Assessment and plan (1) Hematuria Current Visit: Yes Status: Acute Qualifiers: Hematuria type: unspecified type Qualified Code(s): R31.9 - Hematuria, unspecified (2) Coagulopathy Current Visit: Yes Status: Chronic (3) Antiphospholipid antibody syndrome Current Visit: Yes Status: Chronic (4) Protein C deficiency Current Visit: Yes Status: Chronic (5) Protein S deficiency Current Visit: Yes Status: Chronic (6) Lupus (systemic lupus erythematosus) Current Visit: Yes Status: Chronic Qualifiers: Systemic lupus erythematosus type: unspecified Systemic lupus erythematosus organ involvement: unspecified Qualified Code(s): M32.9 - Systemic lupus erythematosus, unspecified - Subjective Interval history: Patient is 51 years old with past medical history significant for protein C and S deficiency. she is admitted for hematuria secondary to supratherapeutic INR of 8.8. Vitamin K 5 mg given in ER and morning INR is 7.8. #1 hematuria secondary to supratherapeutic INR. Hematuria has stopped. #2 pancytopenia with anemia and her leukopenia question etiology. Recently given antibiotics for UTI. Check iron and B12 folic acid Hemoccult. #3 coagulopathy due to Coumadin. She was given vitamin K 5 mg and 3 unit FFP INR is 1.7 this morning. Considering history of protein C S deficiency and antiphospholipid antibody syndrome as well as start her on IV heparin on low- dose and resume Coumadin and wait to discharge her until her INR is above 2.5. Apparently she is taking Coumadin 6 mg daily at home and would recommend to reduce the dose to 5 mg daily. No hematuria or any other obvious bleeding. - Constitutional Vitals: Temp Pulse Resp BP Pulse Ox 98.1 F 83 16 140/81 97 03/29/17 10:20 03/29/17 10:20 03/29/17 10:20 03/29/17 10:20 03/29/17 10:20 General appearance: Present: A&O X 3, no acute distress, answers questions appropriately - Head Head exam: Present: atraumatic, normocephalic - Eye Eye exam: Present: PERRL, conjuntiva pink, sclera anicteric Pupils: Present: PERRL - Neck Neck exam general surgery: Present: supple, trachea midline. Absent: lymphadenopathy - Respiratory Respiratory exam: Present: CTAB. Absent: accessory muscle use, rales, rhonchi, wheezes - Cardiovascular Cardiovascular exam: Present: RRR, +S1, +S2. Absent: diastolic murmur, gallop, rubs, systolic murmur - GI/Abdominal GI/Abdominal exam: Present: normal bowel sounds, soft, no peritoneal signs. Absent: distended, tenderness - Extremities Exam Extremities exam: Present: warm, radial pulses palpable and symmetrical. Absent : calf tenderness, cyanotic, pedal edema - Neurological Exam Neurological exam: Present: CN II-XII intact, oriented X3, no focal deficits. Absent: pronater drift, facial droop, speech deficit - Skin Skin exam: Present: dry, intact Internal Medicine: Result - Labs CBC & Chem 7: 03/29/17 04:26 03/29/17 04:26 Labs: Short CBC 03/29/17 Range/Units 04:26 WBC 1.7 L (4.3-11.1) K/mcL Hgb 9.3 L D (11.5-15.4) g/dL Hct 29.5 L (35.3-44.9) % Plt Count 155 (140-400) K/mcL Neutrophils # 0.6 L (1.6-8.9) K/mcL BMP 03/29/17 04:26 Sodium 139 Potassium 4.0 Chloride 106 Carbon Dioxide 26 BUN 10 Creatinine 0.98 Glucose 82 Calcium 8.5 L - ABG Interpretation ABG results: PT/INR, D-dimer PT 18.7 Seconds (9.4-12.1) H D 03/29/17 04:26 Consult Discharge Plan - Plan Referrals: Ariel Cotto DO [Primary Care Provider] -
[2017-03-29] MEDS: methylPREDNISolone 125 MG/2 ML VIAL IVP SCH (12:41)
[2017-03-29] MEDS: Heparin 25,000 UNIT/500 ML D5W 25,000 UNIT/500 ML MLS IVC SCH (12:47)
[2017-03-29] MEDS: Acetaminophen/Butalbital/CaffeineTABLET PO PRN (14:52)
[2017-03-29] MEDS: Ondansetron 4 MG/2 ML VIAL IVP PRN (14:52)
[2017-03-29] MEDS: 0.9 % Sodium Chloride 1,000 ML IVC SCH ×4 (15:27→22:13)
[2017-03-29] MEDS ORDERED: *HR* Warfarin 5 MG TABLET PO ONE (18:00)
[2017-03-29] MEDS: rOPINIRole 1 MG TABLET PO SCH (20:27)
[2017-03-29 20:46] LABS: Activated Partial Thrombo Time > 360.0 Seconds (26.0-36.0)
[2017-03-29 20:47] LABS: Heparin anti-factor XA UFH 0.69 IU/mL (0.30-0.70)
[2017-03-30] MEDS: *HR* HYDROcodone/Acet 5/325 mg TABLET PO PRN ×3 (01:03→18:07)
[2017-03-30 05:08] LABS: Hematocrit 30.3 % (35.3-44.9); Hemoglobin 9.6 g/dL (11.5-15.4); Lymphocytes # 0.5 K/mcL (0.6-4.6); Lymphocytes % 17.8 %; Mean Corpuscular HGB Conc 31.7 g/dL (31.6-35.5); Mean Corpuscular Hemoglobin 31.5 pg (28.0-33.3); Mean Corpuscular Volume 99.3 fL (83.0-100.0); Mean Platelet Volume 9.6 fL (9.4-12.4); Monocytes # 0.2 K/mcL (0.0-1.3); Monocytes % 8.3 %; Platelet Count 153 K/mcL (140-400); Red Blood Count 3.05 M/mcL (3.82-4.97); Red Cell Distribution Width 13.7 % (11.5-14.5); Segmented Neutrophils % 73.9 %
[2017-03-30 05:09] LABS: INR 1.5; Prothrombin Time 16.6 Seconds (9.4-12.1)
[2017-03-30 05:28] LABS: Neutrophils # 1.9 K/mcL (1.6-8.9)
[2017-03-30 05:40] LABS: Alanine Aminotransferase 29 Units/L (0-55); Albumin 3.3 g/dL (3.5-5.0); Albumin/Globulin Ratio 0.8 (1.1-2.2); Alkaline Phosphatase 112 Units/L (38-126); Aspartate Amino Transferase 45 Units/L (5-34); BUN/Creatinine Ratio 12 (6-26); Bilirubin,Total 0.3 mg/dL (0.2-1.2); Blood Urea Nitrogen 11 mg/dL (7-20); Calcium 8.3 mg/dL (8.6-10.8); Carbon Dioxide 21 mEq/L (19-29); Chloride 109 mEq/L (98-109); Globulin 4.1 g/dL (2.4-3.5); Glucose 112 mg/dL (70-99); Osmolality,Calculated 288 (280-300); Potassium 3.7 mEq/L (3.5-4.5); Sodium 139 mEq/L (136-145); Total Protein 7.4 g/dL (6.0-8.3); eGFR For African Americans > 60 (> 60); eGFR For Non-African Americans > 60 (> 60)
[2017-03-30 05:42] LABS: Activated Partial Thrombo Time > 360.0 Seconds (26.0-36.0)
[2017-03-30] MEDS: 0.9 % Sodium Chloride 1,000 ML IVC SCH (05:56)
[2017-03-30 05:57] LABS: Heparin anti-factor XA UFH 1.56 IU/mL (0.30-0.70)
[2017-03-30] MEDS: BuPROPion XL (24 HR) 150 MG TABLET PO SCH (09:40)
[2017-03-30] MEDS: clonazePAM 1 MG TABLET PO SCH ×2 (09:40→16:39)
[2017-03-30] MEDS: Magnesium Oxide 400 MG TABLET PO SCH (09:40)
[2017-03-30] MEDS: methylPREDNISolone 125 MG/2 ML VIAL IVP SCH (09:40)
[2017-03-30] MEDS: (Lubiprostone [Amitiza] 24 MCG) PO SCH (09:41)
[2017-03-30] MEDS ORDERED: *HR* Heparin 5,000 UNIT/ML VIAL IVP PRN ×2 (12:09)
[2017-03-30 14:50] VITALS: BP 135/87
[2017-03-30] MEDS: Heparin 25,000 UNIT/500 ML D5W 25,000 UNIT/500 ML MLS IVC SCH (15:49)
[2017-03-30] MEDS: Acetaminophen/Butalbital/CaffeineTABLET PO PRN (16:40)
--- NOTE | 2017-03-30 16:59 | Internal Med Progress Note ---
Date of Encounter: 03/30/17 Time of Encounter: 16:59 - Assessment and plan (1) Hematuria Current Visit: Yes Status: Acute Qualifiers: Hematuria type: unspecified type Qualified Code(s): R31.9 - Hematuria, unspecified (2) Coagulopathy Current Visit: Yes Status: Chronic (3) Antiphospholipid antibody syndrome Current Visit: Yes Status: Chronic (4) Protein C deficiency Current Visit: Yes Status: Chronic (5) Protein S deficiency Current Visit: Yes Status: Chronic (6) Lupus (systemic lupus erythematosus) Current Visit: Yes Status: Chronic Qualifiers: Systemic lupus erythematosus type: unspecified Systemic lupus erythematosus organ involvement: unspecified Qualified Code(s): M32.9 - Systemic lupus erythematosus, unspecified - Subjective Interval history: Patient is 51 years old with past medical history significant for protein C and S deficiency. she is admitted for hematuria secondary to supratherapeutic INR of 8.8. Vitamin K 5 mg given in ER and morning INR is 7.8. #1 hematuria secondary to supratherapeutic INR. Hematuria has stopped. #2 pancytopenia with anemia and her leukopenia question etiology. Recently given antibiotics for UTI. Check iron and B12 folic acid Hemoccult. #3 coagulopathy due to Coumadin. She was given vitamin K 5 mg and 3 unit FFP INR is 1.5 this morning. Considering history of protein C S deficiency and antiphospholipid antibody syndrome as well as start her on IV heparin on low- dose and resume Coumadin and wait to discharge her until her INR is above 2.5. Apparently she is taking Coumadin 6 mg daily at home and would recommend to reduce the dose to 5 mg daily. No hematuria or any other obvious bleeding. - Constitutional Vitals: Temp Pulse Resp BP Pulse Ox 98.3 F 90 16 135/87 97 03/30/17 14:42 03/30/17 14:42 03/30/17 14:42 03/30/17 14:42 03/30/17 14:42 General appearance: Present: A&O X 3, no acute distress, answers questions appropriately - Head Head exam: Present: atraumatic, normocephalic - Eye Eye exam: Present: PERRL, conjuntiva pink, sclera anicteric Pupils: Present: PERRL - Neck Neck exam general surgery: Present: supple, trachea midline. Absent: lymphadenopathy - Respiratory Respiratory exam: Present: CTAB. Absent: accessory muscle use, rales, rhonchi, wheezes - Cardiovascular Cardiovascular exam: Present: RRR, +S1, +S2. Absent: diastolic murmur, gallop, rubs, systolic murmur - GI/Abdominal GI/Abdominal exam: Present: normal bowel sounds, soft, no peritoneal signs. Absent: distended, tenderness - Extremities Exam Extremities exam: Present: warm, radial pulses palpable and symmetrical. Absent : calf tenderness, cyanotic, pedal edema - Neurological Exam Neurological exam: Present: CN II-XII intact, oriented X3, no focal deficits. Absent: pronater drift, facial droop, speech deficit - Skin Skin exam: Present: dry, intact Internal Medicine: Result - Labs CBC & Chem 7: 03/30/17 04:44 03/30/17 04:44 Labs: Short CBC 03/30/17 Range/Units 04:44 WBC 2.6 L D (4.3-11.1) K/mcL Hgb 9.6 L (11.5-15.4) g/dL Hct 30.3 L (35.3-44.9) % Plt Count 153 (140-400) K/mcL Neutrophils # 1.9 (1.6-8.9) K/mcL BMP 03/30/17 04:44 Sodium 139 Potassium 3.7 Chloride 109 Carbon Dioxide 21 BUN 11 Creatinine 0.92 Glucose 112 H Calcium 8.3 L Liver Function 03/30/17 Range/Units 04:44 Total Bilirubin 0.3 (0.2-1.2) mg/dL AST 45 H (5-34) Units/L ALT 29 (0-55) Units/L Alkaline Phosphatase 112 (38-126) Units/L Albumin 3.3 L (3.5-5.0) g/dL - ABG Interpretation ABG results: PT/INR, D-dimer PT 16.6 Seconds (9.4-12.1) H 03/30/17 04:44 Consult Discharge Plan - Plan Referrals: Ariel Cotto DO [Primary Care Provider] -
[2017-03-30] MEDS ORDERED: *HR* Warfarin 5 MG TABLET PO ONE (18:00)
== END 2017-03-30 19:21 | disposition left against medical advice (07) | DRG 813 ==
LOC: 3ANU 15:59 → EMEROO 15:59 → 3ANU 23:31
PROVIDERS: ADMIT Family Medicine; ATTEND Internal Medicine

== ENCOUNTER 2017-10-28 18:15 | Observation (INO) ==
[2017-10-28] MEDS ORDERED: methylPREDNISolone 125 MG/2 ML VIAL IVP ONE (19:48)
[2017-10-28] MEDS ORDERED: Ipratropium/Albuterol Neb 3 ML IH ONE (19:48)
--- NOTE | 2017-10-28 20:16 | Emergency Department Note ---
Disposition Clinical Impression: Intractable pain, Constipation due to pain medication, Fibromyalgia, Inability to swallow Abdominal pain Qualifiers: Abdominal location: generalized Qualified Code(s): R10.84 - Generalized abdominal pain Neutropenia Qualifiers: Neutropenia type: other Qualified Code(s): D70.8 - Other neutropenia Disposition: Admitted As Inpatient Condition: Fair Referrals: Ariel Cotto DO [Primary Care Provider] - Forms: ED Satisfaction Letter, Work/School Release General Adult HPI - General Chief complaint: ED General Medical Stated complaint: "muscle control, cough, UTI" Time Seen by Provider: 10/28/17 19:29 Source: patient Limitations: no limitations Nursing Notes Reviewed: Yes Vital Signs Reviewed: Yes - History of Present Illness HPI Narrative: 52 F c PMHx of Lupus, Schogren's, CHF, DVT, fibromyalgia, kidney stones, migraine, pulmonary embolus, thyroid disease, bipolar disorder, and asthma reports to the ED with multiple complaints. Patient reports the following complaints: Cough productive of yellow sputum, blood in urine, difficulty urinating, constipation x 3 weeks, pain form ulcer in her esophagus, difficulty swallowing, tinnitus L ear, Hearing loss R ear, mayalgias, malaise, Abdominal pain, Lymphadenopathy in neck and armpits, and SOB. Patient reports she "just can't deal with all of this at home anymore." She reports "she has already been on a round of abx for the stuff she's bringing up form her lungs and for her ears." She reports she is supposed to get breathing treatments daily, but hasn' t been able to because madicaid hasn't replaced her nebulizer machine yet. She reports inability to have a bowel movement for 3 weeks. She reports she used 5 ennemas yesterday and still has not been able to have a bowel movement. She recently established care with Dr. Wilde for Rheumatology. On review of eCW patient has 15 no show, rescheduled, or canceled appointments since March. She only showed to / appointments between [id number]. Review of OARS shows patient is on substantial amounts of opioids and picked up new Rx of butorphanol today. Pain Scale: 8 - Related Data Home Medications Medication Instructions Recorded Confirmed BuPROPion XL (24 HR) [Wellbutrin 150 mg PO DAILY 12/20/16 10/14/17 Xl] Cholecalciferol (D-3) [Vitamin D] 5,000 unit PO DAILY 12/20/16 10/14/17 Cyclobenzaprine [Flexeril] 10 mg PO QAM 12/20/16 10/14/17 Cyclosporine [Restasis] 1 drop OP BID 12/20/16 10/14/17 Duloxetine HCl [Cymbalta] 60 mg PO DAILY 12/20/16 10/14/17 Hydroxychloroquine [Plaquenuil] 200 mg PO BID 12/20/16 10/14/17 Levothyroxine [Synthroid] 75 mcg PO DAILY@0630 12/20/16 10/14/17 Magnesium 250 mg PO DAILY 12/20/16 10/14/17 Melatonin/Pyridoxine HCl (B6) 10 mg PO HS 12/20/16 10/14/17 [Melatonin 5 mg Tablet] Potassium Chloride [K-Tab ER] 10 meq PO BID 12/20/16 10/14/17 Promethazine [Phenergan] 25 mg PO Q6HR PRN 12/20/16 10/14/17 Quetiapine Fumarate [Seroquel] 100 mg PO HS 12/20/16 10/14/17 Valacyclovir HCl [Valtrex] 1,000 mg PO DAILY 12/20/16 10/14/17 clonazePAM [Klonopin] 2 mg PO 0900,1700 12/20/16 10/14/17 clonazePAM [Klonopin] 4 mg PO HS 12/20/16 10/14/17 Acetaminophen/Butalbital/Caffe 1 each PO Q6H PRN 01/05/17 10/14/17 [Fioricet] Butorphanol Tartrate 1 spray NS Q4-6H PRN 01/05/17 10/14/17 Cyanocobalamin/FA/Pyridoxine 1 tab PO DAILY 01/20/17 10/14/17 [[place] Tablet] Albuterol Sulfate [Albuterol 2 puff IH Q4-6H PRN 03/02/17 10/14/17 Inhaler] rOPINIRole [Requip] 1 mg PO HS 03/02/17 10/14/17 Cyclobenzaprine [Flexeril] 20 mg PO HS 03/27/17 10/14/17 Warfarin Sodium [Coumadin] 6 mg PO TUWE 03/27/17 10/14/17 Warfarin Sodium [Coumadin] 9 mg PO TH 03/27/17 10/14/17 Previous Rx's Medication Instructions Recorded HYDROcodone/Acet 7.5/325 mg [[place] 1 tab PO Q6H PRN #20 tablet 03/06/17 7.5-325 mg] Ondansetron HCl [Zofran] 4 mg PO Q6HR PRN #21 tablet 03/19/17 Apixaban [Eliquis] 5 mg PO BID #60 tablet 10/14/17 Allergies Allergy/AdvReac Type Severity Reaction Status Date / Time Amoxicillin Allergy See Verified 10/14/17 11:41 Comments clarithromycin [From Biaxin] Allergy See Verified 10/14/17 11:41 Comments clindamycin Allergy Hives Verified 04/21/17 14:40 Enoxaparin [From Lovenox] Allergy See Verified 03/29/17 09:02 Comments hydrochlorothiazide Allergy See Verified 10/14/17 11:41 Comments levofloxacin [From Levaquin] Allergy Difficulty Verified 03/27/17 16:09 Breathing nafcillin Allergy Seizure Verified 03/27/17 16:09 nitrofurantoin Allergy Blister Verified 03/27/17 16:09 [From Macrobid] oxcarbazepine Allergy Anaphylaxis Verified 03/27/17 16:09 [From Trileptal] Penicillins Allergy Seizure Verified 03/27/17 16:09 Sulfa (Sulfonamide Allergy See Verified 10/14/17 11:41 Antibiotics) Comments sumatriptan [From Imitrex] Allergy See Verified 10/14/17 11:41 Comments Terazosin Allergy See Verified 10/14/17 11:41 Comments vancomycin Allergy Seizure Verified 03/27/17 16:09 topiramate [From Topamax] AdvReac Confusion Verified 03/27/17 16:09 Review of Systems: As Per HPI Past Medical History - Past Medical History Medical history: Reports: CHF, DVT, fibromyalgia, kidney stones, migraine, pulmonary embolus, thyroid disease Surgical history: Reports: hysterectomy, ureteral stent, IVC filter Psychiatric history: Reports: bipolar [employer] history: Reports: no [employer] history - Social History Smoking Status: Current every day smoker Smokeless Tobacco Status: No (Vape) Alcohol use: Reports: none Drug use: Reports: none Physical Exam - General Limitations: no limitations General appearance: alert - Head Head exam: atraumatic, normocephalic - Eye Eye exam: Present: PERRL, EOMI - ENT ENT exam: normal oropharynx, mucous membranes moist - Neck Neck exam: Present: full ROM, trachea midline. Absent: lymphadenopathy - Chest Chest inspection: Present: symmetric chest wall rise. Absent: tenderness - Respiratory Respiratory exam: Present: normal lung sounds bilaterally. Absent: respiratory distress - Cardiovascular Cardiovascular exam: Present: normal rhythm, tachycardia - Abdominal Exam Abdominal exam: Present: soft, tenderness, normal bowel sounds. Absent: distention, rigidity Abdominal tenderness: Present: diffuse - Extremities Exam Extremities exam: Present: full ROM. Absent: pedal edema - Neurological Exam Neurological exam: Present: alert, oriented X3 - Psychiatric Psychiatric exam: Present: normal affect, normal mood - Skin Skin exam: Present: warm, dry Course Course Narrative: Will work up with CBC, CMP, ESR, UA, CXR, CT ABD/PELVIS. Will give breathing treatment, steroids. - Reevaluation(s) Reevaluation #1: Patient very upset that he pain has not been dealt with. Patient complaining her ear and esophagus complaints have not been addressed. She states her opioids at home are not cutting it and that everyone has the right to be free of pain. Patient reports she was given diltiazem to relax throat muscles because she has been having difficulty swallowing. Reevaluation #2: NO GI consult available after hours. Patient clinically dry on exam and unable to swallow. Will hydrate and admit to hospitalist for GI evaluation. - Consultations Consultation #1: Discussed case with Dr. Thompson admitting hospitalist who agrees to accept the patient for admission. Vital Signs Temperature 98.1 F 10/28/17 18:18 Pulse Rate 107 10/28/17 18:18 Respiratory Rate 14 10/28/17 18:18 Blood Pressure 122/62 10/28/17 18:18 O2 Sat by Pulse Oximetry 96 10/28/17 18:18 Temperature 98.1 F 10/28/17 18:18 Pulse Rate 100 10/28/17 22:04 Respiratory Rate 18 10/28/17 22:04 Blood Pressure 135/97 10/28/17 22:04 O2 Sat by Pulse Oximetry 95 10/28/17 22:04 Oxygen Delivery Oxygen Delivery Room Air Medical Decision Making - [facility] Narrative Medical decision making narrative: Patient has a number of chronic medical complaints likely secondary to her Lupus , Scleroderma, and fibromyalgia. - Lab Data Result diagrams: 10/28/17 21:03 10/28/17 21:03 Lab Results 10/28/17 10/28/17 10/28/17 Range/Units 19:00 21:03 21:03 WBC 4.2 L (4.3-11.1) K/mcL RBC 3.53 L (3.82-4.97) M/mcL Hgb 11.7 (11.5-15.4) g/dL Hct 34.8 L (35.3-44.9) % MCV 98.6 (83.0-100.0) fL MCH 33.1 (28.0-33.3) pg MCHC 33.6 (31.6-35.5) g/dL RDW 17.1 H (11.5-14.5) % Plt Count 146 (140-400) K/mcL MPV 9.3 L (9.4-12.4) fL Immature Gran % 0.2 (0-4) % Seg Neutrophils % 66.5 % Lymphocytes % 24.0 % Monocytes % 6.2 % Eosinophils % 2.9 % Basophils % 0.2 % Neutrophils # 2.8 (1.6-8.9) K/mcL Lymphocytes # 1.0 (0.6-4.6) K/mcL Monocytes # 0.3 (0.0-1.3) K/mcL Eosinophils # 0.1 (0.0-0.6) K/mcL Basophils # 0.0 (0.0-0.2) K/mcL ESR 28 H (0-15) mm/hr Sodium (136-145) mEq/L Potassium (3.5-5.1) mEq/L Chloride (98-107) mEq/L Carbon Dioxide (23-29) mEq/L BUN (6-20) mg/dL Creatinine (0.60-1.20) mg/dL Est GFR ( Amer) (> 60) Est GFR (Non-Af Amer) (> 60) BUN/Creatinine Ratio (6-26) Glucose (70-105) mg/dL Calculated Osmolality (280-300) Calcium (8.6-10.3) mg/dL Total Bilirubin (0.3-1.0) mg/dL AST (13-39) Units/L ALT (7-52) Units/L Alkaline Phosphatase (34-104) Units/L Serum Total Protein (6.4-8.9) g/dL Albumin (3.5-5.7) g/dL Globulin (2.4-3.5) g/dL Albumin/Globulin Ratio (1.1-2.2) Urine Color Dark Yellow (Yellow) Urine Clarity Cloudy A (Clear) Urine pH 6.0 (5.0-8.0) pH Units Ur Specific [place] 1.019 (1.010-1.025) Urine Protein Trace (Neg-Trace) mg/dL Urine Glucose (UA) Normal (Normal) mg/dL Urine Ketones Negative (Negative) mg/dL Urine Blood Large H (Negative) Urine Nitrite Negative (Negative) Urine Bilirubin Negative (Negative) Urine Urobilinogen Normal (Normal) mg/dL Ur Leukocyte Esterase Moderate H (Negative) Urine Microscopic RBC TNTC H (0-3) per hpf Urine Microscopic WBC 15-30 H (0-3) per hpf Ur Squamous Epith Cells Many H (None-Few) per lpf Urine Bacteria None Seen (None-Few) per hpf Hyaline Casts None Seen (None-Few) per lpf Ur Culture Indicated? NO. A (NO) 10/28/17 Range/Units 21:03 WBC (4.3-11.1) K/mcL RBC (3.82-4.97) M/mcL Hgb (11.5-15.4) g/dL Hct (35.3-44.9) % MCV (83.0-100.0) fL MCH (28.0-33.3) pg MCHC (31.6-35.5) g/dL RDW (11.5-14.5) % Plt Count (140-400) K/mcL MPV (9.4-12.4) fL Immature Gran % (0-4) % Seg Neutrophils % % Lymphocytes % % Monocytes % % Eosinophils % % Basophils % % Neutrophils # (1.6-8.9) K/mcL Lymphocytes # (0.6-4.6) K/mcL Monocytes # (0.0-1.3) K/mcL Eosinophils # (0.0-0.6) K/mcL Basophils # (0.0-0.2) K/mcL ESR (0-15) mm/hr Sodium 137 (136-145) mEq/L Potassium 3.3 L (3.5-5.1) mEq/L Chloride 106 (98-107) mEq/L Carbon Dioxide 24 (23-29) mEq/L BUN 16 (6-20) mg/dL Creatinine 1.10 (0.60-1.20) mg/dL Est GFR ( Amer) > 60 (> 60) Est GFR (Non-Af Amer) 52 L (> 60) BUN/Creatinine Ratio 15 (6-26) Glucose 100 (70-105) mg/dL Calculated Osmolality 285 (280-300) Calcium 8.6 (8.6-10.3) mg/dL Total Bilirubin 0.3 (0.3-1.0) mg/dL AST 31 (13-39) Units/L ALT 29 (7-52) Units/L Alkaline Phosphatase 130 H (34-104) Units/L Serum Total Protein 7.1 (6.4-8.9) g/dL Albumin 3.4 L (3.5-5.7) g/dL Globulin 3.7 H (2.4-3.5) g/dL Albumin/Globulin Ratio 0.9 L (1.1-2.2) Urine Color (Yellow) Urine Clarity (Clear) Urine pH (5.0-8.0) pH Units Ur Specific [place] (1.010-1.025) Urine Protein (Neg-Trace) mg/dL Urine Glucose (UA) (Normal) mg/dL Urine Ketones (Negative) mg/dL Urine Blood (Negative) Urine Nitrite (Negative) Urine Bilirubin (Negative) Urine Urobilinogen (Normal) mg/dL Ur Leukocyte Esterase (Negative) Urine Microscopic RBC (0-3) per hpf Urine Microscopic WBC (0-3) per hpf Ur Squamous Epith Cells (None-Few) per lpf Urine Bacteria (None-Few) per hpf Hyaline Casts (None-Few) per lpf Ur Culture Indicated? (NO)
[2017-10-28 20:34] LABS: Bilirubin,Urine Negative (Negative); Blood,Urine Large (Negative); Clarity,Urine Cloudy (Clear); Color,Urine Dark Yellow (Yellow); Glucose,Urine (UA) Normal (Normal); Ketones,Urine Negative (Negative); Leukocyte Esterase,Urine Moderate (Negative); Nitrite,Urine Negative (Negative); Protein,Urine Trace mg/dL (Neg-Trace); Specific Gravity,Urine 1.019 (1.010-1.025); Urobilinogen,Urine Normal (Normal)
[2017-10-28 20:36] LABS: Bacteria,Urine None Seen per hpf (None-Few); Hyaline Casts,Urine None Seen per lpf (None-Few); RBC,Urine TNTC per hpf (0-3); Squamous Epithelial Cell,Urine Many per lpf (None-Few); WBC,Urine 15-30 per hpf (0-3)
[2017-10-28 21:16] LABS: Basophils % 0.2 %; Eosinophils # 0.1 K/mcL (0.0-0.6); Eosinophils % 2.9 %; Hematocrit 34.8 % (35.3-44.9); Hemoglobin 11.7 g/dL (11.5-15.4); Immature Granulocytes % 0.2 % (0-4); Mean Corpuscular HGB Conc 33.6 g/dL (31.6-35.5); Mean Corpuscular Hemoglobin 33.1 pg (28.0-33.3); Mean Corpuscular Volume 98.6 fL (83.0-100.0); Mean Platelet Volume 9.3 fL (9.4-12.4); Monocytes # 0.3 K/mcL (0.0-1.3); Monocytes % 6.2 %; Neutrophils # 2.8 K/mcL (1.6-8.9); Platelet Count 146 K/mcL (140-400); Red Blood Count 3.53 M/mcL (3.82-4.97); Red Cell Distribution Width 17.1 % (11.5-14.5); Segmented Neutrophils % 66.5 %
[2017-10-28] MEDS ORDERED: *HR* FentaNYL (PF) 100 MCG/2 ML VIAL IVP ONE (21:37)
[2017-10-28 21:38] LABS: Alanine Aminotransferase 29 Units/L (7-52); Albumin 3.4 g/dL (3.5-5.7); Albumin/Globulin Ratio 0.9 (1.1-2.2); Alkaline Phosphatase 130 Units/L (34-104); Aspartate Amino Transferase 31 Units/L (13-39); BUN/Creatinine Ratio 15 (6-26); Bilirubin,Total 0.3 mg/dL (0.3-1.0); Blood Urea Nitrogen 16 mg/dL (6-20); Calcium 8.6 mg/dL (8.6-10.3); Carbon Dioxide 24 mEq/L (23-29); Chloride 106 mEq/L (98-107); Globulin 3.7 g/dL (2.4-3.5); Glucose 100 mg/dL (70-105); Osmolality,Calculated 285 (280-300); Potassium 3.3 mEq/L (3.5-5.1); Sodium 137 mEq/L (136-145); Total Protein 7.1 g/dL (6.4-8.9); eGFR For African Americans > 60 (> 60); eGFR For Non-African Americans 52 (> 60)
[2017-10-28] MEDS ORDERED: 0.9 % Sodium Chloride 1,000 ML IVC ONE (22:06)
--- NOTE | 2017-10-28 22:06 | Emergency Department Note ---
Disposition Clinical Impression: Intractable pain, Constipation due to pain medication, Fibromyalgia, Inability to swallow Abdominal pain Qualifiers: Abdominal location: generalized Qualified Code(s): R10.84 - Generalized abdominal pain Neutropenia Qualifiers: Neutropenia type: other Qualified Code(s): D70.8 - Other neutropenia Disposition: Admitted As Inpatient Condition: Fair Referrals: Ariel Cotto DO [Primary Care Provider] - Forms: ED Satisfaction Letter, Work/School Release Time of Disposition: 22:17 General Adult HPI - General Chief complaint: ED General Medical Stated complaint: "muscle control, cough, UTI" Time Seen by Provider: 10/28/17 19:29 Source: patient Limitations: no limitations - History of Present Illness Pain Scale: 8 - Related Data Home Medications Medication Instructions Recorded Confirmed BuPROPion XL (24 HR) [Wellbutrin 150 mg PO DAILY 12/20/16 10/14/17 Xl] Cholecalciferol (D-3) [Vitamin D] 5,000 unit PO DAILY 12/20/16 10/14/17 Cyclobenzaprine [Flexeril] 10 mg PO QAM 12/20/16 10/14/17 Cyclosporine [Restasis] 1 drop OP BID 12/20/16 10/14/17 Duloxetine HCl [Cymbalta] 60 mg PO DAILY 12/20/16 10/14/17 Hydroxychloroquine [Plaquenuil] 200 mg PO BID 12/20/16 10/14/17 Levothyroxine [Synthroid] 75 mcg PO DAILY@0630 12/20/16 10/14/17 Magnesium 250 mg PO DAILY 12/20/16 10/14/17 Melatonin/Pyridoxine HCl (B6) 10 mg PO HS 12/20/16 10/14/17 [Melatonin 5 mg Tablet] Potassium Chloride [K-Tab ER] 10 meq PO BID 12/20/16 10/14/17 Promethazine [Phenergan] 25 mg PO Q6HR PRN 12/20/16 10/14/17 Quetiapine Fumarate [Seroquel] 100 mg PO HS 12/20/16 10/14/17 Valacyclovir HCl [Valtrex] 1,000 mg PO DAILY 12/20/16 10/14/17 clonazePAM [Klonopin] 2 mg PO 0900,1700 12/20/16 10/14/17 clonazePAM [Klonopin] 4 mg PO HS 12/20/16 10/14/17 Acetaminophen/Butalbital/Caffe 1 each PO Q6H PRN 01/05/17 10/14/17 [Fioricet] Butorphanol Tartrate 1 spray NS Q4-6H PRN 01/05/17 10/14/17 Cyanocobalamin/FA/Pyridoxine 1 tab PO DAILY 01/20/17 10/14/17 [Folbee Tablet] Albuterol Sulfate [Albuterol 2 puff IH Q4-6H PRN 03/02/17 10/14/17 Inhaler] rOPINIRole [Requip] 1 mg PO HS 03/02/17 10/14/17 Cyclobenzaprine [Flexeril] 20 mg PO HS 03/27/17 10/14/17 Warfarin Sodium [Coumadin] 6 mg PO TUWE 03/27/17 10/14/17 Warfarin Sodium [Coumadin] 9 mg PO TH 03/27/17 10/14/17 Previous Rx's Medication Instructions Recorded HYDROcodone/Acet 7.5/325 mg [[place] 1 tab PO Q6H PRN #20 tablet 03/06/17 7.5-325 mg] Ondansetron HCl [Zofran] 4 mg PO Q6HR PRN #21 tablet 03/19/17 Apixaban [Eliquis] 5 mg PO BID #60 tablet 10/14/17 Allergies Allergy/AdvReac Type Severity Reaction Status Date / Time Amoxicillin Allergy See Verified 10/14/17 11:41 Comments clarithromycin [From Biaxin] Allergy See Verified 10/14/17 11:41 Comments clindamycin Allergy Hives Verified 04/21/17 14:40 Enoxaparin [From Lovenox] Allergy See Verified 03/29/17 09:02 Comments hydrochlorothiazide Allergy See Verified 10/14/17 11:41 Comments levofloxacin [From Levaquin] Allergy Difficulty Verified 03/27/17 16:09 Breathing nafcillin Allergy Seizure Verified 03/27/17 16:09 nitrofurantoin Allergy Blister Verified 03/27/17 16:09 [From Macrobid] oxcarbazepine Allergy Anaphylaxis Verified 03/27/17 16:09 [From Trileptal] Penicillins Allergy Seizure Verified 03/27/17 16:09 Sulfa (Sulfonamide Allergy See Verified 10/14/17 11:41 Antibiotics) Comments sumatriptan [From Imitrex] Allergy See Verified 10/14/17 11:41 Comments Terazosin Allergy See Verified 10/14/17 11:41 Comments vancomycin Allergy Seizure Verified 03/27/17 16:09 topiramate [From Topamax] AdvReac Confusion Verified 03/27/17 16:09 Past Medical History - Past Medical History Medical history: Reports: CHF, DVT, fibromyalgia, kidney stones, migraine, pulmonary embolus, thyroid disease Surgical history: Reports: hysterectomy, ureteral stent, IVC filter Psychiatric history: Reports: bipolar [employer]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 - Social History Smoking Status: Current every day smoker Smokeless Tobacco Status: No (Vape) Alcohol use: Reports: none Drug use: Reports: none Physical Exam - General Limitations: no limitations General appearance: alert Course Vital Signs Temperature 98.1 F 10/28/17 18:18 Pulse Rate 107 10/28/17 18:18 Respiratory Rate 14 10/28/17 18:18 Blood Pressure 122/62 10/28/17 18:18 O2 Sat by Pulse Oximetry 96 10/28/17 18:18 Temperature 98.1 F 10/28/17 18:18 Pulse Rate 100 10/28/17 22:04 Respiratory Rate 18 10/28/17 22:04 Blood Pressure 135/97 10/28/17 22:04 O2 Sat by Pulse Oximetry 95 10/28/17 22:04 Oxygen Delivery Oxygen Delivery Room Air Medical Decision Making - Lab Data Result diagrams: 10/28/17 21:03 10/28/17 21:03 Lab Results 10/28/17 10/28/17 10/28/17 Range/Units 19:00 21:03 21:03 WBC 4.2 L (4.3-11.1) K/mcL RBC 3.53 L (3.82-4.97) M/mcL Hgb 11.7 (11.5-15.4) g/dL Hct 34.8 L (35.3-44.9) % MCV 98.6 (83.0-100.0) fL MCH 33.1 (28.0-33.3) pg MCHC 33.6 (31.6-35.5) g/dL RDW 17.1 H (11.5-14.5) % Plt Count 146 (140-400) K/mcL MPV 9.3 L (9.4-12.4) fL Immature Gran % 0.2 (0-4) % Seg Neutrophils % 66.5 % Lymphocytes % 24.0 % Monocytes % 6.2 % Eosinophils % 2.9 % Basophils % 0.2 % Neutrophils # 2.8 (1.6-8.9) K/mcL Lymphocytes # 1.0 (0.6-4.6) K/mcL Monocytes # 0.3 (0.0-1.3) K/mcL Eosinophils # 0.1 (0.0-0.6) K/mcL Basophils # 0.0 (0.0-0.2) K/mcL ESR 28 H (0-15) mm/hr Sodium (136-145) mEq/L Potassium (3.5-5.1) mEq/L Chloride (98-107) mEq/L Carbon Dioxide (23-29) mEq/L BUN (6-20) mg/dL Creatinine (0.60-1.20) mg/dL Est GFR ( Amer) (> 60) Est GFR (Non-Af Amer) (> 60) BUN/Creatinine Ratio (6-26) Glucose (70-105) mg/dL Calculated Osmolality (280-300) Calcium (8.6-10.3) mg/dL Total Bilirubin (0.3-1.0) mg/dL AST (13-39) Units/L ALT (7-52) Units/L Alkaline Phosphatase (34-104) Units/L Serum Total Protein (6.4-8.9) g/dL Albumin (3.5-5.7) g/dL Globulin (2.4-3.5) g/dL Albumin/Globulin Ratio (1.1-2.2) Urine Color Dark Yellow (Yellow) Urine Clarity Cloudy A (Clear) Urine pH 6.0 (5.0-8.0) pH Units Ur Specific [place] 1.019 (1.010-1.025) Urine Protein Trace (Neg-Trace) mg/dL Urine Glucose (UA) Normal (Normal) mg/dL Urine Ketones Negative (Negative) mg/dL Urine Blood Large H (Negative) Urine Nitrite Negative (Negative) Urine Bilirubin Negative (Negative) Urine Urobilinogen Normal (Normal) mg/dL Ur Leukocyte Esterase Moderate H (Negative) Urine Microscopic RBC TNTC H (0-3) per hpf Urine Microscopic WBC 15-30 H (0-3) per hpf Ur Squamous Epith Cells Many H (None-Few) per lpf Urine Bacteria None Seen (None-Few) per hpf Hyaline Casts None Seen (None-Few) per lpf Ur Culture Indicated? NO. A (NO) 10/28/17 Range/Units 21:03 WBC (4.3-11.1) K/mcL RBC (3.82-4.97) M/mcL Hgb (11.5-15.4) g/dL Hct (35.3-44.9) % MCV (83.0-100.0) fL MCH (28.0-33.3) pg MCHC (31.6-35.5) g/dL RDW (11.5-14.5) % Plt Count (140-400) K/mcL MPV (9.4-12.4) fL Immature Gran % (0-4) % Seg Neutrophils % % Lymphocytes % % Monocytes % % Eosinophils % % Basophils % % Neutrophils # (1.6-8.9) K/mcL Lymphocytes # (0.6-4.6) K/mcL Monocytes # (0.0-1.3) K/mcL Eosinophils # (0.0-0.6) K/mcL Basophils # (0.0-0.2) K/mcL ESR (0-15) mm/hr Sodium 137 (136-145) mEq/L Potassium 3.3 L (3.5-5.1) mEq/L Chloride 106 (98-107) mEq/L Carbon Dioxide 24 (23-29) mEq/L BUN 16 (6-20) mg/dL Creatinine 1.10 (0.60-1.20) mg/dL Est GFR ( Amer) > 60 (> 60) Est GFR (Non-Af Amer) 52 L (> 60) BUN/Creatinine Ratio 15 (6-26) Glucose 100 (70-105) mg/dL Calculated Osmolality 285 (280-300) Calcium 8.6 (8.6-10.3) mg/dL Total Bilirubin 0.3 (0.3-1.0) mg/dL AST 31 (13-39) Units/L ALT 29 (7-52) Units/L Alkaline Phosphatase 130 H (34-104) Units/L Serum Total Protein 7.1 (6.4-8.9) g/dL Albumin 3.4 L (3.5-5.7) g/dL Globulin 3.7 H (2.4-3.5) g/dL Albumin/Globulin Ratio 0.9 L (1.1-2.2) Urine Color (Yellow) Urine Clarity (Clear) Urine pH (5.0-8.0) pH Units Ur Specific [place] (1.010-1.025) Urine Protein (Neg-Trace) mg/dL Urine Glucose (UA) (Normal) mg/dL Urine Ketones (Negative) mg/dL Urine Blood (Negative) Urine Nitrite (Negative) Urine Bilirubin (Negative) Urine Urobilinogen (Normal) mg/dL Ur Leukocyte Esterase (Negative) Urine Microscopic RBC (0-3) per hpf Urine Microscopic WBC (0-3) per hpf Ur Squamous Epith Cells (None-Few) per lpf Urine Bacteria (None-Few) per hpf Hyaline Casts (None-Few) per lpf Ur Culture Indicated? (NO) Attestation Statement - Attestation Attestation: I examined this patient and my medical decision-making was reviewed with the Resident Physician. I agree with the documented findings, disposition and treatment plan as described except to the extent set forth below. I had face to face time with patient. Patient is a 52-year-old with multiple complaints has inability to swallow so she sent dehydrated. Clinically she does look dehydrated with dry mucous membranes. Physical exam otherwise her lungs are clear she does have a port. CT of the abdomen was negative lab work reviewed. This point time I will place her on IV fluids we will admit and obtain a GI consult.
[2017-10-28] MEDS ORDERED: Acetaminophen/Butalbital/CaffeineTABLET PO PRN (22:33)
[2017-10-28] MEDS ORDERED: Naloxone 0.4 MG/ML INJ IVP PRN (22:36)
[2017-10-28] MEDS ORDERED: Sennosides 8.6 MG TABLET PO PRN (22:38)
--- NOTE | 2017-10-28 22:50 | Internal Med History&Physical ---
Date of Encounter: 10/28/17 Time of Encounter: 22:44 Internal Medicine - H&P: HPI Chief complaint: Multiple complaints History of present illness: Ms. Sandoval is a 52 year old female who presents to the ER with multiple complaints. Admitted for observation Patient has a complex medical history to include prominent autoimmune condition characterized by lupus, Sjogren's, Raynaud's, history of DVT in the setting of antiphospholipid syndrome and follows with hematology at [facility]. She also had recently transferred her rheumatological care from [place] to Dr. Hanson here locally at [facility]. In fact she recently had her first visit with rheumatology and [facility] just this week for first time. These are the symptoms that she complain of at bedside 1) had worsening trouble getting sensation in the past 8-9 days. Review of history reported esophageal spasms on diltiazem, history of herpes esophagitis and had been on chronic Valtrex for the last 5-6 years at least. Despite his symptoms she was able to tolerate potato salad and yogurt yesterday dinner and had cereal this morning for breakfast 2) 1 month history of green and brownish productive sputum associated with cough and completed antibiotics. This was associated with 6 months history of hearing issues in the setting of what was described to be recurrent middle ear effusions previously 3) Had been facing constipation and had noticed that her blood pressure was dropping at home 4) Review of symptoms suggested that she felt that her lymph nodes were swollen FINDINGS: Lower Chest: There are subsegmental atelectatic changes in both lung bases. Organs: The liver, gallbladder, pancreas, and spleen demonstrate no acute abnormalities. No adrenal masses are identified. The medullary pyramids of the kidneys are calcified, consistent with medullary nephrocalcinosis. There is no hydronephrosis and no ureteral or bladder stones are detected. GI/Bowel: There is no small bowel obstruction, free-air, or free-fluid. A moderate amount of stool is present within the colon. The appendix is normal in caliber. The stomach and duodenal sweep are grossly within normal limits. Pelvis: Status post hysterectomy. Peritoneum/Retroperitoneum: An IVC filter is present. No pathologically enlarged lymph nodes are detected. There appears to be a small 8 mm duodenal diverticulum. Bones/Soft Tissues: There are degenerative changes of the lower lumbar spine. CT/CT abd pelvis wo no iv no oral IMPRESSION: No acute abdominopelvic abnormality detected. Re- demonstration of medullary nephrocalcinosis. FINDINGS: There is new minimal linear opacity in the left lung base. Lungs otherwise clear. No pneumothorax or pleural effusion identified. Right subclavian approach port is again seen with tip overlying the upper superior vena cava. Cardiac and mediastinal contours are without acute process. No acute osseous abnormality. XR/XR chest 1V portable IMPRESSION: New mild left basilar atelectasis. Past Med Surg Social Fam HX - Past Medical History Medical history: CHF, DVT, fibromyalgia, kidney stones, migraine, pulmonary embolus, thyroid disease Additional medical history: lupus. hypoglycemia. DDD. osteopenia. [place] Psychiatric history: bipolar - Past Surgical History Surgical History: hysterectomy, ureteral stent, IVC filter Additional surgical history: Ureteral stent now removed, partial left clavicle amputation, carpal tunnel release bilaterally X2, implanted port, salivary gland stone removal. ml filter - Social History Smoking Status: Current every day smoker Smokeless Tobacco Status: No (Vape) Alcohol use: none Drug use: none - Family History Father Adopted: No Family Member Ethnicity: Non- Living Status: Still Living Hx Family Cardiac Disorders: Yes (HTN, CAD) Hx Family Respiratory Disorders: No Hx Family Cancer: No Hx Family GI Disorders: No Hx Family Endocrine Disorder: Yes (DM) Hx Family Neuromuscular Disorders: No Hx Family Neurologic Disorders: No Hx Family HEENT Disorders: No Hx Family Autoimmune Disorders: No Mother Adopted: No Family Member Ethnicity: Non- Living Status: Hx Family Cardiac Disorders: No Hx Family Respiratory Disorders: No Hx Family Cancer: No Hx Family GI Disorders: No Hx Family Endocrine Disorder: No Hx Family Neuromuscular Disorders: Yes (MS) Hx Family Neurologic Disorders: No Hx Family HEENT Disorders: No Hx Family Autoimmune Disorders: Yes (MS) Brother Adopted: No Family Member Ethnicity: Non- Living Status: Still Living Hx Family Cardiac Disorders: No Hx Family Respiratory Disorders: No Hx Family Cancer: No Hx Family GI Disorders: No Hx Family Endocrine Disorder: No Hx Family Neuromuscular Disorders: No Hx Family Neurologic Disorders: No Hx Family HEENT Disorders: No Hx Family Autoimmune Disorders: Yes Sister Family Member Ethnicity: Non- Living Status: Still Living Hx Family Cardiac Disorders: No Hx Family Respiratory Disorders: No Hx Family Cancer: No Hx Family GI Disorders: No Hx Family Endocrine Disorder: No Hx Family Neuromuscular Disorders: No Hx Family Neurologic Disorders: No Hx Family HEENT Disorders: No Hx Family Autoimmune Disorders: Yes Internal Medicine - H&P: Meds BuPROPion XL (24 HR) [Wellbutrin Xl] 150 mg PO DAILY 12/20/16 [History] Cholecalciferol (D-3) [Vitamin D] 5,000 unit PO DAILY 12/20/16 [History] Cyclobenzaprine [Flexeril] 10 mg PO QAM 12/20/16 [History] Cyclosporine [Restasis] 1 drop OP BID 12/20/16 [History] Duloxetine HCl [Cymbalta] 60 mg PO DAILY 12/20/16 [History] Hydroxychloroquine [Plaquenuil] 200 mg PO BID 12/20/16 [History] Levothyroxine [Synthroid] 75 mcg PO DAILY@0630 12/20/16 [History] Magnesium 250 mg PO DAILY 12/20/16 [History] Melatonin/Pyridoxine HCl (B6) [Melatonin 5 mg Tablet] 10 mg PO HS 12/20/16 [ History] Potassium Chloride [K-Tab ER] 10 meq PO DAILY 12/20/16 [History] Promethazine [Phenergan] 25 mg PO Q6HR PRN 12/20/16 [History] Quetiapine Fumarate [Seroquel] 100 mg PO HS 12/20/16 [History] Valacyclovir HCl [Valtrex] 1,000 mg PO DAILY 12/20/16 [History] clonazePAM [Klonopin] 2 mg PO 0900,1700 12/20/16 [History] clonazePAM [Klonopin] 4 mg PO HS 12/20/16 [History] Acetaminophen/Butalbital/Caffe [Fioricet] 1 each PO Q6H PRN 01/05/17 [History] Butorphanol Tartrate 1 spray NS Q4-6H PRN 01/05/17 [History] Cyanocobalamin/FA/Pyridoxine [Folbee Tablet] 1 tab PO DAILY 01/20/17 [History] Albuterol Sulfate [Albuterol Inhaler] 2 puff IH Q4-6H PRN 03/02/17 [History] rOPINIRole [Requip] 1 mg PO HS 03/02/17 [History] HYDROcodone/Acet 7.5/325 mg [[place] 7.5-325 mg] 1 tab PO Q6H PRN #20 tablet 03/06 [Rx] Cyclobenzaprine [Flexeril] 20 mg PO HS 03/27/17 [History] Apixaban [Eliquis] 5 mg PO BID #60 tablet 10/14/17 [Rx] dilTIAZem HCl [Diltiazem HCl] 90 mg PO QID 10/28/17 [History] 3 Allergy/AdvReac Type Severity Reaction Status Date / Time Amoxicillin Allergy See Verified 10/14/17 11:41 Comments clarithromycin [From Biaxin] Allergy See Verified 10/14/17 11:41 Comments clindamycin Allergy Hives Verified 04/21/17 14:40 Enoxaparin [From Lovenox] Allergy See Verified 03/29/17 09:02 Comments hydrochlorothiazide Allergy See Verified 10/14/17 11:41 Comments levofloxacin [From Levaquin] Allergy Difficulty Verified 03/27/17 16:09 Breathing nafcillin Allergy Seizure Verified 03/27/17 16:09 nitrofurantoin Allergy Blister Verified 03/27/17 16:09 [From Macrobid] oxcarbazepine Allergy Anaphylaxis Verified 03/27/17 16:09 [From Trileptal] Penicillins Allergy Seizure Verified 03/27/17 16:09 Sulfa (Sulfonamide Allergy See Verified 10/14/17 11:41 Antibiotics) Comments sumatriptan [From Imitrex] Allergy See Verified 10/14/17 11:41 Comments Terazosin Allergy See Verified 10/14/17 11:41 Comments vancomycin Allergy Seizure Verified 03/27/17 16:09 topiramate [From Topamax] AdvReac Confusion Verified 03/27/17 16:09 All Systems PM: A 10-system review of systems was performed and is negative for pertinent findings except as documented above in the HPI. Review of systems: ROS 14 point review of systems reviewed as best as possible given presentation. Pertinent positive or negative as per HPI or otherwise reviewed as negative - Constitutional Vitals: Temp Pulse Resp BP Pulse Ox 98.1 F 100 18 135/97 95 10/28/17 18:18 10/28/17 22:04 10/28/17 22:04 10/28/17 22:04 10/28/17 22:04 Exam: General - AAO x 3 Psych - Appropriate affect/speech. No agitation Eyes - LINDA. Eye lids intact. No scleral icterus Neuro - No gross peripheral or central neuro deficits on inspection Heart - Sinus. RRR. S1 and S2 present. No added HS/murmurs appreciated. No elevated JVD appreciated. Lung - Adequate air entry b/l, No crackles/wheezes appreciated GI - no guarding or rigidity, left upper quadrant discomfort on palpation but appears benign. No hepatosplenomegaly/ascites. BS+ - No CVA/suprapubic tenderness or palpable bladder distension Skin - Intact. No rash/petechiae/ecchymosis. Warm extremities Internal Med - H&P Results - Labs CBC & Chem 7: 10/28/17 21:03 10/28/17 21:03 - Assessment and plan (1) Inability to swallow Current Visit: Yes Status: Acute Assessment and plan: Possible multiple etiologies. History of esophageal spasm and herpes esophagitis in the setting multi systemic autoimmune condition May benefit from repeat EGD and functional studies per GI - I suspect that these may be able to be completed in the outpatient should she remain stable and tolerate by mouth intake overnight. We will try her on by mouth diet overnight and monitor her course before making further management plan Continue Cardizem (with holding parameters due to her reported low BP on defecation) and Valtrex (2) Abdominal pain Current Visit: Yes Status: Acute Assessment and plan: Described as LUQ "splenic pain". She read up the [facility] website CT abdomen performed in the ER with no acute findings. Suspect that this could be related to MSK - Fibromyalgia ? given positive exam but negative imaging. Given her low ESR is less likely that her abdominal pain is explained by small or medium vessel vasculitis in a setting of her autoimmune condition Will need close follow up Qualifiers: Abdominal location: left upper quadrant Qualified Code(s): R10.12 - Left upper quadrant pain (3) Constipation due to pain medication Current Visit: Yes Status: Chronic Assessment and plan: add colace, senna, miralax titrate base on symptoms (4) Chronic pain Current Visit: No Status: Acute Assessment and plan: continue pain med Qualifiers: Chronic pain type: chronic pain syndrome Qualified Code(s): G89.4 - Chronic pain syndrome (5) Hypercoagulable state, primary Current Visit: No Status: Chronic Assessment and plan: was switched from warfarin to eliquis - continue Follows with heme at [facility] (6) Hypothyroidism Current Visit: No Status: Chronic Assessment and plan: continue med Qualifiers: 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 Qualified Code(s): E03.8 - Other specified hypothyroidism; E06.3 - Autoimmune thyroiditis; E06.3 - Autoimmune thyroiditis; E06.3 - Autoimmune thyroiditis (7) Lupus (systemic lupus erythematosus) Current Visit: No Status: Chronic Assessment and plan: now following dr hanson Qualifiers: Systemic lupus erythematosus type: unspecified Systemic lupus erythematosus organ involvement: unspecified Qualified Code(s): M32.9 - Systemic lupus erythematosus, unspecified - Time Spent With Patient Total time spent is greater than 50% in coordination of care (as documented) at patient's floor/unit and/or counseling patient:
[2017-10-28] MEDS: Apixaban 5 MG TABLET PO SCH (23:42)
[2017-10-28] MEDS: *HR* HYDROcodone/Acet 7.5/325 mg TABLET PO PRN (23:58)
[2017-10-29] MEDS ORDERED: clonazePAM 1 MG TABLET PO ONE (02:13)
--- NOTE | 2017-10-29 04:35 | Event Note ---
Date of Encounter: 10/29/17 Time of Encounter: 03:51 Ms Sandoval requested to be seen by physician due to her not feeling like she was being treated properly at [facility]. Patient was seen and evaluated 12 minutes after page was received by myself and [facility] nurse. Patient was sleeping when room was entered. Patient states that she is 8/10 in pain severity, but when specifically asked where her pain was she states all over. Patient requests to sleep and to be given pain medication and klonipin. She also states that she feels like she is being abused because she is not being fed. Patient was originally admitted for esophagitis, admitting team requested GI consult. Due to potential scope in the morning, patient was placed on NPO. Patient states that she understands this, and that she would like to have scope in the morning but she would also like to eat. Patient reiterates her understanding that she would not be able to have scope if she ate. Patient was asked her preference if she would like to eat, patient defers to answer question and continues to state that she's 8/10 pain and that she would like pain medication. Patient becomes frustrated and becomes belligerent towards staff. OARRS report was pulled patient has a narcotic score of 572 and sedative score of 561, with an overdose risk score of 720. Patient is high risk for overdose. Patient receives Butorphanol 4 day prescriptions almost on a weekly basis from her PCP. *Update* after staff left room, patient started throwing items at the door.
[2017-10-29] MEDS: *HR* HYDROcodone/Acet 7.5/325 mg TABLET PO PRN ×2 (05:05→11:41)
[2017-10-29 06:36] LABS: Alanine Aminotransferase 39 Units/L (7-52); Albumin 3.3 g/dL (3.5-5.7); Albumin/Globulin Ratio 0.9 (1.1-2.2); Alkaline Phosphatase 138 Units/L (34-104); Aspartate Amino Transferase 50 Units/L (13-39); BUN/Creatinine Ratio 16 (6-26); Bilirubin,Total 0.2 mg/dL (0.3-1.0); Blood Urea Nitrogen 14 mg/dL (6-20); Calcium 8.4 mg/dL (8.6-10.3); Carbon Dioxide 21 mEq/L (23-29); Chloride 109 mEq/L (98-107); Globulin 3.5 g/dL (2.4-3.5); Glucose 217 mg/dL (70-105); Osmolality,Calculated 291 (280-300); Potassium 3.6 mEq/L (3.5-5.1); Sodium 137 mEq/L (136-145); Total Protein 6.8 g/dL (6.4-8.9); eGFR For African Americans > 60 (> 60); eGFR For Non-African Americans > 60 (> 60)
[2017-10-29 06:41] LABS: Hemoglobin 11.2 g/dL (11.5-15.4); Immature Granulocytes % 0.4 % (0-4); Lymphocytes # 0.3 K/mcL (0.6-4.6); Lymphocytes % 9.5 %; Mean Corpuscular Hemoglobin 31.7 pg (28.0-33.3); Mean Corpuscular Volume 99.2 fL (83.0-100.0); Mean Platelet Volume 9.5 fL (9.4-12.4); Monocytes % 1.4 %; Neutrophils # 2.5 K/mcL (1.6-8.9); Platelet Count 147 K/mcL (140-400); Red Blood Count 3.53 M/mcL (3.82-4.97); Red Cell Distribution Width 17.2 % (11.5-14.5); Segmented Neutrophils % 88.7 %
[2017-10-29] MEDS ORDERED: FOLBEE PO SCH (09:00)
[2017-10-29] MEDS ORDERED: clonazePAM 1 MG TABLET PO SCH ×2 (09:00→21:00)
[2017-10-29] MEDS ORDERED: valACYclovir 500 MG TABLET PO SCH (09:00)
[2017-10-29] MEDS ORDERED: Magnesium Oxide 400 MG TABLET PO SCH (09:00)
[2017-10-29] MEDS ORDERED: Cyclosporine [Restasis] OP SCH (09:00)
[2017-10-29] MEDS ORDERED: Cholecalciferol (D-3) 1,000 UNIT TABLET PO SCH (09:00)
[2017-10-29] MEDS ORDERED: BuPROPion XL (24 HR) 150 MG TABLET PO SCH (09:00)
[2017-10-29] MEDS: Apixaban 5 MG TABLET PO SCH (09:23)
--- NOTE | 2017-10-29 10:09 | Internal Med Progress Note ---
Date of Encounter: 10/29/17 Time of Encounter: 10:10 - Time Spent With Patient Total time spent is greater than 50% in coordination of care (as documented) at patient's floor/unit and/or counseling patient: - Constitutional Vitals: Temp Pulse Resp BP Pulse Ox 98.0 F 91 16 126/73 94 10/29/17 07:00 10/29/17 07:00 10/29/17 07:00 10/29/17 07:00 10/29/17 07:00 Internal Medicine: Result - Labs CBC & Chem 7: 10/29/17 06:11 10/29/17 06:11 Labs: Short CBC 10/29/17 Range/Units 06:11 WBC 2.8 L (4.3-11.1) K/mcL Hgb 11.2 L (11.5-15.4) g/dL Hct 35.0 L (35.3-44.9) % Plt Count 147 (140-400) K/mcL Neutrophils # 2.5 (1.6-8.9) K/mcL BMP 10/29/17 06:11 Sodium 137 Potassium 3.6 Chloride 109 H Carbon Dioxide 21 L BUN 14 Creatinine 0.90 Glucose 217 H Calcium 8.4 L Liver Function 10/29/17 Range/Units 06:11 Total Bilirubin 0.2 L (0.3-1.0) mg/dL AST 50 H (13-39) Units/L ALT 39 (7-52) Units/L Alkaline Phosphatase 138 H (34-104) Units/L Albumin 3.3 L (3.5-5.7) g/dL Consult Discharge Plan - Plan Referrals: Ariel Cotto DO [Primary Care Provider] -
[2017-10-29 10:33] VITALS: BP 126/81
--- NOTE | 2017-10-29 14:24 | Gastroenterology Consult Note ---
<Ariel Ignacio - Last Filed: 10/29/17 14:20> Date of Encounter: 10/29/17 Time of Encounter: 11:30 - Assessment and plan (1) Dysphagia Status: Acute Assessment and plan: Patient was able to eat breakfast this morning without difficulty. Plan for EGD tomorrow with possible dilation to r/o esophagitis, gastritis, duodenitis, PUD , MW tear, or AVM. Keep NPO at midnight. Qualifiers: Dysphagia type: unspecified Qualified Code(s): R13.10 - Dysphagia, unspecified (2) Abdominal pain Status: Acute Assessment and plan: Recommend starting daily PPI and plan for EGD tomorrow. Qualifiers: Abdominal location: left upper quadrant Qualified Code(s): R10.12 - Left upper quadrant pain - Time Spent With Patient Total time spent is greater than 50% in coordination of care (as documented) at patient's floor/unit and/or counseling patient: GI History of Present Illness - Data of Consult Patient: new to practice Consult date: 10/29/17 Requesting Physician: Laura Thompson MD - Consult Narrative Reason for consult: Inability to swallow History of present illness: Ms. Sandoval is a 52 year old female with PMHx of prominent autoimmune condition characterized by lupus, Sjogren's, Raynaud's, CHF, DVT, fibromyalgia, kidney stones, migraine, PE, thyroid disease who presented to the ED with complaints of : Cough productive of yellow sputum, blood in urine, difficulty urinating, constipation x 3 weeks, pain form ulcer in her esophagus, difficulty swallowing , tinnitus left ear, hearing loss right ear, mayalgias, malaise, Abdominal pain , lymphadenopathy in neck and armpits, and SOB. She reports inability to have a bowel movement for 3 weeks. She reports she used 5 enemas the day prior to admission which did not produce a BM. She reports she has failed Amitiza and Linzess. We were consulted to evaluate her difficulty swallowing. She states she has been unable to swallow and then states she ate breakfast this morning without difficulty. Procedures: EGD and colonoscopy 2017 at [facility] per pt report. NSAIDs: None Anticoagulation: Eliquis Past Med Surg Social Fam HX - Past Medical History Medical history: DVT, fibromyalgia, kidney stones, migraine, pulmonary embolus, thyroid disease Additional medical history: lupus. hypoglycemia. DDD. osteopenia. Reynaulds Psychiatric history: bipolar - Past Surgical History Surgical History: hysterectomy, ureteral stent, IVC filter Additional surgical history: Ureteral stent now removed, partial left clavicle amputation, carpal tunnel release bilaterally X2, implanted port, salivary gland stone removal. ml filter - Social History Smoking Status: Current every day smoker Smokeless Tobacco Status: No (Vape) Alcohol use: none Drug use: none - Family History Father Adopted: No Family Member Ethnicity: Non- Living Status: Still Living Hx Family Cardiac Disorders: Yes (HTN, CAD) Hx Family Respiratory Disorders: No Hx Family Cancer: No Hx Family GI Disorders: No Hx Family Endocrine Disorder: Yes (DM) Hx Family Neuromuscular Disorders: No Hx Family Neurologic Disorders: No Hx Family HEENT Disorders: No Hx Family Autoimmune Disorders: No Mother Adopted: No Family Member Ethnicity: Non- Living Status: Hx Family Cardiac Disorders: No Hx Family Respiratory Disorders: No Hx Family Cancer: No Hx Family GI Disorders: No Hx Family Endocrine Disorder: No Hx Family Neuromuscular Disorders: Yes (MS) Hx Family Neurologic Disorders: No Hx Family HEENT Disorders: No Hx Family Autoimmune Disorders: Yes (MS) Brother Adopted: No Family Member Ethnicity: Non- Living Status: Still Living Hx Family Cardiac Disorders: No Hx Family Respiratory Disorders: No Hx Family Cancer: No Hx Family GI Disorders: No Hx Family Endocrine Disorder: No Hx Family Neuromuscular Disorders: No Hx Family Neurologic Disorders: No Hx Family HEENT Disorders: No Hx Family Autoimmune Disorders: Yes Sister Family Member Ethnicity: Non- Living Status: Still Living Hx Family Cardiac Disorders: No Hx Family Respiratory Disorders: No Hx Family Cancer: No Hx Family GI Disorders: No Hx Family Endocrine Disorder: No Hx Family Neuromuscular Disorders: No Hx Family Neurologic Disorders: No Hx Family HEENT Disorders: No Hx Family Autoimmune Disorders: Yes - Gastrointestinal Gastrointestinal: Present: as per HPI - Constitutional Constitutional: as per HPI - EENT Eyes: as per HPI Ears: Present: as per HPI Nose, mouth and throat: Present: as per HPI - Cardiovascular Cardiovascular ROS: Present: as per HPI - Respiratory Respiratory IM: Present: as per HPI - Genitourinary Genitourinary: Absent: change in color, Urinary frequency - Neurological ROS Neurological GI: Present: as per HPI - Hematologic/Lymphatic Hematologic/Lymphatic pediatric: Present: as per HPI - Musculoskeletal Musculoskeletal ROS GI: Present: as per HPI - Integumentary Integumentary GI: Present: as per HPI - Psychiatric ROS Psychiatric GI: Present: as per HPI - Endocrine Endocrine IM: Present: as per HPI - Constitutional Vitals: Temp Pulse Resp BP Pulse Ox 97.9 F 91 16 126/81 93 10/29/17 10:31 10/29/17 10:31 10/29/17 10:31 10/29/17 10:31 10/29/17 10:31 General appearance: Present: cooperative, A&O X 3, no acute distress, answers questions appropriately - Head Head exam: Present: atraumatic, normocephalic - Eye Eye exam: Present: normal appearance, sclera anicteric - ENT ENT exam: Present: mucous membranes moist - Neck Neck exam general surgery: Present: normal inspection, trachea midline - Respiratory Respiratory exam: Present: CTAB. Absent: rales, rhonchi - Cardiovascular Cardiovascular exam: Present: RRR, +S1, +S2 - GI/Abdominal GI/Abdominal exam: Present: soft, tenderness (mild), no peritoneal signs. Absent: distended, firm, guarding - Rectal Rectal exam: Present: deferred - Extremities Exam Extremities exam: Present: warm - Neurological Exam Neurological exam: Present: no focal deficits - Psychiatric Psychiatric exam: Present: normal affect, normal mood - Skin Skin exam: Present: dry, intact, normal color, warm Results - Labs CBC & Chem 7: 10/29/17 06:11 10/29/17 06:11 Labs: Last Result ESR 28 mm/hr (0-15) H 10/28/17 21:03 Calcium 8.4 mg/dL (8.6-10.3) L 10/29/17 06:11 Entire Visit Hgb 11.2 g/dL (11.5-15.4) L 10/29/17 06:11 Hct 35.0 % (35.3-44.9) L 10/29/17 06:11 Total Bilirubin 0.2 mg/dL (0.3-1.0) L 10/29/17 06:11 AST 50 Units/L (13-39) H 10/29/17 06:11 ALT 39 Units/L (7-52) 10/29/17 06:11 Consult Discharge Plan - Plan Referrals: Ariel Cotto DO [Primary Care Provider] - <Gwyn Rodas - Last Filed: 10/30/17 04:20> Date of Encounter: 10/29/17 - Time Spent With Patient Total time spent is greater than 50% in coordination of care (as documented) at patient's floor/unit and/or counseling patient: GI History of Present Illness - Data of Consult Requesting Physician: Laura Thompson MD - Consult Narrative History of present illness: Ms. Sandoval is a 52 year old female - Constitutional Vitals: Temp Pulse Resp BP Pulse Ox 97.9 F 91 16 126/81 93 10/29/17 10:31 10/29/17 10:31 10/29/17 10:31 10/29/17 10:31 10/29/17 10:31 Results - Labs CBC & Chem 7: 10/29/17 06:11 10/29/17 06:11 Labs: Last Result ESR 28 mm/hr (0-15) H 10/28/17 21:03 Calcium 8.4 mg/dL (8.6-10.3) L 10/29/17 06:11 Entire Visit Hgb 11.2 g/dL (11.5-15.4) L 10/29/17 06:11 Hct 35.0 % (35.3-44.9) L 10/29/17 06:11 Total Bilirubin 0.2 mg/dL (0.3-1.0) L 10/29/17 06:11 AST 50 Units/L (13-39) H 10/29/17 06:11 ALT 39 Units/L (7-52) 10/29/17 06:11 - Attending Attestation This IS a pleasant 52-year-old female with a conflicting history. However she does complain of some of dysphagia and so we will plan upper endoscopy tomorrow and make further recommendations after that thank you for this consultation I have personally performed a face to face evaluation on this patient. I have reviewed and agree with the care plan. History and Exam by me shows:
--- NOTE | 2017-10-29 14:36 | Discharge Summary ---
Date of Encounter: 10/29/17 Time of Encounter: 14:35 - Discharge Diagnosis (1) Inability to swallow Priority: Primary Status: Acute Assessment and Plan: Possible multiple etiologies. 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 Continue Cardizem (with holding parameters due to her reported low BP on defecation) and Valtrex. Pt had been threatening to leave. She states she left AMA on a previous admission. Was not happy with cardiac diet and had multiple other complaints. Pt evaluated by GI and plan was for EGD in am, however pt left AMA. (2) Abdominal pain Priority: Secondary Status: Acute Assessment and Plan: Described as LUQ "splenic pain". She read up the [facility] website CT abdomen performed in the ER with no acute findings. Suspect that this could be related to MSK - Fibromyalgia ? given positive exam but negative imaging. Given her low ESR is less likely that her abdominal pain is explained by small or medium vessel vasculitis in a setting of her autoimmune condition Will need close follow up Qualifiers: Abdominal location: left upper quadrant Qualified Code(s): R10.12 - Left upper quadrant pain (3) Constipation due to pain medication Priority: Secondary Status: Chronic Assessment and Plan: Colace, senna, and miralax (4) Chronic pain Priority: Secondary Status: Acute Assessment and Plan: PRN pain control ordered. 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 Sandoval is a 52 year old female who presents to the ER with multiple complaints. Admitted for observation. Patient has a complex medical history to include prominent autoimmune condition characterized by lupus, Sjogren's, Raynaud's, history of DVT in the setting of antiphospholipid syndrome and follows with hematology at [facility]. She also had recently transferred her rheumatological care from [facility] to Dr. Hanson here locally at [facility]. In fact she recently had her first visit with rheumatology and [facility] just this week for first time. These are the symptoms that she complain of at bedside 1) had worsening trouble getting sensation in the past 8-9 days. Review of history reported esophageal spasms on diltiazem, history of herpes esophagitis and had been on chronic Valtrex for the last 5-6 years at least. Despite his symptoms she was able to tolerate potato salad and yogurt yesterday dinner and had cereal this morning for breakfast 2) 1 month history of green and brownish productive sputum associated with cough and completed antibiotics. This was associated with 6 months history of hearing issues in the setting of what was described to be recurrent middle ear effusions previously 3) Had been facing constipation and had noticed that her blood pressure was dropping at home 4) Review of symptoms suggested that she felt that her lymph nodes were swollen Hospital course: Possible multiple etiologies. 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 Continue Cardizem (with holding parameters due to her reported low BP on defecation) and Valtrex. Pt had been threatening to leave. She states she left AMA on a previous admission. Was not happy with cardiac diet and had multiple other complaints. Pt evaluated by GI and plan was for EGD in am, however pt left AMA. Discharge discussed with: nurse - Time Spent with Patient Total time spent providing and/or coordinating discharge services: Greater than 30 minutes - Discharge Medications Home Medications: BuPROPion XL (24 HR) [Wellbutrin Xl] 150 mg PO DAILY 12/20/16 [History] Cholecalciferol (D-3) [Vitamin D] 5,000 unit PO DAILY 12/20/16 [History] Cyclobenzaprine [Flexeril] 10 mg PO QAM 12/20/16 [History] Cyclosporine [Restasis] 1 drop OP BID 12/20/16 [History] Duloxetine HCl [Cymbalta] 60 mg PO DAILY 12/20/16 [History] Hydroxychloroquine [Plaquenuil] 200 mg PO BID 12/20/16 [History] Levothyroxine [Synthroid] 75 mcg PO DAILY@0630 12/20/16 [History] Magnesium 250 mg PO DAILY 12/20/16 [History] Melatonin/Pyridoxine HCl (B6) [Melatonin 5 mg Tablet] 10 mg PO HS 12/20/16 [ History] Potassium Chloride [K-Tab ER] 10 meq PO DAILY 12/20/16 [History] Promethazine [Phenergan] 25 mg PO Q6HR PRN 12/20/16 [History] Quetiapine Fumarate [Seroquel] 100 mg PO HS 12/20/16 [History] Valacyclovir HCl [Valtrex] 1,000 mg PO DAILY 12/20/16 [History] clonazePAM [Klonopin] 2 mg PO 0900,1700 12/20/16 [History] clonazePAM [Klonopin] 4 mg PO HS 12/20/16 [History] Acetaminophen/Butalbital/Caffe [Fioricet] 1 each PO Q6H PRN 01/05/17 [History] Butorphanol Tartrate 1 spray NS Q4-6H PRN 01/05/17 [History] Cyanocobalamin/FA/Pyridoxine [[place] Tablet] 1 tab PO DAILY 01/20/17 [History] Albuterol Sulfate [Albuterol Inhaler] 2 puff IH Q4-6H PRN 03/02/17 [History] rOPINIRole [Requip] 1 mg PO HS 03/02/17 [History] HYDROcodone/Acet 7.5/325 mg [[place] 7.5-325 mg] 1 tab PO Q6H PRN #20 tablet 03/06 [Rx] Cyclobenzaprine [Flexeril] 20 mg PO HS 03/27/17 [History] Apixaban [Eliquis] 5 mg PO BID #60 tablet 10/14/17 [Rx] dilTIAZem HCl [Diltiazem HCl] 90 mg PO QID 10/28/17 [History] Allergies/Adverse Reactions: 3 Allergy/AdvReac Type Severity Reaction Status Date / Time Amoxicillin Allergy See Verified 10/14/17 11:41 Comments clarithromycin [From Biaxin] Allergy See Verified 10/14/17 11:41 Comments clindamycin Allergy Hives Verified 04/21/17 14:40 Enoxaparin [From Lovenox] Allergy See Verified 03/29/17 09:02 Comments hydrochlorothiazide Allergy See Verified 10/14/17 11:41 Comments levofloxacin [From Levaquin] Allergy Difficulty Verified 03/27/17 16:09 Breathing nafcillin Allergy Seizure Verified 03/27/17 16:09 nitrofurantoin Allergy Blister Verified 03/27/17 16:09 [From Macrobid] oxcarbazepine Allergy Anaphylaxis Verified 03/27/17 16:09 [From Trileptal] Penicillins Allergy Seizure Verified 03/27/17 16:09 Sulfa (Sulfonamide Allergy See Verified 10/14/17 11:41 Antibiotics) Comments sulfamethoxazole Allergy Difficulty Verified 10/28/17 23:45 [From Bactrim] Breathing sumatriptan [From Imitrex] Allergy See Verified 10/14/17 11:41 Comments Terazosin Allergy See Verified 10/14/17 11:41 Comments trimethoprim [From Bactrim] Allergy Difficulty Verified 10/28/17 23:45 Breathing vancomycin Allergy Seizure Verified 03/27/17 16:09 topiramate [From Topamax] AdvReac Confusion Verified 03/27/17 16:09 Date of admission: 10/28/17 22:26 Primary care physician: Ariel Cotto Consults: 10/28/17 23:55 Consult to Horse Riding Coach Or Instructor [CONS] Routine Reason for SW Consult: home health care star Discharging clinician: Jennifer Boston Anticipated date of discharge: 10/29/17 - Constitutional Vitals: Temp Pulse Resp BP Pulse Ox 97.9 F 91 16 126/81 93 10/29/17 10:31 10/29/17 10:31 10/29/17 10:31 10/29/17 10:31 10/29/17 10:31 General appearance: Present: A&O X 3 - Head Head exam: Present: atraumatic, normocephalic - Eye Eye exam: Present: PERRL, conjuntiva pink, sclera anicteric Pupils: Present: PERRL - Neck Neck exam general surgery: Present: supple, trachea midline. Absent: lymphadenopathy - Respiratory Respiratory exam: Present: CTAB. Absent: accessory muscle use, rales, rhonchi, wheezes - Cardiovascular Cardiovascular exam: Present: RRR, +S1, +S2. Absent: diastolic murmur, gallop, rubs, systolic murmur - GI/Abdominal GI/Abdominal exam: Present: normal bowel sounds, soft, no peritoneal signs. Absent: distended, tenderness - Extremities Exam Extremities exam: Present: warm, radial pulses palpable and symmetrical. Absent : calf tenderness, cyanotic, pedal edema - Neurological Exam Neurological exam: Present: CN II-XII intact, oriented X3, no focal deficits. Absent: pronater drift, facial droop, speech deficit - Skin Skin exam: Present: dry, intact - Patient Status Disposition: Left Against Medical Advice Condition: Fair Overall status at discharge: other - Discharge Instructions Follow Up With: Ariel Cotto DO [Primary Care Provider] - - Diet and Activity Activity: increase activity as tolerated Diet: advance to your usual diet
[2017-10-29] MEDS ORDERED: rOPINIRole 1 MG TABLET PO SCH (21:00)
[2017-10-29] MEDS ORDERED: Melatonin 3 MG TABLET PO SCH (21:00)
== END 2017-10-29 13:45 | disposition left against medical advice (07) ==
LOC: EMEROO 18:15 → 3ANU 18:15
PROVIDERS: ADMIT Internal Medicine; ATTEND Internal Medicine

== ENCOUNTER 2019-04-29 16:27 | Inpatient (IN) ==
[2019-04-29] MEDS ORDERED: Ondansetron 4 MG/2 ML VIAL IVP ONE (19:06)
[2019-04-29] MEDS ORDERED: 0.9 % Sodium Chloride 1,000 ML IVC ONE (19:06)
[2019-04-29] MEDS ORDERED: *HR* FentaNYL (PF) 100 MCG/2 ML VIAL IVP ONE (19:06)
[2019-04-29 20:26] LABS: Basophils % 0.9 %; Eosinophils # 0.4 K/mcL (0.0-0.6); Eosinophils % 12.3 %; Hematocrit 39.2 % (35.3-44.9); Hemoglobin 13.4 g/dL (11.5-15.4); Immature Granulocytes % 0.3 % (0-4); Lymphocytes # 1.1 K/mcL (0.6-4.6); Lymphocytes % 34.7 %; Mean Corpuscular HGB Conc 34.2 g/dL (31.6-35.5); Mean Corpuscular Hemoglobin 33.2 pg (28.0-33.3); Mean Platelet Volume 9.5 fL (9.4-12.4); Monocytes # 0.3 K/mcL (0.0-1.3); Monocytes % 7.9 %; Neutrophils # 1.4 K/mcL (1.6-8.9); Platelet Count 154 K/mcL (140-400); Red Blood Count 4.04 M/mcL (3.82-4.97); Red Cell Distribution Width 14.8 % (11.5-14.5); Segmented Neutrophils % 43.9 %; White Blood Count 3.2 K/mcL (4.3-11.1)
[2019-04-29 20:43] LABS: Alanine Aminotransferase 32 Units/L (7-52); Albumin 3.7 g/dL (3.5-5.7); Alkaline Phosphatase 125 Units/L (34-104); Aspartate Amino Transferase 37 Units/L (13-39); BUN/Creatinine Ratio 14 (6-26); Bilirubin,Indirect 0.3 mg/dL (0.0-1.0); Bilirubin,Total 0.3 mg/dL (0.3-1.0); Blood Urea Nitrogen 15 mg/dL (6-20); Calcium 8.7 mg/dL (8.6-10.3); Carbon Dioxide 28 mEq/L (23-29); Chloride 104 mEq/L (98-107); Globulin 3.7 g/dL (2.4-3.5); Glucose 90 mg/dL (70-105); Lipase 13 Units/L (11-82); Osmolality,Calculated 290 (280-300); Potassium 3.7 mEq/L (3.5-5.1); Sodium 140 mEq/L (136-145); Total Protein 7.4 g/dL (6.4-8.9); eGFR For African Americans > 60 (> 60); eGFR For Non-African Americans 56 (> 60)
[2019-04-29 20:45] LABS: INR 7.8; Prothrombin Time 89.2 Seconds (9.4-12.1)
[2019-04-29] MEDS ORDERED: *HR* HYDROmorphone (PF) 1 MG/ML SYRINGE IVP ONE (21:29)
[2019-04-30] MEDS ORDERED: Naloxone 0.4 MG/ML INJ IVP PRN (00:57)
[2019-04-30] MEDS: 0.9 % Sodium Chloride 1,000 ML IVC SCH ×3 (01:56→16:32)
[2019-04-30 04:04] LABS: Hematocrit 36.5 % (35.3-44.9); Hemoglobin 12.4 g/dL (11.5-15.4); Mean Corpuscular Hemoglobin 33.3 pg (28.0-33.3); Mean Corpuscular Volume 98.1 fL (83.0-100.0); Mean Platelet Volume 9.6 fL (9.4-12.4); Platelet Count 149 K/mcL (140-400); Red Blood Count 3.72 M/mcL (3.82-4.97); Red Cell Distribution Width 14.9 % (11.5-14.5); White Blood Count 2.9 K/mcL (4.3-11.1)
[2019-04-30 04:14] LABS: INR 7.8; Prothrombin Time 88.7 Seconds (9.4-12.1)
[2019-04-30 04:24] LABS: BUN/Creatinine Ratio 13 (6-26); Blood Urea Nitrogen 13 mg/dL (6-20); Calcium 8.1 mg/dL (8.6-10.3); Carbon Dioxide 29 mEq/L (23-29); Chloride 106 mEq/L (98-107); Glucose 81 mg/dL (70-105); Osmolality,Calculated 287 (280-300); Potassium 3.8 mEq/L (3.5-5.1); Sodium 139 mEq/L (136-145); eGFR For African Americans > 60 (> 60); eGFR For Non-African Americans 57 (> 60)
[2019-04-30] MEDS ORDERED: Diclofenac Sodium [Voltaren] 1 APPL TP PRN (08:56)
[2019-04-30] MEDS ORDERED: E-Z-PAQUE (BARIUM SULF) SUSP 1 BOTTLE PO ONE (10:00)
[2019-04-30] MEDS: *HR* HYDROcodone/Acet 7.5/325 mg TABLET PO SCH ×2 (11:54→19:19)
[2019-04-30] MEDS: Magnesium Oxide 400 MG TABLET PO SCH ×2 (11:54→15:28)
[2019-04-30] MEDS: hydroCHLOROthiazide 25 MG TABLET PO SCH ×2 (11:54→15:28)
[2019-04-30] MEDS: clonazePAM 1 MG TABLET PO SCH ×3 (11:54→20:50)
[2019-04-30] MEDS: Cholecalciferol (D-3) 1,000 UNIT (25MCG) TABLET PO SCH ×2 (11:55→15:27)
[2019-04-30] MEDS: BuPROPion XL (24 HR) 150 MG TABLET PO SCH ×2 (11:55→15:27)
[2019-04-30] MEDS: valACYclovir 500 MG TABLET PO SCH ×2 (11:55→15:27)
[2019-04-30] MEDS: Acetaminophen/Butalbital/CaffeineTABLET PO PRN (15:28)
[2019-04-30] MEDS ORDERED: NON-FORMULARY MEDICATION 1 EACH EACH (Hydroxyzine Hcl [Hydroxyzine Hcl] 50 MG) PO PRN (16:16)
[2019-04-30] MEDS ORDERED: hydrOXYzine pamoate 25 MG CAPSULE PO PRN ×2 (16:16→17:00)
[2019-04-30] MEDS: Lidocaine Viscous Oral Soln 15 ML SOLUTION MM PRN (19:27)
[2019-04-30] MEDS: traZODone 50 MG TABLET PO SCH (20:50)
[2019-04-30] MEDS: Melatonin 3 MG TABLET PO SCH (20:50)
[2019-04-30] MEDS: *HR* HYDROcodone/Acet 10/325 mg TABLET PO PRN (20:51)
[2019-04-30] MEDS: Diltiazem SR (12hr) 90 MG CAPSULE PO SCH (20:51)
[2019-04-30] MEDS: rOPINIRole 1 MG TABLET PO SCH (20:51)
[2019-04-30] MEDS: Sennosides 8.6 MG TABLET PO SCH (20:51)
[2019-04-30] MEDS: Cyclosporine [Restasis] 1 DROP OP SCH (20:52)
[2019-04-30] MEDS: miSOPROStoL 100 MCG TABLET PO SCH (20:52)
[2019-04-30] MEDS: Linaclotide [Linzess] 145 MCG PO SCH (20:52)
[2019-04-30] MEDS ORDERED: Cyclosporine [Restasis] 1 DROP BOTH EYES SCH (21:00)
[2019-04-30] MEDS: Budesonide/Formoterol 80/4.5 1 PUFF INH IH SCH (22:21)
[2019-05-01 03:09] LABS: Basophils % 0.9 %; Eosinophils # 0.3 K/mcL (0.0-0.6); Hematocrit 38.2 % (35.3-44.9); Hemoglobin 12.7 g/dL (11.5-15.4); Lymphocytes # 1.3 K/mcL (0.6-4.6); Lymphocytes % 41.7 %; Mean Corpuscular HGB Conc 33.2 g/dL (31.6-35.5); Mean Corpuscular Hemoglobin 32.6 pg (28.0-33.3); Mean Corpuscular Volume 98.2 fL (83.0-100.0); Mean Platelet Volume 9.5 fL (9.4-12.4); Monocytes # 0.2 K/mcL (0.0-1.3); Monocytes % 6.5 %; Neutrophils # 1.3 K/mcL (1.6-8.9); Platelet Count 145 K/mcL (140-400); Red Blood Count 3.89 M/mcL (3.82-4.97); Segmented Neutrophils % 41.9 %; White Blood Count 3.2 K/mcL (4.3-11.1)
[2019-05-01 03:25] LABS: INR 5.8; Prothrombin Time 66.2 Seconds (9.4-12.1)
[2019-05-01] MEDS: Budesonide/Formoterol 80/4.5 1 PUFF INH IH SCH ×2 (07:38→20:53)
[2019-05-01] MEDS: clonazePAM 1 MG TABLET PO SCH ×2 (09:43→20:10)
[2019-05-01] MEDS: Cholecalciferol (D-3) 1,000 UNIT (25MCG) TABLET PO SCH (09:43)
[2019-05-01] MEDS: valACYclovir 500 MG TABLET PO SCH (09:44)
[2019-05-01] MEDS: BuPROPion XL (24 HR) 150 MG TABLET PO SCH (09:44)
[2019-05-01] MEDS: hydroCHLOROthiazide 25 MG TABLET PO SCH (09:44)
[2019-05-01] MEDS: Diltiazem SR (12hr) 90 MG CAPSULE PO SCH ×2 (09:44→20:10)
[2019-05-01] MEDS: Magnesium Oxide 400 MG TABLET PO SCH (09:44)
[2019-05-01] MEDS: Sennosides 8.6 MG TABLET PO SCH ×2 (09:44→20:12)
[2019-05-01] MEDS: *HR* HYDROcodone/Acet 10/325 mg TABLET PO PRN ×3 (09:53→21:42)
[2019-05-01] MEDS: miSOPROStoL 100 MCG TABLET PO SCH ×2 (10:43→20:10)
[2019-05-01] MEDS: Cyclosporine [Restasis] 1 DROP OP SCH (20:11)
[2019-05-01] MEDS: Melatonin 3 MG TABLET PO SCH (20:11)
[2019-05-01] MEDS: rOPINIRole 1 MG TABLET PO SCH (20:12)
[2019-05-01] MEDS: Linaclotide [Linzess] 145 MCG PO SCH (20:12)
[2019-05-01] MEDS: traZODone 50 MG TABLET PO SCH (20:12)
[2019-05-01] MEDS: Ondansetron 4 MG/2 ML VIAL IVP PRN (21:33)
[2019-05-02 04:17] LABS: Basophils % 0.6 %; Eosinophils # 0.3 K/mcL (0.0-0.6); Eosinophils % 8.9 %; Hematocrit 38.1 % (35.3-44.9); Immature Granulocytes % 0.3 % (0-4); Lymphocytes # 1.2 K/mcL (0.6-4.6); Lymphocytes % 37.8 %; Mean Corpuscular HGB Conc 34.1 g/dL (31.6-35.5); Mean Corpuscular Hemoglobin 33.3 pg (28.0-33.3); Mean Corpuscular Volume 97.7 fL (83.0-100.0); Mean Platelet Volume 9.4 fL (9.4-12.4); Monocytes # 0.3 K/mcL (0.0-1.3); Monocytes % 8.6 %; Neutrophils # 1.4 K/mcL (1.6-8.9); Platelet Count 141 K/mcL (140-400); Red Cell Distribution Width 14.7 % (11.5-14.5); Segmented Neutrophils % 43.8 %; White Blood Count 3.3 K/mcL (4.3-11.1)
[2019-05-02 04:29] LABS: INR 2.3; Prothrombin Time 25.9 Seconds (9.4-12.1)
[2019-05-02 04:35] LABS: BUN/Creatinine Ratio 14 (6-26); Blood Urea Nitrogen 14 mg/dL (6-20); Calcium 8.9 mg/dL (8.6-10.3); Carbon Dioxide 28 mEq/L (23-29); Chloride 104 mEq/L (98-107); Glucose 80 mg/dL (70-105); Magnesium 1.7 mg/dL (1.6-2.6); Osmolality,Calculated 283 (280-300); Sodium 137 mEq/L (136-145); eGFR For African Americans > 60 (> 60); eGFR For Non-African Americans 56 (> 60)
[2019-05-02] MEDS: BuPROPion XL (24 HR) 150 MG TABLET PO SCH (09:30)
[2019-05-02] MEDS: Diltiazem SR (12hr) 90 MG CAPSULE PO SCH ×2 (09:30→21:00)
[2019-05-02] MEDS: valACYclovir 500 MG TABLET PO SCH (09:30)
[2019-05-02] MEDS: miSOPROStoL 100 MCG TABLET PO SCH ×2 (09:30→20:59)
[2019-05-02] MEDS: Isosorbide MONOnitrate (24 HR) 30 MG TAB.ER.24H PO SCH (09:30)
[2019-05-02] MEDS: Cholecalciferol (D-3) 1,000 UNIT (25MCG) TABLET PO SCH (09:30)
[2019-05-02] MEDS: Magnesium Oxide 400 MG TABLET PO SCH (09:31)
[2019-05-02] MEDS: hydroCHLOROthiazide 25 MG TABLET PO SCH (09:31)
[2019-05-02] MEDS: Sennosides 8.6 MG TABLET PO SCH ×2 (09:31→21:01)
[2019-05-02] MEDS: clonazePAM 1 MG TABLET PO SCH ×2 (09:31→21:00)
[2019-05-02] MEDS: *HR* HYDROcodone/Acet 10/325 mg TABLET PO PRN (12:26)
[2019-05-02] MEDS ORDERED: *HR* Phytonadione 5 MG TABLET PO ONE (14:41)
[2019-05-02] MEDS ORDERED: Trolamine Salicylate/Aloe Vera 85 APPL/85 GM TUBE TP PRN (15:32)
[2019-05-02] MEDS: Acetaminophen/Butalbital/CaffeineTABLET PO PRN (16:17)
[2019-05-02] MEDS: Lidocaine Viscous Oral Soln 15 ML SOLUTION MM PRN (16:17)
[2019-05-02] MEDS: Linaclotide [Linzess] 145 MCG PO SCH (20:57)
[2019-05-02] MEDS: Artificial Tears SOLN 15 ML BOTTLE BOTH EYES SCH (20:58)
[2019-05-02] MEDS: traZODone 50 MG TABLET PO SCH (20:59)
[2019-05-02] MEDS: rOPINIRole 1 MG TABLET PO SCH (21:00)
[2019-05-02] MEDS: Melatonin 3 MG TABLET PO SCH (21:00)
[2019-05-03 05:16] LABS: Basophils % 0.9 %; Eosinophils # 0.3 K/mcL (0.0-0.6); Eosinophils % 10.1 %; Hematocrit 38.6 % (35.3-44.9); Hemoglobin 13.1 g/dL (11.5-15.4); Lymphocytes # 1.1 K/mcL (0.6-4.6); Lymphocytes % 32.9 %; Mean Corpuscular HGB Conc 33.9 g/dL (31.6-35.5); Mean Corpuscular Hemoglobin 32.8 pg (28.0-33.3); Mean Corpuscular Volume 96.5 fL (83.0-100.0); Mean Platelet Volume 9.2 fL (9.4-12.4); Monocytes # 0.3 K/mcL (0.0-1.3); Monocytes % 8.5 %; Neutrophils # 1.6 K/mcL (1.6-8.9); Platelet Count 159 K/mcL (140-400); Red Cell Distribution Width 14.5 % (11.5-14.5); Segmented Neutrophils % 47.6 %; White Blood Count 3.3 K/mcL (4.3-11.1)
[2019-05-03 05:20] LABS: INR 1.2; Prothrombin Time 13.9 Seconds (9.4-12.1)
[2019-05-03 05:34] LABS: Magnesium 1.7 mg/dL (1.6-2.6); Potassium 3.8 mEq/L (3.5-5.1)
[2019-05-03] MEDS: Diltiazem SR (12hr) 90 MG CAPSULE PO SCH ×2 (10:21→20:33)
[2019-05-03] MEDS: Magnesium Oxide 400 MG TABLET PO SCH (10:21)
[2019-05-03] MEDS: miSOPROStoL 100 MCG TABLET PO SCH ×2 (10:21→20:40)
[2019-05-03] MEDS: Isosorbide MONOnitrate (24 HR) 30 MG TAB.ER.24H PO SCH (10:21)
[2019-05-03] MEDS: hydroCHLOROthiazide 25 MG TABLET PO SCH (10:21)
[2019-05-03] MEDS: clonazePAM 1 MG TABLET PO SCH ×2 (10:21→20:32)
[2019-05-03] MEDS: BuPROPion XL (24 HR) 150 MG TABLET PO SCH (10:22)
[2019-05-03] MEDS: Cholecalciferol (D-3) 1,000 UNIT (25MCG) TABLET PO SCH (10:22)
[2019-05-03] MEDS: Sennosides 8.6 MG TABLET PO SCH ×2 (10:22→20:32)
[2019-05-03] MEDS: valACYclovir 500 MG TABLET PO SCH (10:22)
[2019-05-03] MEDS ORDERED: *HR* Propofol 200 MG/20 ML VIAL IVP ONE (13:10)
[2019-05-03] MEDS: *HR* HYDROcodone/Acet 10/325 mg TABLET PO PRN ×2 (14:19→22:07)
[2019-05-03] MEDS ORDERED: Warfarin perPT PO PRN (18:00)
[2019-05-03] MEDS ORDERED: *HR* Warfarin 5 MG TABLET PO ONE (18:00)
[2019-05-03] MEDS: traZODone 50 MG TABLET PO SCH (20:30)
[2019-05-03] MEDS: Melatonin 3 MG TABLET PO SCH (20:30)
[2019-05-03] MEDS: Linaclotide [Linzess] 145 MCG PO SCH (20:32)
[2019-05-03] MEDS: rOPINIRole 1 MG TABLET PO SCH (20:32)
[2019-05-03] MEDS: Artificial Tears SOLN 15 ML BOTTLE BOTH EYES SCH (20:33)
[2019-05-03] MEDS: Ondansetron ODT 4 MG TAB.RAPDIS SL PRN (22:08)
[2019-05-04 03:17] LABS: Hematocrit 38.1 % (35.3-44.9); Hemoglobin 13.1 g/dL (11.5-15.4); Mean Corpuscular HGB Conc 34.4 g/dL (31.6-35.5); Mean Corpuscular Hemoglobin 33.1 pg (28.0-33.3); Mean Corpuscular Volume 96.2 fL (83.0-100.0); Mean Platelet Volume 9.3 fL (9.4-12.4); Platelet Count 147 K/mcL (140-400); Prothrombin Time 11.8 Seconds (9.4-12.1); Red Blood Count 3.96 M/mcL (3.82-4.97); Red Cell Distribution Width 14.3 % (11.5-14.5); White Blood Count 4.5 K/mcL (4.3-11.1)
[2019-05-04 03:31] LABS: BUN/Creatinine Ratio 21 (6-26); Blood Urea Nitrogen 22 mg/dL (6-20); Calcium 9.2 mg/dL (8.6-10.3); Carbon Dioxide 33 mEq/L (23-29); Chloride 99 mEq/L (98-107); Glucose 103 mg/dL (70-105); Osmolality,Calculated 288 (280-300); Potassium 3.7 mEq/L (3.5-5.1); Sodium 137 mEq/L (136-145); eGFR For African Americans > 60 (> 60); eGFR For Non-African Americans 55 (> 60)
[2019-05-04] MEDS: Ondansetron 4 MG/2 ML VIAL IVP PRN (09:32)
[2019-05-04] MEDS: clonazePAM 1 MG TABLET PO SCH ×2 (09:34→20:10)
[2019-05-04] MEDS: Isosorbide MONOnitrate (24 HR) 30 MG TAB.ER.24H PO SCH (09:35)
[2019-05-04] MEDS: hydroCHLOROthiazide 25 MG TABLET PO SCH (09:35)
[2019-05-04] MEDS: *HR* HYDROcodone/Acet 10/325 mg TABLET PO PRN ×2 (09:35→18:45)
[2019-05-04] MEDS: Cholecalciferol (D-3) 1,000 UNIT (25MCG) TABLET PO SCH (09:35)
[2019-05-04] MEDS: BuPROPion XL (24 HR) 150 MG TABLET PO SCH (09:35)
[2019-05-04] MEDS: Magnesium Oxide 400 MG TABLET PO SCH (09:36)
[2019-05-04] MEDS: Sennosides 8.6 MG TABLET PO SCH ×2 (09:36→20:11)
[2019-05-04] MEDS: valACYclovir 500 MG TABLET PO SCH (09:37)
[2019-05-04] MEDS: Diltiazem SR (12hr) 90 MG CAPSULE PO SCH ×2 (09:52→20:12)
[2019-05-04] MEDS: miSOPROStoL 100 MCG TABLET PO SCH ×2 (09:52→20:12)
[2019-05-04] MEDS ORDERED: *HR* Heparin 5,000 UNIT/ML VIAL IVP ONE (12:34)
[2019-05-04] MEDS ORDERED: *HR* Heparin 5,000 UNIT/ML VIAL IVP PRN (12:34)
[2019-05-04] MEDS: Heparin 25,000 UNIT/250 ML D5W 25,000 UNIT/250 ML IV.SOLN IVC SCH (14:14)
[2019-05-04] MEDS ORDERED: *HR* Warfarin 5 MG TABLET PO ONE (18:00)
[2019-05-04] MEDS: Ondansetron ODT 4 MG TAB.RAPDIS SL PRN (18:45)
[2019-05-04] MEDS: traZODone 50 MG TABLET PO SCH (20:12)
[2019-05-04] MEDS: Melatonin 3 MG TABLET PO SCH (20:12)
[2019-05-04] MEDS: Artificial Tears SOLN 15 ML BOTTLE BOTH EYES SCH (20:13)
[2019-05-04] MEDS: rOPINIRole 1 MG TABLET PO SCH (20:13)
[2019-05-04] MEDS: Linaclotide [Linzess] 145 MCG PO SCH (20:14)
[2019-05-05] MEDS: Lidocaine Viscous Oral Soln 15 ML SOLUTION MM PRN (02:29)
[2019-05-05 03:14] LABS: Basophils % 0.8 %; Eosinophils # 0.3 K/mcL (0.0-0.6); Eosinophils % 8.6 %; Hematocrit 37.2 % (35.3-44.9); Hemoglobin 12.9 g/dL (11.5-15.4); Lymphocytes # 1.6 K/mcL (0.6-4.6); Mean Corpuscular HGB Conc 34.7 g/dL (31.6-35.5); Mean Corpuscular Hemoglobin 33.3 pg (28.0-33.3); Mean Corpuscular Volume 96.1 fL (83.0-100.0); Mean Platelet Volume 9.6 fL (9.4-12.4); Monocytes # 0.3 K/mcL (0.0-1.3); Monocytes % 8.1 %; Neutrophils # 1.7 K/mcL (1.6-8.9); Platelet Count 138 K/mcL (140-400); Red Blood Count 3.87 M/mcL (3.82-4.97); Red Cell Distribution Width 14.5 % (11.5-14.5); Segmented Neutrophils % 43.5 %
[2019-05-05 03:20] LABS: Prothrombin Time 11.5 Seconds (9.4-12.1)
[2019-05-05 03:33] LABS: Potassium 3.3 mEq/L (3.5-5.1)
[2019-05-05] MEDS: *HR* HYDROcodone/Acet 10/325 mg TABLET PO PRN ×2 (06:00→12:41)
[2019-05-05] MEDS: valACYclovir 500 MG TABLET PO SCH (08:26)
[2019-05-05] MEDS: BuPROPion XL (24 HR) 150 MG TABLET PO SCH (08:26)
[2019-05-05] MEDS: Magnesium Oxide 400 MG TABLET PO SCH (08:26)
[2019-05-05] MEDS: Cholecalciferol (D-3) 1,000 UNIT (25MCG) TABLET PO SCH (08:27)
[2019-05-05] MEDS: hydroCHLOROthiazide 25 MG TABLET PO SCH (08:27)
[2019-05-05] MEDS: clonazePAM 1 MG TABLET PO SCH ×2 (08:27→20:12)
[2019-05-05] MEDS: Diltiazem SR (12hr) 90 MG CAPSULE PO SCH ×2 (08:27→20:22)
[2019-05-05] MEDS: Sennosides 8.6 MG TABLET PO SCH ×2 (08:27→20:13)
[2019-05-05] MEDS: miSOPROStoL 100 MCG TABLET PO SCH ×2 (08:28→20:22)
[2019-05-05] MEDS: Isosorbide MONOnitrate (24 HR) 30 MG TAB.ER.24H PO SCH (08:28)
[2019-05-05] MEDS: Heparin 25,000 UNIT/250 ML D5W 25,000 UNIT/250 ML IV.SOLN IVC SCH (10:41)
[2019-05-05] MEDS ORDERED: Preparation H Ointment 30 GM TUBE TP PRN (15:15)
[2019-05-05] MEDS ORDERED: Bisacodyl 10 MG RECTAL SUPPOSITORY RC PRN (15:15)
[2019-05-05] MEDS: Acetaminophen/Butalbital/CaffeineTABLET PO PRN (15:20)
[2019-05-05] MEDS: Clotrimazole 1% CRM 15 GM TUBE TP SCH (17:18)
[2019-05-05] MEDS ORDERED: Bisacodyl 10 MG RECTAL SUPPOSITORY RC ONE (17:49)
[2019-05-05] MEDS ORDERED: *HR* Warfarin 5 MG TABLET PO ONE (18:00)
[2019-05-05] MEDS: Melatonin 3 MG TABLET PO SCH (20:12)
[2019-05-05] MEDS: traZODone 50 MG TABLET PO SCH (20:12)
[2019-05-05] MEDS: rOPINIRole 1 MG TABLET PO SCH (20:12)
[2019-05-05] MEDS: Artificial Tears SOLN 15 ML BOTTLE BOTH EYES SCH (20:13)
[2019-05-05] MEDS: Linaclotide [Linzess] 145 MCG PO SCH (20:25)
[2019-05-06 02:34] LABS: Prothrombin Time 11.8 Seconds (9.4-12.1)
[2019-05-06 02:42] LABS: Basophils % 0.5 %; Eosinophils # 0.3 K/mcL (0.0-0.6); Eosinophils % 7.4 %; Hematocrit 36.7 % (35.3-44.9); Hemoglobin 12.4 g/dL (11.5-15.4); Immature Granulocytes % 0.3 % (0-4); Lymphocytes # 1.4 K/mcL (0.6-4.6); Lymphocytes % 35.8 %; Mean Corpuscular HGB Conc 33.8 g/dL (31.6-35.5); Mean Corpuscular Hemoglobin 32.5 pg (28.0-33.3); Mean Corpuscular Volume 96.3 fL (83.0-100.0); Mean Platelet Volume 9.7 fL (9.4-12.4); Monocytes # 0.3 K/mcL (0.0-1.3); Monocytes % 7.2 %; Neutrophils # 1.8 K/mcL (1.6-8.9); Platelet Count 149 K/mcL (140-400); Red Blood Count 3.81 M/mcL (3.82-4.97); Red Cell Distribution Width 14.1 % (11.5-14.5); Segmented Neutrophils % 48.8 %; White Blood Count 3.8 K/mcL (4.3-11.1)
[2019-05-06 03:24] LABS: BUN/Creatinine Ratio 21 (6-26); Blood Urea Nitrogen 24 mg/dL (6-20); Calcium 9.1 mg/dL (8.6-10.3); Carbon Dioxide 29 mEq/L (23-29); Chloride 101 mEq/L (98-107); Glucose 98 mg/dL (70-105); Osmolality,Calculated 288 (280-300); Sodium 137 mEq/L (136-145); eGFR For African Americans > 60 (> 60); eGFR For Non-African Americans 51 (> 60)
[2019-05-06] MEDS: Ondansetron ODT 4 MG TAB.RAPDIS SL PRN (05:20)
[2019-05-06] MEDS: valACYclovir 500 MG TABLET PO SCH (08:53)
[2019-05-06] MEDS: Sennosides 8.6 MG TABLET PO SCH ×2 (08:54→20:02)
[2019-05-06] MEDS: miSOPROStoL 100 MCG TABLET PO SCH ×2 (08:54→20:03)
[2019-05-06] MEDS: hydroCHLOROthiazide 25 MG TABLET PO SCH (08:54)
[2019-05-06] MEDS: Magnesium Oxide 400 MG TABLET PO SCH (08:55)
[2019-05-06] MEDS: Diltiazem SR (12hr) 90 MG CAPSULE PO SCH ×2 (08:55→20:03)
[2019-05-06] MEDS: Isosorbide MONOnitrate (24 HR) 30 MG TAB.ER.24H PO SCH (08:55)
[2019-05-06] MEDS: Cholecalciferol (D-3) 1,000 UNIT (25MCG) TABLET PO SCH (08:56)
[2019-05-06] MEDS: BuPROPion XL (24 HR) 150 MG TABLET PO SCH (08:56)
[2019-05-06] MEDS: clonazePAM 1 MG TABLET PO SCH ×2 (08:56→20:04)
[2019-05-06] MEDS: Clotrimazole 1% CRM 15 GM TUBE TP SCH (09:02)
[2019-05-06] MEDS: Heparin 25,000 UNIT/250 ML D5W 25,000 UNIT/250 ML IV.SOLN IVC SCH (14:01)
[2019-05-06] MEDS ORDERED: *HR* Warfarin 7.5 MG TABLET PO ONE (18:00)
[2019-05-06] MEDS: rOPINIRole 1 MG TABLET PO SCH (20:04)
[2019-05-06] MEDS: Artificial Tears SOLN 15 ML BOTTLE BOTH EYES SCH (20:04)
[2019-05-06] MEDS: Linaclotide [Linzess] 145 MCG PO SCH (20:04)
[2019-05-06] MEDS: *HR* Heparin 5,000 UNIT/ML VIAL IVP PRN (20:48)
[2019-05-06] MEDS: Melatonin 3 MG TABLET PO SCH (20:49)
[2019-05-06] MEDS: traZODone 50 MG TABLET PO SCH (20:49)
[2019-05-07] MEDS: *HR* HYDROcodone/Acet 10/325 mg TABLET PO PRN ×2 (02:20→13:20)
[2019-05-07 03:54] LABS: Hematocrit 35.9 % (35.3-44.9); Hemoglobin 12.3 g/dL (11.5-15.4); Mean Corpuscular HGB Conc 34.3 g/dL (31.6-35.5); Mean Corpuscular Hemoglobin 33.5 pg (28.0-33.3); Mean Corpuscular Volume 97.8 fL (83.0-100.0); Mean Platelet Volume 9.4 fL (9.4-12.4); Platelet Count 147 K/mcL (140-400); Red Blood Count 3.67 M/mcL (3.82-4.97); Red Cell Distribution Width 14.6 % (11.5-14.5); White Blood Count 3.1 K/mcL (4.3-11.1)
[2019-05-07 04:13] LABS: INR 1.2; Prothrombin Time 13.7 Seconds (9.4-12.1)
[2019-05-07 04:20] LABS: BUN/Creatinine Ratio 18 (6-26); Blood Urea Nitrogen 17 mg/dL (6-20); Calcium 8.8 mg/dL (8.6-10.3); Carbon Dioxide 31 mEq/L (23-29); Chloride 104 mEq/L (98-107); Glucose 109 mg/dL (70-105); Osmolality,Calculated 292 (280-300); Potassium 3.2 mEq/L (3.5-5.1); Sodium 140 mEq/L (136-145); eGFR For African Americans > 60 (> 60); eGFR For Non-African Americans > 60 (> 60)
[2019-05-07] MEDS: Heparin 25,000 UNIT/250 ML D5W 25,000 UNIT/250 ML IV.SOLN IVC SCH ×2 (05:46→21:33)
[2019-05-07] MEDS: clonazePAM 1 MG TABLET PO SCH ×2 (08:05→21:27)
[2019-05-07] MEDS: Magnesium Oxide 400 MG TABLET PO SCH (08:05)
[2019-05-07] MEDS: BuPROPion XL (24 HR) 150 MG TABLET PO SCH (08:05)
[2019-05-07] MEDS: valACYclovir 500 MG TABLET PO SCH (08:05)
[2019-05-07] MEDS: miSOPROStoL 100 MCG TABLET PO SCH ×2 (08:06→21:28)
[2019-05-07] MEDS: hydroCHLOROthiazide 25 MG TABLET PO SCH (08:06)
[2019-05-07] MEDS: Cholecalciferol (D-3) 1,000 UNIT (25MCG) TABLET PO SCH (08:06)
[2019-05-07] MEDS: Isosorbide MONOnitrate (24 HR) 30 MG TAB.ER.24H PO SCH (08:06)
[2019-05-07] MEDS: Diltiazem SR (12hr) 90 MG CAPSULE PO SCH ×2 (08:06→21:28)
[2019-05-07] MEDS: Clotrimazole 1% CRM 15 GM TUBE TP SCH (08:07)
[2019-05-07] MEDS: Sennosides 8.6 MG TABLET PO SCH ×2 (08:07→21:28)
[2019-05-07] MEDS: Acetaminophen/Butalbital/CaffeineTABLET PO PRN (08:07)
[2019-05-07] MEDS: *HR* Heparin 5,000 UNIT/ML VIAL IVP PRN (14:07)
[2019-05-07] MEDS ORDERED: *HR* Warfarin 7.5 MG TABLET PO ONE (18:00)
[2019-05-07] MEDS: traZODone 50 MG TABLET PO SCH (21:27)
[2019-05-07] MEDS: rOPINIRole 1 MG TABLET PO SCH (21:28)
[2019-05-07] MEDS: Melatonin 3 MG TABLET PO SCH (21:28)
[2019-05-07] MEDS: Artificial Tears SOLN 15 ML BOTTLE BOTH EYES SCH (22:38)
[2019-05-07] MEDS: Linaclotide [Linzess] 145 MCG PO SCH (22:38)
[2019-05-08 02:47] LABS: Hematocrit 35.2 % (35.3-44.9); Hemoglobin 11.6 g/dL (11.5-15.4); Mean Corpuscular Hemoglobin 33.7 pg (28.0-33.3); Mean Corpuscular Volume 102.3 fL (83.0-100.0); Mean Platelet Volume 9.2 fL (9.4-12.4); Platelet Count 137 K/mcL (140-400); Red Blood Count 3.44 M/mcL (3.82-4.97); Red Cell Distribution Width 14.6 % (11.5-14.5); White Blood Count 3.8 K/mcL (4.3-11.1)
[2019-05-08 02:49] LABS: INR 1.6; Prothrombin Time 17.9 Seconds (9.4-12.1)
[2019-05-08 03:11] LABS: BUN/Creatinine Ratio 18 (6-26); Blood Urea Nitrogen 17 mg/dL (6-20); Carbon Dioxide 30 mEq/L (23-29); Chloride 105 mEq/L (98-107); Glucose 100 mg/dL (70-105); Osmolality,Calculated 294 (280-300); Potassium 3.7 mEq/L (3.5-5.1); Sodium 141 mEq/L (136-145); eGFR For African Americans > 60 (> 60); eGFR For Non-African Americans > 60 (> 60)
[2019-05-08] MEDS: valACYclovir 500 MG TABLET PO SCH (08:48)
[2019-05-08] MEDS: miSOPROStoL 100 MCG TABLET PO SCH ×2 (08:49→20:44)
[2019-05-08] MEDS: BuPROPion XL (24 HR) 150 MG TABLET PO SCH (08:49)
[2019-05-08] MEDS: Magnesium Oxide 400 MG TABLET PO SCH (08:49)
[2019-05-08] MEDS: Cholecalciferol (D-3) 1,000 UNIT (25MCG) TABLET PO SCH (08:49)
[2019-05-08] MEDS: Sennosides 8.6 MG TABLET PO SCH ×2 (08:49→20:44)
[2019-05-08] MEDS: clonazePAM 1 MG TABLET PO SCH ×2 (08:49→20:45)
[2019-05-08] MEDS: Diltiazem SR (12hr) 90 MG CAPSULE PO SCH ×2 (08:50→20:44)
[2019-05-08] MEDS: Isosorbide MONOnitrate (24 HR) 30 MG TAB.ER.24H PO SCH (08:50)
[2019-05-08] MEDS: hydroCHLOROthiazide 25 MG TABLET PO SCH (08:50)
[2019-05-08] MEDS: Clotrimazole 1% CRM 15 GM TUBE TP SCH (10:05)
[2019-05-08] MEDS: *HR* HYDROcodone/Acet 10/325 mg TABLET PO PRN (10:05)
[2019-05-08] MEDS ORDERED: Bisacodyl 10 MG RECTAL SUPPOSITORY RC PRN (11:55)
[2019-05-08] MEDS: Acetaminophen/Butalbital/CaffeineTABLET PO PRN (12:57)
[2019-05-08] MEDS ORDERED: *HR* Warfarin 5 MG TABLET PO SCH (18:00)
[2019-05-08] MEDS: rOPINIRole 1 MG TABLET PO SCH (20:44)
[2019-05-08] MEDS: Melatonin 3 MG TABLET PO SCH (20:46)
[2019-05-08] MEDS: traZODone 50 MG TABLET PO SCH (20:46)
[2019-05-08] MEDS: Linaclotide [Linzess] 145 MCG PO SCH (22:24)
[2019-05-09] MEDS: Heparin 25,000 UNIT/250 ML D5W 25,000 UNIT/250 ML IV.SOLN IVC SCH ×2 (00:07→12:36)
[2019-05-09] MEDS: Artificial Tears SOLN 15 ML BOTTLE BOTH EYES SCH (00:10)
[2019-05-09 04:52] LABS: INR 2.1; Prothrombin Time 24.2 Seconds (9.4-12.1)
[2019-05-09] MEDS: miSOPROStoL 100 MCG TABLET PO SCH (08:36)
[2019-05-09] MEDS: Diltiazem SR (12hr) 90 MG CAPSULE PO SCH (08:36)
[2019-05-09] MEDS: clonazePAM 1 MG TABLET PO SCH (08:36)
[2019-05-09] MEDS: Cholecalciferol (D-3) 1,000 UNIT (25MCG) TABLET PO SCH (08:36)
[2019-05-09] MEDS: Magnesium Oxide 400 MG TABLET PO SCH (08:36)
[2019-05-09] MEDS: Isosorbide MONOnitrate (24 HR) 30 MG TAB.ER.24H PO SCH (08:36)
[2019-05-09] MEDS: valACYclovir 500 MG TABLET PO SCH (08:37)
[2019-05-09] MEDS: Sennosides 8.6 MG TABLET PO SCH (08:37)
[2019-05-09] MEDS: BuPROPion XL (24 HR) 150 MG TABLET PO SCH (08:37)
[2019-05-09] MEDS: hydroCHLOROthiazide 25 MG TABLET PO SCH (08:37)
[2019-05-09] MEDS: Clotrimazole 1% CRM 15 GM TUBE TP SCH (08:38)
[2019-05-09] MEDS: *HR* HYDROcodone/Acet 10/325 mg TABLET PO PRN ×2 (08:53→14:17)
[2019-05-09] MEDS ORDERED: Hyoscyamine SL 0.125 MG TAB.SUBL SL PRN (10:18)
[2019-05-09 12:11] VITALS: BP 116/75
[2019-05-09 13:03] LABS: BUN/Creatinine Ratio 15 (6-26); Blood Urea Nitrogen 16 mg/dL (6-20); Carbon Dioxide 31 mEq/L (23-29); Chloride 104 mEq/L (98-107); Glucose 96 mg/dL (70-105); Osmolality,Calculated 289 (280-300); Potassium 3.9 mEq/L (3.5-5.1); Sodium 139 mEq/L (136-145); eGFR For African Americans > 60 (> 60); eGFR For Non-African Americans 54 (> 60)
[2019-05-09 14:39] LABS: Hematocrit 38.2 % (35.3-44.9); Hemoglobin 12.8 g/dL (11.5-15.4); Mean Corpuscular HGB Conc 33.5 g/dL (31.6-35.5); Mean Corpuscular Hemoglobin 33.3 pg (28.0-33.3); Mean Corpuscular Volume 99.5 fL (83.0-100.0); Platelet Count 157 K/mcL (140-400); Red Blood Count 3.84 M/mcL (3.82-4.97); Red Cell Distribution Width 14.6 % (11.5-14.5); White Blood Count 3.1 K/mcL (4.3-11.1)
[2019-05-09] MEDS ORDERED: *HR* Warfarin 5 MG TABLET PO ONE (18:00)
== END 2019-05-09 17:15 | disposition home health service (06) | DRG 392 ==
LOC: EMEROOARM 16:27 → 3BNU 16:27 → SUATTDRO 22:36 → 3BNU 22:59
PROVIDERS: ADMIT Family Medicine; ATTEND Pharmacist
PROC: ENDOEDS (2019-05-03 13:00)